=== PATIENT | female | born 1955 | race Caucasian/White ===

== ENCOUNTER 2023-03-27 11:27 | Outpatient (OUT) | payer MEDICARE, OTHER, SELFPAY ==
[2023-03-27 12:36] LABS: Estimated Average Glucose 148 mg/dL; Glycohemoglobin A1C 6.8 % (4.5-6.2)
[2023-03-27 13:57] LABS: Free T4 0.91 ng/dL (0.76-1.46)
[2023-03-27 14:03] LABS: Anion Gap 16.9; Calcium 9.8 mg/dL (8.5-10.1); Carbon Dioxide 26.6 mmol/L (21.0-32.0); Chloride 103 mmol/L (98-107); Estimated GFR (African America >60 (>=60); Estimated GFR (Non-African Ame >60 (>=60); Free T3 2.15 pg/mL (2.18-3.98); Glucose 171 mg/dL (74-106); Potassium 4.5 mmol/L (3.5-5.1); Sodium 142 mmol/L (136-145); Thyroid Stimulating Hormone 0.508 uIU/mL (0.358-3.740)
[2023-03-28 04:11] LABS: Triiodothyronine (T3) 148 ng/dL (71-180)
== END 2023-03-27 11:28 | disposition home or self-care (01) ==
LOC: LAB 11:33
PROVIDERS: PCP Family Medicine; Visit Provider Family Medicine
DX: E11.29 Type 2 diabetes mellitus with other diabetic kidney complication (principal); R80.9 Proteinuria, unspecified; E11.65 Type 2 diabetes mellitus with hyperglycemia; E87.6 Hypokalemia; G93.32 Myalgic encephalomyelitis/chronic fatigue syndrome; E07.81 Sick-euthyroid syndrome; E03.9 Hypothyroidism, unspecified
CPT/HCPCS: 36415; 80048; 83036; 84439; 84443; 84480; 84481; 84482

== ENCOUNTER 2023-04-18 13:48 | Outpatient (OUT) | payer MEDICARE, OTHER, SELFPAY ==
--- NOTE | 2023-04-18 | XR_ITS ---
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 There is hypertrophic osseous change off the posterior aspect of the os calcis at the attachment of the Achilles. There is mild first metatarsal phalangeal degenerative change. XR/XR foot LT min 3V IMPRESSION: Left foot radiographs show no evidence of acute abnormalities. Electronically authenticated by: NUPUR GARCIA Date: 04/19/2023 08:18
== END 2023-04-18 13:49 | disposition home or self-care (01) ==
LOC: RAD 13:48
PROVIDERS: PCP Family Medicine; Visit Provider Podiatrist Foot & Ankle Surgery
DX: M79.672 Pain in left foot (principal)
CPT/HCPCS: 73630

== ENCOUNTER 2024-12-25 22:07 | Emergency (ER) | payer MEDICARE, OTHER, SELFPAY ==
[2024-12-25 22:12] VITALS: BP 157/88; PULSE 80; TEMP 36.6; O2SAT 95; BMI 30.7
--- OUTSIDE RECORDS SUMMARY | 2024-12-25 22:13 | XMS_ITS | CCD ---
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 Name Role Phone TIFFANIE, DR PENA Admitting Unavailable HEMEYER, DR PENA Attending Unavailable HEMEYER, DR PENA Primary Care Unavailable HEMEYER, DR PENA Consulting Unavailable BUSTERYER, DR PENA Admitting Unavailable HEMEYER, DR PENA Attending Unavailable HEMEYER, DR PENA Primary Care Unavailable HEMEYER, DR PENA Consulting Unavailable BUSTERYER, DR PENA Admitting Unavailable HEMEYER, DR PENA Attending Unavailable HEMEYER, DR PENA Primary Care Unavailable HEMEYER, DR PENA Consulting Unavailable HEMEYER, DR PENA Admitting Unavailable HEMEYER, DR PENA Attending Unavailable BUSTERYER, DR PENA Primary Care Unavailable MD Louie Moreno Primary Care Provider [phone] THONY Smith Attending Provider MD Kobe Nur Attending Provider MD Louie Moreno Primary Care Provider [phone] MD Laverne Barlow Attending Provider MD Louie Moreno Attending Provider MD Louie Moreno Primary Care Provider MD Laverne Barlow Attending Provider Nery Mercado Unavailable THONY Mercado Attending Provider GINA Bellamy Attending Provider [phone] MD Louie Moreno Primary Care Provider THONY Mercado Attending Provider GINA Bellamy Attending Provider [phone] DIANELYS Maza Attending Provider [phone] oLuie Moreno MD Unavailable Louie Moreno MD Primary Care Provider [phone] Laverne Barlow MD Unavailable Unavailable Jose Martin RAGLAND, Christian Ochoa Unavailable [phone] Kobe Nur MD Unavailable Vincenzo Francois PT Unavailable Louie Moreno MD Unavailable [phone] Louie Moreno MD Primary Care Provider Louie Moreno MD Unavailable Louie Moreno MD Primary Care Provider [phone] Louie Moreno MD Primary Care Provider Kobe Nur MD Attending Provider [phone] Louie Moreno MD Primary Care Provider [phone] Kobe Nur MD Attending Provider [phone] Louie Moreno MD Primary Care Provider Kobe Nur MD Attending Provider [phone] Louie Moreno MD Primary Care Provider [phone] Vee Mcguire APRN Attending Provider Louie Moreno MD Attending Provider [phone] Louie Moreno MD Referring Provider [phone] Kobe Nur MD Unavailable Unavailable Louie Moreno MD Primary Care Provider [phone] LOUIE MORENO Attending Unavailable LOUIE MORENO Attending Unavailable LOUIE MORENO Attending Unavailable LOUIE MORENO Attending Unavailable LOUIE MORENO Attending Unavailable BRITNEY JEAN-BAPTISTE Attending Unavailable BRITNEY JEAN-BAPTISTE Referring Unavailable LOUIE MORENO Attending Unavailable LOUIE MORENO Attending Unavailable Velasquez RODRÍGUEZ-C, Shelli Gallo Attending Provider Louie Moreno Primary Care Unavailable Haladay, Kobe Admitting Unavailable Haladay, Kobe Attending Unavailable Louie Moreno Primary Care Unavailable Haladay, Kobe Admitting Unavailable Haladay, Kobe Attending Unavailable Louie Moreno Primary Care Unavailable Haladay, Kobe Admitting Unavailable Haladay, Kobe Attending Unavailable Louie Moreno Primary Care Unavailable Haladay, Kobe Attending Unavailable Boom, Kobe Admitting Unavailable Louie Moreno Attending Unavailable Louie Moreno Referring Unavailable Louie Moreno Admitting Unavailable Louie Moreno Primary Care Unavailable Velasquez, Shelli S Admitting Unavailable Velasquez, Shelli S Attending Unavailable Louie Moreno Primary Care Unavailable Petitti, Laverne A Admitting Unavailable Petitti, Laverne A Attending Unavailable Petitti, Laverne A Referring Unavailable Louie Moreno Primary Care Unavailable Allergies Allergy Classification Reported Allergen(s) Allergy Type Date of Onset Reaction(s) Facility (5 sources) Bacitracin / Neomycin / Polymyxin B Drug Allergy 6 anaphylaxis [facility] (13 sources) Penicillins Drug allergy (disorder) 6 Anaphylaxis [facility] (20 sources) Bacitracin; Translations: [bacitracin] Drug Allergy 1 Anaphylaxis [facility] (20 sources) Neomycin; Translations: [neomycin] Drug Allergy 1 anaphylaxis [facility] (20 sources) polymyxin B; Translations: [Polymyxin B] Allergy to substance 1 anaphylaxis [facility] (20 sources) Benzalkonium; Translations: [benzalkonium chloride] Drug Allergy 1 anaphylaxis [facility] Other (9 sources) Gramicidin; Translations: [gramicidin D] Drug Allergy 4 anaphylaxis [facility] (8 sources) Penicillin G Drug Allergy 4 anaphylaxis [facility] (20 sources) Gramicidin Drug Allergy 1 [facility] (20 sources) Penicillins Drug Intolerance 1 [facility] (1 source) Penicillin Drug Allergy 5 [facility] (1 source) Penicillins Drug allergy (disorder) [facility] Medications Current Medications Medication Drug Class(es) Dates Sig (Normalized) Sig (Original) amLODIPine 5 mg oral tablet (12 sources) Dihydropyridine Calcium Channel Anibal Start: 08-26-2020 take 1 tablet by mouth once daily Aspir-81 81 MG (3 sources) take 1 tablet by mouth once daily Aspir-81 81 MG 1 tablet Orally Once a day *please review for potential _update for e-prescription and drug interaction check* Active aspirin 81 mg chewable tablet (20 sources) Platelet Aggregation Inhibitor, Nonsteroidal Anti-inflammatory Drug Start: 07-06-2023 End: 07-05-2024 aspirin 81 MG chewable tablet Indications: Benign essential hypertension (CMS/HCC) Chew 1 tablet (81 mg) Daily 30 tablet 11 07/06/2023 07/05/2024 Active Start: 05-10-2020 take 1 tablet by mouth once da joe atorvastatin 20 mg oral tablet (20 sources) HMG-CoA Reductase Inhibitor Start: 05-31-2012 End: 01-19-2025 take 1 tablet by mouth once daily at bedtime baclofen 5 mg oral tablet (2 sources) gamma-Aminobutyric Acid-ergic Agonist Start: 11-26-2024 End: 12-26-2024 take 1 tablet by mouth in the morning baclofen (Lioresal) 5 MG tablet Indications: Trigeminal neuralgia of right side of face Take 1 tablet (5 mg) by mouth in the morning and in the evening 60 tablet 11/26/2024 12/26/2024 Active bisoprolol fumarate 5 mg oral tablet (15 sources) beta-Adrenergic Anibal Start: 05-10-2020 take 1 tablet by mouth once daily cholecalciferol 0.025 mg oral tablet (12 sources) Vitamin D Start: 05-10-2020 take 1 tablet by mouth once daily dapagliflozin 10 mg oral tablet (17 sources) Sodium-Glucose Cotransporter 2 Inhibitor Start: 07-23-2024 End: 01-19-2025 dapagliflozin (Farxiga) 10 MG Indications: Type 2 diabetes mellitus with stage 2 chronic kidney disease, without long-term current use of insulin (HCC) Take 1 tablet (10 mg) by mouth Daily 90 tablet 1 07/23/2024 01/19/2025 Active Start: 04-02-2024 End: 07-01-2024 dapagliflozin (Farxiga) 10 M G Indications: Type 2 diabetes mellitus with stage 2 chronic kidney disease, without long-term current use of insulin (CMS/HCC) Take 1 tablet (10 mg) by mouth Daily 90 tablet 04/02/2024 07/01/2024 Active diazePAM 5 mg oral tablet (2 sources) Benzodiazepine Start: 11-26-2024 take 1 tablet by mouth once diazePAM (Valium) 5 MG tablet Indications: Claustrophobia Take 1 tablet (5 mg) by mouth every 12 (twelve) hours if needed for anxiety for up to 1 day 2 tablet 11/26/2024 Active diclofenac sodium 75 mg delayed release oral tablet (20 sources) Nonsteroidal Anti-inflammatory Drug Start: 12-12-2017 End: 05-24-2025 take 1 tablet by mouth twice daily doxycycline monohydrate 100 mg oral capsule (3 sources) Tetracycline-class Drug Start: 02-07-2020 take 1 capsule by mouth every twelve hours erythromycin 20 mg/ml topical solution (3 sources) Macrolide, Macrolide Antimicrobial Start: 02-07-2020 Start: 02-07-2020 folic acid 1 mg oral tablet (3 sources) Start: 10-06-2024 golimumab (14 sources) Tumor Necrosis Factor Anibal Golimumab (SIMPONI S C) Inject under the skin See administration instructions Every other month Active Golimumab (SIMPO NI SC) Inject under the skin every 30 (thirty) days Active hydroCHLOROthiazide 12.5 mg / losartan potassium 100 mg oral tablet (20 sources) Thiazide Diuretic, Angiotensin 2 Receptor Anibal Start: 10-06-2024 Start: 07-23-2024 End: 01-19-2025 take 1 tablet by mouth once daily losartan-hydroCHLOROthiazide (Hyzaar) 100-12.5 MG tablet Indications: Primary hypertension Take 1 tablet by mouth Daily 90 tablet 1 07/23/2024 01/19/2025 Active Start: 10-03-2023 End: 07-01-2024 take 1 tablet by mouth once daily losartan-hydroCHLOROthiazide (Hyzaar) 100-12.5 MG tablet Indications: Primary hypertension (CMS/HCC) Take 1 tablet by mouth Daily 90 tablet 04/02/2024 07/01/2024 Active Start: 08-26-2020 take 1 tablet by luis once daily leflunomide 20 mg oral tablet (3 sources) Antirheumatic Agent take 1 tablet by mouth every twenty-four hours Leflunomide 20 MG 1 tablet Orally Once a day Active levothyroxine sodium 0.075 mg oral tablet (15 sources) l-Thyroxine Start: 05-10-19 Start: 05-10-2020 take 88 ug by mouth once daily Levothyroxine Active 88 MCG PO Daily May 10, 2020 12:00am Levothyroxine So dium Active metFORMIN hydrochloride 1000 mg / SITagliptin 50 mg oral tablet (20 sources) Biguanide, Dipeptidyl Peptidase 4 Inhibitor Start: 08-18-2024 End: 02-14-2025 Start: 10-03-2023 End: 07-01-2024 take 1 tablet by mouth in the morning SITagliptin-metFORMIN (Janumet) 50-1000 MG tablet Indications: Type 2 diabetes mellitus with microalbuminuria, without long-term current use of insulin (CMS/HCC) Take 1 tablet by mouth in the morning and 1 tablet before bedtime. 180 tablet 04/02/2024 07/01/2024 Active take 1 tablet by luis th every twelve hours Janumet 50-1000 MG 1 tablet with meals Orally Twice a day Active methotrexate 2.5 mg oral tablet (20 sources) Folate Analog Metabolic Inhibitor Start: 10-02-2023 1 ml methylPREDNISolone acetate 40 mg/ml injection (8 sources) Corticosteroid Start: 09-29-2024 End: 09-29-2024 methylPREDNISolone acetate (DEPO-Medrol) injection 40 mg Start: 09-29-2024 End: 09-29-2024 40 mg, Intra-articular, Once , On Sun09/29/24 at 1600, For 1 dose Start: 09-29-2024 End: 09-29-2024 methylPREDNISolone acetate ( DEPO-Medrol) injection 40 mg Start: 09-29-2024 End: 09-29-2024 40 mg, Intra-articular, Once , On Sun09/29/24 at 1600, For 1 dose Start: 09-29-2024 End: 09-29-2024 methylPREDNISolone acetate ( DEPO-Medrol) 40 MG/ML injection Indications: Acute pain of right shoulder , Rotator cuff syndrome of right shoulder Inject 1 mL (40 mg) into the joint 1 (one) time for 1 dose 1 mL 09/29/2024 09/29/2024 Discontinued nebivolol 10 mg oral tablet (20 sources) Start: 07-23-2024 End: 01-19-2025 take 1 tablet by mouth once daily nebivolol (Bystolic) 10 MG tablet Indications: Primary hypertension Take 1 tablet (10 mg) by mouth Daily 90 tablet 1 07/23/2024 01/19/2025 Active Start: 10-03-2023 End: 07-01-2024 take 1 tablet by mouth once daily nebivolol (Bystolic) 10 MG tablet Indications: Primary hypertension (CMS/HCC) Take 1 tablet (10 mg) by mouth Daily 90 tablet 04/02/2024 07/01/2024 Active take 1 tablet by luis th every twenty-four hours Nebivolol HCl 10 MG 1 tablet Orally Once a day Active omeprazole 20 mg delayed release oral tablet (20 sources) Proton Pump Inhibitor Start: 05-10-2020 take 1 tablet by mouth once daily ondansetron 4 mg disintegrating oral tablet (3 sources) Serotonin-3 Receptor Antagonist Start: 10-06-2024 take 1 tablet by mouth every eight hours as needed for nausea and vomiting microencapsulated potassium chloride 20 meq extended release oral tablet (20 sources) Start: 05-10-2020 End: 01-19-2025 take 1 tablet by mouth once daily take 1 dose by mouth once daily at mealtime Potassium Chloride 20 MEQ 1 packet with food Orally Once a day Active take 1 tablet by luis th once daily at mealtime predniSONE 5 mg oral tablet (15 sources) Start: 10-06-2024 Start: 10-02-2023 End: 09-17-2024 take 1 tablet by mouth every twenty-four hours as needed predniSONE (Deltasone) 5 MG tablet Take 5 mg by mouth Daily as needed 10/02/2023 09/17/2024 Discontinued (Therapy completed) terbinafine hydrochloride 10 mg/ml topical cream (7 sources) Allylamine Antifungal Start: 11-13-2024 terbinafine (LamISIL) 1 % cream Indications: Tinea pedis of left foot Apply topically in the morning and before bedtime. 42 g 1 11/13/2024 Active thyroid (snf) 60 mg oral tablet (20 sources) Start: 11-17-2024 End: 05-24-2025 take 1 tablet by mouth twice daily before mealtime thyroid ([employer] SAL[employer]OC[employer]ATE Thyroid) 60 MG tablet Indications: Euthyroid sick syndrome , Acquired hypothyroidism Take 1 tablet (60 mg) by mouth 2 (two) times a day before meals 180 tablet 1 11/25/2024 05/24/2025 Active Start: 10-02-2023 End: 09-16-2024 take 1 tablet by mouth in the morning thyroid ([employer] Thyroid) 60 MG tablet Indications: Euthyroid sick syndrome , Acquired hypothyroidism Take 1 tablet (60 mg) by mouth in the morning and 1 tablet (60 mg) in the evening. Take before meals. 180 tablet 1 03/20/2024 Active 1 ml tildrakizumab-asmn 100 mg/ml prefilled syringe (9 sources) Interleukin-23 Antagonist inject 100 mg by subcutaneous injection every three months tildrakizumab (Ilumya) 100 MG/ML injection Inject 100 mg under the skin every 3 (three) months. Active Tildrakizumab-asmn 100 MG/ML (3 sources) Tildrakizumab-as mn 100 MG/ML as directed Subcutaneous Active tiZANidine 4 mg oral capsule (3 sources) Central alpha-2 Adrenergic Agonist take 1 capsule by mouth every twelve hours tiZANidine HCl 4 MG 1 capsule as needed Orally two times a day for 30 days Active Completed/Discontinued Medications Medication Drug Class(es) Dates Sig (Normalized) Sig (Original) diphenhydrAMINE hydrochloride 25 mg oral tablet (19 sources) Histamine-1 Receptor Antagonist Start: 05-10-2020 End: 08-26-2020 take 1 tablet by mouth every six hours as needed Diphenhydramine Hcl 25 mg Tablet Discontinued 25 MG PO Q6H as needed for Itching May 10, 2020 1:00am August 26, 2020 9:18am End: 03-20-2024 take 1 tablet by mouth every eight hours as needed diphenhydrAMINE (Sominex) 25 MG tablet Take 25 mg by mouth every 8 (eight) hours if needed. 03/20/2024 Discontinued (Therapy completed) 0.5 ml dulaglutide 3 mg/ml auto-injector (4 sources) GLP-1 Receptor Agonist Start: 10-03-2023 End: 03-20-2024 dulaglutide (Trulicity) 1.5 MG/0.5ML solution pen-injector Indications: Type 2 diabetes mellitus with stage 2 chronic kidney disease, without long-term current use of insulin ([facility]) Inject 1.5 mg under the skin 1 (one) time per week 4 pen 10/03/2023 03/20/2024 Discontinued (Therapy completed) gabapentin 400 mg oral capsule (17 sources) Anti-epileptic Agent Start: 09-04-2024 End: 09-29-2024 gabapentin (Neurontin) 400 MG capsule Indications: Chronic left hip pain 1 capsule three times daily with 1 extra capsule per day using PRN 290 capsule 1 09/04/2024 09/29/2024 Discontinued (Therapy completed) Start: 09-18-2023 End: 06-19-2024 take 1 capsule by mouth in the morning, then take 1 capsule by mouth in the evening, then take 1 capsule by mouth at bedtime gabapentin (Neurontin) 400 MG capsule Indications: Chronic left hip pain Take 1 capsule (400 mg) by mouth in the morning and 1 capsule (400 mg) in the evening and 1 capsule (400 mg) before bedtime. 270 capsule 1 03/21/2024 06/19/2024 Active take 1 capsule by mo [facility] once daily Gabapentin 100 MG 1 capsule Orally 6x/d Active hydroCHLOROthiazide 25 mg oral tablet (15 sources) Thiazide Diuretic Start: 05-10-2020 End: 08-26-2020 take 1 tablet by mouth once daily Hydrochlorothiazide 25 mg tablet Discontinued 25 MG PO Daily May 10, 2020 1:00am August 26, 2020 9:19am liothyronine sodium 0.005 mg oral tablet (20 sources) l-Triiodothyr onine Start: 10-02-2023 End: 03-20-2024 liothyronine (Cytomel) 5 MCG tablet Indications: Euthyroid sick syndrome Take 1/2 tablet twice daily, PAN; Sigma or [employer] brand only 90 tablet 1 10/02/2023 03/20/2024 Discontinued (Therapy completed) Start: 08-26-2020 take 1 tablet by [facility] once daily Start: 05-10-2020 End: 08-26-2020 take 1 tablet by mouth twice daily Liothyronine 5 mcg tablet Discontinued 5 MCG PO Twice daily May 10, 2020 1:00am August 26, 2020 9:18am losartan potassium 50 mg oral tablet (15 sources) Angiotensin 2 Receptor Anibal Start: 03-11-2019 End: 10-06-2024 take 1 tablet by mouth once daily Losartan 50 mg tablet Discontinued 50 MG PO Daily May 10, 2020 1:00am October 06, 2024 3:08pm metFORMIN hydrochloride 1000 mg oral tablet (15 sources) Biguanide Start: 05-11-2019 End: 10-06-2024 take 1 tablet by mouth twice daily Metformin 1,000 mg tablet Discontinued 1000 MG PO Twice daily May 10, 2020 1:00am October 06, 2024 3:07pm OXcarbazepine 300 mg oral tablet (15 sources) Anti-epileptic Agent Start: 10-13-2024 End: 01-11-2025 OXcarbazepine (Trileptal) 300 MG tablet Indications: Trigeminal neuralgia of right side of face Take 1 tablet (300 mg) by mouth See administration instructions 2 tablets in AM and 3 tablets in evening 450 tablet 1 11/25/2024 11/27/2024 Discontinued Start: 09-29-2024 End: 10-29-2024 1 ml secukinumab 150 mg/ml prefilled syringe (15 sources) Interleukin-17A Antagonist Start: 05-10-2020 End: 08-26-2020 Secukinumab (Cosentyx) 150 mg/mL Syringe Discontinued 300 MG SUBCUT EVERY 4 WEEKS May 10, 2020 1:00am August 26, 2020 9:19am triamcinolone acetonide 1 mg/ml topical cream (4 sources) Corticosteroid End: 03-20-2024 triamcinolone (Kenalog) 0.1 % cream Apply topically 2 (two) times a day as needed. 03/20/2024 Discontinued (Therapy completed) Problems Active Problems Problem Classification Problem Date Documented Date Episodic/Chronic Administrative/social admission (2 sources) Advance directive discussed with patient; Translations: [Other specified counseling] 09-10-2024 Episodic Diabetes mellitus with complications (20 sources) Hyperglycemia due to type 2 diabetes mellitus; Translations: [Type 2 diabetes mellitus with hyperglycemia] Onset: 02-28-2019 Resolved: 07-05-2023 10-10-2022 Chronic Disorders of lipid metabolism (20 sources) Mixed hyperlipidemia; Translations: [Mixed hyperlipidemia] Onset: 10-10-2022 10-10-2022 Chronic Esophageal disorders (20 sources) Gastroesophageal reflux disease; Translations: [Gastro-esophageal reflux disease without esophagitis] Onset: 06-14-2015 Resolved: 07-04-2023 11-07-2022 Chronic Essential hypertension (20 sources) Hypertensive disorder; Translations: [Essential (primary) hypertension] Onset: 06-14-2015 Resolved: 01-01-2023 05-10-2020 Chronic Headache; including migraine (12 sources) Headache; Translations: [Headache] 05-10-2020 Episodic Malaise and fatigue (20 sources) Chronic fatigue, unspecified; Translations: [Chronic fatigue syndrome] Onset: 12-27-2017 Chronic Mycoses (2 sources) Tinea pedis; Translations: [Tinea pedis] 11-13-2024 Episodic Noninfectious gastroenteritis (4 sources) Gastroenteritis; Translations: [Noninfective gastroenteritis and colitis, unspecified] 10-06-2024 Episodic Osteoarthritis (20 sources) Osteoarthritis of left hip joint; Translations: [Unilateral primary osteoarthritis, left hip] Onset: 01-09-2023 01-09-2023 Chronic Other aftercare (20 sources) Polypharmacy ; Translations: [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] Onset: 10-10-2022 10-10-2022 Episodic Other and unspecified benign neoplasm (3 sources) Benign neoplasm of parathyroid gland; Translations: [Benign neoplasm of parathyroid gland] Episodic Other connective tissue disease (1 source) Neuralgia and neuritis, unspecified Episodic Other connective tissue disease (2 sources) Right rotator cuff syndrome; Translations: [Unspecified rotator cuff tear or rupture of right shoulder, not specified as traumatic] 09-29-2024 Episodic Other ear and sense organ disorders (6 sources) Decreased hearing ; Translations: [Unspecified hearing loss, right ear] Chronic Other eye disorders (20 sources) Bilateral posterior vitreous detachment; Translations: [Vitreous degeneration, bilateral] Onset: 10-10-2022 10-10-2022 Chronic Other hereditary and degenerative nervous system conditions (20 sources) Cerebral atrophy; Translations: [Degenerative disease of nervous system, unspecified] Onset: 10-10-2022 10-10-2022 Chronic Other inflammatory condition of skin (3 sources) Psoriasis; Translations: [Psoriasis, unspecified] Chronic Other inflammatory condition of skin (20 sources) Psoriatic arthritis; Translations: [Arthropathic psoriasis, unspecified] Onset: 10-10-2022 10-10-2022 Chronic Other inflammatory condition of skin (20 sources) Plaque psoriasis; Translations: [Psoriasis vulgaris] Onset: 10-10-2022 10-10-2022 Chronic Other inflammatory condition of skin (1 source) Distal interphalangeal psoriatic arthropathy; Translations: [Distal interphalangeal psoriatic arthropathy] Onset: 05-15-2024 Chronic Other inflammatory condition of skin (1 source) Psoriasis vulgaris; Translations: [Psoriasis vulgaris] Onset: 01-01-2024 Chronic Other nervous system disorders (20 sources) Nerve palsy; 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, left lower limb] Onset: 10-10-2022 Resolved: 01-01-2023 11-07-2022 Chronic Other nervous system disorders (8 sources) Right trigeminal neuralgia; Translations: [Trigeminal neuralgia] 09-29-2024 Episodic Other non-traumatic joint disorders (2 sources) Pain in right shoulder; Translations: [Pain in joint, shoulder region] 09-29-2024 Episodic Other nutritional; endocrine; and metabolic disorders (3 sources) Insulin resistance; Translations: [Metabolic syndrome] Chronic Other nutritional; endocrine; and metabolic disorders (20 sources) Hypercalcemia; Translations: [Hypercalcemia] Onset: 01-04-2021 11-07-2022 Chronic Other nutritional; endocrine; and metabolic disorders (3 sources) Body mass index 30+ - obesity; Translations: [Body mass index (BMI) 31.0-31.9, adult] Chronic Other nutritional; endocrine; and metabolic disorders (1 source) Body mass index (BMI) 31.0-31.9, adult Chronic Other nutritional; endocrine; and metabolic disorders (20 sources) Obesity caused by energy imbalance; Translations: [Other obesity due to excess calories] Onset: 10-10-2022 10-10-2022 Chronic Other screening for suspected conditions (not mental disorders or infectious disease) (7 sources) Patient encounter status; Translations: [Encounter for screening for other disorder] Onset: 11-05-2024 09-10-2024 Episodic Residual codes; unclassified (2 sources) Menopause present; Translations: [Asymptomatic menopausal state] 09-17-2024 Episodic Residual codes; unclassified (15 sources) Cardiovascular event risk; Translations: [Other specified personal risk factors, not elsewhere classified] Onset: 09-29-2024 09-29-2024 Episodic Screening and history of mental health and substance abuse codes (3 sources) Encounter for screening for depression; Translations: [Patient encounter status] Episodic Spondylosis; intervertebral disc disorders; other back problems (6 sources) 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; Translations: [Other cervical disc displacement, unspecified cervical region] Chronic Thyroid disorders (20 sources) Hypothyroidism, unspecified; Translations: [Acquired hypothyroidism] Onset: 11-10-2021 Chronic Thyroid disorders (20 sources) Sick-euthyroid syndrome; Translations: [Sick-euthyroid syndrome] Onset: 03-25-2019 Resolved: 07-05-2023 Episodic Past or Other Problems Problem Classification Problem Date Documented Da te Episodic/Chronic Acquired foot deformities (20 sources) Foot drop, left foot; Translations: [Left foot drop] Onset: 10-10-2022 Episodic Acute cerebrovascular disease (20 sources) Cerebral infarction due to embolism of cerebral arteries; Translations: [Cerebral infarction due to embolism of unspecified cerebral artery] Onset: 05-06-2020 Resolved: 07-05-2023 07-05-2023 Chronic Allergic reactions (20 sources) Allergy to food; Translations: [Allergy to other foods] Onset: 10-10-2022 10-10-2022 Episodic Anxiety disorders (20 sources) Phobia; 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, unspecified] Onset: 02-01-2023 Resolved: 04-03-2023 04-03-2023 Chronic Cataract (20 sources) After-cataract of bilateral eyes; Translations: [Other secondary cataract, bilateral] Onset: 10-10-2022 Resolved: 07-04-2023 07-04-2023 Chronic Diabetes mellitus without complication (20 sources) Type 2 diabetes mellitus without complication; Translations: [Type 2 diabetes mellitus without complications] Onset: 01-18-2020 Resolved: 04-03-2023 04-03-2023 Chronic Fluid and electrolyte disorders (20 sources) Hypokalemia; Translations: [Hypokalemia] Onset: 10-10-2022 Resolved: 07-04-2023 04-08-2023 Episodic Genitourinary symptoms and ill-defined conditions (20 sources) Microalbuminuria; Translations: [Proteinuria, unspecified] Onset: 10-10-2022 10-10-2022 Episodic Immunizations and screening for infectious disease (1 source) Encounter for screening for other viral diseases; Translations: [Encounter for screening for other viral diseases] Onset: 03-20-2024 Episodic Mood disorders (20 sources) Mood disorders Onset: 07-04-2023 Resolved: 09-17-2024 07-04-2023 Other aftercare (1 source) Other fci (current) drug therapy; Translations: [Other fci (current) drug therapy] Onset: 04-03-2024 Episodic Other nervous system disorders (20 sources) White matter disease; Translations: [White matter disease, unspecified] Onset: 10-10-2022 Resolved: 01-01-2023 07-05-2023 Episodic Other non-traumatic joint disorders (20 sources) Hip pain; Translations: [Pain in left hip] Onset: 01-09-2023 01-09-2023 Episodic Other nutritional; endocrine; and metabolic disorders (20 sources) Obese class I; Translations: [Obesity, unspecified] Onset: 11-07-2022 Resolved: 05-07-2023 05-07-2023 Chronic Other nutritional; endocrine; and metabolic disorders (20 sources) Cholesterol level - finding; Translations: [Lipoprotein deficiency] Onset: 10-10-2022 Resolved: 04-03-2023 04-03-2023 Chronic Other nutritional; endocrine; and metabolic disorders (20 sources) Lipoprotein deficiency disorder; Translations: [Lipoprotein deficiency] Onset: 01-18-2020 Resolved: 07-04-2023 07-04-2023 Chronic Other nutritional; endocrine; and metabolic disorders (20 sources) Obesity; Translations: [Obesity, unspecified] Onset: 04-09-2017 Resolved: 05-07-2023 05-07-2023 Chronic Other skin disorders (20 sources) Eruption; Translations: [Rash and other nonspecific skin eruption] Onset: 10-10-2022 Resolved: 04-03-2023 04-03-2023 Episodic Spondylosis; intervertebral disc disorders; other back problems (20 sources) Low back pain; Translations: [Low back pain] Onset: 01-09-2023 Resolved: 11-20-2024 Episodic Results Test Name Value Interpretation Reference Range Facility Alanine aminotransferase [En zymatic activity/volume] in Serum or PlasmaOrdered By: Shelli Eng on 12-09-2024 ALT [Catalytic activity/Vol] 38 U/L Normal 7-52 [facility] Comment on above: Performed By: #### C MP, CBC, ESR #### [facility] [address] [place] [address] [place] Albumin [Mass/volume] in Ser um or Plasma by Bromocresol green (BCG) dye binding methoOrdered By: Shelli Eng on 12-09-2024 Albumin BCG dye [Mass/Vol] 4.3 g/dL 3.5-5.7 [facility] Alkaline phosphatase [Enzyma tic activity/volume] in Serum or PlasmaOrdered By: Shelli Eng on 12-09-2024 ALP [Catalytic activity/Vol] 52 U/L Normal 34-104 [facility] Comment on above: Result Comment: PERF ORMED BY: [place] [address] PATHOLOGIST LICENSING OFFICER JERI GOVEA M.D. Performed By: #### C MP, CBC, ESR #### [place] [address] [place] Aspartate aminotransferase [ Enzymatic activity/volume] in Serum or PlasmaOrdered By: Shelli Eng on 12-09-2024 AST [Catalytic activity/Vol] 23 U/L Normal 13-39 [facility] Comment on above: Performed By: #### C MP, CBC, ESR #### [facility] [address] [place] [address] [place] Basophils [#/volume] in Bloo d by Automated countOrdered By: Shelli Eng on 12-09-2024 Basophils (Bld) [#/Vol] 0.0 10*3/uL Normal 0.0-0.2 [facility] Comment on above: Performed By: #### C MP, CBC, ESR #### [facility] [address] [place] [address] [place] Basophils/100 leukocytes in Blood by Automated countOrdered By: Shelli Eng on 12-09-2024 Basophils/100 WBC (Bld) 0.5 % Normal . [facility] Comment on above: Performed By: #### C MP, CBC, ESR #### [facility] [address] Bilirubin.total [Mass/volume ] in Serum or PlasmaOrdered By: Shelli Eng on 12-09-2024 Bilirubin [Mass/Vol] 0.5 mg/dL Normal 0.3-1.0 [facility] Comment on above: Performed By: #### C MP, CBC, ESR #### [facility] [address] Calcium [Mass/volume] in Ser um or PlasmaOrdered By: Shelli Eng on 12-09-2024 Calcium [Mass/Vol] 10.0 mg/dL Normal 8.6-10.3 [facility] Comment on above: Performed By: #### C MP, CBC, ESR #### [address] Carbon dioxide, total [Moles /volume] in Serum or PlasmaOrdered By: Shelli Eng on 12-09-2024 CO2 [Moles/Vol] 26.7 mmol/L Normal 21.0-31.0 [facility] Comment on above: Performed By: #### C MP, CBC, ESR #### [address] Chloride [Moles/volume] in S lissa or PlasmaOrdered By: Shelli Eng on 12-09-2024 Chloride [Moles/Vol] 104 mmol/L Normal 98-107 [facility] Comment on above: Performed By: #### C MP, CBC, ESR #### [address] Complete Blood Count Auto Di ffon 12-09-2024 Mean Corpuscular HGB Conc 33.1 g/dL Normal 32.0-35.0 [facility] Comment on above: Performed By: #### C MP, CBC, ESR #### [address] NRBC% 0.0 /100{WBC} Normal 0-0.5 [facility] Comment on above: Performed By: #### C MP, CBC, ESR #### [address] White Blood Count 7.1 [CFU]/mL Normal 3.8-11.6 [facility] Comment on above: Performed By: #### C MP, CBC, ESR #### [address] Comprehensive Metabolic Pane eran 12-09-2024 Albumin [Mass/Vol] 4.3 g/dL Normal 3.5-5.7 [facility] Comment on above: Performed By: #### C MP, CBC, ESR #### [place] [address] [place] GFR/1.73 sq M.predicted MDRD (S/P/Bld) [Vol rate/Area] mL/min/{1.73_m2} Normal [facility] Comment on above: Performed By: #### C MP, CBC, ESR #### [address] Creatinine [Mass/volume] in Serum or PlasmaOrdered By: Shelli Eng on 12-09-2024 Creatinine [Mass/Vol] 0.79 mg/dL Normal 0.60-1.20 [facility] Comment on above: Performed By: #### C MP, CBC, ESR #### [address] Eosinophils [#/volume] in Bl ood by Automated countOrdered By: Shelli Eng on 12-09-2024 Eosinophils (Bld) [#/Vol] 0.4 10*3/uL Normal 0.0-0.45 [facility] Comment on above: Performed By: #### C MP, CBC, ESR #### [place] [address] [place] Eosinophils/100 leukocytes i n Blood by Automated countOrdered By: Shelli Eng on 12-09-2024 Eosinophils/100 WBC (Bld) 5.3 % Normal . [facility] Comment on above: Performed By: #### C MP, CBC, ESR #### [place] [address] [place] Erythrocyte Sedimentation Ra erin 12-09-2024 ESR (Bld) [Velocity] 4 mm/h Normal 0-29 [facility] Comment on above: Result Comment: PERF ORMED BY: [place] [address] PATHOLOGIST LICENSING OFFICER JERI GOVEA M.D. Performed By: #### C MP, CBC, ESR #### [facility] [address] [place] [address] Erythrocyte distribution wid th [Ratio] by Automated countOrdered By: Shelli Eng on 12-09-2024 Erythrocyte distribution width (RBC) [Ratio] 16.1 % High 11.9-15.3 [facility] Comment on above: Performed By: #### C MP, CBC, ESR #### [facility] [address] Erythrocyte sedimentation ra te by Photometric methodOrdered By: Shelli Eng on 12-09-2024 ESR Photometric method (Bld) [Velocity] 4 mm/hr 0-29 [facility] Erythrocytes [#/volume] in B lood by Automated countOrdered By: Shelli Eng on 12-09-2024 RBC (Bld) [#/Vol] 4.27 10*6/uL Normal 3.60-5.00 [facility] Comment on above: Performed By: #### C MP, CBC, ESR #### [facility] [address] [place] [address] Glucose [Mass/volume] in Ser um or PlasmaOrdered By: Shelli Eng on 12-09-2024 Glucose [Mass/Vol] 189 mg/dL High 70-100 [facility] Comment on above: ADA recommended refe rence rangeRandom Glucose Reference Range is dependent on time and content of last meal. Glucose of more than 200 mg/dL in a nonstressed, ambulatory subject supports the diagnosis of Diabetes Mellitus. Result Comment: [place] om Glucose Reference Range is dependent on time and content of last meal. Glucose of more than 200 mg/dL in a nonstressed, ambulatory subject supports the diagnosis of Diabetes Mellitus. ADA recommended reference range Performed By: #### C MP, CBC, ESR #### [facility] [address] Hematocrit [Volume Fraction] of Blood by Automated countOrdered By: Shelli Eng on 12-09-2024 Hematocrit (Bld) [Volume fraction] 39.7 % Normal 34.0-46.4 [facility] Comment on above: Performed By: #### C MP, CBC, ESR #### [address] Hemoglobin [Mass/volume] in BloodOrdered By: Shelli Eng on 12-09-2024 Hemoglobin (Bld) [Mass/Vol] 13.1 g/dL Normal 11.8-15.4 [facility] Comment on above: Performed By: #### C MP, CBC, ESR #### [address] Leukocytes [#/volume] correc maricel for nucleated erythrocytes in Blood by Automated counOrdered By: Shelli Eng on 12-09-2024 WBC corrected for nucl RBC Auto (Bld) [#/Vol] 7.1 10*3/uL 3.8-11.6 [facility] Leukocytes [#/volume] in Blo od by Automated countOrdered By: Shelli Eng on 12-09-2024 WBC (Bld) [#/Vol] 7.1 10*3/uL Normal 3.8-11.6 [facility] Comment on above: Performed By: #### C MP, CBC, ESR #### [facility] [address] [place] [address] [place] Lymphocytes [#/volume] in Bl ood by Automated countOrdered By: Shelli Eng on 12-09-2024 Lymphocytes (Bld) [#/Vol] 2.3 10*3/uL Normal 1.00-4.8 [facility] Comment on above: Performed By: #### C MP, CBC, ESR #### [place] [address] [place] Lymphocytes/100 leukocytes i n Blood by Automated countOrdered By: Shelli Eng on 12-09-2024 Lymphocytes/100 WBC (Bld) 32.8 % Normal . [facility] Comment on above: Performed By: #### C MP, CBC, ESR #### [address] MCH [Entitic mass] by Automa maricel countOrdered By: Shelli Eng on 12-09-2024 MCH (RBC) [Entitic mass] 30.8 pg Normal 24.7-34.3 [facility] Comment on above: Performed By: #### C MP, CBC, ESR #### [address] MCHC Auto (RBC) [Mass/Vol]Or dered By: Shelli Eng on 12-09-2024 MCHC (RBC) [Mass/Vol] 33.1 g/dL 32.0-35.0 [facility] MCV [Entitic volume] by Auto mated countOrdered By: Shelli Eng on 12-09-2024 MCV (RBC) [Entitic vol] 93.0 fL Normal 80-100 [facility] Comment on above: Performed By: #### C MP, CBC, ESR #### [address] Monocytes [#/volume] in Bloo d by Automated countOrdered By: Shelli Eng on 12-09-2024 Monocytes (Bld) [#/Vol] 0.3 10*3/uL Normal 0.0-0.8 [facility] Comment on above: Performed By: #### C MP, CBC, ESR #### [facility] [address] [place] [address] Monocytes/100 leukocytes in Blood by Automated countOrdered By: Shelli Eng on 12-09-2024 Monocytes/100 WBC (Bld) 4.6 % Normal . [facility] Comment on above: Performed By: #### C MP, CBC, ESR #### [address] Neutrophils [#/volume] in Bl ood by Automated countOrdered By: Shelli Eng on 12-09-2024 Neutrophils (Bld) [#/Vol] 4.0 10*3/uL Normal 1.8-7.7 [facility] Comment on above: Performed By: #### C MP, CBC, ESR #### [facility] [address] [place] [address] [place] Neutrophils/100 leukocytes i n Blood by Automated countOrdered By: Shelli Eng on 12-09-2024 Neutrophils/100 WBC (Bld) 56.8 % Normal . [facility] Comment on above: Performed By: #### C MP, CBC, ESR #### [facility] [address] No Panel InformationOrdered By: Shelli Eng on 12-09-2024 Estimated GFR (CKD-EPI) > 60.0 mL/Min [facility] Creatinine Clearance (Chem N/A [facility] Nucleated erythrocytes [Pres ence] in Blood by Automated countOrdered By: Shelli Eng on 12-09-2024 Nucleated RBC Auto Ql (Bld) 0.0 /100{WBC} 0-0.5 [facility] Platelet mean volume [Entiti c volume] in Blood by Automated countOrdered By: Shelli Eng on 12-09-2024 Platelet mean volume (Bld) [Entitic vol] 8.1 fL Normal 6.3-10.7 [facility] Comment on above: Performed By: #### C MP, CBC, ESR #### [facility] [address] [place] [address] [place] Platelets [#/volume] in Bloo d by Automated countOrdered By: Shelli Eng on 12-09-2024 Platelets (Bld) [#/Vol] 314 10*3/uL Normal 150-450 [facility] Comment on above: Performed By: #### C MP, CBC, ESR #### [facility] [address] [place] [address] [place] Potassium [Moles/volume] in Serum or PlasmaOrdered By: Shelli Eng on 12-09-2024 Potassium [Moles/Vol] 3.7 mmol/L Normal 3.5-5.1 [facility] Comment on above: Performed By: #### C MP, CBC, ESR #### [facility] [address] [place] [address] [place] Protein [Mass/volume] in Ser um or PlasmaOrdered By: Shelli Eng on 12-09-2024 Protein [Mass/Vol] 6.9 g/dL Normal 6.4-8.9 [facility] Comment on above: Performed By: #### C MP, CBC, ESR #### [address] Serum globulin measurement b y calculation (mass/volume)Ordered By: Shelli Eng on 12-09-2024 Globulin (S) [Mass/Vol] 2.6 g/dL Normal [facility] Comment on above: Performed By: #### C MP, CBC, ESR #### [address] Serum or plasma albumin/glob ulin mass ratioOrdered By: Shelli Eng on 12-09-2024 Albumin/Globulin [Mass ratio] 1.7 {ratio} [facility] Comment on above: Performed By: #### C MP, CBC, ESR #### [address] Serum or plasma anion gap de terminationOrdered By: Shelli Eng on 12-09-2024 Anion gap [Moles/Vol] 13.0 mmol/L Normal 6.0-15.0 [facility] Comment on above: Performed By: #### C MP, CBC, ESR #### [address] Sodium [Moles/volume] in Ser um or PlasmaOrdered By: Shelli Eng on 12-09-2024 Sodium [Moles/Vol] 140 mmol/L Normal 136-145 [facility] Comment on above: Performed By: #### C MP, CBC, ESR #### [facility] [address] [place] [address] Urea nitrogen [Mass/volume] in Serum or PlasmaOrdered By: Shelli Eng on 12-09-2024 Urea nitrogen [Mass/Vol] 17 mg/dL Normal 7-25 [facility] Comment on above: Performed By: #### C MP, CBC, ESR #### [address] [place] [address] [facility] MR BRAIN W AND WO CONTRAST ( ROUTINE)on 12-03-2024 MR BRAIN W AND WO CONTRAST (ROUTINE) EXAM: MR BRAIN W AND WO CONTRAST (ROUTINE) History: Right trigeminal neuralgia Technique: Multiplanar multisequence MRI of the brain was performed without and with contrast including thin slice pre and postcontrast imaging through proximal cranial nerve V. Comparison: None available Findings: Areas of hyperintense T2/FLAIR signal within the bilateral supratentorial white matter are nonspecific but are most likely due to chronic small vessel ischemic changes in a patient of this age. Prominence of the sulci and ventricles compatible with mild generalized parenchymal volume loss. No edema, hemorrhage, mass, mass effect, midline shift, or abnormal extra-axial fluid collection. Midline structures are within normal limits. The posterior fossa is within normal limits. There is no diffusion restriction. No susceptibility artifact is identified on the gradient echo sequence. The major intracranial vascular flow voids are maintained. Cranial nerve 7/8 complexes appear grossly unremarkable. Normal signal and morphology of the bilateral cisternal fifth cranial nerves through Meckel's cave. The right posterior inferior cerebellar artery appears in very close proximity to and may abut the cisternal portion of the right 5th cranial nerve however there is no displacement of the nerve. No pathologic enhancement. Mild paranasal sinus mucosal thickening. The bilateral mastoid air cells are clear. IMPRESSION: The right posterior inferior cerebellar artery appears in very close proximity to and may abut the cisternal portion of the right 5th cranial nerve however there is no displacement of the nerve. Generalized parenchymal volume loss and nonspecific white matter findings most compatible with chronic small vessel ischemic changes in a patient of this age. ELECTRONICALLY SIGNED BY: Kobe Mortensen DO Normal Not Available MM screening mammo BI w/CADo n 11-05-2024 MM screening mammo BI w/CAD [facility] [address] [place] [address] [address] [place] [address] Mammography Report Signed Patient: Rocio Welsh MR#: [id number] : 1955 Acct:[id number] Age/Sex: 69 / F Adm Date: 11/05/24 Loc: [place] Room: [facility] Attending Dr: Louie Moreno MD Ordering Provider: Louie Moreno MD Date of Service: 11/05/24 Procedure(s): MM screening mammo BI w/CAD Accession Number(s): ([id number]) MM/MM screening mammo BI w/CAD: screen breast ca Copies to: Louie Moreno MD CLINICAL DATA: Screening for malignancy. BILATERAL SCREENING MAMMOGRAMS - FULL FIELD DIGITAL WITH TOMOSYNTHESIS AND CAD Tomosynthesis craniocaudal and mediolateral oblique views of both breasts were obtained using low- dose digital technique. Comparison is made to prior studies from 08/29/2023, 02/03/2021, and 02/03/2020. This examination was reviewed with the aid of CAD. The breast parenchyma has been largely replaced by fat. Benign-appearing lymph nodes are noted along the chest wall. Benign-appearing calcifications are present. There are no dominant masses, typically malignant calcifications or architectural distortion. There has been no significant interval change. MM/MM screening mammo BI w/CAD IMPRESSION: NO MAMMOGRAPHIC EVIDENCE OF MALIGNANCY. ROUTINE FOLLOW-UP IS RECOMMENDED IN ONE YEAR. RESULT CODE: 2 Benign Findings(s) DENSITY CODE: 1 (<25% glandular) The breasts are almost entirely fatty. FOLLOW UP: 1YR The false-negative rate of mammography is approximately 10-percent. Management of a palpable abnormality must be based on clinical grounds. Patient was entered into a reminder system with a target due date for the next mammogram. Impression dictated by: Tay Martinez M.D. 11/05/2024 3:52 PM Dictation Location: [facility] Dictated By: Tay Martinez II, MD 11/05/24 1550 Signed By: 11/05/24 1552 Normal [facility] Mammography reportOrdered By : Tay Martinez on 11-05-2024 Diagnostic imaging study [facility] [address] [place] [address] Mammography Report Signed Patient: Rocio Welsh MR#: [id number] : 1955 Acct:[id number] Age/Sex: 69 / F Adm Date: 5 Loc: [place] Room: [facility] Attending Dr: Louie Moreno MD Ordering Provider: Louie Moreno MD Date of Service: 11/05/24 Procedure(s): MM screening mammo BI w/CAD Accession Number(s): ([id number]) MM/MM screening mammo BI w/CAD: screen breastca Copies to: Louie Moreno MD~ CLINICAL DATA: Screening for malignancy. BILATERAL SCREENING MAMMOGRAMS - FULL FIELD DIGITAL WITH TOMOSYNTHESIS AND CAD Tomosynthesis craniocaudal and mediolateral oblique views of both breasts were obtained using low-dose digital technique. Comparison is made to prior studies from 08/29/2023, 02/03/2021, and 02/03/2020. This examination was reviewed with theaid of CAD. The breast parenchyma has been largely replaced by fat. Benign-appearing lymph nodes are noted along the chest wall. Benign-appearing calcifications are present. There are no dominant masses, typically malignant calcifications or architectural distortion. There has been no significant interval change. MM/MM screening mammo BI w/CAD IMPRESSION: NO MAMMOGRAPHIC EVIDENCE OF MALIGNANCY. ROUTINE FOLLOW-UP IS RECOMMENDED IN ONE YEAR. RESULT CODE: 2 Benign Findings(s) DENSITY CODE: 1 (<25% glandular) The breasts are almost entirely fatty. FOLLOW UP: 1YR The false-negative rate of mammography is approximately 10-percent. Management of a palpable abnormality must be based on clinical grounds. Patient was entered into a reminder system with a target due date for the next mammogram. Impression dictated by: Tay Martinez M.D. 11/05/2024 3:52 PM Dictation Location: [facility] Dictated By: Tay Martinez II, MD 11/05/24 155 Signed By: 11/05/24 [facility] Work Phone: T3 REVERSE, LC/MS/MSon 09-11 T3 REVERSE, LC/MS/MS 16 ng/dL Normal 8-25 [facility] Comment on above: Result Comment: This test was developed and its analytical performance characteristics have been determined by [place]. It has not been cleared or approved by the U.S. Food and Drug Administration. This assay has been validated pursuant to the CLIA regulations and is used for clinical purposes. Performed By: #### 6 399, [id number], 809, 375 #### [facility] [place] [address] Field Supervisor [employer]: Shiva Byrd MD T3, FREEon 09-11-2024 Free T3 [Mass/Vol] 3.2 pg/mL Normal 2.3-4.2 [facility] Comment on above: Performed By: #### 6 399, [id number], 809, 375 #### [facility] [place] [address] Field Supervisor [employer]: Shiva Byrd MD T3, TOTALon 09-11-2024 T3, TOTAL 123 ng/dL Normal 76-181 [facility] Comment on above: Performed By: #### 6 399, [id number], 809, 375 #### [facility] [place] [address] Field Supervisor [employer]: Shiva Byrd MD T4, FREE 09-11-2024 Free T4 [Mass/Vol] 1.2 ng/dL Normal 0.8-1.8 [facility] Comment on above: Performed By: #### 6 399, 55028, 809, 375 #### [facility] [place] [address] Field Supervisor [employer]: Shiva Byrd MD TSHon 09-11-2024 TSH Qn 0.42 m[IU]/L Normal 0.40-4.50 [facility] Comment on above: Performed By: #### 6 399, 45390, 809, 375 #### [facility] [place] [address] [employer] Supervisor [employer]: Shiva Byrd MD COMPREHENSIVE METABOLIC PANE [facility] 09-09-2024 Albumin [Mass/Vol] 4.5 g/dL Normal 3.6-5.1 [facility] Comment on above: Performed By: #### 6 399, 00331, 809, 375 #### [facility] [place] [address] [employer] Supervisor [employer]: Shiva Byrd MD Albumin/Globulin [Mass ratio] 1.8 {ratio} Normal 1.0-2.5 [facility] Comment on above: Performed By: #### 6 399, 31180, 809, 375 #### [facility] [place] [address] [employer] Supervisor [employer]: Shiva Byrd MD ALP [Catalytic activity/Vol] 51 U/L Normal 37-153 [facility] Comment on above: Performed By: #### 6 399, 18269, 809, 375 #### [facility] of [address], [address] [place] [address] Field Supervisor [employer]: Shiva Byrd MD ALT [Catalytic activity/Vol] 29 U/L Normal 6-29 [facility] Comment on above: Performed By: #### 6 399, 13351, 809, 375 #### [facility] [place] [address] Field Supervisor [employer]: Shiva Byrd MD AST [Catalytic activity/Vol] 18 U/L Normal 10-35 [facility] Comment on above: Performed By: #### 6 399, 09763, 809, 375 #### [facility] [place] [address] Field Supervisor [employer]: Shiva Byrd MD Bilirubin [Mass/Vol] 0.7 mg/dL Normal 0.2-1.2 [facility] Comment on above: Performed By: #### 6 399, 54808, 809, 375 #### [facility] [place] [address] [employer] Supervisor [employer]: Shiva Byrd MD BUN/CREATININE RATIO SEE NOTE: Normal 6-22 [facility] Comment on above: Result Comment: Not Reported: BUN and Creatinine are within reference range. Performed By: #### 6 399, [id number], 809, 375 #### [facility] [place] [address] Field Supervisor [employer]: Shiva Byrd MD Calcium [Mass/Vol] 10.4 mg/dL Normal 8.6-10.4 [facility] Comment on above: Performed By: #### 6 399, [id number], 809, 375 #### [facility] [address], [address] [place] [address] Field Supervisor [employer]: Shiva Byrd MD Chloride [Moles/Vol] 105 mmol/L Normal 98-110 [facility] Comment on above: Performed By: #### 6 399, [id number], 809, 375 #### [facility] of [address], [address] [place] [address] Field Supervisor [employer]: Shiva Byrd MD CO2 [Moles/Vol] 27 mmol/L Normal 20-32 [facility] Comment on above: Performed By: #### 6 399, 56362, 809, 375 #### [facility] of [place] [address] Field Supervisor [employer]: Shiva Byrd MD Creatinine [Mass/Vol] 0.72 mg/dL Normal 0.60-1.00 [facility] Comment on above: Performed By: #### 6 399, 37353, 809, 375 #### [facility] [place] [address] Field Supervisor [employer]: Shiva Byrd MD GFR/1.73 sq M.predicted among non-blacks MDRD (S/P/Bld) [Vol rate/Area] 90 mL/min/{1.73_m2} Normal > OR = 60 [facility] Comment on above: Performed By: #### 6 399, 66062, 809, 375 #### [facility] [place] [address] Field Supervisor [employer]: Shiva Byrd MD Globulin (S) [Mass/Vol] 2.5 g/dL Normal 1.9-3.7 [facility] Comment on above: Performed By: #### 6 399, 13642, 809, 375 #### [facility] of [place] [address] Field Supervisor [employer]: Shiva Byrd MD Glucose [Mass/Vol] 141 mg/dL High 65-99 [facility] Comment on above: Result Comment: Fasting reference interval For someone without known diabetes, a glucose value >125 mg/dL indicates that they may have diabetes and this should be confirmed with a follow-up test. Performed By: #### 6 399, 90926, 809, 375 #### [facility] [place] [address] Field Supervisor [employer]: Shiva Byrd MD Potassium [Moles/Vol] 4.3 mmol/L Normal 3.5-5.3 [facility] Comment on above: Performed By: #### 6 399, 11398, 809, 375 #### [facility] [place] [address] Field Supervisor [employer]: Shiva Byrd MD Protein [Mass/Vol] 7.0 g/dL Normal 6.1-8.1 [facility] Comment on above: Performed By: #### 6 399, 06430, 809, 375 #### [facility] [place] [address] Field Supervisor [employer]: Shiva Byrd MD Sodium [Moles/Vol] 141 mmol/L Normal 135-146 [facility] Comment on above: Performed By: #### 6 399, 98399, 809, 375 #### [facility] [place] [address] Field Supervisor [employer]: Shiva Byrd MD Urea nitrogen [Mass/Vol] 17 mg/dL Normal 7-25 [facility] Comment on above: Performed By: #### 6 399, 75297, 809, 375 #### [facility] [place] [address] Field Supervisor [employer]: Shiva Byrd MD LIPID PANEL, [facility] 08-28 Cholesterol [Mass/Vol] 133 mg/dL Normal <200 [facility] Comment on above: Performed By: #### 6 399, 26106, 809, 375 #### [facility] [place] [address] Field Supervisor [employer]: Shiva Byrd MD Cholesterol in HDL [Mass/Vol] 38 mg/dL Low > OR = 50 [facility] Comment on above: Performed By: #### 6 399, 17034, 809, 375 #### [facility] [place] [address] Field Supervisor [employer]: Shiva Byrd MD Cholesterol in LDL [Mass/Vol] 68 mg/dL Normal [facility] Comment on above: Result Comment: Refe rence range: <100 Desirable range <100 mg/dL for primary prevention; <70 mg/dL for patients with CHD or diabetic patients with > or = 2 CHD risk factors. LDL-C is now calculated using the Yola calculation, which is a validated novel method providing better accuracy than the Friedewald equation in the estimation of LDL-C. Dixon SS et al. GERALDINE. 2013;310(19): 5543-6641 (http://education.Surgimatix/faq/LTC040) Performed By: #### 6 399, 45511, 809, 375 #### [facility] [place] [address] Field Supervisor [employer]: Shiva Byrd MD Cholesterol.total/Cho lesterol in HDL [Mass ratio] 3.5 {ratio} Normal <5.0 [facility] Comment on above: Performed By: #### 6 399, 12810, 809, 375 #### [facility] [place] [address] Field Supervisor [employer]: Shiva Byrd MD NON HDL CHOLESTEROL 95 mg/dL (calc) Normal <130 [facility] Comment on above: Result Comment: For patients with diabetes plus 1 major ASCVD risk factor, treating to a non-HDL-C goal of <100 mg/dL (LDL-C of <70 mg/dL) is considered a therapeutic option. Performed By: #### 6 399, 44935, 809, 375 #### [facility] [place] [address] Field Supervisor [employer]: Shiva Byrd MD Triglyceride [Mass/Vol] 208 mg/dL High <150 [facility] Comment on above: Result Comment: If a non-fasting specimen was collected, consider repeat triglyceride testing on a fasting specimen if clinically indicated. Nayana et al. J. of Clin. Lipidol. 2015;9:129-169. Performed By: #### 6 399, 81319, 809, 375 #### [facility] [address], [address] [place], [place] [id number] Field Supervisor [employer]: Shiva Byrd MD HEMOGLOBIN A1con 07-17-2024 HEMOGLOBIN A1c 6.8 % of total Hgb High <5.7 [facility] Comment on above: Result Comment: For someone without known diabetes, a hemoglobin A1c value of 6.5% or greater indicates that they may have diabetes and this should be confirmed with a follow-up test. For someone with known diabetes, a value <7% indicates that their diabetes is well controlled and a value greater than or equal to 7% indicates suboptimal control. A1c targets should be individualized based on duration of diabetes, age, comorbid conditions, and other considerations. Currently, no consensus exists regarding use of hemoglobin A1c for diagnosis of diabetes for children. Performed By: #### 4 96 #### [facility] [address], [address] [place] [id number] Field Supervisor [employer]: Shiva Byrd MD Alanine aminotransferase [En zymatic activity/volume] in Serum or PlasmaOrdered By: Kobe Nur on 07-15-2024 ALT [Catalytic activity/Vol] Alanine aminotransferase [Enzymatic activity/volume] in Serum or Plasma 752 [facility] Albumin [Mass/volume] in Ser um or Plasma by Bromocresol green (BCG) dye binding methoOrdered By: Kobe Nur on 07-15-2024 Albumin BCG dye [Mass/Vol] Albumin [Mass/volume] in Serum or Plasma by Bromocresol green (BCG) dye binding metho 3.5-5.7 [facility] Alkaline phosphatase [Enzyma tic activity/volume] in Serum or PlasmaOrdered By: Kobe Nur on 07-15-2024 ALP [Catalytic activity/Vol] Alkaline phosphatase [Enzymatic activity/volume] in Serum or Plasma 34-104 [facility] Aspartate aminotransferase [ Enzymatic activity/volume] in Serum or PlasmaOrdered By: Kobe Nur on 03-18-2025 AST [Catalytic activity/Vol] Aspartate aminotransferase [Enzymatic activity/volume] in Serum or Plasma 13-39 [facility] Basophils Auto (Bld) [#/Vol] Ordered By: Kobe Nur on 07-15-2024 Basophils (Bld) [#/Vol] Automated basophil count 0.0-0.2 [facility] Basophils/100 WBC Auto (Bld) Ordered By: Kobe Nur on 07-15-2024 Basophils/100 WBC (Bld) Automated basophil % . [facility] Bilirubin.direct [Mass/volum e] in Serum or PlasmaOrdered By: Kobe Nur on 07-15-2024 Bilirubin.direct [Mass/Vol] Bilirubin.direct [Mass/volume] in Serum or Plasma 0.03-0.18 [facility] Bilirubin.total [Mass/volume ] in Serum or PlasmaOrdered By: Kobe Nur on 07-15-2024 Bilirubin [Mass/Vol] Bilirubin.total [Mass/volume] in Serum or Plasma 0.3-1.0 [facility] Complete Blood Count Auto Di ffon 07-15-2024 Basophils (Bld) [#/Vol] 0.1 10*3/uL Normal 0.0-0.2 [facility] Comment on above: Performed By: #### [facility] #### [address] Basophils/100 WBC (Bld) 0.9 % Normal . [facility] Comment on above: Performed By: #### [facility] #### [facility] [address] [place] [address] [place] Eosinophils (Bld) [#/Vol] 0.8 10*3/uL High 0.0-0.45 [facility] Comment on above: Performed By: #### [facility] #### [facility] [address] [place] [address] [place] Eosinophils/100 WBC (Bld) 9.5 % Normal . [facility] Comment on above: Performed By: #### [facility] #### [address] Erythrocyte distribution width (RBC) [Ratio] 15.4 % High 11.9-15.3 [facility] Comment on above: Performed By: #### [facility] #### [address] Hematocrit (Bld) [Volume fraction] 38.0 % Normal 34.0-46.4 [facility] Comment on above: Performed By: #### [facility] #### [address] Hemoglobin (Bld) [Mass/Vol] 12.7 g/dL Normal 11.8-15.4 [facility] Comment on above: Performed By: #### [facility] #### [address] Lymphocytes (Bld) [#/Vol] 2.8 10*3/uL Normal 1.00-4.8 [facility] Comment on above: Performed By: #### [facility] #### [address] Lymphocytes/100 WBC (Bld) 35.1 % Normal . [facility] Comment on above: Performed By: #### [facility] #### [address] MCH (RBC) [Entitic mass] 31.4 pg Normal 24.7-34.3 [facility] Comment on above: Performed By: #### [facility] #### [address] MCV (RBC) [Entitic vol] 93.9 fL Normal 80-100 [facility] Comment on above: Performed By: #### A [facility] e[facility] #### [address] Mean Corpuscular HGB Conc 33.5 g/dL Normal 32.0-35.0 [facility] Comment on above: Performed By: #### A [facility] e[facility] #### [address] Monocytes (Bld) [#/Vol] 0.8 10*3/uL Normal 0.0-0.8 [facility] Comment on above: Performed By: #### [facility] #### [place] [address] [place] Monocytes/100 WBC (Bld) 9.8 % Normal . [facility] Comment on above: Performed By: #### A [facility] e[facility] #### [place] [address] [place] Neutrophils (Bld) [#/Vol] 3.6 10*3/uL Normal 1.8-7.7 [facility] Comment on above: Performed By: #### [facility] #### [address] Neutrophils/100 WBC (Bld) 44.7 % Normal . [facility] Comment on above: Performed By: #### [facility] #### [address] NRBC% 0.1 /100{WBC} Normal 0-0.5 [facility] Comment on above: Performed By: #### [facility] #### [address] Platelet mean volume (Bld) [Entitic vol] 8.3 fL Normal 6.3-10.7 [facility] Comment on above: Performed By: #### A [facility] e[facility] #### [place] [address] [place] Platelets (Bld) [#/Vol] 301 10*3/uL Normal 150-450 [facility] Comment on above: Performed By: #### A [facility] e[facility] #### [place] [address] [place] RBC (Bld) [#/Vol] 4.05 10*6/uL Normal 3.60-5.00 [facility] Comment on above: Performed By: #### A [facility] e[facility] #### [place] [address] [place] WBC (Bld) [#/Vol] 8.1 10*3/uL Normal 3.8-11.6 [facility] Comment on above: Performed By: #### [facility] #### [place] [id number] [facility] Creatinineon 07-15-2024 Creatinine [Mass/Vol] 0.84 mg/dL Normal 0.60-1.20 [facility] Comment on above: Performed By: #### [facility] #### [place] [id number] [facility] GFR/1.73 sq M.predicted MDRD (S/P/Bld) [Vol rate/Area] mL/min/{1.73_m2} Normal [facility] Comment on above: Result Comment: PERF ORMED BY: [place] [address] PATHOLOGIST LICENSING OFFICER LEEROY SLOAN M.D. Performed By: #### [facility] #### [place] [id number] [facility] Creatinine [Mass/volume] in Serum or PlasmaOrdered By: Kobe Nur on 07-15-2024 Creatinine [Mass/Vol] Creatinine [Mass/v olume] in Serum or Plasma 0.60-1.20 [facility] Eosinophils Auto (Bld) [#/Vo l]Ordered By: Kobe Nur on 07-15-2024 Eosinophils (Bld) [#/Vol] Automated eosinophil count High 0.0-0.45 [facility] Eosinophils/100 WBC Auto (Bl d)Ordered By: Kobe Nur on 07-15-2024 Eosinophils/100 WBC (Bld) Automated eosinophil % . [facility] Erythrocyte Sedimentation Ra erin 07-15-2024 ESR (Bld) [Velocity] 5 mm/h Normal 0-29 [facility] Comment on above: Result Comment: PERF ORMED BY: [address] [address] PATHOLOGIST LICENSING OFFICER LEEROY SLOAN M.D. Performed By: #### [facility] #### [facility] [address] [place] [id number] [facility] Erythrocyte distribution wid th Auto (RBC) [Ratio]Ordered By: Kobe Nur on 07-15-2024 Erythrocyte distribution width (RBC) [Ratio] Erythrocyte distribution width [Ratio] by Automated count High 11.9-15.3 [facility] Erythrocyte sedimentation ra te by Photometric methodOrdered By: Kobe Nur on 07-15-2024 ESR Photometric method (Bld) [Velocity] Erythrocyte sedimentation rate by Photometric method 0-29 [facility] Globulin Calc (S) [Mass/Vol] Ordered By: Kobe Nur on 07-15-2024 Globulin (S) [Mass/Vol] Serum globulin measurement by calculation (mass/volume) [facility] Hematocrit Auto (Bld) [Volum e fraction]Ordered By: Kobe Nur on 07-15-2024 Hematocrit (Bld) [Volume fraction] Hematocrit [Volume Fraction] of Blood by Automated count 34.0-46.4 [facility] Hemoglobin [Mass/volume] in BloodOrdered By: Kobe Nur on 07-15-2024 Hemoglobin (Bld) [Mass/Vol] Hemoglobin [Mass/volume] in Blood 11.8-15.4 [facility] Hepatic Panelon 07-15-2024 Albumin [Mass/Vol] 4.4 g/dL Normal 3.5-5.7 [facility] Comment on above: Performed By: #### [facility] #### [facility] [address] Albumin/Globulin [Mass ratio] 1.7 {ratio} Normal [facility] Comment on above: Performed By: #### [facility] #### [facility] [address] [place] [id number] [place] ALP [Catalytic activity/Vol] 49 U/L Normal 34-104 [facility] Comment on above: Performed By: #### [facility] #### [facility] [address] [place] [id number] [facility] ALT [Catalytic activity/Vol] 27 U/L Normal 7-52 [facility] Comment on above: Performed By: #### A [facility] e[facility] #### [facility] [address] AST [Catalytic activity/Vol] 18 U/L Normal 13-39 [facility] Comment on above: Performed By: #### A [facility] e[facility] #### [facility] [address] Bilirubin [Mass/Vol] 0.4 mg/dL Normal 0.3-1.0 [facility] Comment on above: Performed By: #### [facility] #### [address] Bilirubin,Indirect 0.3 mg/dL Normal [facility] Comment on above: Performed By: #### [facility] #### [address] Bilirubin.indirect [Mass/Vol] 0.10 mg/dL Normal 0.03-0.18 [facility] Comment on above: Performed By: #### [facility] #### [address] Globulin (S) [Mass/Vol] 2.6 g/dL Normal [facility] Comment on above: Performed By: #### [facility] #### [address] Protein [Mass/Vol] 7.0 g/dL Normal 6.4-8.9 [facility] Comment on above: Performed By: #### [facility] #### [address] Leukocytes [#/volume] correc maricel for nucleated erythrocytes in Blood by Automated counOrdered By: Kobe Nur on 07-15-2024 WBC corrected for nucl RBC Auto (Bld) [#/Vol] Leukocytes [#/volume] corrected for nucleated erythrocytes in Blood by Automated coun 3.8-11.6 [facility] Lymphocytes Auto (Bld) [#/Vo l]Ordered By: Kobe Nur on 07-15-2024 Lymphocytes (Bld) [#/Vol] Lymphocytes [#/volume] in Blood by Automated count 1.00-4.8 [facility] Lymphocytes/100 WBC Auto (Bl d)Ordered By: Kobe Nur on 07-15-2024 Lymphocytes/100 WBC (Bld) Lymphocytes/100 leukocytes in Blood by Automated count . [facility] MCH Auto (RBC) [Entitic mass ]Ordered By: Kobe Nur on 07-15-2024 MCH (RBC) [Entitic mass] MCH [Entitic mass] by Automated count 24.7-34.3 [facility] MCHC Auto (RBC) [Mass/Vol]Or dered By: Kobe Nur on 07-15-2024 MCHC (RBC) [Mass/Vol] MCHC [Mass/volume] by Automated count 32.0-35.0 [facility] MCV Auto (RBC) [Entitic vol] Ordered By: Kobe Nur on 07-15-2024 MCV (RBC) [Entitic vol] MCV [Entitic volume] by Automated count 80-100 [facility] Monocytes Auto (Bld) [#/Vol] Ordered By: Kobe Nur on 07-15-2024 Monocytes (Bld) [#/Vol] Automated blood monocyte count 0.0-0.8 [facility] Monocytes/100 WBC Auto (Bld) Ordered By: Kobe Nur on 07-15-2024 Monocytes/100 WBC (Bld) Automated monocyte % . [facility] Neutrophils Auto (Bld) [#/Vo l]Ordered By: Kobe Nur on 07-15-2024 Neutrophils (Bld) [#/Vol] Neutrophils [#/volume] in Blood by Automated count 1.8-7.7 [facility] Neutrophils/100 WBC Auto (Bl d)Ordered By: Kobe Nur on 07-15-2024 Neutrophils/100 WBC (Bld) Automated neutrophil % . [facility] No Panel InformationOrdered By: Kobe Nur on 07-15-2024 Estimated GFR (CKD-EPI) > 60.0 mL/Min [facility] Creatinine Clearance (Chem N/A [facility] Nucleated erythrocytes [Pres ence] in Blood by Automated countOrdered By: Kobe Nur on 07-15-2024 Nucleated RBC Auto Ql (Bld) Nucleated erythrocytes [Presence] in Blood by Automated count 0-0.5 [facility] Platelet mean volume Auto (B ld) [Entitic vol]Ordered By: Kobe Nur on 07-15-2024 Platelet mean volume (Bld) [Entitic vol] Platelet mean volume [Entitic volume] in Blood by Automated count 6.3-10.7 [facility] Platelets Auto (Bld) [#/Vol] Ordered By: Kobe Nur on 07-15-2024 Platelets (Bld) [#/Vol] Platelets [#/volume] in Blood by Automated count 150-450 [facility] Protein [Mass/volume] in Ser um or PlasmaOrdered By: Kobe Nur on 07-15-2024 Protein [Mass/Vol] Protein [Mass/volume ] in Serum or Plasma 6.4-8.9 [facility] RBC Auto (Bld) [#/Vol]Ordere d By: Kobe Nur on 07-15-2024 RBC (Bld) [#/Vol] Erythrocytes [#/volu me] in Blood by Automated count 3.60-5.00 [facility] Serum or plasma albumin/glob ulin mass ratioOrdered By: Kobe Nur on 07-15-2024 Albumin/Globulin [Mass ratio] Serum or plasma albumin/globulin mass ratio [facility] Serum or plasma non-glucuron idated bilirubin measurement (mass/volume)Ordered By: Kobe Nur on 07-15-2024 Bilirubin.indirect [Mass/Vol] Serum or plasma non-glucuronidated bilirubin measurement (mass/volume) [facility] WBC Auto (Bld) [#/Vol]Ordere d By: Kobe Nur on 07-15-2024 WBC (Bld) [#/Vol] Leukocytes [#/volume ] in Blood by Automated count 3.8-11.6 [facility] Alanine aminotransferase [En zymatic activity/volume] in Serum or PlasmaOrdered By: Kobe Nur on 05-15-2024 ALT [Catalytic activity/Vol] Alanine aminotransferase [Enzymatic activity/volume] in Serum or Plasma 7-52 [facility] Albumin [Mass/volume] in Ser um or Plasma by Bromocresol green (BCG) dye binding methoOrdered By: Kobe Nur on 05-15-2024 Albumin BCG dye [Mass/Vol] Albumin [Mass/volume] in Serum or Plasma by Bromocresol green (BCG) dye binding metho 3.5-5.7 [facility] Alkaline phosphatase [Enzyma tic activity/volume] in Serum or PlasmaOrdered By: Kobe Nur on 05-15-2024 ALP [Catalytic activity/Vol] Alkaline phosphatase [Enzymatic activity/volume] in Serum or Plasma 34-104 [facility] Aspartate aminotransferase [ Enzymatic activity/volume] in Serum or PlasmaOrdered By: Kobe Nur on 05-15-2024 AST [Catalytic activity/Vol] Aspartate aminotransferase [Enzymatic activity/volume] in Serum or Plasma 13-39 [facility] Basophils Auto (Bld) [#/Vol] Ordered By: Kobe Nur on 05-15-2024 Basophils (Bld) [#/Vol] Automated basophil count 0.0-0.2 [facility] Basophils/100 WBC Auto (Bld) Ordered By: Kobe Nur on 05-15-2024 Basophils/100 WBC (Bld) Automated basophil % . [facility] Bilirubin.direct [Mass/volum e] in Serum or PlasmaOrdered By: Kobe Nur on 05-15-2024 Bilirubin.direct [Mass/Vol] Bilirubin.direct [Mass/volume] in Serum or Plasma 0.03-0.18 [facility] Bilirubin.total [Mass/volume ] in Serum or PlasmaOrdered By: Kobe Nur on 05-15-2024 Bilirubin [Mass/Vol] Bilirubin.total [Mass/volume] in Serum or Plasma 0.3-1.0 [facility] Complete Blood Count Auto Di ffon 05-15-2024 Basophils (Bld) [#/Vol] 0.1 10*3/uL Normal 0.0-0.2 [facility] Comment on above: Performed By: #### [facility] #### [facility] [address] Basophils/100 WBC (Bld) 0.4 % Normal . [facility] Comment on above: Performed By: #### [facility] #### [facility] [address] [place] [address] [place] Eosinophils (Bld) [#/Vol] 0.6 10*3/uL High 0.0-0.45 [facility] Comment on above: Performed By: #### A [facility] e[facility] #### [facility] [address] [place] [address] [place] Eosinophils/100 WBC (Bld) 4.8 % Normal . [facility] Comment on above: Performed By: #### A [facility] #### [address] Erythrocyte distribution width (RBC) [Ratio] 14.8 % Normal 11.9-15.3 [facility] Comment on above: Performed By: #### [facility] #### [address] Hematocrit (Bld) [Volume fraction] 37.3 % Normal 34.0-46.4 [facility] Comment on above: Performed By: #### [facility] #### [address] Hemoglobin (Bld) [Mass/Vol] 12.4 g/dL Normal 11.8-15.4 [facility] Comment on above: Performed By: #### [facility] #### [address] Lymphocytes (Bld) [#/Vol] 2.7 10*3/uL Normal 1.00-4.8 [facility] Comment on above: Performed By: #### [facility] e[facility] #### [place] [address] [place] Lymphocytes/100 WBC (Bld) 22.5 % Normal . [facility] Comment on above: Performed By: #### [facility] #### [address] MCH (RBC) [Entitic mass] 30.5 pg Normal 24.7-34.3 [facility] Comment on above: Performed By: #### [facility] #### [address] MCV (RBC) [Entitic vol] 92.1 fL Normal 80-100 [facility] Comment on above: Performed By: #### [facility] #### [address] Mean Corpuscular HGB Conc 33.1 g/dL Normal 32.0-35.0 [facility] Comment on above: Performed By: #### [facility] [facility] #### [address] Monocytes (Bld) [#/Vol] 1.1 10*3/uL High 0.0-0.8 [facility] Comment on above: Performed By: #### [facility] #### [address] Monocytes/100 WBC (Bld) 8.7 % Normal . [facility] Comment on above: Performed By: #### [facility] #### [address] Neutrophils (Bld) [#/Vol] 7.8 10*3/uL High 1.8-7.7 [facility] Comment on above: Performed By: #### [facility] #### [address] Neutrophils/100 WBC (Bld) 63.6 % Normal . [facility] Comment on above: Performed By: #### [facility] #### [address] NRBC% 0.1 /100{WBC} Normal 0-0.5 [facility] Comment on above: Performed By: #### [facility] #### [address] Platelet mean volume (Bld) [Entitic vol] 8.3 fL Normal 6.3-10.7 [facility] Comment on above: Performed By: #### [facility] #### [address] Platelets (Bld) [#/Vol] 348 10*3/uL Normal 150-450 [facility] Comment on above: Performed By: #### [facility] #### [address] RBC (Bld) [#/Vol] 4.05 10*6/uL Normal 3.60-5.00 [facility] Comment on above: Performed By: #### [facility] #### [address] WBC (Bld) [#/Vol] 12.2 10*3/uL High 3.8-11.6 [facility] Comment on above: Performed By: #### [facility] #### [address] Creatinineon 05-15-2024 Creatinine [Mass/Vol] 0.87 mg/dL Normal 0.60-1.20 [facility] Comment on above: Performed By: #### [facility] #### [address] GFR/1.73 sq M.predicted MDRD (S/P/Bld) [Vol rate/Area] mL/min/{1.73_m2} Normal [facility] Comment on above: Result Comment: PERF ORMED BY: [place] [address] PATHOLOGIST LICENSING OFFICER LEEROY SLOAN M.D. Performed By: #### [facility] #### [address] Creatinine [Mass/volume] in Serum or PlasmaOrdered By: Kobe Nur on 05-15-2024 Creatinine [Mass/Vol] Creatinine [Mass/v olume] in Serum or Plasma 0.60-1.20 [facility] Eosinophils Auto (Bld) [#/Vo l]Ordered By: Kobe Nur on 05-15-2024 Eosinophils (Bld) [#/Vol] Automated eosinophil count High 0.0-0.45 [facility] Eosinophils/100 WBC Auto (Bl d)Ordered By: Kobe Nur on 05-15-2024 Eosinophils/100 WBC (Bld) Automated eosinophil % . [facility] Erythrocyte Sedimentation Ra erin 05-15-2024 ESR (Bld) [Velocity] 8 mm/h Normal 0-29 [facility] Comment on above: Result Comment: PERF ORMED BY: [place] [address] PATHOLOGIST LICENSING OFFICER LEEROY SLOAN M.D. Performed By: #### [facility] #### [address] Erythrocyte distribution wid th Auto (RBC) [Ratio]Ordered By: Kobe Nur on 05-15-2024 Erythrocyte distribution width (RBC) [Ratio] Erythrocyte distribution width [Ratio] by Automated count 11.9-15.3 [facility] Erythrocyte sedimentation ra te by Photometric methodOrdered By: Kobe Nur on 05-15-2024 ESR Photometric method (Bld) [Velocity] Erythrocyte sedimentation rate by Photometric method 0-29 [facility] Globulin Calc (S) [Mass/Vol] Ordered By: Kobe Nur on 05-15-2024 Globulin (S) [Mass/Vol] Serum globulin measurement by calculation (mass/volume) [facility] Hematocrit Auto (Bld) [Volum e fraction]Ordered By: Kobe Nur on 05-15-2024 Hematocrit (Bld) [Volume fraction] Hematocrit [Volume Fraction] of Blood by Automated count 34.0-46.4 [facility] Hemoglobin [Mass/volume] in BloodOrdered By: Kobe Nur on 05-15-2024 Hemoglobin (Bld) [Mass/Vol] Hemoglobin [Mass/volume] in Blood 11.8-15.4 [facility] Hepatic Panelon 05-15-2024 Albumin [Mass/Vol] 4.2 g/dL Normal 3.5-5.7 [facility] Comment on above: Performed By: #### [facility] eA #### [address] Albumin/Globulin [Mass ratio] 1.5 {ratio} Normal [facility] Comment on above: Performed By: #### [facility] #### [address] ALP [Catalytic activity/Vol] 51 U/L Normal 34-104 [facility] Comment on above: Performed By: #### [facility] #### [address] ALT [Catalytic activity/Vol] 29 U/L Normal 7-52 [facility] Comment on above: Performed By: #### [facility] #### [address] AST [Catalytic activity/Vol] 20 U/L Normal 13-39 [facility] Comment on above: Performed By: #### [facility] #### [address] Bilirubin [Mass/Vol] 0.4 mg/dL Normal 0.3-1.0 [facility] Comment on above: Performed By: #### [facility] #### [address] Bilirubin,Indirect 0.3 mg/dL Normal [facility] Comment on above: Performed By: #### [facility] #### [address] Bilirubin.indirect [Mass/Vol] 0.10 mg/dL Normal 0.03-0.18 [facility] Comment on above: Performed By: #### [facility] #### [address] Globulin (S) [Mass/Vol] 2.8 g/dL Normal [facility] Comment on above: Performed By: #### [facility] #### [address] Protein [Mass/Vol] 7.0 g/dL Normal 6.4-8.9 [facility] Comment on above: Performed By: #### [facility] [address] [facility] #### [facility] [address] Leukocytes [#/volume] correc maricel for nucleated erythrocytes in Blood by Automated counOrdered By: Kobe Nur on 05-15-2024 WBC corrected for nucl RBC Auto (Bld) [#/Vol] Leukocytes [#/volume] corrected for nucleated erythrocytes in Blood by Automated coun High 3.8-11.6 [facility] Lymphocytes Auto (Bld) [#/Vo l]Ordered By: Kobe Nur on 05-15-2024 Lymphocytes (Bld) [#/Vol] Lymphocytes [#/volume] in Blood by Automated count 1.00-4.8 [facility] Lymphocytes/100 WBC Auto (Bl d)Ordered By: Kobe Nur on 05-15-2024 Lymphocytes/100 WBC (Bld) Lymphocytes/100 leukocytes in Blood by Automated count . [facility] MCH Auto (RBC) [Entitic mass ]Ordered By: Kobe Nur on 05-15-2024 MCH (RBC) [Entitic mass] MCH [Entitic mass] by Automated count 24.7-34.3 [facility] MCHC Auto (RBC) [Mass/Vol]Or dered By: Kobe Nur on 05-15-2024 MCHC (RBC) [Mass/Vol] MCHC [Mass/volume] by Automated count 32.0-35.0 [facility] MCV Auto (RBC) [Entitic vol] Ordered By: Kobe Nur on 05-15-2024 MCV (RBC) [Entitic vol] MCV [Entitic volume] by Automated count 80-100 [facility] Monocytes Auto (Bld) [#/Vol] Ordered By: Kobe Nur on 05-15-2024 Monocytes (Bld) [#/Vol] Automated blood monocyte count High 0.0-0.8 [facility] Monocytes/100 WBC Auto (Bld) Ordered By: Kobe Nur on 05-15-2024 Monocytes/100 WBC (Bld) Automated monocyte % . [facility] Neutrophils Auto (Bld) [#/Vo l]Ordered By: Kobe Nur on 05-15-2024 Neutrophils (Bld) [#/Vol] Neutrophils [#/volume] in Blood by Automated count High 1.8-7.7 [facility] Neutrophils/100 WBC Auto (Bl d)Ordered By: Kobe Nur on 05-15-2024 Neutrophils/100 WBC (Bld) Automated neutrophil % . [facility] No Panel InformationOrdered By: Kobe Nur on 05-15-2024 Estimated GFR (CKD-EPI) > 60.0 mL/Min [facility] Creatinine Clearance (Chem N/A [facility] Nucleated erythrocytes [Pres ence] in Blood by Automated countOrdered By: Kobe Nur on 05-15-2024 Nucleated RBC Auto Ql (Bld) Nucleated erythrocytes [Presence] in Blood by Automated count 0-0.5 [facility] Platelet mean volume Auto (B ld) [Entitic vol]Ordered By: Kobe Nur on 05-15-2024 Platelet mean volume (Bld) [Entitic vol] Platelet mean volume [Entitic volume] in Blood by Automated count 6.3-10.7 [facility] Platelets Auto (Bld) [#/Vol] Ordered By: Kobe Nur on 05-15-2024 Platelets (Bld) [#/Vol] Platelets [#/volume] in Blood by Automated count 150-450 [facility] Protein [Mass/volume] in Ser um or PlasmaOrdered By: Kobe Nur on 05-15-2024 Protein [Mass/Vol] Protein [Mass/volume ] in Serum or Plasma 6.4-8.9 [facility] RBC Auto (Bld) [#/Vol]Ordere d By: Kobe Nur on 05-15-2024 RBC (Bld) [#/Vol] Erythrocytes [#/volu me] in Blood by Automated count 3.60-5.00 [facility] Serum or plasma albumin/glob ulin mass ratioOrdered By: Kobe Nur on 05-15-2024 Albumin/Globulin [Mass ratio] Serum or plasma albumin/globulin mass ratio [facility] Serum or plasma non-glucuron idated bilirubin measurement (mass/volume)Ordered By: Kobe Nur on 05-15-2024 Bilirubin.indirect [Mass/Vol] Serum or plasma non-glucuronidated bilirubin measurement (mass/volume) [facility] WBC Auto (Bld) [#/Vol]Ordere d By: Kobe Nur on 05-15-2024 WBC (Bld) [#/Vol] Leukocytes [#/volume ] in Blood by Automated count High 3.8-11.6 [facility] Alanine aminotransferase [En zymatic activity/volume] in Serum or PlasmaOrdered By: Kobe Nur on 04-03-2024 ALT [Catalytic activity/Vol] Alanine aminotransferase [Enzymatic activity/volume] in Serum or Plasma 7-52 [facility] Albumin [Mass/volume] in Ser um or Plasma by Bromocresol green (BCG) dye binding methoOrdered By: Kobe Nur on 04-03-2024 Albumin BCG dye [Mass/Vol] Albumin [Mass/volume] in Serum or Plasma by Bromocresol green (BCG) dye binding metho 3.5-5.7 [facility] Alkaline phosphatase [Enzyma tic activity/volume] in Serum or PlasmaOrdered By: Kobe Nur on 04-03-2024 ALP [Catalytic activity/Vol] Alkaline phosphatase [Enzymatic activity/volume] in Serum or Plasma 34-104 [facility] Aspartate aminotransferase [ Enzymatic activity/volume] in Serum or PlasmaOrdered By: Kobe Nur on 04-03-2024 AST [Catalytic activity/Vol] Aspartate aminotransferase [Enzymatic activity/volume] in Serum or Plasma 13-39 [facility] Basophils Auto (Bld) [#/Vol] Ordered By: Kobe Nur on 04-03-2024 Basophils (Bld) [#/Vol] Automated basophil count 0.0-0.2 [facility] Basophils/100 WBC Auto (Bld) Ordered By: Kobe Nur on 04-03-2024 Basophils/100 WBC (Bld) Automated basophil % . [facility] Bilirubin.direct [Mass/volum e] in Serum or PlasmaOrdered By: Kobe Nur on 04-03-2024 Bilirubin.direct [Mass/Vol] Bilirubin.direct [Mass/volume] in Serum or Plasma 0.03-0.18 [facility] Bilirubin.total [Mass/volume ] in Serum or PlasmaOrdered By: Kobe Nur on 04-03-2024 Bilirubin [Mass/Vol] Bilirubin.total [Mass/volume] in Serum or Plasma 0.3-1.0 [facility] Complete Blood Count Auto Di ffon 04-03-2024 Basophils (Bld) [#/Vol] 0.0 10*3/uL Normal 0.0-0.2 [facility] Comment on above: Performed By: #### C REAT, HEPATIC, CBC, ESR #### [address] Basophils/100 WBC (Bld) 0.5 % Normal . [facility] Comment on above: Performed By: #### C REAT, HEPATIC, CBC, ESR #### [address] Eosinophils (Bld) [#/Vol] 0.3 10*3/uL Normal 0.0-0.45 [facility] Comment on above: Performed By: #### C REAT, HEPATIC, CBC, ESR #### [address] Eosinophils/100 WBC (Bld) 3.6 % Normal . [facility] Comment on above: Performed By: #### C REAT, HEPATIC, CBC, ESR #### [address] Erythrocyte distribution width (RBC) [Ratio] 14.0 % Normal 11.9-15.3 [facility] Comment on above: Performed By: #### C REAT, HEPATIC, CBC, ESR #### [address] Hematocrit (Bld) [Volume fraction] 37.8 % Normal 34.0-46.4 [facility] Comment on above: Performed By: #### C REAT, HEPATIC, CBC, ESR #### [address] Hemoglobin (Bld) [Mass/Vol] 12.5 g/dL Normal 11.8-15.4 [facility] Comment on above: Performed By: #### C REAT, HEPATIC, CBC, ESR #### [address] Lymphocytes (Bld) [#/Vol] 2.1 10*3/uL Normal 1.00-4.8 [facility] Comment on above: Performed By: #### C REAT, HEPATIC, CBC, ESR #### [address] Lymphocytes/100 WBC (Bld) 26.2 % Normal . [facility] Comment on above: Performed By: #### C REAT, HEPATIC, CBC, ESR #### [address] MCH (RBC) [Entitic mass] 30.9 pg Normal 24.7-34.3 [facility] Comment on above: Performed By: #### C REAT, HEPATIC, CBC, ESR #### [address] MCV (RBC) [Entitic vol] 93.1 fL Normal 80-100 [facility] Comment on above: Performed By: #### C REAT, HEPATIC, CBC, ESR #### [address] Mean Corpuscular HGB Conc 33.2 g/dL Normal 32.0-35.0 [facility] Comment on above: Performed By: #### C REAT, HEPATIC, CBC, ESR #### [address] Monocytes (Bld) [#/Vol] 0.6 10*3/uL Normal 0.0-0.8 [facility] Comment on above: Performed By: #### C REAT, HEPATIC, CBC, ESR #### [place] [address] [place] Monocytes/100 WBC (Bld) 7.8 % Normal . [facility] Comment on above: Performed By: #### C REAT, HEPATIC, CBC, ESR #### [address] Neutrophils (Bld) [#/Vol] 4.9 10*3/uL Normal 1.8-7.7 [facility] Comment on above: Performed By: #### C REAT, HEPATIC, CBC, ESR #### [address] Neutrophils/100 WBC (Bld) 61.9 % Normal . [facility] Comment on above: Performed By: #### C REAT, HEPATIC, CBC, ESR #### [address] NRBC% 0.1 /100{WBC} Normal 0-0.5 [facility] Comment on above: Performed By: #### C REAT, HEPATIC, CBC, ESR #### [address] Platelet mean volume (Bld) [Entitic vol] 7.9 fL Normal 6.3-10.7 [facility] Comment on above: Performed By: #### C REAT, HEPATIC, CBC, ESR #### [address] Platelets (Bld) [#/Vol] 299 10*3/uL Normal 150-450 [facility] Comment on above: Performed By: #### C REAT, HEPATIC, CBC, ESR #### [address] RBC (Bld) [#/Vol] 4.06 10*6/uL Normal 3.60-5.00 [facility] Comment on above: Performed By: #### C REAT, HEPATIC, CBC, ESR #### [address] WBC (Bld) [#/Vol] 8.0 10*3/uL Normal 3.8-11.6 [facility] Comment on above: Performed By: #### C REAT, HEPATIC, CBC, ESR #### [address] Creatinineon 04-03-2024 Creatinine [Mass/Vol] 0.86 mg/dL Normal 0.60-1.20 [facility] Comment on above: Performed By: #### C REAT, HEPATIC, CBC, ESR #### [facility] [address] [place] [id number] [facility] GFR/1.73 sq M.predicted MDRD (S/P/Bld) [Vol rate/Area] mL/min/{1.73_m2} Normal [facility] Comment on above: Result Comment: PERF ORMED BY: [place] [address] PATHOLOGIST LICENSING OFFICER LEEROY SLOAN M.D. Performed By: #### C REAT, HEPATIC, CBC, ESR #### [place] [id number] [facility] Creatinine [Mass/volume] in Serum or PlasmaOrdered By: Kobe Nur on 04-03-2024 Creatinine [Mass/Vol] Creatinine [Mass/v olume] in Serum or Plasma 0.60-1.20 [facility] Eosinophils Auto (Bld) [#/Vo l]Ordered By: Kobe Nur on 04-03-2024 Eosinophils (Bld) [#/Vol] Automated eosinophil count 0.0-0.45 [facility] Eosinophils/100 WBC Auto (Bl d)Ordered By: Kobe Nur on 04-03-2024 Eosinophils/100 WBC (Bld) Automated eosinophil % . [facility] Erythrocyte Sedimentation Ra erin 04-03-2024 ESR (Bld) [Velocity] 5 mm/h Normal 0-29 [facility] Comment on above: Result Comment: PERF ORMED BY: [place] [address] PATHOLOGIST LICENSING OFFICER LEEROY SLOAN M.D. Performed By: #### C REAT, HEPATIC, CBC, ESR #### [facility] [address] [place], [place] [id number] [facility] Erythrocyte distribution wid th Auto (RBC) [Ratio]Ordered By: Kobe Nur on 04-03-2024 Erythrocyte distribution width (RBC) [Ratio] Erythrocyte distribution width [Ratio] by Automated count 11.9-15.3 [facility] Erythrocyte sedimentation ra te by Photometric methodOrdered By: Kobe Nur on 04-03-2024 ESR Photometric method (Bld) [Velocity] Erythrocyte sedimentation rate by Photometric method 0-29 [facility] Globulin Calc (S) [Mass/Vol] Ordered By: Kobe Nur on 04-03-2024 Globulin (S) [Mass/Vol] Serum globulin measurement by calculation (mass/volume) [facility] Hematocrit Auto (Bld) [Volum e fraction]Ordered By: Kobe Nur on 04-03-2024 Hematocrit (Bld) [Volume fraction] Hematocrit [Volume Fraction] of Blood by Automated count 34.0-46.4 [facility] Hemoglobin [Mass/volume] in BloodOrdered By: Kobe Nur on 04-03-2024 Hemoglobin (Bld) [Mass/Vol] Hemoglobin [Mass/volume] in Blood 11.8-15.4 [facility] Hepatic Panelon 04-03-2024 Albumin [Mass/Vol] 4.1 g/dL Normal 3.5-5.7 [facility] Comment on above: Performed By: #### C REAT, HEPATIC, CBC, ESR #### [address] Albumin/Globulin [Mass ratio] 1.6 {ratio} Normal [facility] Comment on above: Performed By: #### C REAT, HEPATIC, CBC, ESR #### [address] ALP [Catalytic activity/Vol] 50 U/L Normal 34-104 [facility] Comment on above: Performed By: #### C REAT, HEPATIC, CBC, ESR #### [facility] [address] ALT [Catalytic activity/Vol] 26 U/L Normal 7-52 [facility] Comment on above: Performed By: #### C REAT, HEPATIC, CBC, ESR #### [facility] [address] AST [Catalytic activity/Vol] 16 U/L Normal 13-39 [facility] Comment on above: Performed By: #### C REAT, HEPATIC, CBC, ESR #### [facility] [address] [place] [address] [place] Bilirubin [Mass/Vol] 0.5 mg/dL Normal 0.3-1.0 [facility] Comment on above: Performed By: #### C REAT, HEPATIC, CBC, ESR #### [facility] [address] Bilirubin,Indirect 0.4 mg/dL Normal [facility] Comment on above: Performed By: #### C REAT, HEPATIC, CBC, ESR #### [facility] [address] Bilirubin.indirect [Mass/Vol] 0.10 mg/dL Normal 0.03-0.18 [facility] Comment on above: Performed By: #### C REAT, HEPATIC, CBC, ESR #### [facility] [address] Globulin (S) [Mass/Vol] 2.5 g/dL Normal [facility] Comment on above: Performed By: #### C REAT, HEPATIC, CBC, ESR #### [facility] [address] Protein [Mass/Vol] 6.6 g/dL Normal 6.4-8.9 [facility] Comment on above: Performed By: #### C REAT, HEPATIC, CBC, ESR #### [address] Leukocytes [#/volume] correc maricel for nucleated erythrocytes in Blood by Automated counOrdered By: Kobe Nur on 04-03-2024 WBC corrected for nucl RBC Auto (Bld) [#/Vol] Leukocytes [#/volume] corrected for nucleated erythrocytes in Blood by Automated coun 3.8-11.6 [facility] Lymphocytes Auto (Bld) [#/Vo l]Ordered By: Kobe Nur on 04-03-2024 Lymphocytes (Bld) [#/Vol] Lymphocytes [#/volume] in Blood by Automated count 1.00-4.8 [facility] Lymphocytes/100 WBC Auto (Bl d)Ordered By: Kobe Nur on 04-03-2024 Lymphocytes/100 WBC (Bld) Lymphocytes/100 leukocytes in Blood by Automated count . [facility] MCH Auto (RBC) [Entitic mass ]Ordered By: Kobe Nur on 04-03-2024 MCH (RBC) [Entitic mass] MCH [Entitic mass] by Automated count 24.7-34.3 [facility] MCHC Auto (RBC) [Mass/Vol]Or dered By: Kobe Nur on 04-03-2024 MCHC (RBC) [Mass/Vol] MCHC [Mass/volume] by Automated count 32.0-35.0 [facility] MCV Auto (RBC) [Entitic vol] Ordered By: Kobe Nur on 04-03-2024 MCV (RBC) [Entitic vol] MCV [Entitic volume] by Automated count 80-100 [facility] Monocytes Auto (Bld) [#/Vol] Ordered By: Kobe Nur on 04-03-2024 Monocytes (Bld) [#/Vol] Automated blood monocyte count 0.0-0.8 [facility] Monocytes/100 WBC Auto (Bld) Ordered By: Kobe Nur on 04-03-2024 Monocytes/100 WBC (Bld) Automated monocyte % . [facility] Neutrophils Auto (Bld) [#/Vo l]Ordered By: Kobe Nur on 04-03-2024 Neutrophils (Bld) [#/Vol] Neutrophils [#/volume] in Blood by Automated count 1.8-7.7 [facility] Neutrophils/100 WBC Auto (Bl d)Ordered By: Kobe Nur on 04-03-2024 Neutrophils/100 WBC (Bld) Automated neutrophil % . [facility] No Panel InformationOrdered By: Kobe Nur on 04-03-2024 Estimated GFR (CKD-EPI) > 60.0 mL/Min [facility] Creatinine Clearance (Chem N/A [facility] Nucleated erythrocytes [Pres ence] in Blood by Automated countOrdered By: Kobe Nur on 04-03-2024 Nucleated RBC Auto Ql (Bld) Nucleated erythrocytes [Presence] in Blood by Automated count 0-0.5 [facility] Platelet mean volume Auto (B ld) [Entitic vol]Ordered By: Kobe Nur on 04-03-2024 Platelet mean volume (Bld) [Entitic vol] Platelet mean volume [Entitic volume] in Blood by Automated count 6.3-10.7 [facility] Platelets Auto (Bld) [#/Vol] Ordered By: Kobe Nur on 04-03-2024 Platelets (Bld) [#/Vol] Platelets [#/volume] in Blood by Automated count 150-450 [facility] Protein [Mass/volume] in Ser um or PlasmaOrdered By: Kobe Nur on 04-03-2024 Protein [Mass/Vol] Protein [Mass/volume ] in Serum or Plasma 6.4-8.9 [facility] RBC Auto (Bld) [#/Vol]Ordere d By: Kobe Nur on 04-03-2024 RBC (Bld) [#/Vol] Erythrocytes [#/volu me] in Blood by Automated count 3.60-5.00 [facility] Serum or plasma albumin/glob ulin mass ratioOrdered By: Kobe Nur on 04-03-2024 Albumin/Globulin [Mass ratio] Serum or plasma albumin/globulin mass ratio [facility] Serum or plasma non-glucuron idated bilirubin measurement (mass/volume)Ordered By: Kobe Nur on 04-03-2024 Bilirubin.indirect [Mass/Vol] Serum or plasma non-glucuronidated bilirubin measurement (mass/volume) [facility] WBC Auto (Bld) [#/Vol]Ordere d By: Kobe Nur on 04-03-2024 WBC (Bld) [#/Vol] Leukocytes [#/volume ] in Blood by Automated count 3.8-11.6 [facility] Hemoglobin a1c with eagon Glucose [Mass/Vol] 169 mg/dL [facility] HbA1c (Bld) [Mass fraction] 7.5 % High 4.3 - 5.6 % [facility] Comment on above: Increased risk for d iabetes: 5.7 - 6.4 diabetes: >6.4 glycemic control for adults with diabetes: <7.0 Interpretation and review of laboratory results Abnormal [facility] A1C with Estimated Average G luon 03-20-2024 Glucose [Mass/Vol] 169 mg/dL Normal [facility] Comment on above: Result Comment: PERF ORMED BY: [facility] [address] [place] [address] PATHOLOGIST LICENSING OFFICER LEEROY SLOAN M.D. Performed By: #### [facility] eA #### [facility] [address] [place] [address] HbA1c (Bld) [Mass fraction] 7.5 % High 4.3-5.6 [facility] Comment on above: Result Comment: Incr eased risk for diabetes: 5.7 - 6.4 diabetes: >6.4 glycemic control for adults with diabetes: <7.0 Performed By: #### [facility] eA #### [facility] [address] [place] [address] Blood Mycobacterium tubercul osis stimulated gamma interferon detectionOrdered By: Kobe uNr on 03-20-2024 M. tuberculosis tuberculin stim IFN-g Ql (Bld) Blood Mycobacterium tuberculosis tuberculin stimulated gamma interferon detection . [facility] Comment on above: QuantiFERON-TB Gold Plus is a qualitative indirect test forM tuberculosis infection (including disease) and isintended for use in conjunction with risk assessment,radiography, and other medical and diagnostic evaluations.The QuantiFERON-TB Gold Plus result is determined bysubtracting the Nil value from either TB antigen (Ag)value. The Mitogen tube serves as a control for the test. Blood estimated average gluc ose determination by estimation from glycated hemoglobinOrdered By: Louie Moreno on 03-20-2024 Average glucose Estimated from glycated hemoglobin (Bld) [Mass/Vol] Glucose mean value [Mass/volume] in Blood Estimated from glycated hemoglobin [facility] Blood mitogen stimulated elmo ma interferon measurement (units/volume)Ordered By: Kobe Nur on 03-20-2024 Mitogen stimulated gamma interferon Qn (Bld) Blood mitogen stimulated gamma interferon measurement (units/volume) . [facility] Hemoglobin A1c/Hemoglobin.to mariza in BloodOrdered By: Louie Moreno on 03-20-2024 HbA1c (Bld) [Mass fraction] Hemoglobin A1c percentage High 4.3-5.6 [facility] Comment on above: Increased risk for d iabetes: 5.7 - 6.4diabetes: >6.4glycemic control for adults with diabetes: <7.0 Mycobacterium tuberculosis s timulated gamma interferon [Interpretation] in Blood QualOrdered By: Kobe Nur on 03-20-2024 M. tuberculosis stim IFN-g Ql (Bld) [Interp] Mycobacterium tuberculosis stimulated gamma interferon [Interpretation] in Blood Qual Negative [facility] Comment on above: No response to M tub erculosis antigens detected.Infection with M tuberculosis is unlikely, but high riskindividuals should be considered for additional testing(ATS/IDSA/CDC Clinical Practice Guidelines, 2017). Thereference range is an Antigen minus Nil result of <0.35IU/mL.The specimen received for QuantiFERON testing was incubatedby the ordering institution. Specific procedures outlinedin our Directory of Services and in the package insert forthe QuantiFERON Gold (In Tube) test must be followed toenable for proper stimulation of cells for the productionof interferon gamma. Chemiluminescence immunoassaymethodologyPerformed at: [facility] [address] [id number] Director: Willis Reeves PhD, Phone: [phone] QuantiFERON TB Goldon 2023 QFTB Criteria Comment Normal . [facility] Comment on above: Result Comment: Killian tiFERON-TB Gold Plus is a qualitative indirect test for M tuberculosis infection (including disease) and is intended for use in conjunction with risk assessment, radiography, and other medical and diagnostic evaluations. The QuantiFERON-TB Gold Plus result is determined by subtracting the Nil value from either TB antigen (Ag) value. The Mitogen tube serves as a control for the test. Performed By: #### Q UANT TB #### [facility] , Quant TB Ag Value 0.00 [IU]/mL Normal . [facility] Comment on above: Performed By: #### Q UANT TB #### [facility] , Quant TB Gold Plus Negative Normal Negative [facility] Comment on above: Result Comment: No r esponse to M tuberculosis antigens detected. Infection with M tuberculosis is unlikely, but high risk individuals should be considered for additional testing (ATS/IDSA/CDC Clinical Practice Guidelines, 2017). The reference range is an Antigen minus Nil result of <0.35 IU/mL. The specimen received for QuantiFERON testing was incubated by the ordering institution. Specific procedures outlined in our Directory of Services and in the package insert for the QuantiFERON Gold (In Tube) test must be followed to enable for proper stimulation of cells for the production of interferon gamma. Chemiluminescence immunoassay methodology Performed at: [facility] [address] [id number] Cat Scanner Operator: Willis Reeves PhD, Phone: [phone] PERFORMED BY: [facility] [place] [address] PATHOLOGIST LICENSING OFFICER LEEROY SLOAN M.D. Performed By: #### Q UANT TB #### [facility] , Quant TB2 Ag Value 0.00 [IU]/mL Normal . [facility] Comment on above: Performed By: #### Q UANT TB #### [facility] , Quantiferon Nil Value 0.00 [IU]/mL Normal . [facility] Comment on above: Performed By: #### Q UANT TB #### [facility] , Quantiferon TB Mitogen >10.00 Normal . [facility] Comment on above: Performed By: #### Q UANT TB #### [facility] , Whole blood measurement of M ycobacterium tuberculosis stimulated gamma interferon relOrdered By: Kobe Nur on 03-20-2024 M. tuberculosis stim IFN-g by CD4+ CD8+ T-cells corrected for background Qn (Bld) Whole blood measurement of Mycobacterium tuberculosis stimulated gamma interferon rel . [facility] T3 REVERSE, LC/MS/MSon 03-16 T3 REVERSE, LC/MS/MS 14 ng/dL Normal 8-25 [facility] Comment on above: Order Comment: FASTI NG:YESFASTING: YES Result Comment: This test was developed and its analytical performance characteristics have been determined by [facility], [place]. It has not been cleared or approved by the U.S. Food and Drug Administration. This assay has been validated pursuant to the CLIA regulations and is used for clinical purposes. Performed By: #### 6 399, 41360, 809, 375 #### [facility] [place] [address] Field Supervisor Seed Production: Shiva Byrd MD T3, FREE 03-16-2024 Free T3 [Mass/Vol] 3.6 pg/mL Normal 2.3-4.2 [facility] Comment on above: Performed By: #### 6 399, 83956, 809, 375 #### [facility] [place] [address] Field Supervisor [employer] Production: Shiva Byrd MD T3, TOTALon 03-16-2024 T3, TOTAL 135 ng/dL Normal 76-181 [facility] Comment on above: Performed By: #### 6 399, 32303, 809, 375 #### [facility] [place] [address] Field Supervisor Seed Production: Shiva Byrd MD T4, [facility] 03-16-2024 Free T4 [Mass/Vol] 1.1 ng/dL Normal 0.8-1.8 [facility] Comment on above: Performed By: #### 6 399, 97971, 809, 375 #### [facility] [place] [address] Field Supervisor [employer] Production: Shiva Byrd MD TSHon 03-16-2024 TSH Qn 0.17 m[IU]/L Low 0.40-4.50 [facility] Comment on above: Performed By: #### 6 399, 74410, 809, 375 #### [facility] [place] [address] Field Supervisor [employer] Production: Shiva Byrd MD CBC (INCLUDES DIFF/PLT)on Basophils (Bld) [#/Vol] 0.049 10*3/uL Normal 0-200 [facility] Comment on above: Performed By: #### 6 399, 42636, 809, 375 #### [facility] [place] [address] Field Supervisor [employer] Production: Shiva Byrd MD Basophils/100 WBC (Bld) 0.5 % Normal [facility] Comment on above: Performed By: #### 6 399, 57201, 809, 375 #### [facility] [place] [address] Field Supervisor [employer] Production: Shiva Byrd MD Eosinophils (Bld) [#/Vol] 0.233 10*3/uL Normal 15-500 [facility] Comment on above: Performed By: #### 6 399, 61581, 809, 375 #### [facility] [place] [address] Field Supervisor [employer] Production: Shiva Byrd MD Eosinophils/100 WBC (Bld) 2.4 % Normal [facility] Comment on above: Performed By: #### 6 399, 89542, 809, 375 #### [facility] [place] [address] Field Supervisor [employer] Production: Shiva Byrd MD Erythrocyte distribution width (RBC) [Ratio] 13.3 % Normal 11.0-15.0 [facility] Comment on above: Performed By: #### 6 399, 03150, 809, 375 #### [facility] [place] [address] Field Supervisor [employer] Production: Shiva Byrd MD Hematocrit (Bld) [Volume fraction] 37.7 % Normal 35.0-45.0 [facility] Comment on above: Performed By: #### 6 399, 41906, 809, 375 #### [facility] [place] [address] Field Supervisor [employer] Production: Shiva Byrd MD Hemoglobin (Bld) [Mass/Vol] 12.5 g/dL Normal 11.7-15.5 [facility] Comment on above: Performed By: #### 6 399, 79429, 809, 375 #### [facility] [place] [address] Field Supervisor [employer] Production: Shiva Byrd MD Lymphocytes (Bld) [#/Vol] 2.086 10*3/uL Normal 850-3900 [facility] Comment on above: Performed By: #### 6 399, 99428, 809, 375 #### [facility] [place] [address] Field Supervisor [employer] Production: Shiva Byrd MD Lymphocytes/100 WBC (Bld) 21.5 % Normal [facility] Comment on above: Performed By: #### 6 399, 93669, 809, 375 #### [facility] [place] [address] Field Supervisor [employer] Production: Shiva Byrd MD MCH (RBC) [Entitic mass] 31.5 pg Normal 27.0-33.0 [facility] Comment on above: Performed By: #### 6 399, 64676, 809, 375 #### [facility] [place] [address] Field Supervisor [employer] Production: Shiva Byrd MD MCHC (RBC) [Mass/Vol] 33.2 g/dL Normal 32.0-36.0 [facility] Comment on above: Result Comment: For adults, a slight decrease in the calculated MCHC value (in the range of 30 to 32 g/dL) is most likely not clinically significant; however, it should be interpreted with caution in correlation with other red cell parameters and the patient's clinical condition. Performed By: #### 6 399, 36189, 809, 375 #### [facility] [place] [address] Field Supervisor [employer] Production: Shiva Byrd MD MCV (RBC) [Entitic vol] 95.0 fL Normal 80.0-100.0 [facility] Comment on above: Performed By: #### 6 399, 52934, 809, 375 #### [facility] [place] [address] Field Supervisor [employer] Production: Shiva Byrd MD Monocytes (Bld) [#/Vol] 0.601 10*3/uL Normal 200-950 [facility] Comment on above: Performed By: #### 6 399, 44016, 809, 375 #### [facility] [address], [address] [place] [address] Field Supervisor Seed Production: Shiva Byrd MD Monocytes/100 WBC (Bld) 6.2 % Normal [facility] Comment on above: Performed By: #### 6 399, 89398, 809, 375 #### [facility] [address], [address] [place] [address] Field Supervisor [employer] Production: Shiva Byrd MD Neutrophils (Bld) [#/Vol] 6.732 10*3/uL Normal 4678-1907 [facility] Comment on above: Performed By: #### 6 399, 86188, 809, 375 #### [facility] [place] [address] Field Supervisor [employer] Production: Shiva Byrd MD Neutrophils/100 WBC (Bld) 69.4 % Normal [facility] Comment on above: Performed By: #### 6 399, 60176, 809, 375 #### [facility] [place] [address] Field Supervisor [employer] Production: Shiva Byrd MD Platelet mean volume (Bld) [Entitic vol] 9.8 fL Normal 7.5-12.5 [facility] Comment on above: Performed By: #### 6 399, 14543, 809, 375 #### [facility] [place] [address] Field Supervisor [employer] Production: Shiva Byrd MD Platelets (Bld) [#/Vol] 352 10*3/uL Normal 140-400 [facility] Comment on above: Performed By: #### 6 399, 83485, 809, 375 #### [facility] [place] [address] Field Supervisor [employer] Production: Shiva Byrd MD RBC (Bld) [#/Vol] 3.97 10*6/uL Normal 3.80-5.10 [facility] Comment on above: Performed By: #### 6 399, 96817, 809, 375 #### [facility] [address] [place] [address] Field Supervisor Seed Production: Shiva Byrd MD WBC (Bld) [#/Vol] 9.7 10*3/uL Normal 3.8-10.8 [facility] Comment on above: Performed By: #### 6 399, 37515, 809, 375 #### [facility] [place] [address] Field Supervisor [employer] Production: Shiva Byrd MD CREATININEon 02-06-2024 Creatinine [Mass/Vol] 0.92 mg/dL Normal 0.50-1.05 [facility] Comment on above: Performed By: #### 6 399, 40869, 809, 375 #### [facility] [place] [address] Field Supervisor [employer] Production: Shiva Byrd MD GFR/1.73 sq M.predicted among non-blacks MDRD (S/P/Bld) [Vol rate/Area] 67 mL/min/{1.73_m2} Normal > OR = 60 [facility] Comment on above: Performed By: #### 6 399, 66509, 809, 375 #### [facility] [place] [address] Field Supervisor [employer] Production: Shiva Byrd MD HEPATIC FUNCTION PANELon Albumin [Mass/Vol] 4.3 g/dL Normal 3.6-5.1 [facility] Comment on above: Performed By: #### 6 399, 35653, 809, 375 #### [facility] [place] [address] Field Supervisor [employer] Production: Shiva Byrd MD Albumin/Globulin [Mass ratio] 1.7 {ratio} Normal 1.0-2.5 [facility] Comment on above: Performed By: #### 6 399, 91549, 809, 375 #### [facility] [place] [address] Field Supervisor [employer] Production: Shiva Byrd MD ALP [Catalytic activity/Vol] 47 U/L Normal 37-153 [facility] Comment on above: Performed By: #### 6 399, 78855, 809, 375 #### [facility] [place] [address] Field Supervisor Seed Production: Shiva Byrd MD ALT [Catalytic activity/Vol] 25 U/L Normal 6-29 [facility] Comment on above: Performed By: #### 6 399, 91310, 809, 375 #### [facility] [place] [address] Field Supervisor [employer] Production: Shiva Byrd MD AST [Catalytic activity/Vol] 17 U/L Normal 10-35 [facility] Comment on above: Performed By: #### 6 399, 08225, 809, 375 #### [facility] [place] [address] Field Supervisor Seed Production: Shiva Byrd MD Bilirubin [Mass/Vol] 0.5 mg/dL Normal 0.2-1.2 [facility] Comment on above: Performed By: #### 6 399, 53318, 809, 375 #### [facility] [place] [address] Field Supervisor [employer] Production: Shiva Byrd MD BILIRUBIN, INDIRECT 0.4 mg/dL (calc) Normal 0.2-1.2 [facility] Comment on above: Performed By: #### 6 399, 64392, 809, 375 #### [facility] [place] [address] Field Supervisor [employer] Production: Shiva Byrd MD Bilirubin.indirect [Mass/Vol] 0.1 mg/dL Normal < OR = 0.2 [facility] Comment on above: Performed By: #### 6 399, 18243, 809, 375 #### [facility] [place] [address] Field Supervisor Seed Production: Shiva Byrd MD Globulin (S) [Mass/Vol] 2.6 g/dL Normal 1.9-3.7 [facility] Comment on above: Performed By: #### 6 399, 65823, 809, 375 #### [facility] [place] [address] Field Supervisor [employer] Production: Shiva Byrd MD Protein [Mass/Vol] 6.9 g/dL Normal 6.1-8.1 [facility] Comment on above: Performed By: #### 6 399, 76604, 809, 375 #### [facility] [place] [address] Field Supervisor Seed Production: Shiva Byrd MD SED RATE BY MODIFIED WESTERG RENon 02-06-2024 SED RATE BY MODIFIED WESTERGREN 6 mm/h Normal < OR = 30 [facility] Comment on above: Performed By: #### 6 399, 97013, 809, 375 #### [facility] [place] [address] Field Supervisor Seed Production: Shiva Byrd MD CBC (INCLUDES DIFF/PLT)on Basophils (Bld) [#/Vol] 0.028 10*3/uL Normal 0-200 [facility] Comment on above: Performed By: #### 6 399, 64705, 809, 375 #### [facility] [place] [address] Field Supervisor [employer] Production: Shiva Byrd MD Basophils/100 WBC (Bld) 0.3 % Normal [facility] Comment on above: Performed By: #### 6 399, 85117, 809, 375 #### [facility] [place] [address] Field Supervisor [employer] Production: Shiva Byrd MD Eosinophils (Bld) [#/Vol] 0.451 10*3/uL Normal 15-500 [facility] Comment on above: Performed By: #### 6 399, 51756, 809, 375 #### [facility] [place] [address] Field Supervisor [employer] Production: Shiva Byrd MD Eosinophils/100 WBC (Bld) 4.9 % Normal [facility] Comment on above: Performed By: #### 6 399, 81630, 809, 375 #### [facility] [place] [address] Field Supervisor Seed Production: Shiva Byrd MD Erythrocyte distribution width (RBC) [Ratio] 13.6 % Normal 11.0-15.0 [facility] Comment on above: Performed By: #### 6 399, 47531, 809, 375 #### [facility] [place] [address] Field Supervisor [employer] Production: Shiva Byrd MD Hematocrit (Bld) [Volume fraction] 37.6 % Normal 35.0-45.0 [facility] Comment on above: Performed By: #### 6 399, 49749, 809, 375 #### [facility] [place] [address] Field Supervisor [employer] Production: Shiva Byrd MD Hemoglobin (Bld) [Mass/Vol] 12.3 g/dL Normal 11.7-15.5 [facility] Comment on above: Performed By: #### 6 399, 62238, 809, 375 #### [facility] [place] [address] Field Supervisor [employer] Production: Shiva Byrd MD Lymphocytes (Bld) [#/Vol] 2.217 10*3/uL Normal 850-3900 [facility] Comment on above: Performed By: #### 6 399, 25964, 809, 375 #### [facility] [place] [address] Field Supervisor [employer] Production: Shiva Byrd MD Lymphocytes/100 WBC (Bld) 24.1 % Normal [facility] Comment on above: Performed By: #### 6 399, 77793, 809, 375 #### [facility] [place] [address] Field Supervisor [employer] Production: Shiva Byrd MD MCH (RBC) [Entitic mass] 30.1 pg Normal 27.0-33.0 [facility] Comment on above: Performed By: #### 6 399, 33925, 809, 375 #### [facility] [address] [place] [address] Field Supervisor Seed Production: Shiva Byrd MD MCHC (RBC) [Mass/Vol] 32.7 g/dL Normal 32.0-36.[address] [facility] Comment on above: Performed By: #### 6 399, 02028, 809, 375 #### [facility] [place] [address] Field Supervisor Seed Production: Shiva Byrd MD MCV (RBC) [Entitic vol] 92.2 fL Normal 80.0-100.0 [facility] Comment on above: Performed By: #### 6 399, 18777, 809, 375 #### [facility] [place] [address] Field Supervisor [employer] Production: Shiva Byrd MD Monocytes (Bld) [#/Vol] 0.589 10*3/uL Normal 200-950 [facility] Comment on above: Performed By: #### 6 399, 65891, 809, 375 #### [facility] [place] [address] Field Supervisor [employer] Production: Shiva Byrd MD Monocytes/100 WBC (Bld) 6.4 % Normal [facility] Comment on above: Performed By: #### 6 399, 63643, 809, 375 #### [facility] [place] [address] Field Supervisor Seed Production: Shiva Byrd MD Neutrophils (Bld) [#/Vol] 5.916 10*3/uL Normal 7866-0931 [facility] Comment on above: Performed By: #### 6 399, 31571, 809, 375 #### [facility] [place] [address] Field Supervisor [employer] Production: Shiva Byrd MD Neutrophils/100 WBC (Bld) 64.3 % Normal [facility] Comment on above: Performed By: #### 6 399, 88929, 809, 375 #### [facility] [place] [address] Field Supervisor Seed Production: Shiva Byrd MD Platelet mean volume (Bld) [Entitic vol] 9.6 fL Normal 7.5-12.5 [facility] Comment on above: Performed By: #### 6 399, 19550, 809, 375 #### [facility] [place] [address] Field Supervisor [employer] Production: Shiva Byrd MD Platelets (Bld) [#/Vol] 308 10*3/uL Normal 140-400 [facility] Comment on above: Performed By: #### 6 399, 64798, 809, 375 #### [facility] [place] [address] Field Supervisor [employer] Production: Shiva Byrd MD RBC (Bld) [#/Vol] 4.08 10*6/uL Normal 3.80-5.10 [facility] Comment on above: Performed By: #### 6 399, 04411, 809, 375 #### [facility] [place] [address] Field Supervisor Seed Production: Shiva Byrd MD WBC (Bld) [#/Vol] 9.2 10*3/uL Normal 3.8-10.8 [facility] Comment on above: Performed By: #### 6 399, 52001, 809, 375 #### [facility] [place] [address] Field Supervisor Seed Production: Shiva Byrd MD CREATININEon 12-04-2023 Creatinine [Mass/Vol] 1.10 mg/dL High 0.50-1.05 [facility] Comment on above: Performed By: #### 6 399, 89733, 809, 375 #### [facility] [place] [address] Field Supervisor Seed Production: Shiva Byrd MD GFR/1.73 sq M.predicted among non-blacks MDRD (S/P/Bld) [Vol rate/Area] 54 mL/min/{1.73_m2} Low > OR = 60 [facility] Comment on above: Performed By: #### 6 399, 87594, 809, 375 #### [facility] [address], [address] [place] [address] Field Supervisor [employer] Production: Shiva Byrd MD HEPATIC FUNCTION PANELon Albumin [Mass/Vol] 4.4 g/dL Normal 3.6-5.1 [facility] Comment on above: Performed By: #### 6 399, 63245, 809, 375 #### [facility] [place] [address] Field Supervisor Seed Production: Shiva Byrd MD Albumin/Globulin [Mass ratio] 1.5 {ratio} Normal 1.0-2.5 [facility] Comment on above: Performed By: #### 6 399, 76141, 809, 375 #### [facility] [place] [address] Field Supervisor Seed Production: Shiva Byrd MD ALP [Catalytic activity/Vol] 53 U/L Normal 37-153 [facility] Comment on above: Performed By: #### 6 399, 77227, 809, 375 #### [facility] [place] [address] Field Supervisor Seed Production: Shiva Byrd MD ALT [Catalytic activity/Vol] 27 U/L Normal 6-29 [facility] Comment on above: Performed By: #### 6 399, 24258, 809, 375 #### [facility] [place] [address] Field Supervisor Seed Production: Shiva Byrd MD AST [Catalytic activity/Vol] 20 U/L Normal 10-35 [facility] Comment on above: Performed By: #### 6 399, 78860, 809, 375 #### [facility] [place] [address] Field Supervisor Seed Production: Shiva Byrd MD Bilirubin [Mass/Vol] 0.4 mg/dL Normal 0.2-1.2 [facility] Comment on above: Performed By: #### 6 399, 18442, 809, 375 #### [facility] [place] [address] Field Supervisor Seed Production: Shiva Byrd MD BILIRUBIN, INDIRECT 0.3 mg/dL (calc) Normal 0.2-1.2 [facility] Comment on above: Performed By: #### 6 399, 80461, 809, 375 #### [facility] [place] [address] Field Supervisor Seed Production: Shiva Byrd MD Bilirubin.indirect [Mass/Vol] 0.1 mg/dL Normal < OR = 0.2 [facility] Comment on above: Performed By: #### 6 399, 11483, 809, 375 #### [facility] [place] [address] Field Supervisor [employer] Production: Shiva Byrd MD Globulin (S) [Mass/Vol] 2.9 g/dL Normal 1.9-3.7 [facility] Comment on above: Performed By: #### 6 399, 10378, 809, 375 #### [facility] [place] [address] Field Supervisor [employer] Production: Shiva Byrd MD Protein [Mass/Vol] 7.3 g/dL Normal 6.1-8.1 [facility] Comment on above: Performed By: #### 6 399, 07334, 809, 375 #### [facility] [place] [address] Field Supervisor Seed Production: Shiva Byrd MD SED RATE BY MODIFIED ANTONELLA Child 12-04-2023 SED RATE BY MODIFIED WESTERGREN 6 mm/h Normal < OR = 30 [facility] Comment on above: Performed By: #### 6 399, 30112, 809, 375 #### [facility] [place] [address] Field Supervisor [employer] Production: Shiva Byrd MD CBC (INCLUDES DIFF/PLT)on Basophils (Bld) [#/Vol] 0.052 10*3/uL Normal 0-200 [facility] Comment on above: Performed By: #### 8 09, 92647, 6399, 375 #### [facility] [address], [address] [place] [address] Field Supervisor [employer] Production: Shiva Byrd MD Basophils/100 WBC (Bld) 0.8 % Normal [facility] Comment on above: Performed By: #### 8 09, 61476, 6399, 375 #### [facility] [place] [address] Field Supervisor [employer] Production: Shiva Byrd MD Eosinophils (Bld) [#/Vol] 0.312 10*3/uL Normal 15-500 [facility] Comment on above: Performed By: #### 8 09, , 6399, 375 #### [facility] [place] [address] Field Supervisor [employer] Production: Shiva Byrd MD Eosinophils/100 WBC (Bld) 4.8 % Normal [facility] Comment on above: Performed By: #### 8 09, , 63, 375 #### [facility] [place] [address] Field Supervisor Seed Production: Shiva Byrd MD Erythrocyte distribution width (RBC) [Ratio] 12.7 % Normal 11.0-15.0 [facility] Comment on above: Performed By: #### 8 09, 94963, 6399, 375 #### [facility] [place] [address] Field Supervisor Seed Production: Shiva Byrd MD Hematocrit (Bld) [Volume fraction] 38.4 % Normal 35.0-45.0 [facility] Comment on above: Performed By: #### 8 09, 50752, 6399, 375 #### [facility] of [place] [address] Field Supervisor [employer] Production: Shiva Byrd MD Hemoglobin (Bld) [Mass/Vol] 12.4 g/dL Normal 11.7-15.5 [facility] Comment on above: Performed By: #### 8 09, , 6399, 375 #### [facility] of [address] [place] [address] Field Supervisor [employer] Production: Shiva Byrd MD Lymphocytes (Bld) [#/Vol] 2.158 10*3/uL Normal 850-3900 [facility] Comment on above: Performed By: #### 8 09, 85088, 6399, 375 #### [facility] of [address], [address] [place] [address] Field Supervisor [employer] Production: Shiva Byrd MD Lymphocytes/100 WBC (Bld) 33.2 % Normal [facility] Comment on above: Performed By: #### 8 09, 37838, 6399, 375 #### [facility] [place] [address] Field Supervisor [employer]: Shiva Byrd MD MCH (RBC) [Entitic mass] 29.6 pg Normal 27.0-33.0 [facility] Comment on above: Performed By: #### 8 09, , 63, 375 #### [facility] [place] [address] Field Supervisor [employer] Production: Shiva Byrd MD MCHC (RBC) [Mass/Vol] 32.3 g/dL Normal 32.0-36.[address] [facility] Comment on above: Performed By: #### 8 09, 63465, 6399, 375 #### [facility] [place] [address] Field Supervisor [employer] Production: Shiva Byrd MD MCV (RBC) [Entitic vol] 91.6 fL Normal 80.0-100.0 [facility] Comment on above: Performed By: #### 8 09, 54436, 6399, 375 #### [facility] [place] [address] Field Supervisor [employer] Production: Shiva Byrd MD Monocytes (Bld) [#/Vol] 0.423 10*3/uL Normal 200-950 [facility] Comment on above: Performed By: #### 8 09, 43364, 6399, 375 #### [facility] [place] [address] Field Supervisor [employer] Production: Shiva Byrd MD Monocytes/100 WBC (Bld) 6.5 % Normal [facility] Comment on above: Performed By: #### 8 09, 19586, 6399, 375 #### [facility] of [address], [address] [place] [address] Field Supervisor [employer]: Shiva Byrd MD Neutrophils (Bld) [#/Vol] 3.556 10*3/uL Normal 7735-5194 [facility] Comment on above: Performed By: #### 8 09, , 6399, 375 #### [facility] of [address], [address] [place] [address] Field Supervisor [employer] Production: Shiva Byrd MD Neutrophils/100 WBC (Bld) 54.7 % Normal [facility] Comment on above: Performed By: #### 8 09, , 63, 375 #### [facility] of [address], [address] [place] [address] Field Supervisor [employer] Production: Shiva Byrd MD Platelet mean volume (Bld) [Entitic vol] 9.2 fL Normal 7.5-12.5 [facility] Comment on above: Performed By: #### 8 09, 13346, 6399, 375 #### [facility] [place] [address] Field Supervisor [employer] Production: Shiva Byrd MD Platelets (Bld) [#/Vol] 337 10*3/uL Normal 140-400 [facility] Comment on above: Performed By: #### 8 09, , 6399, 375 #### [facility] of [address], [address] [place] [address] Field Supervisor [employer] Production: Shiva Byrd MD RBC (Bld) [#/Vol] 4.19 10*6/uL Normal 3.80-5.10 [facility] Comment on above: Performed By: #### 8 09, 33918, 6399, 375 #### [facility] of [address], [address] [place] [address] Field Supervisor [employer] Production: Shiva Byrd MD WBC (Bld) [#/Vol] 6.5 10*3/uL Normal 3.8-10.8 [facility] Comment on above: Performed By: #### 8 09, 62791, 6399, 375 #### [facility] [place] [address] Field Supervisor [employer] Production: Shiva Byrd MD CREATININEon 11-01-2023 Creatinine [Mass/Vol] 1.01 mg/dL Normal 0.50-1.05 [facility] Comment on above: Performed By: #### 8 09, 87236, 6399, 375 #### [facility] [place] [address] Field Supervisor [employer] Production: Shiva Byrd MD GFR/1.73 sq M.predicted among non-blacks MDRD (S/P/Bld) [Vol rate/Area] 60 mL/min/{1.73_m2} Normal > OR = 60 [facility] Comment on above: Performed By: #### 8 09, 86508, 63, 375 #### [facility] [place] [address] Field Supervisor [employer] Production: Shiva Byrd MD HEPATIC FUNCTION PANELon Albumin [Mass/Vol] 4.3 g/dL Normal 3.6-5.1 [facility] Comment on above: Performed By: #### 8 09, 60399, 63, 375 #### [facility] [place] [address] Field Supervisor [employer] Production: Shiva Byrd MD Albumin/Globulin [Mass ratio] 1.7 {ratio} Normal 1.0-2.5 [facility] Comment on above: Performed By: #### 8 09, 20414, 6399, 375 #### [facility] [place] [address] Field Supervisor [employer] Production: Shiva Byrd MD ALP [Catalytic activity/Vol] 50 U/L Normal 37-153 [facility] Comment on above: Performed By: #### 8 09, 52101, 6399, 375 #### [facility] of [address], [address] [place] [address] Field Supervisor [employer] Production: Shiva Byrd MD ALT [Catalytic activity/Vol] 27 U/L Normal 6-29 [facility] Comment on above: Performed By: #### 8 09, 62997, 6399, 375 #### [facility] of [address], [address] [place] [address] Field Supervisor [employer] Production: Shiva Byrd MD AST [Catalytic activity/Vol] 19 U/L Normal 10-35 [facility] Comment on above: Performed By: #### 8 09, 03726, 6399, 375 #### [facility] of [address], [address] [place] [address] Field Supervisor [employer] Production: Shiva Byrd MD Bilirubin [Mass/Vol] 0.5 mg/dL Normal 0.2-1.2 [facility] Comment on above: Performed By: #### 8 09, 81339, 6399, 375 #### [facility] [place] [address] Field Supervisor [employer] Production: Shiva Byrd MD BILIRUBIN, INDIRECT 0.4 mg/dL (calc) Normal 0.2-1.2 [facility] Comment on above: Performed By: #### 8 09, 93476, 6399, 375 #### [facility] [place] [address] Field Supervisor [employer] Production: Shiva Byrd MD Bilirubin.indirect [Mass/Vol] 0.1 mg/dL Normal < OR = 0.2 [facility] Comment on above: Performed By: #### 8 09, 01051, 6399, 375 #### [facility] [place] [address] Field Supervisor [employer] Production: Shiva Byrd MD Globulin (S) [Mass/Vol] 2.6 g/dL Normal 1.9-3.7 [facility] Comment on above: Performed By: #### 8 09, 56288, 6399, 375 #### [facility] [place] [address] Field Supervisor [employer] Production: Shiva Byrd MD Protein [Mass/Vol] 6.9 g/dL Normal 6.1-8.1 [facility] Comment on above: Performed By: #### 8 09, 06812, 6399, 375 #### [facility] [address], [address] [place] [address] Field Supervisor [employer] Production: Shiva Byrd MD SED RATE BY MODIFIED WESTERG RENon 11-01-2023 SED RATE BY MODIFIED WESTERGREN 6 mm/h Normal < OR = 30 [facility] Comment on above: Performed By: #### 8 09, 33459, 6399, 375 #### [facility] [address], [address] [place] [address] Field Supervisor [employer] Production: Shiva Byrd MD PTH, INTACT AND CALCIUMon Calcium [Mass/Vol] 9.9 mg/dL Normal 8.6-10.4 [facility] Comment on above: Performed By: #### 8 837, 18802 #### [facility] [address], [address] [place] [address] Field Supervisor [employer]: Shiva Byrd MD PARATHYROID HORMONE, INTACT 48 pg/mL Normal 16-77 [facility] Comment on above: Result Comment: Interpretive Guide Intact PTH Calcium ------- Normal Parathyroid Normal Normal Hypoparathyroidism Low or Low Normal Low Hyperparathyroidism Primary Normal or High High Secondary High Normal or Low Tertiary High High Non-Parathyroid Hypercalcemia Low or Low Normal High Performed By: #### 8 837, 17377 #### [facility] [place] [address] Field Supervisor [employer] Production: Shiva Byrd MD VITAMIN D,25-OH,TOTAL,IAon 0 10-04-2023 VITAMIN D,25-OH,TOTAL,IA 45 ng/mL Normal 30-100 [facility] Comment on above: Result Comment: Magali min D Status 25-OH Vitamin D: Deficiency: <20 ng/mL Insufficiency: 20 - 29 ng/mL Optimal: > or = 30 ng/mL For 25-OH Vitamin D testing on patients on D2-supplementation and patients for whom quantitation of D2 and D3 fractions is required, the QuestAssureD(TM) 25-OH VIT D, (D2,D3), LC/MS/MS is recommended: order code 28119 (patients >2yrs). See Note 1 Note 1 For additional information, please refer to http://education.[employer]/faq/KOA072 (This link is being provided for informational/ educational purposes only.) Performed By: #### 6 399, 59505, 809, 375 #### [facility] [address] [facility], [address] [place] [address] Field Supervisor Seed Production: Shiva Byrd MD Alanine aminotransferase [En zymatic activity/volume] in Serum or PlasmaOrdered By: Kobe Nur on 08-29-2022 ALT [Catalytic activity/Vol] 33 U/L 7-52 [facility] Albumin [Mass/volume] in Ser um or Plasma by Bromocresol green (BCG) dye binding methoOrdered By: Kobe Nur on 08-29-2022 Albumin BCG dye [Mass/Vol] 4.3 g/dL 3.5-5.7 [facility] Alkaline phosphatase [Enzyma tic activity/volume] in Serum or PlasmaOrdered By: Kobe Nur on 08-29-2022 ALP [Catalytic activity/Vol] 53 U/L 34-104 [facility] Aspartate aminotransferase [ Enzymatic activity/volume] in Serum or PlasmaOrdered By: Kobe Nur on 08-29-2022 AST [Catalytic activity/Vol] 22 U/L 13-39 [facility] Basophils Auto (Bld) [#/Vol] Ordered By: Kobe Nur on 08-29-2022 Basophils (Bld) [#/Vol] 0.1 10*3/uL 0.0-0.2 [facility] Basophils/100 WBC Auto (Bld) Ordered By: Kobe Nur on 08-29-2022 Basophils/100 WBC (Bld) 0.7 % . [facility] Bilirubin.total [Mass/volume ] in Serum or PlasmaOrdered By: Kobe Nur on 08-29-2022 Bilirubin [Mass/Vol] 0.4 mg/dL 0.3-1.0 [facility] C reactive protein [Mass/vol ume] in Serum or PlasmaOrdered By: Kobe Nur on 08-29-2022 CRP [Mass/Vol] < 0.5 mg/dL 0.0-0.5 [facility] Calcium [Mass/volume] in Ser um or PlasmaOrdered By: Kobe Nur on 08-29-2022 Calcium [Mass/Vol] 10.0 mg/dL 8.6-10.3 [facility] Carbon dioxide, total [Moles /volume] in Serum or PlasmaOrdered By: Kobe Nur on 08-29-2022 CO2 [Moles/Vol] 25.7 mmol/L 21.0-31.0 [facility] Chloride [Moles/volume] in S lissa or PlasmaOrdered By: Kobe Nur on 08-29-2022 Chloride [Moles/Vol] 103 mmol/L 98-107 [facility] Creatinine [Mass/volume] in Serum or PlasmaOrdered By: Kobe Nur on 08-29-2022 Creatinine [Mass/Vol] 0.90 mg/dL 0.60-1.20 [facility] Eosinophils Auto (Bld) [#/Vo l]Ordered By: Kobe Nur on 08-29-2022 Eosinophils (Bld) [#/Vol] 0.5 10*3/uL 0.0-0.45 [facility] Eosinophils/100 WBC Auto (Bl d)Ordered By: Kobe Nur on 08-29-2022 Eosinophils/100 WBC (Bld) 5.9 % . [facility] Erythrocyte distribution wid th Auto (RBC) [Ratio]Ordered By: Kobe Nur on 08-29-2022 Erythrocyte distribution width (RBC) [Ratio] 13.1 % 11.9-15.3 [facility] Erythrocyte sedimentation ra te by Photometric methodOrdered By: Kobe Nur on 08-29-2022 ESR Photometric method (Bld) [Velocity] 14 mm/hr 0-29 [facility] Globulin Calc (S) [Mass/Vol] Ordered By: Kobe Nur on 08-29-2022 Globulin (S) [Mass/Vol] 2.9 g/dL [facility] Glucose [Mass/volume] in Ser um or PlasmaOrdered By: Kobe Nur on 08-29-2022 Glucose [Mass/Vol] 147 mg/dL 70-100 [facility] Comment on above: ADA recommended refe rence rangeRandom Glucose Reference Range is dependent on time and content of last meal. Glucose of more than 200 mg/dL in a nonstressed, ambulatory subject supports the diagnosis of Diabetes Mellitus. Hematocrit Auto (Bld) [Volum e fraction]Ordered By: Kobe Nur on 08-29-2022 Hematocrit (Bld) [Volume fraction] 39.7 % 34.0-46.4 [facility] Hemoglobin [Mass/volume] in BloodOrdered By: Kobe Nur on 08-29-2022 Hemoglobin (Bld) [Mass/Vol] 13.1 g/dL 11.8-15.4 [facility] Hepatitis B virus surface Ag [Presence] in Serum or Plasma by ImmunoassayOrdered By: Kobe Nur on 08-29-2022 HBV surface Ag IA Ql Negative Negative [facility] Hepatitis C virus IgG Ab [Pr esence] in Serum or Plasma by ImmunoassayOrdered By: Kobe Nur on 08-29-2022 HCV IgG IA Ql Non-Reactive Non Reactive [facility] Leukocytes [#/volume] correc maricel for nucleated erythrocytes in Blood by Automated counOrdered By: Kobe Nur on 08-29-2022 WBC corrected for nucl RBC Auto (Bld) [#/Vol] 8.1 10*3/uL 3.8-11.6 [facility] Lymphocytes Auto (Bld) [#/Vo l]Ordered By: Kobe Nur on 08-29-2022 Lymphocytes (Bld) [#/Vol] 2.5 10*3/uL 1.00-4.8 [facility] Lymphocytes/100 WBC Auto (Bl d)Ordered By: Kobe Nur on 08-29-2022 Lymphocytes/100 WBC (Bld) 30.5 % . [facility] MCH Auto (RBC) [Entitic mass ]Ordered By: Kobe Nur on 08-29-2022 MCH (RBC) [Entitic mass] 30.0 pg 24.7-34.3 [facility] MCHC Auto (RBC) [Mass/Vol]Or dered By: Kobe Nur on 08-29-2022 MCHC (RBC) [Mass/Vol] 33.1 g/dL 32.0-35.0 [facility] MCV Auto (RBC) [Entitic vol] Ordered By: Kobe Nur on 08-29-2022 MCV (RBC) [Entitic vol] 90.6 fL 80-100 [facility] Monocytes Auto (Bld) [#/Vol] Ordered By: Kobe Nur on 08-29-2022 Monocytes (Bld) [#/Vol] 0.6 10*3/uL 0.0-0.8 [facility] Monocytes/100 WBC Auto (Bld) Ordered By: Kobe Nur on 08-29-2022 Monocytes/100 WBC (Bld) 7.5 % . [facility] Neutrophils Auto (Bld) [#/Vo l]Ordered By: Kobe Nur on 08-29-2022 Neutrophils (Bld) [#/Vol] 4.5 10*3/uL 1.8-7.7 [facility] Neutrophils/100 WBC Auto (Bl d)Ordered By: Kobe Nur on 08-29-2022 Neutrophils/100 WBC (Bld) 55.4 % . [facility] No Panel InformationOrdered By: Kobe Nur on 08-29-2022 Estimated GFR (CKD-EPI) > 60.0 mL/Min [facility] Hepatitis B Core Total Antibody Negative Negative [facility] Comment on above: Performed at: - [facility] [employer] [address] [id number] Director: Willis Reeves PhD, Phone: [phone] Hepatitis C Interpretation See comment . [facility] Comment on above: Not infected with HC V unless early or acute infection issuspected (which may be delayed in an immunocompromisedindividual), or other evidence exists to indicate HCVinfection. Hepatitis C RNA Quantitative N/A [facility] Creatinine Clearance (Chem N/A [facility] Nucleated erythrocytes [Pres ence] in Blood by Automated countOrdered By: Kobe Nur on 08-29-2022 Nucleated RBC Auto Ql (Bld) 0.1 /100{WBC} 0-0.5 [facility] Platelet mean volume Auto (B ld) [Entitic vol]Ordered By: Kobe Nur on 08-29-2022 Platelet mean volume (Bld) [Entitic vol] 8.1 fL 6.3-10.7 [facility] Platelets Auto (Bld) [#/Vol] Ordered By: Kobe Nur on 08-29-2022 Platelets (Bld) [#/Vol] 313 10*3/uL 150-450 [facility] Potassium [Moles/volume] in Serum or PlasmaOrdered By: Kobe Nur on 08-29-2022 Potassium [Moles/Vol] 4.5 mmol/L 3.5-5.1 [facility] Protein [Mass/volume] in Ser um or PlasmaOrdered By: Kobe Nur on 08-29-2022 Protein [Mass/Vol] 7.2 g/dL 6.4-8.9 [facility] RBC Auto (Bld) [#/Vol]Ordere d By: Kobe Nur on 08-29-2022 RBC (Bld) [#/Vol] 4.38 10*6/uL 3.60-5.00 [facility] Serum hepatitis B virus surf arnoldo antibody detectionOrdered By: Kobe Nur on 08-29-2022 HBV surface Ab Ql (S) Non-Reactive . [facility] Comment on above: Non Reactive: Incons istent with immunity, less than 10 mIU/mL Reactive: Consistent with immunity, greater than 9.9 mIU/mL Serum nuclear antibody titer Ordered By: Kobe Nur on 08-29-2022 Nuclear Ab (S) [Titer] Negative . [facility] Comment on above: Negative <1:80 Lucie garcia 1:80 Positive >1:80ICAP nomenclature: [id number] more information about Hep-2 cell patterns useANApatterns.org, the official website for theInternational Consensus on Antinuclear Antibody (TERENCE)Patterns (ICAP).Performed at: [address] [id number] Director: Willis Reeves PhD, Phone: [phone] Serum or plasma albumin/glob ulin mass ratioOrdered By: Kobe Nur on 08-29-2022 Albumin/Globulin [Mass ratio] 1.5 {ratio} [facility] Serum or plasma anion gap de terminationOrdered By: Kobe Nur on 08-29-2022 Anion gap [Moles/Vol] 14.8 mmol/L 6.0-15.0 [facility] Sodium [Moles/volume] in Ser um or PlasmaOrdered By: Kobe Nur on 08-29-2022 Sodium [Moles/Vol] 139 mmol/L 136-145 [facility] Urea nitrogen [Mass/volume] in Serum or PlasmaOrdered By: Kobe Nur on 08-29-2022 Urea nitrogen [Mass/Vol] 18 mg/dL 7-25 [facility] WBC Auto (Bld) [#/Vol]Ordere d By: Kobe Nur on 08-29-2022 WBC (Bld) [#/Vol] 8.1 10*3/uL 3.8-11.6 [facility] REVERSE T3on 05-09-2022 Reverse T3, Serum 13.8 ng/dL Normal 9.2-24.1 [facility] Comment on above: Result Comment: This test was developed and its performance characteristics determined by [facility]. It has not been cleared or approved by the Food and Drug Administration. Performed By: #### R EVRT3 #### [facility] [address] [place] [address] [address] Rudy Briones T3, TOTAL (TRIIODOTHYRONINE) on 05-06-2022 T3, TOTAL 136 ng/dL Normal 71-180 [facility] Comment on above: Performed By: #### T 3TOTAL #### [facility] [id number] Rudy Briones FREE T3on 05-05-2022 FREE T3 2.17 pg/mlL Critically low 2.18-3.98 [facility] Comment on above: Performed By: #### F T3, TSH #### [facility] [address] [place] [address] Dr. Rudy Briones FREE T4on 05-05-2022 Free T4 [Mass/Vol] 0.85 ng/dL Normal 0.76-1.46 [facility] Comment on above: Performed By: #### F T4 #### [facility] [address] [place] [address] Dr. Rudy Briones TSHon 05-05-2022 TSH 1.852 uIU/mL Normal 0.358-3.74 0 [facility] Comment on above: Performed By: #### F T3, TSH #### [facility] [address] [place] [address] Dr. Rudy Briones FREE T3on 01-10-2022 FREE T3 2.00 pg/mlL Critically low 2.18-3.98 [facility] Comment on above: Performed By: #### T SH, FT3 #### [facility] [address] [place] [address] Dr. Rudy Briones FREE T4on 01-10-2022 Free T4 [Mass/Vol] 0.76 ng/dL Normal 0.76-1.46 [facility] Comment on above: Performed By: #### T 3TOTAL #### [facility] [address] [place] [address] Dr. Rudy Briones TSHon 01-10-2022 TSH 1.469 uIU/mL Normal 0.358-3.74 0 [facility] Comment on above: Performed By: #### T SH, FT3 #### [facility] [address] [place] [address] Dr. Rudy Briones REVERSE T3on 11-16-2021 Reverse T3, Serum 19.0 ng/dL Normal 9.2-24.1 [facility] Comment on above: Result Comment: This test was developed and its performance characteristics determined by [facility]. It has not been cleared or approved by the Food and Drug Administration. Performed By: #### R EVRT3 #### [facility] [address] [place] [address] Dr. Rudy Briones T3, TOTAL (TRIIODOTHYRONINE) on 11-11-2021 T3, TOTAL 116 ng/dL Normal 71-180 [facility] Comment on above: Performed By: #### T 3TOTAL #### [facility] [address] [place] [address] Dr. Rudy Briones FREE T3on 11-10-2021 FREE T3 1.62 pg/mlL Critically low 2.18-3.98 [facility] Comment on above: Performed By: #### F T3, TSH #### [facility] [address] [place] [address] Dr. Rudy Briones FREE T4on 11-10-2021 Free T4 [Mass/Vol] 1.03 ng/dL Normal 0.76-1.[address] [facility] Comment on above: Performed By: #### T 3TOTAL #### [facility] [address] [place] [address] Dr. Rudy Briones TSHon 11-10-2021 TSH 3.120 uIU/mL Normal 0.358-3.74 0 [facility] Comment on above: Performed By: #### F T3, TSH #### [facility] [address] [place] [address] Dr. Rudy Briones Hemoglobin A1Con 10-10-2021 EAG 145.59 Normal [facility] Comment on above: Performed By: #### A 1C #### [facility] [address] [place], [place] [id number] HbA1c (Bld) [Mass fraction] 6.7 % High 4.0-6.0 [facility] Comment on above: Performed By: #### A 1C #### [facility] [address], [place] [id number] Complete Blood Count with Au to Diffon 08-23-2021 Basophils (Bld) [#/Vol] 0.04 10*3/uL Normal 0.00-0.20 [facility] Comment on above: Performed By: #### C MP, CBCAD, LIPD #### [facility] [address], [place] [id number] Basophils/100 WBC (Bld) 0.5 % Normal [facility] Comment on above: Performed By: #### C MP, CBCAD, LIPD #### [facility] [address], [place] [id number] Eosinophils (Bld) [#/Vol] 0.49 10*3/uL Normal 0.02-0.50 [facility] Comment on above: Performed By: #### C MP, CBCAD, LIPD #### [facility] [address], [place] [id number] Eosinophils/100 WBC (Bld) 6.2 % Normal [facility] Comment on above: Performed By: #### C MP, CBCAD, LIPD #### [facility] [address], [place] [id number] Erythrocyte distribution width (RBC) [Ratio] 12.3 % Normal 11.0-15.0 [facility] Comment on above: Performed By: #### C MP, CBCAD, LIPD #### [facility] [address], [place] [id number] Hematocrit (Bld) [Volume fraction] 40.4 % Normal 35.0-47.0 [facility] Comment on above: Performed By: #### C MP, CBCAD, LIPD #### [facility] [address], [place] [id number] Hemoglobin (Bld) [Mass/Vol] 13.1 g/dL Normal 11.6-15.5 [facility] Comment on above: Performed By: #### C MP, CBCAD, LIPD #### [facility] [address], [place] [id number] Lymphocytes (Bld) [#/Vol] 2.4 10*3/uL Normal 0.9-3.9 [facility] Comment on above: Performed By: #### C MP, CBCAD, LIPD #### [facility] [address], [place] [id number] Lymphocytes/100 WBC (Bld) 30.7 % Normal [facility] Comment on above: Performed By: #### C MP, CBCAD, LIPD #### [facility] [address], [place] [id number] MCH (RBC) [Entitic mass] 29.9 pg Normal 27.0-33.0 [facility] [facility] Comment on above: Performed By: #### C MP, CBCAD, LIPD #### [facility] [address], [place] [id number] MCHC (RBC) [Mass/Vol] 32.4 g/dL Normal 32.0-36.0 [facility] Comment on above: Performed By: #### C MP, CBCAD, LIPD #### [facility] [address], [place] [id number] MCV (RBC) [Entitic vol] 92 fL Normal 80-100 [facility] Comment on above: Performed By: #### C MP, CBCAD, LIPD #### [facility] [address], [place] [id number] Monocytes (Bld) [#/Vol] 0.5 10*3/uL Normal 0.2-0.9 [facility] Comment on above: Performed By: #### C MP, CBCAD, LIPD #### [facility] [address], [place] [id number] Monocytes/100 WBC (Bld) 6.1 % Normal [facility] Comment on above: Performed By: #### C MP, CBCAD, LIPD #### [facility] [address], [place] [id number] Neutrophils (Bld) [#/Vol] 4.4 10*3/uL Normal 1.5-7.8 [facility] Comment on above: Performed By: #### C MP, CBCAD, LIPD #### [facility] [address], [place] [id number] Neutrophils/100 WBC (Bld) 56.2 % Normal [facility] Comment on above: Performed By: #### C MP, CBCAD, LIPD #### [facility] [address], [place] [id number] Platelet mean volume (Bld) [Entitic vol] 10.00 fL Normal 7.50-12.50 [facility] Comment on above: Performed By: #### C MP, CBCAD, LIPD #### [facility] [address] [place], [place] [id number] Platelets (Bld) [#/Vol] 341 10*3/uL Normal 140-400 [facility] Specialist Comment on above: Performed By: #### C MP, CBCAD, LIPD #### [facility] [address], [place] [id number] RBC (Bld) [#/Vol] 4.38 10*6/uL Normal 3.90-5.20 [facility] Specialist Comment on above: Performed By: #### C MP, CBCAD, LIPD #### [facility] [address], [place] [id number] RDW-SD 41.6 fL Normal 37.0-50.0 [facility] Specialist Comment on above: Performed By: #### C MP, CBCAD, LIPD #### [facility] [address], [place] [id number] WBC (Bld) [#/Vol] 7.9 10*3/uL Normal 3.8-11.0 [facility] [employer] Comment on above: Performed By: #### C MP, CBCAD, LIPD #### [facility] [address], [place] [id number] Comprehensive Metabolic Pane [facility] 08-23-2021 Albumin [Mass/Vol] 4.5 g/dL Normal 3.6-5.1 [facility] Specialist Comment on above: Performed By: #### C MP, CBCAD, LIPD #### [facility] [address], [place] [id number] Albumin/Globulin [Mass ratio] 1.8 {ratio} Normal 1.0-2.5 [facility] Specialist Comment on above: Performed By: #### C MP, CBCAD, LIPD #### [facility] [address], [place] [id number] ALP [Catalytic activity/Vol] 51 U/L Normal 35-119 [facility] Specialist Comment on above: Performed By: #### C MP, CBCAD, LIPD #### [facility] [address], [place] [id number] ALT [Catalytic activity/Vol] 29 U/L Normal 6-33 [facility] Specialist Comment on above: Result Comment: 03/30 Female reference range changed. Performed By: #### C MP, CBCAD, LIPD #### [facility] [address] [facility] [id number] Anion gap [Moles/Vol] 17 mmol/L Normal 12-20 [facility] Comment on above: Result Comment: Chio carmonaive 05/05/2019 reference range changed. Performed By: #### C MP, CBCAD, LIPD #### [facility] [address] [place] [id number] AST [Catalytic activity/Vol] 22 U/L Normal 9-34 [facility] Comment on above: Performed By: #### C MP, CBCAD, LIPD #### [facility] [address] [place], [place] [id number] Bilirubin [Mass/Vol] 0.44 mg/dL Normal 0.30-1.20 [facility] Comment on above: Performed By: #### C MP, CBCAD, LIPD #### [facility] [address] [id number] BUN/CREA 27 Ratio High 6-22 [facility] Comment on above: Performed By: #### C MP, CBCAD, LIPD #### [facility] [address] [place], [place] [id number] Calcium [Mass/Vol] 10.5 mg/dL High 8.6-10.2 [facility] Comment on above: Performed By: #### C MP, CBCAD, LIPD #### [facility] [address] [facility] [id number] Chloride [Moles/Vol] 104 mmol/L Normal 98-107 [facility] Comment on above: Performed By: #### C MP, CBCAD, LIPD #### [facility] [address] [place] [id number] CO2 [Moles/Vol] 25 mmol/L Normal 20-31 [facility] Comment on above: Performed By: #### C MP, CBCAD, LIPD #### [facility] [address] [id number] Creatinine [Mass/Vol] 0.7 mg/dL Normal 0.6-1.4 [facility] [place] [employer] Comment on above: Performed By: #### C MP, CBCAD, LIPD #### [facility] [address], [place] [id number] eGFRAA 103 mL/min/1.73m2 Normal >60 [facility] Specialist Comment on above: Performed By: #### C MP, CBCAD, LIPD #### [facility] [address], [place] [id number] eGFRNAA 85 mL/min/1.73m2 Normal >60 [facility] Specialist Comment on above: Performed By: #### C MP, CBCAD, LIPD #### [facility] [address], [place] [id number] Globulin (S) [Mass/Vol] 2.5 g/dL Normal 1.9-3.7 [facility] Specialist Comment on above: Performed By: #### C MP, CBCAD, LIPD #### [facility] [address], [place] [id number] Glucose [Mass/Vol] 136 mg/dL High 65-99 [facility] Specialist Comment on above: Result Comment: For FASTING Glucose --- ADA reference ranges: Normal 65-99 mg/dl Prediabetes 100-125 Diabetes >/= 126 Performed By: #### C MP, CBCAD, LIPD #### [facility] [address], [place] [id number] Potassium [Moles/Vol] 4.5 mmol/L Normal 3.5-5.5 [facility] Comment on above: Performed By: #### C MP, CBCAD, LIPD #### [facility] [address], [place] [id number] Protein [Mass/Vol] 7.0 g/dL Normal 6.1-8.1 [facility] [employer] Comment on above: Performed By: #### C MP, CBCAD, LIPD #### [facility] [address], [place] [id number] Sodium [Moles/Vol] 141 mmol/L Normal 135-146 [facility] Comment on above: Performed By: #### C MP, CBCAD, LIPD #### [facility] [address], [place] [id number] Urea nitrogen [Mass/Vol] 18 mg/dL Normal 7-25 [facility] Specialist Comment on above: Performed By: #### C DONIS, CBCAD, LIPD #### [facility] [address], [place] [id number] Lipid Panelon 08-23-2021 Cholesterol [Mass/Vol] 120 mg/dL Low 125-200 [facility] [employer] Comment on above: Result Comment: Low risk < 200mg/dL Borderline risk 201-239 mg/dl High risk > or equal to 240 Performed By: #### C DONIS, CBCAD, LIPD #### [facility] [address], [place] [id number] Cholesterol in HDL [Mass/Vol] 34 mg/dL Low >40 [facility] [employer] Comment on above: Result Comment: High Cardiovascular Risk HDL <40 mg/dL Low Cardiovascular Risk HDL > or equal to 60 mg/dl Performed By: #### C DONIS, CBCAD, LIPD #### [facility] [address], [place] [id number] Cholesterol in LDL [Mass/Vol] 52 mg/dL Normal [facility] Specialist Comment on above: Result Comment: LDL ATP III CLASSIFICATION LDL less than 100 mg/dl Optimal LDL 100-129 mg/dl Near or above optimal LDL 130-159 Borderline high LDL 160-189 High LDL greater than 189 mg/dl Very High Performed By: #### C DONIS, CBCAD, LIPD #### [facility] [address], [place] [id number] Cholesterol in VLDL [Mass/Vol] 34 mg/dL Normal [facility] Specialist Comment on above: Performed By: #### C DONIS, CBCAD, LIPD #### [facility] [address], [place] [id number] Cholesterol.total/Cho lesterol in HDL [Mass ratio] 4 {ratio} Normal [facility] Specialist Comment on above: Performed By: #### C DONIS, CBCAD, LIPD #### [facility] [address], [place] [id number] Triglyceride [Mass/Vol] 172 mg/dL High 30-150 [facility] Comment on above: Result Comment: TRIG ATPIII CLASSIFICATIONS TRIG less than 150 mg/dl Normal TRIG 150-199 mg/dl Borderline High TRIG 200-500 mg/dl High TRIG greather than 500 mg/dl Very High Performed By: #### C MP, CBCAD, LIPD #### [facility] [address], [place] [id number] Free T3on 05-25-2021 FT3 4.00 pg/mL Normal 2.00-4.40 [facility] Comment on above: Performed By: #### F T3, FT4, TSH #### [facility] [address], [place] [id number] Free T4on 05-25-2021 Free T4 [Mass/Vol] 1.17 ng/dL Normal 0.80-1.80 [facility] Comment on above: Performed By: #### F T3, FT4, TSH #### [facility] [address], [place] [id number] Q - T3 TOTALon 05-25-2021 T3, TOTAL 133 ng/dL Normal 76-181 [facility] Specialist Comment on above: Order Comment: [facility] performed at: [facility], [employer] [facility], [address], [address] [place], [address], Utility Aide: Shiva Bryd MD [facility] Date/Time: [facility] Results Received Date/Time: [facility] Reported Date/Time: Performed By: #### 9 [id number], [id number] #### [facility] [address] [place] [id number] Q - T3,REVERSE,LC/MS/MSon T3 REVERSE, LC/MS/MS 16 ng/dL Normal 8-25 [facility] Comment on above: Order Comment: [facility] performed at: [facility], [employer], [address], [place], [place], , Utility Aide: Vinay Tran M.D.,PhD [facility] Date/Time: [facility] Results Received Date/Time: [facility] Reported Date/Time: [id number] Result Comment: This test was developed and its analytical performance characteristics have been determined by [employer] [place], [place]. It has not been cleared or approved by the U.S. Food and Drug Administration. This assay has been validated pursuant to the CLIA regulations and is used for clinical purposes. Performed By: #### 9 0963, [id number] #### [facility] [address] [place] [address] TSHon 05-25-2021 TSH 3.790 uIU/mL Normal 0.400-4.50 0 [facility] Comment on above: Performed By: #### F T3, FT4, TSH #### [facility] [address] [place], [place] [id number] Vital Signs Date Time Vital Sign Value Performing Clinician Facility 11-26-2024 08:06-0400 Body height 167.6 cm Britney Jean-Baptiste MD Work Phone: [facility] 11-26-2024 08:06-0400 Body mass index (BMI) [Ratio] 30.99 kg/m2 Britney Jean-Baptiste MD Work Phone: [facility] 11-26-2024 08:06-0400 Body weight 87.09 kg Britney Jean-Baptiste MD Work Phone: [facility] 11-26-2024 08:06-0400 Diastolic blood pressure 97 mm[Hg] Britney Jean-Baptiste MD Work Phone: [facility] 11-26-2024 08:06-0400 Heart rate 66 /min Britney Jean-Baptiste MD Work Phone: [facility] 11-26-2024 08:06-0400 Systolic blood pressure 182 mm[Hg] Britney Jean-Baptiste MD Work Phone: [facility] 11-25-2024 08:53-0400 Body height 172.7 cm Louie Moreno MD Work Phone: [facility] 11-25-2024 08:53-0400 Body mass index (BMI) [Ratio] 30.11 kg/m2 Louie Moreno MD Work Phone: [facility] 11-25-2024 08:53-0400 Body weight 89.81 kg Louie Moreno MD Work Phone: [facility] 11-13-2024 09:09-0400 Body height 172.7 cm Louie Moreno MD Work Phone: [facility] 11-13-2024 09:09-0400 Body mass index (BMI) [Ratio] 30.11 kg/m2 Louie Moreno MD Work Phone: [facility] 11-13-2024 09:09-0400 Body weight 89.81 kg Louie Moreno MD Work Phone: [facility] 10-06-2024 15:08-0400 Body height 167.64 cm Louie Moreno MD Work Phone: [facility] 10-06-2024 15:08-0400 Body mass index (BMI) [Ratio] 30.4 kg/m2 Louie Moreno MD Work Phone: [facility] 10-06-2024 15:08-0400 Body temperature 98.2 [degF] Louie Moreno MD Work Phone: [facility] 10-06-2024 15:08-0400 Body weight 85.72 kg Louie Moreno MD Work Phone: [facility] 10-06-2024 15:08-0400 Diastolic blood pressure 70 mm[Hg] Louie Moreno MD Work Phone: [facility] 10-06-2024 15:08-0400 Heart rate 68 /min Louie Moreno MD Work Phone: [facility] 10-06-2024 15:08-0400 Respiratory rate 18 /min Louie Moreno MD Work Phone: [facility] 10-06-2024 15:08-0400 SaO2% (BldA) [Mass fraction] 97 % Louie Moreno MD Work Phone: [facility] 10-06-2024 15:08-0400 Systolic blood pressure 111 mm[Hg] Louie Moreno MD Work Phone: [facility] 09-29-2024 15:03-0400 Body height 172.7 cm Louie Moreno MD Work Phone: [facility] 09-29-2024 15:03-0400 Body mass index (BMI) [Ratio] 30.11 kg/m2 Louie Moreno MD Work Phone: [facility] 09-29-2024 15:03-0400 Body weight 89.81 kg Louie Moreno MD Work Phone: [facility] 09-17-2024 11:13-0400 Body height 172.7 cm Louie Moreno MD Work Phone: [facility] 09-17-2024 11:13-0400 Body mass index (BMI) [Ratio] 30.11 kg/m2 Louie Moreno MD Work Phone: [facility] 09-17-2024 11:13-0400 Body weight 89.81 kg Louie Moreno MD Work Phone: [facility] 09-17-2024 11:13-0400 Diastolic blood pressure 78 mm[Hg] Louie Moreno MD Work Phone: [facility] 09-17-2024 11:13-0400 Heart rate 96 /min Louie Moreno MD Work Phone: [facility] 09-17-2024 11:13-0400 SaO2% (BldA) [Mass fraction] 97 % Louie Moreno MD Work Phone: [facility] 09-17-2024 11:13-0400 Systolic blood pressure 120 mm[Hg] Louie Moreno MD Work Phone: [facility] 04-02-2024 10:01-0500 Body height 170.2 cm Louie Moreno MD Work Phone: [facility] 04-02-2024 10:01-0500 Body mass index (BMI) [Ratio] 32.66 kg/m2 Louie Moreno MD Work Phone: [facility] 04-02-2024 10:01-0500 Body weight 94.58 kg Louie Moreno MD Work Phone: [facility] 04-02-2024 10:01-0500 Diastolic blood pressure 70 mm[Hg] Louie Moreno MD Work Phone: [facility] 04-02-2024 10:01-0500 Heart rate 63 /min Louie Moreno MD Work Phone: [facility] 04-02-2024 10:01-0500 SaO2% (BldA) [Mass fraction] 98 % Louie Moreno MD Work Phone: [facility] 04-02-2024 10:01-0500 Systolic blood pressure 126 mm[Hg] Louie Moreno MD Work Phone: [facility] 03-20-2024 09:57-0500 Body height 170.2 cm Louie Moreno MD Work Phone: [facility] 03-20-2024 09:57-0500 Body mass index (BMI) [Ratio] 32.66 kg/m2 Louie Moreno MD Work Phone: [facility] 03-20-2024 09:57-0500 Body weight 94.58 kg Louie Moreno MD Work Phone: [facility] 02-15-2023 13:20-0400 Body height 170.18 cm [employer] Other [employer] Other 02-15-2023 13:20-0400 Body mass index (BMI) [Ratio] 30.69 kg/m2 [employer] Other [employer] Other 02-15-2023 13:20-0400 Body weight 88.91 kg [employer] Other [employer] Other 01-15-2023 09:20-0400 Body height 170.18 cm Nery Bambeco Other [employer] Other 01-15-2023 09:20-0400 Body mass index (BMI) [Ratio] 31.01 kg/m2 Neyr Bambeco Other [employer] Other 01-15-2023 09:20-0400 Body weight 89.81 kg [employer] Other [employer] Other 01-15-2023 09:20-0400 Diastolic blood pressure 90 mm[Hg] Nery Bambeco Other [employer] Other 01-15-2023 09:20-0400 Systolic blood pressure 146 mm[Hg] Nery Bambeco Other [employer] Other 12-12-2022 15:40-0400 Diastolic blood pressure 90 mm[Hg] MD Louie Moreno Work Phone: [facility] 12-12-2022 15:40-0400 Heart rate 58 /min MD Louie Moreno Work Phone: [facility] 12-12-2022 15:40-0400 Systolic blood pressure 168 mm[Hg] MD Louie Moreno Work Phone: [facility] 09-05-2022 14:00-0400 Body temperature 98 [degF] MD Louie Moreno Work Phone: [facility] 09-05-2022 14:00-0400 Diastolic blood pressure 86 mm[Hg] MD Louie Moreno Work Phone: [facility] 09-05-2022 14:00-0400 Heart rate 62 /min MD Louie Moreno Work Phone: [facility] 09-05-2022 14:00-0400 Respiratory rate 18 /min MD Louie Moreno Work Phone: [facility] 09-05-2022 14:00-0400 SaO2% (BldA) [Mass fraction] 98 % MD Louie Moreno Work Phone: [facility] 09-05-2022 14:00-0400 Systolic blood pressure 178 mm[Hg] MD Louie Moreno Work Phone: [facility] 06-13-2022 15:05-0500 Diastolic blood pressure 80 mm[Hg] MD Louie Moreno Work Phone: [facility] 06-13-2022 15:05-0500 Heart rate 66 /min MD Louie Moreno Work Phone: [facility] 06-13-2022 15:05-0500 Systolic blood pressure 157 mm[Hg] MD Louie Moreno Work Phone: [facility] 02-24-2022 11:20-0400 Body temperature 97.3 [degF] MD Louie Moreno Work Phone: [facility] 02-24-2022 11:20-0400 Respiratory rate 18 /min MD Louie Moreno Work Phone: [facility] 02-24-2022 11:20-0400 SaO2% (BldA) [Mass fraction] 98 % MD Louie Moreno Work Phone: [facility] 06-10-2021 08:25-0500 Body weight 86.4 kg MD Louie Moreno Work Phone: [facility] Encounters Encounter Date Encounter Type Care Provider Facility Start: 12-09-2024 End: 12-09-2024 Patient encounter procedure Shelli Eng [employer] [address] Work Phone: Start: 12-09-2024 End: 12-09-2024 ambulatory Louie Moreno MD Work Phone: [facility] Work Phone: Start: 12-03-2024 End: 12-03-2024 ambulatory BRITNEY JEAN-BAPTISTE Not Available Start: 11-26-2024 End: 11-26-2024 Office outpatient new 45 minutes Britney Jean-Baptiste MD Work Phone: [facility] Comment on above: Trigeminal neuralgia of right side of face (Primary Dx); Claustrophobia Start: 11-26-2024 End: 11-26-2024 ambulatory BRITNEY JEAN-BAPTISTE Not Available Start: 11-25-2024 End: 11-25-2024 Bamboo flowsheet Louie Moreno MD Work Phone: [address] [facility] Start: 11-25-2024 End: 11-25-2024 Bamboo flowsheet Louie Moreno MD Work Phone: [address] [facility] Start: 11-25-2024 End: 11-25-2024 Office outpatient visit 25 minutes Louie Moreno MD Work Phone: [address] Comment on above: Acquired hypothyroid ism (Primary Dx); Euthyroid sick syndrome; Chronic fatigue; Psoriatic arthritis (HCC); Trigeminal neuralgia of right side of face ; Polypharmacy; Non morbid obesity due to excess calories Start: 11-25-2024 End: 11-25-2024 ambulatory LOUIE MORENO Not Available Start: 11-13-2024 End: 11-13-2024 Bamboo flowsheet Louie Moreno MD Work Phone: [facility] Start: 11-13-2024 End: 11-13-2024 Bamboo flowsmelinda Moreno MD Work Phone: [facility] Start: 11-13-2024 End: 11-13-2024 ambulatory LOUIE MORENO Not Available Start: 11-13-2024 End: 11-13-2024 Office outpatient visit 15 minutes Louie Moreno MD Work Phone: [facility] Comment on above: Tinea pedis of left foot (Primary Dx) Start: 11-05-2024 End: 11-05-2024 Patient encounter procedure [facility] Work Phone: Start: 11-05-2024 End: 11-05-2024 ambulatory Louie Moreno MD Work Phone: [facility] Work Phone: Start: 10-06-2024 End: 10-06-2024 ambulatory Louie Moreno MD Work Phone: [facility] Work Phone: Start: 10-06-2024 End: 10-06-2024 Patient encounter procedure Louie Moreno MD Work Phone: [facility] Work Phone: Start: 09-29-2024 End: 09-29-2024 ambulatory LOUIE MORENO Not Available Start: 09-29-2024 End: 09-29-2024 Office outpatient visit 25 minutes Louie Moreno MD Work Phone: [facility] Comment on above: Rotator cuff syndrom e of right shoulder (Primary Dx); Acute pain of right shoulder; Non morbid obesity due to excess calories; Trigeminal neuralgia of right side of face (CMS/HCC); Polypharmacy Start: 09-29-2024 End: 09-29-2024 Bamboo flowsheet Louie Moreno MD Work Phone: [facility] Start: 09-29-2024 End: 09-29-2024 Bamboo flowsheet Louie Moreno MD Work Phone: [facility] Start: 09-17-2024 End: 09-17-2024 Bamboo flowsheet Louie Moreno MD Work Phone: [facility] Start: 09-17-2024 End: 09-17-2024 Bamboo flowsheet Louie Moreno MD Work Phone: [facility] Start: 09-17-2024 End: 09-17-2024 Patient encounter procedure Louie Moreno MD Work Phone: [facility] Comment on above: Encounter for Medica re annual wellness exam (Primary Dx); Advance directive discussed with patient; Encounter for screening for other disorder; Screening for alcohol problem; Polypharmacy; Brain atrophy (CMS/HCC); Primary hypertension (CMS/HCC); Psoriatic arthritis (CMS/HCC); Type 2 diabetes mellitus with stage 2 chronic kidney disease, without long-term current use of insulin (CMS/HCC); Type 2 diabetes mellitus with microalbuminuria, without long-term current use of insulin (CMS/HCC); Acquired hypothyroidism (CMS/HCC); Plaque psoriasis (CMS/HCC); Mixed hyperlipidemia (CMS/HCC); Screening for osteoporosis; Screening mammogram, encounter for; Menopause; Cardiovascular event risk Start: 09-17-2024 End: 09-17-2024 ambulatory LOUIE MORENO Not Available Start: 07-23-2024 End: 07-23-2024 ambulatory LOUIE MORENO Not Available Start: 07-15-2024 End: 07-15-2024 Patient encounter procedure Louie Moreno MD Work Phone: [facility] [address] Work Phone: Start: 07-15-2024 End: 07-15-2024 ambulatory Louie Moreno MD Work Phone: [facility] Work Phone: Start: 05-15-2024 End: 05-15-2024 Patient encounter procedure Louie Moreno MD Work Phone: [facility] [address] Work Phone: Start: 05-15-2024 End: 05-15-2024 ambulatory Louie Moreno MD Work Phone: [facility] Work Phone: Start: 05-11-2024 End: 05-13-2024 Refill Louie Moreno MD Work Phone: [facility] Comment on above: Primary hypertension (CMS/HCC) Start: 04-03-2024 End: 04-03-2024 Patient encounter procedure Louie Moreno MD Work Phone: [facility] [address] Work Phone: Start: 04-03-2024 End: 04-03-2024 ambulatory Louie Moreno Facility:[facility] Start: 04-02-2024 End: 04-02-2024 Bamboo flowsheet Louie Moreno MD Work Phone: [facility] Start: 04-02-2024 End: 04-02-2024 Bamboo flowsheet Louie Moreno MD Work Phone: [facility] Start: 04-02-2024 End: 04-02-2024 Office outpatient visit 25 minutes Louie Moreno MD Work Phone: [facility] Comment on above: Primary hypertension (CMS/HCC) (Primary Dx); Mixed hyperlipidemia (CMS/HCC); Hypokalemia; Type 2 diabetes mellitus with microalbuminuria, without long-term current use of insulin (CMS/HCC); Type 2 diabetes mellitus with stage 2 chronic kidney disease, without long-term current use of insulin (CMS/HCC); Psoriatic arthritis (CMS/HCC); Polypharmacy; Non morbid obesity due to excess calories Start: 04-02-2024 End: 04-02-2024 ambulatory LOUIE MORENO Not Available Start: 03-20-2024 End: 03-20-2024 Bamboo flowsheet Louie Moreno MD Work Phone: [facility] Start: 03-20-2024 End: 03-21-2024 Bamboo flowsheet Louie Moreno MD Work Phone: [facility] Start: 03-20-2024 End: 03-21-2024 External Result Encounter Louie Moreno MD Work Phone: [facility] Department Unsolicited Start: 03-20-2024 End: 03-20-2024 ambulatory Louie Moreno Facility:[facility] Start: 03-20-2024 End: 03-20-2024 Patient encounter procedure Louie Moreno MD Work Phone: [facility] [address] Work Phone: Start: 03-20-2024 End: 03-20-2024 Office outpatient visit 25 minutes Louie Moreno MD Work Phone: [facility] Comment on above: Euthyroid sick syndr ome; Acquired hypothyroidism ([facility]); Chronic fatigue Start: 03-20-2024 End: 03-20-2024 ambulatory OLUIE MORENO Not Available Start: 01-17-2024 End: 01-17-2024 Refill Louie Moreno MD Work Phone: [facility] Comment on above: Type 2 diabetes emile itus with microalbuminuria, without long- term current use of insulin ([facility]) Start: 01-01-2024 End: 01-01-2024 ambulatory Laverne Barlow Facility:[facility] Start: 05-03-2023 End: 05-03-2023 ambulatory Nery Mercado Other [facility] [employer] [facility] [employer] Other Start: 05-03-2023 Telephone encounter Nery Mercado [employer] Start: 03-26-2023 End: 03-26-2023 ambulatory MD Louie Moreno Work Phone: [facility] Work Phone: Start: 03-26-2023 End: 03-26-2023 Patient encounter procedure MD Louie Moreno Work Phone: [facility] [address] [place] Work Phone: Start: 02-15-2023 End: 02-15-2023 ambulatory Nery Mercado Other [facility] [employer] Other Start: 02-15-2023 Office outpatient vi sit 15 minutes [employer] [facility] Start: 02-06-2023 End: 02-06-2023 ambulatory MD Louie Moreno Work Phone: [facility] Work Phone: Start: 02-06-2023 End: 02-06-2023 Patient encounter procedure MD Louie Moreno Work Phone: [facility] [address] Work Phone: Start: 01-15-2023 Office outpatient ne w 45 minutes [employer] [facility] Start: 01-15-2023 End: 01-15-2023 ambulatory MD Louie Moreno Work Phone: [facility] Work Phone: Start: 01-15-2023 End: 01-15-2023 Patient encounter procedure MD Louie Moreno Work Phone: [facility] [address] [place] Work Phone: Start: 12-26-2022 End: 12-26-2022 ambulatory MD Louie Moreno Work Phone: [facility] Work Phone: Start: 12-26-2022 End: 12-26-2022 Patient encounter procedure MD Louie Moreno Work Phone: [facility] [place] Work Phone: Start: 12-12-2022 Registered Recurring MD Louie Moreno Work Phone: [facility] Work Phone: Start: 11-22-2022 End: 11-22-2022 ambulatory MD Louie Moreno Work Phone: [facility] Work Phone: Start: 11-22-2022 End: 11-22-2022 Patient encounter procedure MD Louie Moreno Work Phone: [facility] [place] Work Phone: Start: 09-28-[address] LOUIE MORENO [facility] ity:H1 Start: 09-05-2022 Registered Recurring MD Louie Moreno Work Phone: [facility] Work Phone: Start: 08-29-2022 End: 08-29-2022 ambulatory MD Louie Moreno Work Phone: [facility] Work Phone: Start: 08-29-2022 End: 08-29-2022 Patient encounter procedure MD Louie Moreno Work Phone: [facility] [address] Work Phone: Start: 06-13-2022 Registered Recurring MD Louie Moreno Work Phone: [facility] Work Phone: Start: 05-05-2022 End: 05-06-[address] LOUIE MORENO Facility:H1 Start: 01-10-2022 End: 01-11-[address] LOUIE MORENO Facility:H1 Start: 11-10-2021 End: 11-11-[address] LOUIE MORENO Facility:H1 Procedures Date Procedure Procedure Detail Performing Clinician Start: 11-05-2024 Dual energy X-ray absorptiometry Louie Moreno MD Work Phone: Start: 11-05-2024 End: 11-05-2024 Screening mammography of bilateral breasts Louie Moreno MD Work Phone: Start: 03-20-2024 Hemoglobin glycosylated a1c Louie Moreno MD Work Phone: Start: 08-29-2023 Mammography Louie villagran MD Work Phone: Start: 03-26-2023 MR lumbar spine wo con MD Louie Moreno Work Phone: Start: 02-06-2023 MRI of cervical spin e without contrast MD Louie Moreno Work Phone: Start: 02-06-2023 MRI of head MD Louie Moreno Work Phone: Start: 01-15-2023 X-ray of cervical spine MD Louie Moreno Work Phone: Start: 12-26-2022 Plain X-ray of left hip MD Louie Moreno Work Phone: Start: 11-22-2022 X-ray of lumbar spin e, four or more views MD Louie Moreno Work Phone: Start: 08-29-2022 Plain chest X-ray MD Jonny Moreno Work Phone: Start: 08-29-2022 Plain X-ray of bilat eral hands MD Louie Moreno Work Phone: Start: 08-29-2022 X-ray of both knees MD Louie Moreno Work Phone: Start: 08-29-2022 X-ray of cervical spine MD Louie Moreno Work Phone: Start: 12-27-2015 Colonoscopy Louie villagran MD Work Phone: Plan of Treatment Date Care Activity Detail Author Start: 10-08-2026 Glaucoma screening Diabetes: R etinopathy Screening [facility] Start: 12-26-2025 Screening for malign ant neoplasm of colon [facility] Start: 11-05-2025 Screening for malign ant neoplasm of breast Mammogram [facility] Start: 09-17-2025 Medicare Annual Well ness (AWV) Medicare Annual Wellness (AWV) [facility] Start: 05-26-2025 End: 05-26-2025 Patient encounter procedure 05/26/2025 2:00 PM EST [facility] [place] [address] Louie Moreno MD [address] [facility] [address] [place] [address] Start: 04-24-2025 End: 11-25-2025 T3, reverse T3, reverse Lab Routine Chronic fatigue Expected: 04/24/2025 (Approximate), Expires: 11/25/2025 [facility] Comment on above: Expected: 04/24/2025 (Approximate), Expires: 11/25/2025 Start: 04-24-2025 End: 11-25-2025 Thyrotropin [Units/volume] in Serum or Plasma TSH Lab Routine Chronic fatigue Expected: 04/24/2025 (Approximate), Expires: 11/25/2025 [facility] Comment on above: Expected: 04/24/2025 (Approximate), Expires: 11/25/2025 Start: 04-24-2025 End: 11-25-2025 Thyroxine (T4) free [Mass/volume] in Serum or Plasma T4, free Lab Routine Chronic fatigue Expected: 04/24/2025 (Approximate), Expires: 11/25/2025 [facility] Comment on above: Expected: 04/24/2025 (Approximate), Expires: 11/25/2025 Start: 04-24-2025 End: 11-25-2025 Triiodothyronine (T3) [Mass/volume] in Serum or Plasma T3 Lab Routine Chronic fatigue Expected: 04/24/2025 (Approximate), Expires: 11/25/2025 [facility] Work Phone: Comment on above: Expected: 04/24/2025 (Approximate), Expires: 11/25/2025 Start: 04-24-2025 End: 11-25-2025 Triiodothyronine (T3) Free [Mass/volume] in Serum or Plasma T3, free Lab Routine Chronic fatigue Expected: 04/24/2025 (Approximate), Expires: 11/25/2025 [facility] Comment on above: Expected: 04/24/2025 (Approximate), Expires: 11/25/2025 Start: 03-16-2025 Glaucoma screening Diabetes: R etinopathy Screening [facility] Start: 01-16-2025 Hemoglobin A1c measurement Margarita betes: Hemoglobin A1C [facility] Start: 01-13-2025 End: 01-13-2025 Patient encounter procedure [facility] Start: 01-07-2025 End: 01-07-2025 Patient encounter procedure 01/07/2025 10:40 AM EDT [facility] [address] [place] [address] Britney Jean-Baptiste MD [address] [address] [facility] Start: 12-29-2024 Influenza vaccination Influenza Vacc ine (#1) [facility] Start: 11-26-2024 End: 11-26-2025 MR Brain WO and W contrast IV MR brain w and wo contrast routine Imaging Routine Trigeminal neuralgia of right side of face Expected: 11/26/2024, Expires: 11/26/2025 [facility] Work Phone: Comment on above: Expected: 11/26/2024 , Expires: 11/26/2025 Start: 11-26-2024 End: 11-26-2024 Patient encounter procedure [facility] Start: 11-25-2024 End: 11-25-2024 Patient encounter procedure 11/25/2024 9:00 AM EDT [facility] [address] [facility] [address] [place] [address] Louie Moreno MD [address] [facility] [address] [place] [address] (Fax) Euthyroid sick syndrome; Acquired hypothyroidism ; Chronic fatigue; Polypharmacy; Non morbid obesity due to excess calories [facility] Comment on above: Euthyroid sick syndr ome; Acquired hypothyroidism ; Chronic fatigue; Polypharmacy; Non morbid obesity due to excess calories Start: 09-29-2024 End: 09-29-2024 Patient encounter procedure 09/29/2024 3:00 PM EDT Office Visit [facility] [address] [facility] 100 [place] [address] Louie Moreno MD [address] [place] [address] [facility] Start: 09-25-2024 End: 09-25-2024 Patient encounter procedure 09/25/2024 8:30 AM EDT Office Visit [facility] [address] [place] [address] Louie Moreno MD [address] [place] [address] [facility] Start: 09-17-2024 End: 11-17-2025 DBT Breast - bilateral screening Bilateral screening mammogram with tomosynthesis Imaging Routine Screening mammogram, encounter for Expected: 09/17/2024, Expires: 11/17/2025 [facility] Work Phone: Comment on above: Expected: 09/17/2024 , Expires: 11/17/2025 Start: 09-17-2024 End: 09-17-2025 DXA Skeletal system Views for bone density DEXA bone density Imaging Routine Screening for osteoporosis Menopause Expected: 09/17/2024, Expires: 09/17/2025 [facility] Comment on above: Expected: 09/17/2024 , Expires: 09/17/2025 Start: 09-17-2024 Hemoglobin A1c measurement Margarita betes: Hemoglobin A1C [facility] Start: 09-17-2024 End: 03-20-2025 T3, reverse T3, reverse Lab Routine Chronic fatigue Expected: 09/17/2024 (Approximate), Expires: 03/20/2025 [facility] Comment on above: Expected: 09/17/2024 (Approximate), Expires: 03/20/2025 Start: 09-17-2024 End: 03-20-2025 Thyrotropin [Units/volume] in Serum or Plasma TSH Lab Routine Chronic fatigue Expected: 09/17/2024 (Approximate), Expires: 03/20/2025 [facility] Comment on above: Expected: 09/17/2024 (Approximate), Expires: 03/20/2025 Start: 09-17-2024 End: 03-20-2025 Thyroxine (T4) free [Mass/volume] in Serum or Plasma T4, free Lab Routine Chronic fatigue Expected: 09/17/2024 (Approximate), Expires: 03/20/2025 [facility] Comment on above: Expected: 09/17/2024 (Approximate), Expires: 03/20/2025 Start: 09-17-2024 End: 03-20-2025 Triiodothyronine (T3) [Mass/volume] in Serum or Plasma T3 Lab Routine Chronic fatigue Expected: 09/17/2024 (Approximate), Expires: 03/20/2025 [facility] Work Phone: Comment on above: Expected: 09/17/2024 (Approximate), Expires: 03/20/2025 Start: 09-17-2024 End: 03-20-2025 Triiodothyronine (T3) Free [Mass/volume] in Serum or Plasma T3, free Lab Routine Chronic fatigue Expected: 09/17/2024 (Approximate), Expires: 03/20/2025 [facility] Comment on above: Expected: 09/17/2024 (Approximate), Expires: 03/20/2025 Start: 09-17-2024 End: 09-17-2024 Patient encounter procedure 09/17/2024 11:00 AM EDT Office Visit [facility] [address] [facility] 100 [place] [address] Louie Moreno MD 112 [facility] 100 [place] [address] Encounter for Medicare annual wellness exam; Advance directive discussed with patient; Encounter for screening for other disorder; Screening for alcohol problem; Polypharmacy [facility] Comment on above: Encounter for Medica re annual wellness exam; Advance directive discussed with patient; Encounter for screening for other disorder; Screening for alcohol problem; Polypharmacy Start: 09-08-2024 End: 09-08-2024 Patient encounter procedure [facility] Start: 08-28-2024 Screening for malign ant neoplasm of breast Mammogram [facility] Start: 08-07-2024 End: 08-07-2024 Patient encounter procedure 08/07/2024 1:00 PM EDT Office Visit [facility] [address] [place] [address] Laverne Barlow MD [address] [place] [address] [facility] Start: 07-03-2024 Medicare Annual Well ness (AWV) Medicare Annual Wellness (AWV) [facility] Start: 04-02-2024 End: 04-02-2025 Hemoglobin A1c/Hemoglobin.total in Blood Hemoglobin A1c Lab Routine Type 2 diabetes mellitus with stage 2 chronic kidney disease, without long-term current use of insulin ([facility]) Expected: 04/02/2024 (Approximate), Expires: 04/02/2025 [facility] Work Phone: Comment on above: Expected: 04/02/2024 (Approximate), Expires: 04/02/2025 Start: 04-02-2024 End: 04-02-2024 Patient encounter procedure [facility] Comment on above: Benign essential hyp ertension ([facility]); Mixed hyperlipidemia ([facility]); Hypercalcemia; Hypokalemia; Type 2 diabetes mellitus with microalbuminuria, without long-term current use of insulin ([facility]); Type 2 diabetes mellitus with stage 2 chronic kidney disease, without long-term current use of insulin ([facility]); Polypharmacy; Non morbid obesity due to excess calories Start: 03-21-2024 Hemoglobin A1c measurement Margarita betes: Hemoglobin A1C [facility] Start: 03-20-2024 End: 03-20-2024 Patient encounter procedure [facility] Comment on above: Euthyroid sick syndr ome; Acquired hypothyroidism ([facility]); Chronic fatigue Start: 02-09-2024 Glaucoma screening Diabetes: R etinopathy Screening [facility] Start: 12-30-2023 Influenza vaccination Influenza Vacc ine (#1) [facility] Start: 12-20-2023 Hemoglobin A1c measurement Margarita betes: Hemoglobin A1C [facility] Start: 11-30-2023 Urine screening for protein Diabetes: Urine Protein Screening [facility] Start: 05-08-2023 Urine screening for protein Diabetes: Urine Protein Screening [facility] Start: 04-13-2023 Urine screening for protein Diabetes: Urine Protein Screening [facility] Start: 08-29-2022 Hepatitis B core ant ibody measurement [facility] Start: 08-29-2022 [facility] Start: 1955 Screening for malign ant neoplasm of colon [facility] Immunizations Immunization Date Immunization Notes Care Provider Fa cility 01-16-2024 influenza, seasonal, injectable Louie Moreno MD Work Phone: [facility] 01-16-2024 influenza virus vacc ine, unspecified formulation Louie Moreno MD Work Phone: [facility] 02-27-2023 influenza, injectabl e, quadrivalent, preservative free Louie Moreno MD Work Phone: [facility] 02-27-2023 influenza virus vacc ine, unspecified formulation Louie Moreno MD Work Phone: [facility] 05-29-2022 zoster vaccine recombinant Louie Moreno MD Work Phone: [facility] 04-13-2022 Pneumococcal Conjuga te PCV 20 Louie Moreno MD Work Phone: [facility] 04-13-2022 tetanus toxoid, redu alma diphtheria toxoid, and acellular pertussis vaccine, adsorbed Louie Moreno MD Work Phone: [facility] 04-07-2022 influenza, high dose seasonal, preservative-free Louie Moreno MD Work Phone: [facility] 04-07-2022 Influenza, High-dose Seasonal, Quadrivalent, Preservative Free Louie Moreno MD Work Phone: [facility] 03-08-2021 influenza, injectabl e, quadrivalent, preservative free Louie Moreno MD Work Phone: [facility] 03-08-2021 Influenza, Seasonal, Quadrivalent, Adjuvanted Louie Moreno MD Work Phone: [facility] 07-11-2020 Pfizer Purple Cap SARS-CoV-2 Vaccination Louie Moreno MD Work Phone: [facility] 06-20-2020 Pfizer Purple Cap SARS-CoV-2 Vaccination Louie Moreno MD Work Phone: [facility] 12-29-2019 influenza, high dose seasonal, preservative-free Louie Moreno MD Work Phone: [facility] 12-29-2019 Influenza, High-dose Seasonal, Quadrivalent, Preservative Free Louie Moreno MD Work Phone: [facility] 12-28-2019 Influenza, High-dose Seasonal, Quadrivalent, Preservative Free Louie Moreno MD Work Phone: [facility] 03-12-2018 Influenza, injectabl e, Madin Heather Canine Kidney, preservative free, quadrivalent Louie Moreno MD Work Phone: [facility] 03-12-2018 influenza, injectabl e, quadrivalent, preservative free Louie Moreno MD Work Phone: [facility] Payers Date Payer Category Payer Self-pay [id number] 2021 Private Health Insurance [employer] [id number] 2021 Unknown [employer] [id number] 2021-Present [address] [place] [address] [id number] 2019 Medicare [id number] 1959 Medicare [id number] 1959 Self-pay [id number] 1959 Unknown [id number] 1954 Unknown [id number] 2.16.840.1.841989.3.579.2. 593 1954 Unknown [id number] 2.16.840.1.993219.3.579.2. 593 1954 Unknown [id number] 2.16.840.1.037771.3.579.2. 593 1954 Unknown [id number] 2.16.840.1.271597.3.579.2. 593 1954 Unknown [id number] 2.16.840.1.713792.3.579.2. 1259 1954 Unknown [id number] 2.16.840.1.799407.3.579.2. 1259 1954 Unknown [id number] 2.16.840.1.161687.3.579.2. 1259 1954 Unknown [id number] 2.16.840.1.750185.3.579.2. 1259 1954 Unknown [id number] 2.16.840.1.039309.3.579.2. 1259 1954 Unknown [id number] 2.16.840.1.570580.3.579.2. 1259 1954 Unknown [id number] 2.16.840.1.544511.3.579.2. 1259 1954 Unknown [id number] 2.16.840.1.120966.3.579.2. 1259 1954 Unknown [id number] 2.16.840.1.869443.3.579.2. 1259 Unknown [facility] [id number] Unknown [id number] 2.16.840.1.127249.3.579.2. 531 Unknown [id number] 2.16.840.1.112068.3.579.2. 531 Unknown [id number] 2.16.840.1.607438.3.579.2. 531 Unknown [id number] 2.16.840.1.624313.3.579.2. 531 Unknown [id number] 2.16.840.1.333003.3.579.2. 531 Unknown [id number] 2.16.840.1.141447.3.579.2. 531 Unknown [id number] 2.16.840.1.144285.3.579.2. 531 Social History Date Type Detail Facility Start: 08-10-2020 End: 01-18-2023 Tobacco smoking status RIIS Never smoked tobacco (finding) [facility] Start: 1955 Sex Assigned At Female [facility] Start: 10-09-2022 End: 11-25-2024 Sex Assigned At [facility] Start: 01-18-2023 Tobacco use and exposure Smoke less tobacco non-user [facility] Start: 10-03-2023 End: 11-25-2024 Alcoholic beverage intake Current drinker of alcohol (finding) [facility] Start: 10-09-2022 End: 10-03-2023 Alcoholic beverage intake [facility] Within the last year , have you been afraid of your partner or ex-partner? No [facility] Within the last year , have you been humiliated or emotionally abused in other ways by your partner or ex-partner? Patient declined [facility] Are you now , , , , never or living with a partner? [facility] How often to you hav e a drink containing alcohol? Monthly or less [facility] How many standard dr inks containing alcohol do you have on a typical day? 1 or 2 [facility] How often do you hav e 6 or more drinks on 1 occasion? Never [facility] Do you feel stress - tense, restless, nervous, or anxious, or unable to sleep at night because your mind is troubled all the time - these days [OSQ] Only a little [facility] (I/We) worried wheth er (my/our) food would run out before (I/we) got money to buy more. Never true [facility] Start: 09-27-2022 Education 21 [facility] Start: 1955 Sex assigned at Not on file [facility] Start: 05-16-2024 End: 10-06-2024 Sex Female (finding) [facility] Medical Equipment Procedure Code Equipment Code Equipment Origin al Text Equipment Identifier Dates Injection subcutaneous [id number] St art: 10-03-2023 End: 03-20-2024 Functional Status Date Assessment Result Facility 11-25-2024 Patient Health Quest ionnaire 2 item (PHQ-2) [Reported] [facility] 09-29-2024 Patient Health Quest ionnaire 2 item (PHQ-2) [Reported] [facility] 09-17-2024 Patient Health Quest ionnaire 2 item (PHQ-2) [Reported] [facility] Clinical Notes 01-15-2023 to 11-26-2024 Britney Jean-Baptiste MD - 11/26/2024 8:00 AM Bettie Moreno MD - 11/25/2024 9:00 AM Bettie Moreno MD - 11/13/2024 9:00 AM EDT Note Date & Type Note Facility 11-26-2024 History of Presen t illness Narrative Images from the original note were not included. Subjective Rocio Welsh is a 69 y.o. female who presents for Trigeminal Neuralgia History of Present Illness The patient presents for trigeminal neuralgia. She has been experiencing right-sided trigeminal neuralgia since 02/2024. Initially, she had three episodes in one night, which then became sporadic until mid-09/2024 when they started occurring daily. During a vacation at the end of 09/2024, she was prescribed gabapentin, which did not alleviate her symptoms. Currently, she is on oxcarbazepine, which provides some relief. Despite the medication, she still experiences occasional sharp pains, particularly when getting out of bed in the morning or after a nap. She reports that soaking baths can help manage the pain. Certain foods, such as strawberries and tomatoes, can trigger the pain. She reports no history of head injuries or trauma and did not have any colds, coughs, or flu-like symptoms around the time her symptoms began. She has not noticed any changes in her sense of taste. She has undergone an MRI in the past without any complications. Her primary care physician is Dr. Saucedo. She also reports balance issues and neck arthritis. Her sleep is interrupted due to frequent urination and temperature fluctuations, but not due to pain. She estimates that her current medication regimen controls about 50% of her symptoms. She has not tried baclofen. She is currently on oxcarbazepine 300 mg, taking two tablets in the morning and three at night. SOCIAL HISTORY: Sleep: Interrupted due to frequent urination and temperature fluctuations MEDICATIONS CURRENT MEDS: Oxcarbazepine 300 mg Oral Twice daily PREVIOUS MEDS: Gabapentin Start Date: 09/2024 Reason for Discontinuation: Ineffective Review of Systems Const: Denies appetite change, fever, chills. Allergy: Denies medication reaction. Ocular: Denies visual acuity change. ENT: Denies hearing change. Endoc: Denies weight loss. Resp: Denies dyspnoea, wheezing. Cardiac: Denies angina, palpitations. GI: Denies nausea, vomiting. Haem: Denies bleeding. : Denies incontinence. MSK: Denies arthralgias, joint oedema. Derm: Denies rash, hair loss. Neuro: Denies ataxia, tremor. Also see HPI for elements of ROS documented therein and for details of positive findings, which shall supersede the foregoing. Objective Blood pressure (!) 182/97, pulse 66, height 5' 6 , weight 192 lb. Physical Exam Cranial Nerve Examination CN III IV : Extraocular movements intact. CN V: Facial sensation is decreased on the right side. CN VII: Facial movements are symmetrical. CN XI: Shoulder shrug strength is normal. CN XII: Tongue movements are normal. Motor Examination Strength: Strength is normal in upper and lower extremities. Sensory Examination Pain and Temperature: Temperature sensation is normal in all extremities. Light Touch, Vibration and Proprioception: Light touch sensation is decreased on the right side. Gait and Station Balance: Patient reports feeling wobbly. Results Assessment & Plan 1. Trigeminal neuralgia. The patient's symptoms are consistent with trigeminal neuralgia, characterized by sharp, electric shock-like pain on the right side of her face, particularly triggered by movements such as getting out of bed. The current medication regimen includes oxcarbazepine 300 mg, 2 in the morning and 3 at night, which has provided approximately 50% relief. An MRI of the brain will be ordered to identify any structural abnormalities or nerve irritations. The dosage of oxcarbazepine will be adjusted to 300 mg twice daily. Baclofen will be introduced at a low dose, to be taken once in the morning and once at night, to help calm the nerve. A prescription for Valium has been provided to manage claustrophobia during the MRI procedure. If the MRI results indicate a need, a Botox injection may be considered to block pain receptors and reduce symptoms. If symptoms worsen, she should revert to the previous dosage of oxcarbazepine (2 in the morning and 3 at night) and notify via backstitchhart. 2. I will obtain an MRI of the brain to assess for an intracranial process which may be contributing to the patient's symptoms including 3. Baclofen 5 mg po BID. 4. Trileptal 300 mg po BID. 5. I counseled the patient on the possible side effects and interactions of medications. 6. This clinical note was created utilizing [employer] documentation system. All information has been thoroughly reviewed, corrected as necessary, and authenticated by the provider to ensure accuracy and completeness. On occasion, [employer] documentation system erroneously drops words or replaces a spoken word with a similar sounding word. Please notify with any questions or concerns regarding this clinical note. Follow-up The patient will follow up in 4 to 6 weeks. documented in this encounter [facility] 11-25-2024 History of Presen t illness Narrative Images from the original note were not included. Patient ID: Rocio Welsh is a 69 y.o. female who presents for: Thyroid: Pt here today to review his/hers thyroid labs and any medication changes needed. Fatigue: Present, worsened Weight Gain: Absent Inability to lose weight: absent Hair Changes: Present, thinning He/She is following the thyroid diet: Good He/She are taking medications as directed: Good He/She are exercising at least 3 days out of the week for 30 minutes or more: Fair Review of Systems Constitutional: Positive for fatigue. Negative for appetite change. HENT: Positive for trouble swallowing and voice change. Cardiovascular: Negative for palpitations. Musculoskeletal: Positive for arthralgias and myalgias. Psychiatric/Behavioral: Positive for sleep disturbance. The patient is nervous/anxious. Endocrine: Negative for cold intolerance and heat intolerance. No visits with results within 1 Month(s) from this visit. Latest known visit with results is: Orders Only on 09/02/2024 Component Date Value Ref Range Status T3, TOTAL 09/08/2024 123 76 - 181 ng/dL Final T3, FREE 09/08/2024 3.2 2.3 - 4.2 pg/mL Final T3 REVERSE, LC/MS/MS 09/08/2024 16 8 - 25 ng/dL Final Comment: This test was developed and its analytical performance characteristics have been determined by [facility]. It has not been cleared or approved by the U.S. Food and Drug Administration. This assay has been validated pursuant to the CLIA regulations and is used for clinical purposes. T4, FREE 09/08/2024 1.2 0.8 - 1.8 ng/dL Final TSH 09/08/2024 0.42 0.40 - 4.50 mIU/L Final Calculated THY Ratio: 7.7 Objective The patient is pleasant and in no acute distress The patient has good eye contact and clear speech We will some of her joints are somewhat swollen, there are no hot or red joints. Visit Vitals Ht 5' 8 Wt 198 lb BMI 30.11 kg/m OB Status Postmenopausal Smoking Status Never BSA 2.08 m Allergies Allergen Reactions Bacitracin Anaphylaxis Benzalkonium Chloride Other Reaction(s): anaphylaxis Gramicidin Other Reaction(s): anaphylaxis Neomycin Other Reaction(s): anaphylaxis Penicillins Other Reaction(s): Syncope Polymyxin B Other Reaction(s): anaphylaxis Current Outpatient Medications on File Prior to Visit Medication Sig Dispense Refill atorvastatin (Lipitor) 20 MG tablet Take 1 tablet (20 mg) by mouth at bedtime 90 tablet 1 dapagliflozin (Farxiga) 10 MG Take 1 tablet (10 mg) by mouth Daily 90 tablet 1 diclofenac (Voltaren) 75 MG EC tablet Take 1 tablet (75 mg) by mouth in the morning and 1 tablet (75 mg) before bedtime. Do not crush, chew, or split.. 180 tablet 1 Golimumab (SIMPONI SC) Inject under the skin See administration instructions Every other month losartan-hydroCHLOROthiazide (Hyzaar) 100-12.5 MG tablet Take 1 tablet by mouth Daily 90 tablet 1 methotrexate 2.5 MG tablet Take 2.5 mg by mouth See administration instructions. Once a week take 5 tablets in one day nebivolol (Bystolic) 10 MG tablet Take 1 tablet (10 mg) by mouth Daily 90 tablet 1 omeprazole OTC (PriLOSEC OTC) 20 MG EC tablet Take 20 mg by mouth 1 (one) time each day at the same time. OXcarbazepine (Trileptal) 300 MG tablet Take 1 tablet (300 mg) by mouth in the morning and 1 tablet (300 mg) before bedtime. (Patient taking differently: Take 300 mg by mouth See administration instructions 2 tablets in AM and 3 tablets in evening) 180 tablet 0 potassium chloride CR (Klor-Con M20) 20 MEQ ER tablet Take 1 tablet (20 mEq) by mouth Daily 90 tablet 1 SITagliptin-metFORMIN (Janumet) 50-1000 MG tablet Take 1 tablet by mouth in the morning and 1 tablet before bedtime. 180 tablet 1 terbinafine (LamISIL) 1 % cream Apply topically in the morning and before bedtime. 42 g 1 thyroid (SEC[employer] SALES ASSOCIATE Thyroid) 60 MG tablet Take 1 tablet (60 mg) by mouth in the morning and 1 tablet (60 mg) in the evening. Take before meals. 60 tablet 0 No current facility-administered medications on file prior to visit. 1. Acquired hypothyroidism (Primary) This is a complex chronic problem, stable, to goal; management requires moderate decision making I reviewed diet and exercise with the patient. I discussed the patient's current psychosocial and physical condition and the stress impact upon them. I reviewed the multiple unique laboratories and explained the results to the patient. The patient has been re-educated concerning the above diagnoses and that the treatment for some of these may not be considered the standard of care, including TSH suppression when utilized. The patient has been re-educated and instructed concerning medication timing, diet, exercise, and stress reduction as appropriate. I reviewed the patient's current prescriptions and discussed the possibilities of medication renewals, adjustments, new medication start, or stop medication as appropriate. The patient has been instructed to follow up and bring a diet and exercise log, obtain the unique laboratory tests ordered, and the importance of follow up and compliance. The patient was given a chance to ask questions today and all questions were answered. The patient is to contact us if any other questions arise or if any problems occur. - thyroid (SEC[employer]IES SALES ASSOCIATE Thyroid) 60 MG tablet; Take 1 tablet (60 mg) by mouth 2 (two) times a day before meals Dispense: 180 tablet; Refill: 1 2. Euthyroid sick syndrome We did discuss that a reverse T3 is higher than desirable and her free 3 T while normal is just slightly lower than we would expect which is why her thyroid ratio is a little bit low. Overall she feels pretty good. We talked about the options of adding in changing medications and she would prefer to continue on her current regimen and work on the lifestyle changes that affect the reverse T3. In prescribing a renewal to their current medication, consideration of the following encompasses moderate decision making; the current prescriptions and supplements, the current allergies and medication intolerances, current medical conditions, and potential drug interactions. The patient was given a chance to ask questions today and all questions were answered. - thyroid (SECUR[employer]IES SALES ASSOCIATE Thyroid) 60 MG tablet; Take 1 tablet (60 mg) by mouth 2 (two) times a day before meals Dispense: 180 tablet; Refill: 1 3. Chronic fatigue Chronic problem, stable, complex in nature with moderate decision making. 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 We discussed how this is improved significantly. We discussed how this is almost always a multifactorial problem. We discussed how we will continue to search for refinements in their current treatments or evaluation for further disease processes and then support or treat them as appropriate. We discussed how we can frequently manage the symptoms, but may not be able to completely cure or resolve the issue. The patient will almost certainly need to continue to make lifestyle changes including diet, sleep, exercise, and stress management as appropriate. The patient was given a chance to ask questions and all questions were answered. - T3; Future - T3, reverse; Future - T3, free; Future - T4, free; Future - TSH; Future - T3 - T3, reverse - T3, free - T4, free - TSH 4. Psoriatic arthritis (HCC) Chronic problem, stable No GI side effects from the Voltaren it is affective in giving her relief. - diclofenac (Voltaren) 75 MG EC tablet; Take 1 tablet (75 mg) by mouth in the morning and 1 tablet (75 mg) before bedtime. Do not crush, chew, or split. Dispense: 180 tablet; Refill: 1 5. Trigeminal neuralgia of right side of face As above, she does not need a refill of her Trileptal. 6. Polypharmacy Chronic problem The patient meets the criteria for polypharmacy; 5 or more prescriptions or multi-morbidity defined as 5 or more diagnoses. Polypharmacy can significantly increase the risk of adverse drug events and negatively impact adherence. Consideration of factors such as clinician agreement, patient perspective, and de-prescribing, as appropriate can improve patient outcomes while simplifying care. This requires longitudinal monitoring as there is at least a moderate risk of morbidity and requires at least a moderate degree of evaluation and management. 7. Non morbid obesity due to excess calories Lifestyle is as above Please Note: Portions of this chart may have been created using voice recognition software. Occasionally a wrong-word or sound-like substitutions may have occurred due to inherent limitations of the voice recognition software. Please read the chart carefully and recognize, using context, where the substitutions may have occurred. documented in this encounter [facility] 11-13-2024 History of Presen t illness Narrative Images from the original note were not included. Patient ID: Rocio Welsh is a 69 y.o. female who presents for: Rash Patient presents for evaluation of a rash involving the left foot. Rash started 4 weeks ago. Lesions are red, and raised with blistering in texture. Rash has changed over time. She states she noticed it after being on a foot stool at her home and it was only two small half circles and then when she went on vacation it started to spread on the other side of the foot. She denies any itching or pain. She has been using bacitracin on the blisters at night. Review of Systems Constitutional: Negative for chills and fever. Respiratory: Negative for cough, shortness of breath and wheezing. Cardiovascular: Negative for chest pain and palpitations. Gastrointestinal: Negative for abdominal pain. Genitourinary: Negative for frequency and urgency. Skin: Positive for rash. Objective The patient is pleasant and in no acute distress The patient has good eye contact and clear speech On her left foot especially on the arch we can see a macular exanthem with what appears to be a raised border at the edge. The edges somewhat reddened in the center is somewhat cleared. There is some scale especially along the edge. She has some other components of this up in a month the area around the base of her big toe and 2nd toe. This does extend up through that webspace and onto the dorsum of her foot. There are no signs of secondary infection such as abscess or cellulitis or red streaks heading proximally. 10/02/2023 9:50 AM 10/03/2023 10:29 AM 03/20/2024 9:57 AM 04/02/2024 10:01 AM 07/23/2024 9:25 AM 09/17/2024 11:13 AM 09/29/2024 3:03 PM Vitals BMI 32.66 kg/m2 32.66 kg/m2 32.66 kg/m2 32.66 kg/m2 29.95 kg/m2 30.11 kg/m2 30.11 kg/m2 BSA (m2) 2.11 m2 2.11 m2 2.11 m2 2.11 m2 2.07 m2 2.08 m2 2.08 m2 Systolic 130 126 132 120 Diastolic 76 70 70 78 Heart Rate 67 63 70 96 SpO2 99 % 98 % 97 % 97 % Height (in) 5' 7 5' 7 5' 7 5' 7 5' 8 5' 8 5' 8 Weight (lb) 208.5 208.5 208.5 208.5 197 198 198 Visit Report Report Report Report Report Report Report Report Allergies Allergen Reactions Bacitracin Anaphylaxis Benzalkonium Chloride Other Reaction(s): anaphylaxis Gramicidin Other Reaction(s): anaphylaxis Neomycin Other Reaction(s): anaphylaxis Penicillins Other Reaction(s): Syncope Polymyxin B Other Reaction(s): anaphylaxis Current Outpatient Medications on File Prior to Visit Medication Sig Dispense Refill atorvastatin (Lipitor) 20 MG tablet Take 1 tablet (20 mg) by mouth at bedtime 90 tablet 1 dapagliflozin (Farxiga) 10 MG Take 1 tablet (10 mg) by mouth Daily 90 tablet 1 diclofenac (Voltaren) 75 MG EC tablet Take 1 tablet (75 mg) by mouth in the morning and 1 tablet (75 mg) before bedtime. Do not crush, chew, or split.. 180 tablet 1 Golimumab (SIMPONI SC) Inject under the skin See administration instructions Every other month losartan-hydroCHLOROthiazide (Hyzaar) 100-12.5 MG tablet Take 1 tablet by mouth Daily 90 tablet 1 methotrexate 2.5 MG tablet Take 2.5 mg by mouth See administration instructions. Once a week take 5 tablets in one day nebivolol (Bystolic) 10 MG tablet Take 1 tablet (10 mg) by mouth Daily 90 tablet 1 omeprazole OTC (PriLOSEC OTC) 20 MG EC tablet Take 20 mg by mouth 1 (one) time each day at the same time. OXcarbazepine (Trileptal) 300 MG tablet Take 1 tablet (300 mg) by mouth in the morning and 1 tablet (300 mg) before bedtime. 180 tablet 0 potassium chloride CR (Klor-Con M20) 20 MEQ ER tablet Take 1 tablet (20 mEq) by mouth Daily 90 tablet 1 SITagliptin-metFORMIN (Janumet) 50-1000 MG tablet Take 1 tablet by mouth in the morning and 1 tablet before bedtime. 180 tablet 1 thyroid ([employer] SALES ASSOCIATE Thyroid) 60 MG tablet Take 1 tablet (60 mg) by mouth in the morning and 1 tablet (60 mg) in the evening. Take before meals. 180 tablet 1 No current facility-administered medications on file prior to visit. 1. Tinea pedis of left foot (Primary) After discussion we are going to do a trial of treatment. I have discussed with her that I would like her to soak her foot and washed it just with a washcloth soap and water to get some of the scale off. Then she is going to use the terbinafine cream twice daily in the beginning. Once the rash is close to virtual resolution she can slow down to once daily. We did discuss the possibility of oral treatment and will hold off for now. - terbinafine (LamISIL) 1 % cream; Apply topically in the morning and before bedtime. Dispense: 42 g; Refill: 1 documented in this encounter [facility] 10-06-2024 Evaluation note Diagnosis Onset Date Resolution Gastroenteritis acute October 06, 2024 3:00pm [facility] Work Phone: [phone] [phone] History of Present illness Narrative* Louie Moreno MD - 09/29/2024 3:00 PM EDT Images from the original note were not included. Patient ID: Rocio Welsh is a 69 y.o. female who presents for: Shoulder Pain: Pt presents with right shoulder pain. The symptoms began several months ago. Aggravating factors: no known event. Pain is located around the acromioclavicular (AC) joint. Discomfort is described as aching. Symptoms are exacerbated by repetitive movements, overhead movements, and lying on the shoulder. Evaluation to date: none. Therapy to date includes: rest and avoidance of offending activity. Review of Systems She is also complaining of worsening of her trigeminal neuralgia. She does not think the gabapentinis helping enough. She would prefer a trial of Different medication. Objective The patient is pleasant and in no acute distress The patient has good eye contact and clear speech The right shoulder does not demonstrate any bruising, increased calor or rubor, or swelling. Demonstrates painful arc. The AC joint is not tender. The supraspinatus muscle is nontender. However, she has mild tenderness on the lateral upper arm. The biceps tendon is nontender. Internal and external rotation is nontender. Abduction is minimally tender. Empty can test is moderately tender. 08/07/2023 11:30 AM 10/02/2023 9:50 AM 10/03/2023 10:29 AM 03/20/2024 9:57 AM 04/02/2024 10:01 AM 07/23/2024 9:25 AM 09/17/2024 11:13 AM Vitals BMI 30.54 kg/m2 32.66 kg/m2 32.66 kg/m2 32.66 kg/m2 32.66 kg/m2 29.95 kg/m2 30.11 kg/m2 BSA (m2) 2.05 m2 2.11 m2 2.11 m2 2.11 m2 2.11 m2 2.07 m2 2.08 m2 Systolic 130 126 132 120 Diastolic 76 70 70 78 Heart Rate 67 63 70 96 SpO2 99 % 98 % 97 % 97 % Height (in) 5' 7 5' 7 5' 7 5' 7 5' 8 5' 8 Weight (lb) 195 208.5 208.5 208.5 208.5 197 198 Visit Report Report Report Report Report Report Report Report Allergies Allergen Reactions Bacitracin Anaphylaxis Benzalkonium Chloride Other Reaction(s): anaphylaxis Gramicidin Other Reaction(s): anaphylaxis Neomycin Other Reaction(s): anaphylaxis Penicillins Other Reaction(s): Syncope Polymyxin B Other Reaction(s): anaphylaxis Current Outpatient Medications on File Prior to Visit Medication Sig Dispense Refill atorvastatin (Lipitor) 20 MG tablet Take 1 tablet (20 mg) by mouth at bedtime 90 tablet 1 dapagliflozin (Farxiga) 10 MG Take 1 tablet (10 mg) by mouth Daily 90 tablet 1 diclofenac (Voltaren) 75 MG EC tablet Take 1 tablet (75 mg) by mouth in the morning and 1 tablet (75 mg) before bedtime. Do not crush, chew, or split.. 180 tablet 1 gabapentin (Neurontin) 400 MG capsule 1 capsule three times daily with 1 extra capsule per day using PRN 290 capsule 1 Golimumab (SIMPONI SC) Inject under the skin See administration instructions Every other month losartan-hydroCHLOROthiazide (Hyzaar) 100-12.5 MG tablet Take 1 tablet by mouth Daily 90 tablet 1 methotrexate 2.5 MG tablet Take 2.5 mg by mouth See administration instructions. Once a week take 5tablets in one day nebivolol (Bystolic) 10 MG tablet Take 1 tablet (10 mg) by mouth Daily 90 tablet 1 omeprazole OTC (PriLOSEC OTC) 20 MG EC tablet Take 20 mg by mouth 1 (one) time each day at the sametime. potassium chloride CR (Klor-Con M20) 20 MEQ ER tablet Take 1 tablet (20 mEq) by mouth Daily 90 tablet 1 SITagliptin-metFORMIN (Janumet) 50-1000 MG tablet Take 1 tablet by mouth in the morning and 1 tablet before bedtime. 180 tablet 1 thyroid (SEC[employer] SALES ASSOCIATE Thyroid) 60 MG tablet Take 1 tablet (60 mg) by mouth in the morning and 1 tablet (60 mg) in the evening. Take before meals. 180 tablet 1 No current facility-administered medications on file prior to visit. 1. Rotator cuff syndrome of right shoulder (Primary) I discussed with her that clinically she has a rotator cuff syndrome specifically it is most likelythe supraspinatus tendon and she may have some arthritis with a spur from the AC joint. We did discuss the possibility of further diagnostic imaging but have elected for a course of trial of treatment. We discussed conservative trial of treatment with medications versus injection. The patient prefersthe injection. Prior to the injection informed consent was obtained, the risks include; bleeding or bruising, infection, dimpling of the skin, post injection pain, and the possibility of no improvement to the patient's complaints. The injection to the shoulder was done with the patient in a seated position. The skin was prepped with alcohol until no further debri was removed, and then betadine was appliedand allowed to dry. A 25 gauge, 1-1/2 inch needle was inserted into the subacromial bursa using a posterior approach. Once within the bursa after aspiration obtained no blood, I injected a solution of 40 mg of Depo-Medrol. The needle was removed and a dressing was applied The patient tolerated the procedure well. The patient has been instructed in postprocedure care - methylPREDNISolone acetate (DEPO-Medrol) injection 40 mg 2. Acute pain of right shoulder As above. She is already on anti-inflammatory medication. Discussed using icing. - methylPREDNISolone acetate (DEPO-Medrol) injection 40 mg 3. Non morbid obesity due to excess calories 4. Trigeminal neuralgia of right side of face (CMS/HCC) We discussed several different treatment options. The patient would like to try off the gabapentin to try the Trileptal. In prescribing a new medication consideration of the following encompasses moderate decision making: the current prescriptions and supplements, the current allergies and medication intolerances, the current medical conditions, and potential drug interactions. Risks, benefits, and reason for starting their medication were discussed. The patient was given a chance to ask questions today and all questions were answered. The patient is to contact us if any other questions arise or if any problems occur with the adjustment in their medication. - OXcarbazepine (Trileptal) 150 MG tablet; Take 1 tablet (150 mg) by mouth in the morning and 1 tablet (150 mg) before bedtime. Dispense: 60 tablet; Refill: 0 5. Polypharmacy Chronic problem The patient meets the criteria for polypharmacy; 5 or more prescriptions or multi-morbidity definedas 5 or more diagnoses. Polypharmacy can significantly increase the risk of adverse drug events and negatively impact adherence. Consideration of factors such as clinician agreement, patient perspective, and de-prescribing,as appropriate can improve patient outcomes while simplifying care. This requires longitudinal monitoring as there is at least a moderate risk of morbidity and requires at least a moderate degree of evaluation and management. documented in this [id number] History of Present illness Narrative* Louie Moreno MD - 09/17/2024 11:00 AM EDT Images from the original note were not included. Rocio Welsh is a 69 y.o. female presents with chief complaint of Annual Exam HPI: History of Present Illness I have reviewed and reconciled the history and medication list with the patient today. CURRENT PCP/CARE TEAM: Patient Care Team: Louie Moreno MD as PCP - General (Family Medicine) Louie Moreno MD as PCP - ACO Reach Laverne Barlow MD as Referring Physician (Dermatology) Christian Philippe MD as Referring Physician (Podiatry) Kobe Nur MD as Referring Physician (Rheumatology) Vincenzo Francois PT as Physical Therapist (Physical Therapy) Health Risk Assessment Form Do you need help eating, bathing, using the toilet, dressing, or getting around your home?: No Can you prepare your own meals?: Yes Can you do your own housework without help?: Yes Can you shop for groceries or clothes without help?: Yes Do you exercise for about 20 minutes 3 or more days a week?: Yes How confident are you that you can control and manage most of your health problems?: Very confident Can you mange your money, credit cards and accounts, pay bills and taxes?: Yes Vision Screening: Yes, 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/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 Hearing Screening: Not done Cognitive Screening Self Assessment: No concerns rasied by family members, friends, or caretakers HISTORIES: PAST MEDICAL HISTORY: Past Medical History: Diagnosis Date Allergic 1965 Arthritis Atrial fibrillation ([facility]) 2013 Benign neoplasm of parathyroid gland Bilateral posterior capsular opacification 10/10/2022 Carpal tunnel syndrome of right wrist 2014 Cerebral infarction due to embolism of cerebral artery ([facility]) 05/06/2020 Chronic low back pain Deformity of ankle and foot, acquired Diabetes mellitus ([facility]) Eczema 2021 Esophageal stricture GERD (gastroesophageal reflux disease) History of cardiac cath 2011 Hyperglycemia due to type 2 diabetes mellitus ([facility]) 01/04/2021 [place] Insulin resistance Parathyroid adenoma Pre-diabetes Psoriasis Type 2 diabetes mellitus with hyperglycemia, without long-term current use of insulin ([facility]) Type 2 diabetes mellitus without complication, without long-term current use of insulin SURGICAL HISTORY: Past Surgical History: Procedure Laterality Date CARDIOVERSION 2012 and ablation CARPAL TUNNEL RELEASE Right 2014 EGD 2010 with dilitation EMG 11/25/2013 Dr Garvin MICRODISCECTOMY LUMBAR 2007 Dr. Troy SPINE SURGERY 2006 SOCIAL HISTORY: Social History Tobacco Use Smoking status: Never Smokeless tobacco: Never Vaping Use Vaping status: Never Used Substance Use Topics Alcohol use: Yes Alcohol/week: 2.0 standard drinks of alcohol Types: 2 Standard drinks or equivalent per week Drug use: Never Depression: Not at risk (07/04/2023) PHQ-2 PHQ-2 Score: 0 FAMILY HISTORY: Family History Problem Relation Name Age of Onset Heart disease Mother Jessie Heart disease Father Fortunato Alcohol abuse Father Fortunato Hypertension Father Fortunato Diabetes Sister Rachelle No Known Problems Brother No Known Problems Daughter Dementia Other MEDICATIONS: Current Outpatient Medications Medication Instructions atorvastatin (LIPITOR) 20 mg, Oral, Nightly dapagliflozin (FARXIGA) 10 mg, Oral, Daily diclofenac (VOLTAREN) 75 mg, Oral, 2 times daily, Do not crush, chew, or split. gabapentin (Neurontin) 400 MG capsule 1 capsule three times daily with 1 extra capsule per day using PRN Golimumab (SIMPONI SC) Subcutaneous, See admin instructions, Every other month losartan-hydroCHLOROthiazide (Hyzaar) 100-12.5 MG tablet 1 tablet, Oral, Daily methotrexate 2.5 mg, See admin instructions nebivolol (BYSTOLIC) 10 mg, Oral, Daily omeprazole OTC (PRILOSEC OTC) 20 mg, Every 24 hours potassium chloride CR (Klor-Con M20) 20 MEQ ER tablet 20 mEq, Oral, Daily predniSONE (DELTASONE) 5 mg, Daily PRN SITagliptin-metFORMIN (Janumet) 50-1000 MG tablet 1 tablet, Oral, 2 times daily thyroid (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 SALES ASSOCIATE THYROID) 60 mg, Oral, 2 times daily before meals ALLERGIES: Allergies Allergen Reactions Bacitracin Anaphylaxis Benzalkonium Chloride Other Reaction(s): anaphylaxis Gramicidin Other Reaction(s): anaphylaxis Neomycin Other Reaction(s): anaphylaxis Penicillins Other Reaction(s): Syncope Polymyxin B Other Reaction(s): anaphylaxis PHYSICAL EXAM: Visit Vitals OB Status Postmenopausal Smoking Status Never BP Readings from Last 3 Encounters: 07/23/24 132/70 04/02/24 126/70 10/03/23 130/76 Wt Readings from Last 3 Encounters: 07/23/24 197 lb 04/02/24 208 lb 8 oz 03/20/24 208 lb 8 oz ASCVD 10-Year Risk Score Current as of today 23.1% 0 to < 5%: Low Risk 5 to < 7.5%: Borderline Risk 7.5 to < 20%: Intermediate Risk 20 to 100%: High Risk No Change An Atherosclerotic Cardiovascular Disease (ASCVD) event is defined as myocardial infarction, CHD , or stroke. The ASCVD risk score (Nicole MAGAÑA, et al., 2019, 2020 [employer]) returns the percentage likelihood of a first time ASCVD event. Age: 69 Legal Sex: Female Non- : No Smokes Tobacco: No Has Diabetes Excluding Gestational Diabetes: Yes Systolic BP: 132 HDL: 38 mg/dL Total cholesterol: 133 mg/dL Is BP Treated: Yes Physical Exam The patient is pleasant and in no acute distress. The head is normocephalic and atraumatic. Both eyes appear grossly normal without obvious lid pathology or icterus. Both ears hearing is grossly intact. The neck is supple and trachea is midline. No masses are appreciated. The anterior cervical lymphatics demonstrates shoddy bilateral nontender lymphadenopathy. There is no supraclavicular lymphadenopathy. The heart is regular rate and rhythm without S3, S4. No murmur. The patient has normal respiratory pattern. The breath sounds are symmetrical without evidence of rhonchi or rales. No wheezing. The skin is warm and dry. The lower extremities have trace edema. Neurologic screening exam is nonfocal. The patient is alert. There is no overt gross evidence of cognitive impairment The patient has good eye contact and speech is clear. Appropriate affect. Results ASSESSMENT AND PLAN: Assessment/Plan 1. Encounter for Medicare annual wellness exam (Primary) The patient is here for their Annual Medicare Wellness visit. Demographics were updated. Self-assessment was completed and reviewed. Past medical, family, and social history were updated. The medication list updated and reviewed by the doctor. A list of other current medical providers is established and updated. Time was spent discussing health maintenance issues, ordering testing as appropriate,and a schedule was reviewed regarding recommended screening. We discussed safety issues and fall risk. Depression screening was completed and addressed as appropriate. Fall screening was completed and addressed. Cognitive function was assessed by direct observation, cognitive screening as indicated, and assessment of ability to perform ADL's. The BMI and discussed. Major risk factors for chronic disease including family history were discussed. An after visit summary is made available to the patient 2. Advance directive discussed with patient Patient voluntarily agreed to discuss advance care planning at today's wellness visit. We discussed that an advance directive is a legal document that only goes into effect if the patient is incapacitated and unable to speak for themselves. This would help us to decide what care the patient would want. We discussed emergency treatments to keep the patient alive such as CPR, ventilator use and concept of comfort. We discussed how patients could make their wishes known through a living will, durable power of detention officer for healthcare, or other advanced directives. We discussed telling [facility] people about their advance and a copy will be kept in the EHR. I discussedthat they should also make me an emergency contact in their cell phone, and/or notify their POA that I have a copy of the advanced directives. 3. Encounter for screening for other disorder Clinically insignificant depression screening 4. Screening for alcohol problem Negative alcohol screen 5. Polypharmacy Chronic problem The patient meets the criteria for polypharmacy; 5 or more prescriptions or multi-morbidity definedas 5 or more diagnoses. Polypharmacy can significantly increase the risk of adverse drug events and negatively impact adherence. Consideration of factors such as clinician agreement, patient perspective, and de-prescribing,as appropriate can improve patient outcomes while simplifying care. This requires longitudinal monitoring as there is at least a moderate risk of morbidity and requires at least a moderate degree of evaluation and management. 6. Brain atrophy (CMS/HCC) Chronic problem, stable, monitored longitudinally. 7. Primary hypertension (CMS/HCC) Chronic problem, stable, monitored longitudinally. 8. Psoriatic arthritis (CMS/HCC) Chronic problem, stable, Managed by Rheumatology. 9. Type 2 diabetes mellitus with stage 2 chronic kidney disease, without long- term current use of insulin (CMS/HCC) Chronic problem, stable, monitored longitudinally. 10. Type 2 diabetes mellitus with microalbuminuria, without long-term current use of insulin (CMS/HCC) Chronic problem, stable, monitored longitudinally. 11. Acquired hypothyroidism (CMS/HCC) Chronic problem, stable, monitored longitudinally. 12. Plaque psoriasis (CMS/HCC) Chronic problem, stable, Managed by Rheumatology. 13. Mixed hyperlipidemia (CMS/HCC) Chronic problem, stable, monitored longitudinally. 14. Screening for osteoporosis - DEXA bone density; Future - DEXA bone density 15. Screening mammogram, encounter for - Bilateral screening mammogram with tomosynthesis; Future - Bilateral screening mammogram with tomosynthesis 16. Menopause - DEXA bone density; Future - DEXA bone density 17. Cardiovascular event risk The patient has ASCVD risk factors, but does not currently have a cardiovascular disease diagnosis. A standardized, evidence-based ASCVD risk assessment, is generated during the office visit. Each section is reviewed individually with the patient and a discussion concerning any modifiable risk factors. This discussion lasted approximately 5-10 minutes documented in this encounterCox [id number] History of Present illness Narrative* Louie Moreno MD - 04/02/2024 10:00 AM EST Images from the original note were not included. Patient ID: Rocio Welsh is a 68 y.o. female who presents for: Hypertension Patient is here for follow-up of elevated blood pressure. She is exercising and is not adherent to a low-salt diet. Blood pressure is well controlled at home. Cardiac symptoms: none. Patient denies chest pain, dyspnea, irregular heart beat, lower extremity edema, and palpitations. Cardiovascular risk factors: advanced age (older than 55 for men, 65 for women), diabetes mellitus, dyslipidemia, hypertension, and obesity (BMI >= 30 kg/m2). Use of agents associated with hypertension: thyroid hormones. History of target organ damage: none. Hyperlipidemia Pt who presents for follow-up of dyslipidemia. A repeat fasting lipid profile was not done. The patient does not use medications that may worsen dyslipidemias (corticosteroids, progestins, anabolic steroids, diuretics, beta-blockers, amiodarone, cyclosporine, olanzapine). Exercise: three times a week. Diabetes Mellitus Patient presents for follow up of diabetes. Current symptoms include: paresthesia of the feet and visual disturbances. Symptoms have stabilized. Patient denies increased appetite, polydipsia, and polyuria. Evaluation to date has included: hemoglobin A1C. Home sugars: BGs consistently in an acceptable range. Review of Systems Constitutional: Negative for activity change and fatigue. Respiratory: Negative for cough, shortness of breath and wheezing. Cardiovascular: Negative for chest pain, palpitations and leg swelling. Neurological: Negative for light-headedness and headaches. Objective The patient is pleasant and in no acute distress The patient does not appear to have a gross neurologic deficit. The patient has good eye contact and clear speech Visit Vitals BP 126/70 Pulse 63 Ht 5' 7 Wt 208 lb 8 oz SpO2 98% BMI 32.66 kg/m OB Status Postmenopausal Smoking Status Never BSA 2.11 m Component Ref Range & Units 13 d ago (03/20/24) 6 mo ago (09/19/23) 1 yr ago (11/29/22) 1 yr ago (10/06/22) 4 yr ago (01/07/20) 4 yr ago (07/02/19) 5 yr ago (03/12/19) HEMOGLOBIN A1C 4.3 - 5.6 % 7.5 High 7.1 High R, CM 6.7 High R, CM 6.7 High R, CM 6.5 High R, CM 6.6 High R, CM Allergies Allergen Reactions Bacitracin Anaphylaxis Benzalkonium Chloride Other Reaction(s): anaphylaxis Gramicidin Other Reaction(s): anaphylaxis Neomycin Other Reaction(s): anaphylaxis Penicillins Other Reaction(s): Syncope Polymyxin B Other Reaction(s): anaphylaxis Current Outpatient Medications on File Prior to Visit Medication Sig Dispense Refill aspirin 81 MG chewable tablet Chew 1 tablet (81 mg) Daily 30 tablet 11 atorvastatin (Lipitor) 20 MG tablet Take 1 tablet (20 mg) by mouth at bedtime 90 tablet 1 gabapentin (Neurontin) 400 MG capsule Take 1 capsule (400 mg) by mouth in the morning and 1 capsule(400 mg) in the evening and 1 capsule (400 mg) before bedtime. 270 capsule 1 losartan-hydroCHLOROthiazide (Hyzaar) 100-12.5 MG tablet Take 1 tablet by mouth Daily 90 tablet 1 methotrexate 2.5 MG tablet Take 2.5 mg by mouth See administration instructions. Once a week take 5tablets in one day nebivolol (Bystolic) 10 MG tablet Take 1 tablet (10 mg) by mouth Daily 90 tablet 1 omeprazole OTC (PriLOSEC OTC) 20 MG EC tablet Take 20 mg by mouth 1 (one) time each day at the sametime. potassium chloride CR (Klor-Con M20) 20 MEQ ER tablet Take 20 mEq by mouth Daily predniSONE (Deltasone) 5 MG tablet Take 5 mg by mouth Daily as needed thyroid ([employer] Thyroid) 60 MG tablet Take 1 tablet (60 mg) by mouth in the morning and 1 tablet (60 mg) in the evening. Take before meals. 180 tablet 1 tildrakizumab (Ilumya) 100 MG/ML injection Inject 100 mg under the skin every 3 (three) months. SITagliptin-metFORMIN (Janumet) 50-1000 MG tablet Take 1 tablet by mouth in the morning and 1 tablet before bedtime. 180 tablet 1 No current facility-administered medications on file prior to visit. 1. Primary hypertension (CMS/HCC) (Primary) Chronic problem, stable, to goal - losartan-hydroCHLOROthiazide (Hyzaar) 100-12.5 MG tablet; Take 1 tablet by mouth Daily Dispense: 90 tablet; Refill: 0 - nebivolol (Bystolic) 10 MG tablet; Take 1 tablet (10 mg) by mouth Daily Dispense: 90 tablet; Refill: 0 2. Mixed hyperlipidemia (CMS/HCC) In prescribing a renewal to their current medication, consideration of the following encompasses moderate decision making; the current prescriptions and supplements, the current allergies and medication intolerances, current medical conditions, and potential drug interactions. Any changes to risks, benefits, and reason for renewing their current medication due to the above were discussed. The patient was given a chance to ask questions today and all questions were answered. The patient is to contact us if any other questions arise or if any problems occur. (Utilizing the original 1994/1996 guidelines or the 2020 office/outpatient code guidelines for selecting the level of E/M service, In both sets of guidelines, prescription drug management appears in the moderate medical decision making (MDM) row. Neither the original guidelines nor the new guidelines state that a new prescription or change is needed in order to credit prescription drug management) - atorvastatin (Lipitor) 20 MG tablet; Take 1 tablet (20 mg) by mouth at bedtime Dispense: 90 tablet; Refill: 0 3. Hypokalemia Chronic problem, clinically asymptomatic, continue current treatment - potassium chloride CR (Klor-Con M20) 20 MEQ ER tablet; Take 1 tablet (20 mEq) by mouth Daily Dispense: 90 tablet; Refill: 0 4. Type 2 diabetes mellitus with microalbuminuria, without long-term current use of insulin (CMS/[facility]) Chronic problem, unstable and not to goal. Continue this medication and see below. - SITagliptin-metFORMIN (Janumet) 50-1000 MG tablet; Take 1 tablet by mouth in the morning and 1 tablet before bedtime. Dispense: 180 tablet; Refill: 0 5. Type 2 diabetes mellitus with stage 2 chronic kidney disease, without long- term current use of insulin (CMS/HCC) As above unstable and not to goal. We talked about several different options for. We have mutually agreed to a trial Farxiga. We specifically discussed the importance of hygiene in the possible perineal infection. - dapagliflozin (Farxiga) 10 MG; Take 1 tablet (10 mg) by mouth Daily Dispense: 90 tablet; Refill: 0 - Hemoglobin A1c; Future - Hemoglobin A1c 6. Psoriatic arthritis (CMS/HCC) - diclofenac (Voltaren) 75 MG EC tablet; Take 1 tablet (75 mg) by mouth in the morning and 1 tablet(75 mg) before bedtime. Do not crush, chew, or split.. Dispense: 180 tablet; Refill: 1 7. Polypharmacy Chronic problem The patient meets the criteria for polypharmacy; 5 or more prescriptions or multi-morbidity definedas 5 or more diagnoses. Polypharmacy can significantly increase the risk of preventable adverse drug events and negatively impact adherence. Consideration of diverse factors such as clinician agreement, patient perspective,and de-prescribing, as appropriate can improve patient outcomes while simplifying care. This requires longitudinal monitoring as there is at least a moderate risk of morbidity and requires at least amoderate degree of evaluation and management. 8. Non morbid obesity due to excess calories Lifestyle changes as discussed documented in this encounterCox [id number] History of Present illness Narrative* Louie Moreno MD - 03/20/2024 10:00 AM EST Images from the original note were not included. Patient ID: Rocio Welsh is a 68 y.o. female who presents for: Thyroid: Pt here today to review his/hers thyroid labs and any medication changes needed. Fatigue: Absent Weight Gain: Absent Inability to lose weight: Absent Hair Changes: Absent He/She is following the thyroid diet: Good He/She are taking medications as directed: Good He/She are exercising at least 3 days out of the week for 30 minutes or more: Good Review of Systems Constitutional: Negative for appetite change and fatigue. HENT: Negative for trouble swallowing and voice change. Cardiovascular: Negative for palpitations. Musculoskeletal: Positive for arthralgias and myalgias. Psychiatric/Behavioral: Negative for sleep disturbance. The patient is not nervous/anxious. Endocrine: Negative for cold intolerance and heat intolerance. External Result Encounter on 03/20/2024 Component Date Value Ref Range Status HEMOGLOBIN A1C 03/20/2024 7.5 (H) 4.3 - 5.6 % Final Comment: Increased risk for diabetes: 5.7 - 6.4 diabetes: >6.4 glycemic control for adults with diabetes: <7.0 ESTIMATED AVERAGE GLUCOSE 03/20/2024 169 mg/dL Final Calculated THY Ratio: 9.6 Objective The patient is pleasant and in no acute distress The patient does not appear to have a gross neurologic deficit. The patient has good eye contact and clear speech Visit Vitals Ht 5' 7 Wt 208 lb 8 oz BMI 32.66 kg/m OB Status Postmenopausal Smoking Status Never BSA 2.11 m Allergies Allergen Reactions Bacitracin Anaphylaxis Benzalkonium Chloride Other Reaction(s): anaphylaxis Gramicidin Other Reaction(s): anaphylaxis Neomycin Other Reaction(s): anaphylaxis Penicillins Other Reaction(s): Syncope Polymyxin B Other Reaction(s): anaphylaxis Current Outpatient Medications on File Prior to Visit Medication Sig Dispense Refill aspirin 81 MG chewable tablet Chew 1 tablet (81 mg) Daily 30 tablet 11 atorvastatin (Lipitor) 20 MG tablet Take 1 tablet (20 mg) by mouth at bedtime 90 tablet 1 losartan-hydroCHLOROthiazide (Hyzaar) 100-12.5 MG tablet Take 1 tablet by mouth Daily 90 tablet 1 methotrexate 2.5 MG tablet Take 2.5 mg by mouth See administration instructions. Once a week take 5tablets in one day nebivolol (Bystolic) 10 MG tablet Take 1 tablet (10 mg) by mouth Daily 90 tablet 1 omeprazole OTC (PriLOSEC OTC) 20 MG EC tablet Take 20 mg by mouth 1 (one) time each day at the sametime. potassium chloride CR (Klor-Con M20) 20 MEQ ER tablet Take 20 mEq by mouth Daily predniSONE (Deltasone) 5 MG tablet Take 5 mg by mouth Daily as needed SITagliptin-metFORMIN (Janumet) 50-1000 MG tablet Take 1 tablet by mouth in the morning and 1 tablet before bedtime. 180 tablet 1 tildrakizumab (Ilumya) 100 MG/ML injection Inject 100 mg under the skin every 3 (three) months. No current facility-administered medications on file prior to visit. 1. Euthyroid sick syndrome In prescribing a renewal to their current medication, consideration of the following encompasses moderate decision making; the current prescriptions and supplements, the current allergies and medication intolerances, current medical conditions, and potential drug interactions. Any changes to risks, benefits, and reason for renewing their current medication due to the above were discussed. The patient was given a chance to ask questions today and all questions were answered. The patient is to contact us if any other questions arise or if any problems occur. (Utilizing the original guidelines or the 2020 office/outpatient code guidelines for selecting the level of E/M service, In both sets of guidelines, prescription drug management appears in the moderate medical decision making (MDM) row. Neither the original guidelines nor the new guidelines state that a new prescription or change is needed in order to credit prescription drug management) - thyroid ([employer] Thyroid) 60 MG tablet; Take 1 tablet (60 mg) by mouth in the morning and 1 tablet (60mg) in the evening. Take before meals. Dispense: 180 tablet; Refill: 1 2. Acquired hypothyroidism (CMS/HCC) This is a complex chronic problem, stable, to goal; management requires moderate decision making I reviewed diet and exercise with the patient. I discussed the patient's current psychosocial and physical condition and the stress impact upon them. I reviewed the multiple unique laboratories and explained the results to the patient. The patient has been re-educated concerning the above diagnoses and that the treatment for some of these may not be considered the standard of care, including TSH suppression when utilized. The patient has been re-educated and instructed concerning medication timing, diet, exercise, and stress reduction as appropriate. I reviewed the patient's current prescriptions and discussed the possibilitiesof medication renewals, adjustments, new medication start, or stop medication as appropriate. The patient has been instructed to follow up and bring a diet and exercise log, obtain the unique laboratory tests ordered, and the importance of follow up and compliance. The patient was given a chance to ask questions today and all questions were answered. The patient is to contact us if any other questions arise or if any problems occur. - thyroid ([employer] Thyroid) 60 MG tablet; Take 1 tablet (60 mg) by mouth in the morning and 1 tablet (60mg) in the evening. Take before meals. Dispense: 180 tablet; Refill: 1 3. Chronic fatigue Chronic problem, stable, complex in nature with moderate decision making. 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 We discussed how this is improved significantly. We discussed that the patient will almost certainly need to continue to make lifestyle changes including diet, sleep, exercise, and stress management as appropriate. We discussed how this is almost always a multifactorial problem. We further discussed how we will continue to search for refinements in their current treatments or evaluation for further disease processes and then support or treat them as appropriate. We discussed how we can frequently improve the symptoms, but may not be able to completely cure or resolve the issue. The patient was given a chance to ask questions and all questions were answered. - T3; Future - T3, reverse; Future - T3, free; Future - T4, free; Future - TSH; Future - T3 - T3, reverse - T3, free - T4, free - TSH documented in this encounterCox [id number] Evaluation note* Encounter Date Diagnosis Assessment Notes Treatment Notes Treatment Clinical Notes Jan, Cervical pain (neck) (ICD-10 - M54.2) MRI Reviewed; discussed with Dr Troy WIll Continue with conservative therapy. Will refer to [facility] cervcial physical therapy Follow up as needed Jan, Sacroiliac inflammation (ICD-10 - M46.1) Jan, Herniation of cervical intervertebral disc without myelopathy (ICD-10 - M50.20) [facility] Other 09-18-2023 Evaluation note* Encounter Date Diagnosis Assessment Notes Treatment Notes Treatment Clinical Notes Dec, Neck pain (ICD-10 - M54.2) -Will order cervical Xray f/e -Will order MRI r/o cord involvement -Release of information for physical therapy notes from [facility] for continuity of care. -Refer to Neruology r/o Trigeminal neuralgia. -Pharmacological management will continue with current medications as prescribed we will add tizanidine. - Follow-up in 4 weeks Medical decision making shows a new problem to me with further workup planned or suggested with the potential for extensive treatment options that were considered with the most applicable given this patient's situation as noted above. Treatment options considered include a combination of physical therapy approaches, pharmacologic management, and interventional procedures. Those most applicable to the patient were discussed at this time. Risk of complications and/or morbidity and mortality is high given that acute and chronic pain poses a threat to life and bodily function if undertreated, poorly treated or with failure to maintain adequate treatment and timely followup. Given the serious and fluctuating nature of pain with extensive consideration for whenever pain changes, there always remains the possibility of prolonged functional impairment requiring constant patient reassessment and high-level medical decision making. The amount and complexity of data reviewed is high given that patient labs, radiology reports, and other test were obtained, reviewed and summarized Dec, Neuralgia (ICD-10 - M79.2) Dec, Lumbar stenosis with neurogenic claudication (ICD-10 - M48.062) Left leg pain following L3-4 dermatome; xray reviewed noted sever stenosis. completd 1 PT sessions without improvements. Pending MRI Will follow up with Dr Troy once MRI is completed. Dec, Left foot drop (ICD-10 - M21.372) Dec, BMI 31.0-31.9,adult (ICD-10 - Z68.31) Dec, Encounter for screening for depression (ICD-10 - Z13.31) [facility] Other evaluation noteNo assessment information available [facility] Work Phone: Evaluation noteNo InformationNort [employer] Other evaluation note* Diagnosis Euthyroid sick syndrome Acquired hypothyroidism (CMS/HCC) Unspecified hypothyroidism Chronic fatigue Other malaise and fatigue [facility]* Diagnosis Primary hypertension (CMS/HCC)- Primary Unspecified essential hypertension Mixed hyperlipidemia (CMS/HCC) Mixed hyperlipidemia Hypokalemia Hypopotassemia Type 2 diabetes mellitus with microalbuminuria, without long-term current use of insulin (CMS/HCC) Type 2 diabetes mellitus with stage 2 chronic kidney disease, without long-term current use of insulin (CMS/HCC) Psoriatic arthritis (CMS/[facility]) Psoriatic arthropathy Polypharmacy Issue of repeat prescriptions Non morbid obesity due to excess calories [facility]* Diagnosis Type 2 diabetes mellitus with microalbuminuria, without long-term current use of insulin (CMS/HCC) [facility]* Diagnosis Primary hypertension (CMS/HCC) Unspecified essential hypertension [facility]* Diagnosis Encounter for Medicare annual wellness exam- Primary Advance directive discussed with patient Encounter for screening for other disorder Screening for alcohol problem Screening for alcoholism Polypharmacy Issue of repeat prescriptions Brain atrophy (CMS/HCC) Unspecified cerebral degeneration Primary hypertension (CMS/HCC) Unspecified essential hypertension Psoriatic arthritis ([facility]/HCC) Psoriatic arthropathy Type 2 diabetes mellitus with stage 2 chronic kidney disease, without long-term current use of insulin (CMS/HCC) Type 2 diabetes mellitus with microalbuminuria, without long-term current use of insulin (CMS/HCC) Acquired hypothyroidism (CMS/HCC) Unspecified hypothyroidism Plaque psoriasis (CMS/HCC) Other psoriasis Mixed hyperlipidemia ([facility]) Mixed hyperlipidemia Screening for osteoporosis Special screening for osteoporosis Screening mammogram, encounter for Menopause Symptomatic menopausal or female climacteric states Cardiovascular event risk documented in this encounter [facility] Diagnosis Rotator cuff syndrome of right shoulder- Primary Acute pain of right shoulder Non morbid obesity due to excess calories Trigeminal neuralgia of right side of face (CMS/HCC) Polypharmacy Issue of repeat prescriptions documented in this encounter [facility]* Diagnosis Tinea pedis of left foot- Primary documented in this encounter [facility]* Diagnosis Trigeminal neuralgia of right side of face- Primary Claustrophobia Other isolated or specific phobias documented in this encounter [facility]* Diagnosis Acquired hypothyroidism- Primary Unspecified hypothyroidism Euthyroid sick syndrome Chronic fatigue Other malaise and fatigue Psoriatic arthritis (HCC) Psoriatic arthropathy Trigeminal neuralgia of right side of face Polypharmacy Issue of repeat prescriptions Non morbid obesity due to excess calories documented in this encounter [facility] Narrative - Reported* Type Description Date Medical History hypertension Medical History Hypothyroidism Medical History psoriatic arthritis Medical History diabetes mallitus Medical History acid reflux Medical History Arthritis Medical History high cholesterol Medical History obesity Medical History pneumonia Surgical History back surgery Surgical History Procedure:cardiovers ion and ablation;Disease:Atrial fibrillation 2012 Surgical History carpal tunnel release Surgical History Procedure:Back Surgery;Disease: 2007 Surgical History cardiac ablasion Surgical History Procedure:EGD with d ilitation;Disease:esophageal stricture 2010 Surgical History Procedure:EMG 4 Dr Garvin;Disease:Carpel tunnel right wrist 2013 Surgical History Carpel tunnel right 2014 Hospitalization History tachycardia Hospitalization History see above surg hx. [employer] Other reason for referral (narrative)No reason for referral information available[facility] Work Phone: Summary Purpose Family History No Family History Records Found Relationship Condition Age at Onset Recorded Date/T esequiel brother Hypertension Unknown father Unknown Heart disease Unknown Hypertension Unknown mother Heart disease Unknown Diabetes mellitus Unknown Unknown sister Diabetes mellitus Unknown Advance Directives No Advanced Directives Records Found Advance Directive Response Recorded Date/ Time Advance Directives No July 15 3:49pm Advance Directive Response Recorded Date/ Time Advance Directives No July 15 019 2:49pm Documents on File Type Date Recorded Patient Claims Processor Expl anation Power of Rn New Grad 09/30/2024 8:42 AM 802 Power Of Rn New Grad Documents on File Type Date Recorded Patient Claims Processor Expl anation Power of Rn New Grad 09/30/2024 8:42 AM 802 Power Of Rn New Grad Chief Complaint and Reason for Visit Chief Complaint Psoriasis Chief Complaint IMMUNOSUPPRESSION,LO W BACK & NECK, KNEE PAIN BILAT Psoriasis z98.890 m54.50 Chief Complaint z98.890 m54.50 Psoriasis chronic left hip pain Chief Complaint z98.890 m54.50 Psoriasis chronic left hip pain M54.2 Chief Complaint z98.890 m54.50 Psoriasis chronic left hip pain M54.2 m54.2 G50.0 Chief Complaint M54.2 m54.2 G50.0 m47.26 m54.16 Chief Complaint Admit Date Z11.59 March 20, 2024 11:49am z89.899 April 03, 2024 1 1:26am L40.51 Z79.899 May 15, 2024 1 2:48pm Chief Complaint Admit Date L40.51 Z79.899 May 15, 2024 1 2:48pm Z79.899 July 15, 2024 12: 53pm Chief Complaint Admit Date Z79.899 July 15, 2024 12: 53pm upset stomach October 06, 2024 3:00p m Chief Complaint Admit Date upset stomach October 06, 2024 3:00p m screening z78.0 z13.820 November 05, 2024 1 :54pm Reason for Visit Admit Date Gastroenteritis October 06, 2024 3:00p m Reason for Referral Reason R/O TRIGEMINAL NEURA LGIA Diagnosis 1 Neck pain (M54.2) Referral Organization [facility] urosurgery Referring Provider First Name Nery Referring Provider Last Name Jess Referring Provider Specialty Nurse Pract itioner Referred Organization [facility] Referred Address [address] [facility] [facility],[place], [place],[address] Referred Provider Specialty Neurology Referral Priority Routine Additional Source Comments INFORMATION SOURCE (unrecogn ized section and content) DATE CREATED AUTHOR 10/10/2021 [facility] dical Specialist DATE CREATED AUTHOR AUTHOR'S ORGANIZ ATION 05/09/2022 [facility] DATE CREATED AUTHOR AUTHOR'S ORGANIZ ATION 09/12/2024 [facility] DATE CREATED AUTHOR AUTHOR'S ORGANIZ ATION 12/08/2024 [facility] dical Specialists EPIC DATE CREATED AUTHOR AUTHOR'S ORGANIZ ATION 12/25/2024 [facility] Care Teams (unrecognized sec tion and content) Team Status: Active Member Role Status Dates Louie Moreno MD Primary Care Provider Active Team Status: Inactive Member Role Status Dates Louie Moreno MD Primary Care Provider Active Deborah Maza PA-C Attending Provider Active Team Status: Inactive Member Role Status Dates Louie Moreno MD Primary Care Provider Active Nery Mercado , SECURITIES SALES ASSOCIATE-C Attending Provider Active Team Status: Inactive Member Role Status Dates Louie Moreno MD Primary Care Provider Active Jo Ann Bellamy ANP-BC Attending Provider Active Team Status: Active Member Role Status Dates Louie Moreno MD Primary Care Provider Active Raeann Smith SECURITIES SALES ASSOCIATE-C Attending Provider Active Team Status: Inactive Member Role Status Dates Louie Moreno MD Primary Care Provider Active Kobe Nur MD Attending Provider Active Team Status: Active Member Role Status Dates Louie Moreno MD Primary Care Provider Active Laverne Barlow MD Attending Provider Active Team Status: Inactive Member Role Status Dates Louie Moreno MD Primary Care Provider, Attending Provider Active Excelsior Machine Operator Relationship Specialty Start Date End Date Louie Moreno MD [address] [address] (Fax) PCP - ACO Reach 09/21/22 Louie Moreno MD 112 [place] [phone] (Fax) PCP - General Family Medicine 10/04/22 Laverne Barlow MD [address] [place] [address] Referring Physician Dermatology 06/07/23 Christian Philippe MD [address] [facility] [place] [address] Referring Physician Podiatry 06/07/23 Kobe Nur MD [address] [place] [address] Referring Physician Rheumatology 06/07/23 Vincenzo Francois PT 112 [facility] [place] [address] Physical Therapist Physical Therapy 06/07/23 Excelsior Machine Operator Relationship Specialty Start Date End Date Louie Moreno MD [address] [place] [address] (Fax) PCP - ACO Reach 09/21/22 Luoie Moreno MD [address] [place] [address] (Fax) PCP - General Family Medicine 10/04/22 Laverne Barlow MD [address] [place] [address] Referring Physician Dermatology 06/07/23 Christian Philippe MD [address] [place] [address] [place] [address] Referring Physician Podiatry 06/07/23 Kobe Nur MD [address] [facility] [place] [address] Referring Physician Rheumatology 06/07/23 Vincenzo Francois PT [address] [address] Physical Therapist Physical Therapy 06/07/23 Excelsior Machine Operator Relationship Specialty Start Date End Date Louie Moreno MD [address] [place] [phone] (Fax) PCP - ACO Reach 09/21/22 Louie Moreno MD [address] [facility] [address] [place] [address] (Fax) PCP - General Family Medicine 10/04/22 Laverne Barlow MD [address] [place] [address] Referring Physician Dermatology 06/07/23 Christian Philippe MD [address] [facility] [place] [address] Referring Physician Podiatry 06/07/23 Kobe Nur MD [address] [place] [phone] Referring Physician Rheumatology 06/07/23 Vincenzo Francois, PT [address] [facility] [address] [place] [address] Physical Therapist Physical Therapy 06/07/23 Excelsior Machine Operator Relationship Specialty Start Date End Date Louie Moreno MD [address] [place] [address] (Fax) PCP - ACO Reach 09/21/22 Louie Moreno MD [address] [place] [address] (Fax) PCP - General Family Medicine 10/04/22 Laverne Barlow MD [address] [place] [address] Referring Physician Dermatology 06/07/23 Christian Philippe MD [address] [facility] [place] [address] Referring Physician Podiatry 06/07/23 Kobe Nur MD [address] [place] [phone] Referring Physician Rheumatology 06/07/23 Vincenzo Francois, PT [address] [facility] [address] [place] [address] Physical Therapist Physical Therapy 06/07/23 Excelsior Machine Operator Relationship Specialty Start Date End Date Louie Moreno MD [address] [address] (Fax) PCP - ACO Reach 09/21/22 Louie Moreno MD [address] [place] [phone] (Fax) PCP - General Family Medicine 10/04/22 Laverne Barlow MD [address] [place] [address] Referring Physician Dermatology 06/07/23 Christian Philippe MD [address] [place] [address] [place] [address] Referring Physician Podiatry 06/07/23 Kobe Nur MD [address] [place] [address] Referring Physician Rheumatology 06/07/23 Vincenzo Francois, PT [address] [address] Physical Therapist Physical Therapy 06/07/23 Excelsior Machine Operator Relationship Specialty Start Date End Date Louie Moreno MD [address] [place] [address] (Fax) PCP - ACO Reach 09/21/22 Louie Moreno MD [address] [place] [address] PCP - General Family Medicine 10/04/22 Laverne Barlow MD [address] [place] [address] Referring Physician Dermatology 06/07/23 Christian Philippe MD [address] [facility] [place] [address] Referring Physician Podiatry 06/07/23 Kobe Nur MD [address] [place] [phone] Referring Physician Rheumatology 06/07/23 Vincenzo Francois PT [address] [facility] [address] [place] [address] Physical Therapist Physical Therapy 06/07/23 Excelsior Machine Operator Relationship Specialty Start Date End Date Louie Moreno MD [address] [facility] 100 [place] [address] PCP - ACO Reach 09/21/22 Louie Moreno MD [address] [facility] 100 [place] [address] PCP - General Family Medicine 10/04/22 Laverne Barlow MD [address] [place] [address] Referring Physician Dermatology 06/07/23 Christian Philippe MD [address] [facility] [place] [address] Referring Physician Podiatry 06/07/23 Kobe Nur MD [address] [place] [address] Referring Physician Rheumatology 06/07/23 Vincenzo Francois PT [address] [facility] [address] [place] [address] Physical Therapist Physical Therapy 06/07/23 Team Status: Inactive Member Role Status Dates Louie Moreno MD Primary Care Provider Active Start: March 20, 2024 End: March 20, 2024 Kobe Nur MD Attending Provider Active St art: March 20, 2024 End: March 20, 2024 Team Status: Inactive Member Role Status Dates Louie Moreno MD Primary Care Provider Active Start: April 03, 2024 End: April 03, 2024 Kobe Nur MD Attending Provider Active St art: April 03, 2024 End: April 03, 2024 Team Status: Inactive Member Role Status Dates Louie Moreno MD Primary Care Provider Active Start: May 15, 2024 End: May 15, 2024 Kobe Nur MD Attending Provider Active St art: May 15, 2024 End: May 15, 2024 Team Status: Inactive Member Role Status Dates Louie Moreno MD Primary Care Provider Active Start: July 15, 2024 End: July 15, 2024 Kobe Nur MD Attending Provider Active St art: July 15, 2024 End: July 15, 2024 Excelsior Machine Operator Relationship Specialty Start Date End Date Louie Moreno MD [address] [facility] 100 [place] [address] PCP - ACO Reach 09/21/22 Louie Moreno MD [address] [facility] 100 [place] [address] PCP - General Family Medicine 10/04/22 Laverne Barlow MD [address] [place] [address] Referring Physician Dermatology 06/07/23 Christian Philippe MD [address] [place] [address] [place] [address] Referring Physician Podiatry 06/07/23 Kobe Nur MD [address] [place] [address] Referring Physician Rheumatology 06/07/23 Vincenzo Francois, PT [address] [place] [address] Physical Therapist Physical Therapy 06/07/23 Excelsior Machine Operator Relationship Specialty Start Date End Date Louie Moerno MD [address] [place] [address] PCP - ACO Reach 09/21/22 Louie Moreno MD [address] [place] [address] (Fax) PCP - General Family Medicine 10/04/22 Laverne Barlow MD [address] [place] [address] Referring Physician Dermatology 06/07/23 Christian Philippe MD [address] [facility] [place] [address] Referring Physician Podiatry 06/07/23 Kobe Nur MD [address] [place] [address] Referring Physician Rheumatology 06/07/23 Vincenzo Francois, PT [address] [facility] [place] [address] Physical Therapist Physical Therapy 06/07/23 Excelsior Machine Operator Relationship Specialty Start Date End Date Louie Moreno MD [address] [place] [address] (Fax) PCP - ACO Reach 09/21/22 Louie Moreno MD [address] [place] [address] (Fax) PCP - General Family Medicine 10/04/22 Laverne Barlow MD [address] [place] [address] Referring Physician Dermatology 06/07/23 Christian Philippe MD [address] [place] [address] [place] [phone] Referring Physician Podiatry 06/07/23 Kobe Nur MD [address] [place] [address] Referring Physician Rheumatology 06/07/23 Vincenzo Francois PT [address] [place] [address] Physical Therapist Physical Therapy 06/07/23 Excelsior Machine Operator Relationship Specialty Start Date End Date Louie Moreno MD [address] [place] [address] (Fax) PCP - ACO Reach 09/21/22 Louie Moreno MD [address] [place] [address] (Fax) PCP - General Family Medicine 10/04/22 Laverne Barlow MD [address] [place] [address] Referring Physician Dermatology 06/07/23 Christian Philippe MD [address] [place] [address] Referring Physician Podiatry 06/07/23 Kobe Nur MD [address] [place] [address] Referring Physician Rheumatology 06/07/23 Vincenzo Francois, PT [address] [place] [address] Physical Therapist Physical Therapy 06/07/23 Team Status: Inactive Member Role Status Dates Louie Moreno MD Primary Care Provider Active Start: October 06, 2024 End: October 06, 2024 Vee Mcguire APRN Attending Provider Active Start: October 06, 2024 End: October 06, 2024 Team Status: Inactive Member Role Status Dates Loiue Moreno MD Primary Care Provider Active Start: November 05, 2024 End: November 05, 2024 Louie Moreno MD Attending Provider Active Start: November 05, 2024 End: November 05, 2024 Louie Moreno MD Referring Provider Active Start: November 05, 2024 End: November 05, 2024 Excelsior Machine Operator Relationship Specialty Start Date End Date Louie Moreno MD [address] [facility] 100 [place] [address] (Fax) PCP - ACO Reach 09/21/22 Louie Moreno MD [address] [place] [address] (Fax) PCP - General Family Medicine 10/04/22 Laverne Barlow MD [address] [place] [address] Referring Physician Dermatology 06/07/23 Christian Philippe MD [address] [place] [address] Referring Physician Podiatry 06/07/23 Kobe Nur MD [address] [place] [address] Referring Physician Rheumatology 06/07/23 Vincenzo Francois, PT [address] [facility] [address] [place] [address] Physical Therapist Physical Therapy 06/07/23 Excelsior Machine Operator Relationship Specialty Start Date End Date Louie Moreno MD [address] [place] [address] (Fax) PCP - ACO Reach 09/21/22 Louie Moreno MD [address] [place] [address] (Fax) PCP - General Family Medicine 11/13/24 Laverne Barlow MD [address] [place] [address] Referring Physician Dermatology 06/07/23 Christian Philippe MD [address] [place] [address] Referring Physician Podiatry 06/07/23 Kobe Nur MD [address] [place] [address] Referring Physician Rheumatology 06/07/23 Vincenzo Francois, PT [address] [facility] [address] [place] [address] Physical Therapist Physical Therapy 06/07/23 Excelsior Machine Operator Relationship Specialty Start Date End Date Louie Moreno MD [address] [place] [address] (Fax) PCP - ACO Reach 09/21/22 Louie Moreno MD [address] [place] [address] (Fax) PCP - General Family Medicine 11/13/24 Laverne Barlow MD [address] [place] [address] Referring Physician Dermatology 06/07/23 Christian Philippe MD [address] [place] [address] Referring Physician Podiatry 06/07/23 Kobe Nur MD [address] [place] [address] Referring Physician Rheumatology 06/07/23 Vincenzo Francois PT [address] [facility] [place] [address] Physical Therapist Physical Therapy 06/07/23 Excelsior Machine Operator Relationship Specialty Start Date End Date Louie Moreno MD [address] [place] [address] (Fax) PCP - ACO Reach 09/21/22 Louie Moreno MD [address] [place] [address] (Fax) PCP - General Family Medicine 11/13/24 Laverne Barlow MD [address] [place] [address] Referring Physician Dermatology 06/07/23 Christian Philippe MD [address] [place] [address] Referring Physician Podiatry 06/07/23 Kobe Nur MD [address] [place] [address] Referring Physician Rheumatology 06/07/23 Vincenzo Francois, PT [address] [facility] [address] [place] [address] Physical Therapist Physical Therapy 06/07/23 Excelsior Machine Operator Relationship Specialty Start Date End Date Louie Moreno MD [address] [place] [address] PCP - ACO Reach 09/21/22 Louie Moreno MD [address] [place] [address] PCP - General Family Medicine 11/13/24 Laverne Barlow MD [address] [place] [place] [address] Referring Physician Dermatology 06/07/23 Christian Philippe MD [address] [place] [address] Referring Physician Podiatry 06/07/23 Kobe Nur MD [address] [place] [address] Referring Physician Rheumatology 06/07/23 Vincenzo Francois, PT [address] [facility] [address] [place] [address] Physical Therapist Physical Therapy 06/07/23 Team Status: Inactive Member Role Status Dates Louie Moreno MD Primary Care Provider Active Start: December 09, 2024 End: December 09, 2024 Shelli Eng NP-C Attending Provider Active Start: December 09, 2024 End: December 09, 2024 Goals (unrecognized section and content) Goals may be documented in a n alternate sectionGoals may be documented in an alternate sectionGoals may be documented in an alternate sectionNo InformationGoals may be documented in an alternate sectionGoals may be documented in an alternate sectionGoals may be documented in an alternate sectionNo InformationGoals may be documented in an alternate sectionNo InformationGoals may be documented in an alternate sectionGoals may be documented in an alternate sectionGoals may be documented in an alternate sectionGoals may be documented in an alternate sectionGoals may be documented in an alternate section REASON FOR VISIT (unrecogniz ed section and content) Reason Comments Hypothyroidism Reason Comments Hypertension Hyperlipidemia Diabetes Reason Comments Med Refill Reason Comments Annual Exam Reason Comments Shoulder Pain Reason Comments Rash Reason Comments Trigeminal Neuralgia FOR RECORDS PERTAINING TO PATIENTS WHO ARE OR HAVE BEEN ENROLLED IN A CHEMICAL DEPENDENCY/SUBSTANCEABUSE PROGRAM, SOME INFORMATION MAY BE OMITTED. This clinical summary was aggregated from multiple sources. Caution should be exercised in using it in the provision of clinical care. This summary normalizes information from multiple sources, and as a consequence, information in this document may materially change the coding, format and clinical context of patient data. In addition, data may be omitted in some cases. CLINICAL DECISIONS SHOULD BE BASED ON THE PRIMARY CLINICAL RECORDS. [email or web address] provides no warranty or guarantee of the accuracy or completeness of information in this document.
[2024-12-25] MEDS: 0.9 % SODIUM CHLORIDE 1,000 ML 1000 ML IV (23:14)
[2024-12-25] MEDS: METHYLPREDNISOLONE SOD SUCC PF 125 MG/2 ML VIAL IVP (23:15)
[2024-12-25] MEDS: DIPHENHYDRAMINE HCL 50 MG/ML VIAL 25 MG IVP (23:15)
[2024-12-25] MEDS: FAMOTIDINE/PF 20 MG/2 ML VIAL 40 MG IV (23:15)
--- NOTE | 2024-12-25 23:40 | ED_ITS ---
HPI - Allergic Reaction General Chief complaint: Allergic Reaction Stated complaint: POSS ALLERGIC REACTION Time Seen by Provider: 12/25/24 22:15 Source: patient Mode of arrival: walk-in Limitations: no limitations History of Present Illness HPI narrative: This 69-year-old female presents for evaluation of an allergic reaction to bacitracin. 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 She states that she wore a pair of shoes tonight that she had not worn in a while and got a blister on the back of her right heel. She states she put the bacitracin on her right heel blister and shortly after that started having some itching burning and redness on the right lower leg. She states she quickly washed it off but then had some dizziness and her face started swelling. She states her chest felt tight. She did not pass out. EMS was called but the patient was feeling better but by the time they arrived and she was brought to the emergency department by private vehicle. Upon arrival she is feeling better without any shortness of breath or dizziness but still has some redness and mild swelling of her face. Related Data Allergies Allergy/AdvReac Type Severity Reaction Status Date / Time bacitracin (From Neosporin Allergy Severe Unknown Verified 12/25/24 22:18 ([id number])) neomycin (From Neosporin Allergy Severe Unknown Verified 12/25/24 22:18 ([id number])) polymyxin B (From Neosporin Allergy Severe Unknown Verified 12/25/24 22:18 ([id number])) benzalkonium chloride Allergy Unknown Unknown Verified 12/25/24 22:22 penicillin G Allergy Unknown Unknown Verified 12/25/24 22:22 gramicidin D Allergy Unknown Verified 12/25/24 22:22 Review of Systems ROS Status of ROS 10 or more systems reviewed and unremark able except as noted in history and below PFSH PFSH Social History Little interest or pleasure in doing things: not at all Feeling down, depressed, or hopeless: not at all Exam Narrative Exam Narrative: Vital signs and Nursing Notes reviewed: Patient is afebrile with a normal pulse, blood pressure is elevated 157/88, she is not hypoxic with pulse ox of 95% on room air General: Awake, alert, oriented, no acute distress, lying comfortably on the stretcher HEENT: Normocephalic atraumatic, mild erythema and swelling to the cheeks and periorbital aspect of the face, there is no lip swelling, there is no swelling of the tongue tongue, uvula or pharyngeal soft tissues, voice is normal, Neck: Supple, no stridor Chest: Lungs are clear to auscultation with good air entry, there is no wheezing rhonchi or rales appreciated no accessory muscle use, patient is speaking in complete sentences- CVS: Regular rate and rhythm S1-S2, no murmurs rubs or gallops, pulses are brisk and equal bilaterally ABD: Soft, nondistended, nontender, no rebound guarding or rigidity, bowel sounds are normal, no pulsatile masses appreciated Extremities: Moving all extremities, small area of excoriated skin consistent with an open blister on the back of the right heel. There is no notable redness or swelling to the right lower extremity. Skin: Normal in appearance without urticaria, erythema or other notable abnormality Neuro: No focal deficits Constitutional Vital Signs, click to edit/add: Last Vital Signs Temp 97.8 F 12/25/24 22:12 Pulse 80 12/25/24 22:12 Resp 18 12/25/24 22:12 BP 157/88 H 12/25/24 22:12 Pulse Ox 95 12/25/24 22:12 O2 Del Method Room Air 12/25/24 22:12 Course Vital Signs Vital signs: Vital Signs Temperature 97.8 F 12/25/24 22:12 Pulse Rate 80 12/25/24 22:12 Respiratory Rate 18 12/25/24 22:12 Blood Pressure 157/88 H 12/25/24 22:12 Pulse Oximetry 95 12/25/24 22:12 Oxygen Delivery Method Room Air 12/25/24 22:12 Temperature 97.8 F 12/25/24 22:12 Pulse Rate 80 12/25/24 22:12 Respiratory Rate 18 12/25/24 22:12 Blood Pressure 157/88 H 12/25/24 22:12 Pulse Oximetry 95 12/25/24 22:12 Oxygen Delivery Method Room Air 12/25/24 22:12 MDM - Allergic Reaction MDM Narrative Medical decision making narrative: 69-year-old female with a history of an allergic reaction to Neosporin used bacitracin on a right heel blister earlier tonight and developed an allergic reaction with redness swelling and itching to the right leg. She promptly washed off the bacitracin but proceeded to have a generalized allergic reaction with some dizziness and facial swelling. EMS was called but the patient was brought to the emergency department by private vehicle after being evaluated by them and deemed safe for transport by private vehicle. Upon arrival she immediately taken to room 9 and evaluated. She has some mild facial swelling. There is no diffuse hives. There is no lip swelling, tongue swelling or swelling of the throat. There is no stridor. Lungs are clear. Vital signs are stable. An IV was placed and she was medicated with IV fluids, Pepcid, Benadryl and Solu-Medrol. On reevaluation her symptoms have resolved. Since this was not an injection or ingestion, I do not feel she will need steroids to take on an ongoing basis. She was encouraged to never use bacitracin or Neosporin again. She will be discharged home with her family with recommendation for close follow-up with her family physician and return to the emergency department for worsening symptoms or any concerns. Discharge Plan Discharge Chief Complaint: Allergic Reaction Clinical Impression: Allergic reaction, Adverse reaction to drug Patient Disposition: Home, Self-Care Time of Disposition Decision: 23:45 Condition: Good Print Language: Turkish Instructions: Antibiotic Medication Allergy (ED) Referrals: BECKY MORENO [Primary Care Provider, Family Practice] - 1 week
--- NOTE | 2024-12-25 23:54 | PC.NURSE ---
i gave this patient verbal and written discharge orders and this patient voices yes to understanding these. at time of discharge this patient voices no concerns, needs and shows no signs of distress
== END 2024-12-25 23:55 | disposition home or self-care (01) ==
PROVIDERS: Emergency Provider Emergency Medicine; PCP Family Medicine
DX: R22.0 Localized swelling, mass and lump, head (principal); R22.41 Localized swelling, mass and lump, right lower limb; T49.0X5A Adverse effect of local antifungal, anti-infective and anti-inflammatory drugs, initial encounter
CPT/HCPCS: 96361; 96374; 96375; 99284; J1200; J2919; J3490

== ENCOUNTER 2025-01-21 10:28 | Outpatient (OUT) | payer MEDICARE, OTHER, SELFPAY ==
--- OUTSIDE RECORDS SUMMARY | 2025-01-21 10:54 | XMS_ITS | CCD ---
Author Organization [facility] Care Team Providers Care Supervisor Dried Yeast Name Role Phone TIFFANIE, DR PENA Admitting [...] Unavailable MD Louie Moreno Primary Care Provider THONY Smith Attending Provider MD Kobe Nur Attending Provider MD Louie Moreno Primary Care Provider MD Laverne Barlow Attending Provider [phone] MD Louie Moreno Attending Provider MD Louie Moreno Primary Care Provider MD Laverne Barlow Attending Provider Nery Mercado Unavailable THONY Mercado Attending Provider GINA Bellamy Attending Provider [phone] MD Louie Moreno Primary Care Provider THONY Mercado Attending Provider NATALIA Bellamy- Jo Ann Attending Provider DIANELYS Maza Attending Provider [phone] Louie Moreno MD Unavailable [phone] Louie Moreno MD Primary Care Provider Yen RAGLAND, Laverne Cantu Unavailable Unavailable Christian Philippe MD Unavailable [phone] Kobe Nur MD Unavailable Alessandro PT, Vincenzo Ramirez Unavailable [phone] Louie Moreno MD Unavailable Louie Moreno MD Primary Care Provider [phone] Louie Moreno MD Unavailable [phone] Louie Moreno MD Primary Care Provider [phone] Louie Moreno MD Primary Care Provider [phone] Kobe Nur MD Attending Provider Louie Moreno MD Primary Care Provider [phone] Kobe Nur MD Attending Provider [phone] Louie Moreno MD Primary Care Provider [phone] Kobe Nur MD Attending Provider [phone] Louie Moreno MD Primary Care Provider [phone] Vee Mcguire APRN Attending Provider [phone] Louie Moreno MD Attending Provider Louie Moreno MD Referring Provider [phone] Kobe Nur MD Unavailable Unavailable Louie Moreno MD Primary Care Provider [phone] Velasquez BHANDARI, Shelli Gallo Attending Provider [phone] Louie Moreno Primary Care Unavailable Kobe Nur Admitting Unavailable Kobe Nur Attending Unavailable Louie Moreno Primary Care Unavailable Kobe Nur Admitting Unavailable Kobe Nur Attending Unavailable Louie Moreno Primary Care Unavailable Kobe Nur Admitting Unavailable Kobe Nur Attending Unavailable Louie Moreno Primary Care Unavailable Kobe Nur Attending Unavailable Kobe Nur Admitting Unavailable Hemequ[place], Louie J Attending Unavailable [place], Edalma rosa J Referring Unavailable Hemequ[place], Edalma rosa J Admitting Unavailable Hemequ[place], Edward J Primary Care Unavailable Velasquez, Shelli S Admitting Unavailable Velasquez, Shelli S Attending Unavailable Hemequ[place], Edalma rosa J Primary Care Unavailable Petitti, Laverne A Admitting Unavailable Petitti, Laverne A Attending Unavailable Petitti, Laverne A Referring Unavailable Hemequoc, Edalma rosa J Primary Care Unavailable Kobe Nur MD Unavailable [phone] LOUIE MORENO Attending Unavailable HEMEQUOC, EDALMA ROSA J Attending Unavailable HEMEQUOC, LOUIE J Attending Unavailable HEMEQUOC, EDALMA ROSA J Attending Unavailable HEMEQUOC, EDALMA ROSA J Attending Unavailable BRITNEY JEAN-BAPTISTE Attending Unavailable HEMELOUIE LLOYD Attending Unavailable HEMELOUIE LLOYD Attending Unavailable BRITNEY JEAN-BAPTISTE Referring Unavailable JEAN-BAPTISTEBRITNEY PALM W Attending Unavailable HEMEQUOC EDALMA ROSA J Attending Unavailable Allergies Allergy Classification Reported Allergen(s) Allergy Type Date of Onset Reaction(s) Facility (5 sources) Bacitracin / Neomycin / Polymyxin B Drug Allergy 6 anaphylaxis [facility] Repository (13 sources) Penicillins Drug allergy (disorder) 6 Anaphylaxis [facility] Repository (20 sources) Bacitracin; Translations: [bacitracin] Drug Allergy 1 Anaphylaxis [facility] (20 sources) Neomycin; Translations: [neomycin] Drug Allergy 1 anaphylaxis [facility] (20 sources) polymyxin B; Translations: [Polymyxin B] Allergy to substance 1 anaphylaxis [facility] (20 sources) Benzalkonium; Translations: [benzalkonium chloride] Drug Allergy 1 anaphylaxis [employer] Other (9 sources) Gramicidin; Translations: [gramicidin D] Drug Allergy 4 anaphylaxis [facility] (8 sources) Penicillin G Drug Allergy 4 anaphylaxis [facility] (20 sources) Gramicidin Drug Allergy 1 [facility] (20 sources) Penicillins Drug Intolerance 1 [facility] (1 source) Penicillin Drug Allergy 5 [facility] Repository (1 source) Penicillins Drug allergy (disorder) 5 [facility] Rep[facility] Medications Current Medications Medication Drug Class(es) [...] End: 01-19-2025 take 1 tablet by mouth at bedtime atorvastatin (Lipitor) 20 MG tablet Indications: Mixed hyperlipidemia Take 1 tablet (20 mg) by mouth at bedtime 90 tablet 1 07/23/2024 Active baclofen 5 mg oral tablet (12 sources) gamma-Aminobutyric Acid-ergic Agonist Start: 11-26-2024 End: 01-14-2026 take 1 tablet by mouth in the morning baclofen (Lioresal) 5 MG tablet Indications: Trigeminal neuralgia of right side of face Take 1 tablet (5 mg) by mouth in the morning and in the evening 60 tablet 11 01/19/2025 01/14/2026 Active bisoprolol fumarate 5 mg oral tablet (15 sources) beta-Adrenergic Anibal Start: 05-10-2020 take 1 tablet by mouth once daily cholecalciferol 0.025 mg oral tablet (12 sources) Vitamin D Start: 05-10-2020 take 1 tablet by mouth once daily dapagliflozin 10 mg oral tablet (20 sources) Sodium-Glucose Cotransporter 2 Inhibitor Start: 07-23-2024 End: 01-19-2025 dapagliflozin (Farxiga) 10 MG Indications: Type 2 diabetes mellitus with stage 2 chronic kidney disease, without long-term current use of insulin (HCC) Take 1 tablet (10 mg) by mouth Daily 90 tablet 1 07/23/2024 Active Start: 04-02-2024 End: 07-01-2024 dapagliflozin (Farxiga) 10 M G Indications: Type 2 diabetes mellitus with stage 2 chronic kidney disease, without long-term current use of insulin (CMS/HCC) Take 1 tablet (10 mg) by mouth Daily 90 tablet 04/02/2024 07/01/2024 Active diazePAM 5 mg oral tablet (10 sources) Benzodiazepine Start: 11-26-2024 take 1 tablet by mouth once diazePAM (Valium) 5 MG tablet Indications: Claustrophobia Take 1 tablet (5 mg) by mouth every 12 (twelve) hours if needed for anxiety for up to 1 day 2 tablet 11/26/2024 Active diclofenac sodium 75 mg delayed release oral tablet (20 sources) Nonsteroidal Anti-inflammatory Drug Start: 12-12-2017 End: 05-24-2025 take 1 tablet by mouth in the morning diclofenac (Voltaren) 75 MG EC tablet Indications: Psoriatic arthritis (HCC) Take 1 tablet (75 mg) by mouth in the morning and 1 tablet (75 mg) before bedtime. Do not crush, chew, or split. 180 tablet 1 11/25/2024 05/24/2025 Active doxycycline monohydrate 100 mg oral capsule (3 sources) Tetracycline-class Drug Start: 02-07-2020 take 1 capsule by mouth every twelve hours erythromycin 20 mg/ml topical solution (3 sources) Macrolide, Macrolide Antimicrobial Start: 02-07-2020 Start: 02-07-2020 folic acid 1 mg oral tablet (3 sources) Start: 10-06-2024 golimumab (20 sources) Tumor Necrosis Factor Anibal Golimumab (SIMPONI [...] by mouth Daily 90 tablet 1 07/23/2024 Active Start: 10-03-2023 End: 07-01-2024 take 1 tablet by mouth once daily losartan-hydroCHLOROthiazide (Hyzaar) 100-12.5 MG tablet Indications: Primary hypertension (CMS/HCC) Take 1 tablet by mouth Daily 90 tablet 04/02/2024 07/01/2024 Active Start: 08-26-2020 take 1 tablet by luis th once daily leflunomide 20 mg oral tablet [...] Peptidase 4 Inhibitor Start: 08-18-2024 End: 02-14-2025 take 1 tablet by mouth in the morning SITagliptin-metFORMIN (Janumet) 50-1000 MG tablet Indications: Type 2 diabetes mellitus with microalbuminuria, without long-term current use of insulin (HCC) Take 1 tablet by mouth in the morning and 1 tablet before bedtime. 180 tablet 1 08/18/2024 02/14/2025 Active Start: 10-03-2023 End: 07-01-2024 take 1 [...] sources) Folate Analog Metabolic Inhibitor Start: 10-02-2023 take 1 tablet by mouth every week methotrexate 2.5 MG tablet Take 2.5 mg by mouth See administration instructions. Once a week take 5 tablets in one day 10/02/2023 Active 1 ml methylPREDNISolone acetate 40 mg/ml injection [...] by mouth Daily 90 tablet 1 07/23/2024 Active Start: 10-03-2023 End: 07-01-2024 take 1 tablet by mouth once daily nebivolol (Bystolic) 10 MG tablet Indications: Primary hypertension (CMS/HCC) Take 1 tablet (10 mg) by mouth Daily 90 tablet 04/02/2024 07/01/2024 Active take 1 tablet by luis every twenty-four hours Nebivolol HCl 10 MG 1 tablet Orally Once a day Active omeprazole 20 mg delayed release oral tablet (20 sources) Proton Pump Inhibitor Start: 05-10-2020 take 1 tablet by mouth once daily ondansetron 4 mg disintegrating oral tablet (3 sources) Serotonin-3 Receptor Antagonist Start: 10-06-2024 take 1 tablet by mouth every eight hours as needed for nausea and vomiting OXcarbazepine 300 mg oral tablet (20 sources) Anti-epileptic Agent Start: 11-27-2024 take 2 tablets by mouth in the morning, then take 3 tablets by mouth in the evening OXcarbazepine (Trileptal) 300 MG tablet Indications: Trigeminal neuralgia of right side of face TAKE 2 TABLETS BY MOUTH IN THE MORNING and TAKE 3 TABLETS BY MOUTH IN THE EVENING 450 tablet 1 11/27/2024 Active Start: 10-13-2024 End: 01-11-2025 OXcarbazepine (Trileptal) 30 0 MG tablet Indications: Trigeminal neuralgia of right side of face Take 1 tablet (300 mg) by mouth See administration instructions 2 tablets in AM and 3 tablets in evening 450 tablet 1 11/25/2024 11/27/2024 Discontinued Start: 09-29-2024 End: 10-29-2024 microencapsulated potassium chloride 20 meq extended release oral tablet (20 sources) Start: 05-10-2020 End: 01-19-2025 take 1 tablet by mouth once daily potassium chloride CR (Klor-Con M20) 20 MEQ ER tablet Indications: Hypokalemia Take 1 tablet (20 mEq) by mouth Daily 90 tablet 1 07/23/2024 Active take 1 dose by mouth once daily [...] completed) terbinafine hydrochloride 10 mg/ml topical cream (15 sources) Allylamine Antifungal Start: 11-13-2024 terbinafine (LamISIL) 1 % cream Indications: Tinea pedis of left foot Apply topically in the morning and before bedtime. 42 g 1 11/13/2024 Active thiamine 100 mg oral tablet (7 sources) Start: 01-07-2025 End: 01-07-2026 take 1 tablet by mouth once daily thiamine (Vitamin B-1) 100 MG tablet Indications: Trigeminal neuralgia of right side of face Take 1 tablet (100 mg) by mouth Daily 30 tablet 11 01/07/2025 01/07/2026 Active thyroid (penitentiary) 60 mg oral tablet (20 sources) Start: 11-17-2024 End: 05-24-2025 take 1 tablet by mouth twice daily before mealtime thyroid (ACTUARIAL CLERK Thyroid) 60 MG tablet Indications: Euthyroid sick syndrome , Acquired hypothyroidism Take 1 tablet (60 mg) by mouth 2 (two) times a day before meals 180 tablet 1 11/25/2024 05/24/2025 Active Start: 10-02-2023 End: 09-16-2024 take 1 tablet by mouth in the morning thyroid (ACTUARIAL CLERK Thyroid) 60 MG tablet Indications: Euthyroid sick [...] disease, without long-term current use of insulin (CMS/[facility]) Inject 1.5 mg under the skin 1 [...] 06/19/2024 Active take 1 capsule by mo [facility] once daily Gabapentin 100 MG 1 capsule [...] completed) Start: 08-26-2020 [facility] Start: 05-10-2020 End: 08-26-2020 [...] 10, 2020 1:00am October 06, 2024 3:07pm 1 ml secukinumab 150 mg/ml prefilled syringe [...] unspecified; Translations: [Chronic fatigue syndrome] Onset: 12-27-2017 Resolved: 01-21-2025 Chronic Mycoses (2 sources) Tinea pedis; Translations: [Tinea pedis] 11-13-2024 Episodic Noninfectious gastroenteritis (4 sources) Gastroenteritis; Translations: [Noninfective gastroenteritis and colitis, unspecified] 10-06-2024 Episodic Osteoarthritis (20 sources) Osteoarthritis of left hip joint; Translations: [Unilateral primary osteoarthritis, left hip] Onset: 01-09-2023 01-09-2023 Chronic Other and unspecified benign neoplasm (3 sources) [...] Translations: [Psoriasis vulgaris] Onset: 01-01-2024 Chronic Other injuries and conditions due to external causes (2 sources) Allergic reaction; Translations: [Allergy, unspecified, subsequent encounter] 01-14-2025 Episodic Other nervous system disorders (20 sources) Nerve palsy; 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, left lower limb] Onset: 10-10-2022 Resolved: 01-01-2023 11-07-2022 Chronic Other nervous system disorders (10 sources) Right trigeminal neuralgia; Translations: [Trigeminal neuralgia] [...] conditions (not mental disorders or infectious disease) (9 sources) Patient encounter status; Translations: [Encounter for screening for other disorder] Onset: 11-05-2024 09-10-2024 Episodic Residual codes; unclassified (2 sources) Menopause present; Translations: [Asymptomatic menopausal state] 09-17-2024 Episodic Screening and history of mental health and substance abuse codes (3 sources) Encounter for screening for depression; Translations: [Patient encounter status] Episodic Spondylosis; intervertebral disc disorders; other back problems (6 sources) 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; Translations: [Other cervical disc displacement, unspecified cervical region] Chronic Thyroid disorders (20 sources) Hypothyroidism, unspecified; Translations: [Acquired hypothyroidism] Onset: 11-10-2021 Chronic Past or Other Problems Problem Classification Problem [...] Onset: 07-04-2023 Resolved: 09-17-2024 07-04-2023 Other aftercare (20 sources) Polypharmacy ; Translations: [Other terminal computer operator (current) drug therapy] Onset: 10-10-2022 10-10-2022 Episodic Other aftercare (1 source) Other terminal computer operator (current) drug therapy; Translations: [Other terminal computer operator (current) drug therapy] Onset: 04-03-2024 Episodic Other [...] eruption] Onset: 10-10-2022 Resolved: 04-03-2023 04-03-2023 Episodic Residual codes; unclassified (20 sources) Cardiovascular event risk; Translations: [Other specified personal risk factors, not elsewhere classified] Onset: 09-29-2024 09-29-2024 Episodic Spondylosis; intervertebral disc disorders; other back problems (20 sources) Low back pain; Translations: [Low back pain] Onset: 01-09-2023 Resolved: 11-20-2024 Episodic Thyroid disorders (20 sources) Sick-euthyroid syndrome; Translations: [Sick-euthyroid syndrome] Onset: 03-25-2019 Resolved: 07-05-2023 Episodic Results Test Name Value Interpretation Reference Range Facility Alanine aminotransferase [En zymatic activity/volume] in Serum or PlasmaOrdered By: Shelli Eng on 12-09-2024 ALT [Catalytic activity/Vol] 38 U/L Normal 7-52 [facility] Comment on above: Performed By: #### C MP, CBC, ESR #### [facility] [address] [place] [address] [place] Albumin [Mass/volume] in Ser um or Plasma by Bromocresol green (BCG) dye binding methoOrdered By: Shelli Eng on 12-09-2024 Albumin BCG dye [Mass/Vol] 4.3 g/dL 3.5-5.7 [facility] Alkaline phosphatase [Enzyma tic activity/volume] in Serum or PlasmaOrdered By: Shelli Eng on 12-09-2024 ALP [Catalytic activity/Vol] 52 U/L Normal 34-104 [facility] Comment on above: Result Comment: PERF ORMED BY: [place] [address] PATHOLOGIST BLACKJACK PIT BOSS JERI GOVEA M.D. Performed By: #### C MP, CBC, ESR #### [address] Aspartate aminotransferase [ Enzymatic activity/volume] in Serum or PlasmaOrdered By: Shelli Eng on 12-09-2024 AST [Catalytic activity/Vol] 23 U/L Normal 13-39 [facility] Comment on above: Performed By: #### C MP, CBC, ESR #### [facility] [address] [place] [address] [place] Basophils [#/volume] in Bloo d by Automated countOrdered By: Shelli Eng on 12-09-2024 Basophils (Bld) [#/Vol] 0.0 10*3/uL Normal 0.0-0.2 [facility] Comment on above: Performed By: #### C MP, CBC, ESR #### [facility] [address] [place] [address] [place] Basophils/100 leukocytes in Blood by Automated countOrdered By: Shelli Eng on 12-09-2024 Basophils/100 WBC (Bld) 0.5 % Normal . [facility] Comment on above: Performed By: #### C MP, CBC, ESR #### [facility] [address] Bilirubin.total [Mass/volume ] in Serum or PlasmaOrdered By: Shelli Eng on 12-09-2024 Bilirubin [Mass/Vol] 0.5 mg/dL Normal 0.3-1.0 [facility] Comment on above: Performed By: #### C MP, CBC, ESR #### [address] Calcium [Mass/volume] in Ser um or PlasmaOrdered By: Shelli Eng on 12-09-2024 Calcium [Mass/Vol] 10.0 mg/dL Normal 8.6-10.[address] [facility] Comment on above: Performed By: #### C MP, CBC, ESR #### [address] Carbon dioxide, total [Moles /volume] in Serum or PlasmaOrdered By: Shelli Eng on 12-09-2024 CO2 [Moles/Vol] 26.7 mmol/L Normal 21.0-31.0 [facility] Comment on above: Performed By: #### C MP, CBC, ESR #### [address] Chloride [Moles/volume] in S lissa or PlasmaOrdered By: Shelli Eng on 12-09-2024 Chloride [Moles/Vol] 104 mmol/L Normal 98-107 [facility] Comment on above: Performed By: #### C MP, CBC, ESR #### [address] Complete Blood Count Auto Di ffon 12-09-2024 Mean Corpuscular HGB Conc 33.1 g/dL Normal 32.0-35.0 [facility] Comment on above: Performed By: #### C MP, CBC, ESR #### [address] NRBC% 0.0 /100{WBC} Normal 0-0.5 [facility] Comment on above: Performed By: #### C MP, CBC, ESR #### [address] White Blood Count 7.1 [CFU]/mL Normal 3.8-11.6 [facility] Comment on above: Performed By: #### C MP, CBC, ESR #### [facility] [address] [place] [address] Comprehensive Metabolic Pane eran 12-09-2024 Albumin [Mass/Vol] 4.3 g/dL Normal 3.5-5.7 [facility] Comment on above: Performed By: #### C MP, CBC, ESR #### [address] GFR/1.73 sq M.predicted MDRD (S/P/Bld) [Vol rate/Area] mL/min/{1.73_m2} Normal [facility] Comment on above: Performed By: #### C MP, CBC, ESR #### [address] Creatinine [Mass/volume] in Serum or PlasmaOrdered By: Shelli Eng on 12-09-2024 Creatinine [Mass/Vol] 0.79 mg/dL Normal 0.60-1.20 [facility] Comment on above: Performed By: #### C MP, CBC, ESR #### [address] Eosinophils [#/volume] in Bl ood by Automated countOrdered By: Shelli Eng on 12-09-2024 Eosinophils (Bld) [#/Vol] 0.4 10*3/uL Normal 0.0-0.45 [facility] Comment on above: Performed By: #### C MP, CBC, ESR #### [place] [address] [place] Eosinophils/100 leukocytes i n Blood by Automated countOrdered By: Shelli Eng on 12-09-2024 Eosinophils/100 WBC (Bld) 5.3 % Normal . [facility] Comment on above: Performed By: #### C MP, CBC, ESR #### [address] Erythrocyte Sedimentation Ra erin 12-09-2024 ESR (Bld) [Velocity] 4 mm/h Normal 0-29 [facility] Comment on above: Result Comment: PERF ORMED BY: [place] [address] PATHOLOGIST BLACKJACK PIT BOSS JERI GOVEA M.D. Performed By: #### C MP, CBC, ESR #### [address] Erythrocyte distribution wid th [Ratio] by Automated countOrdered By: Shelli Eng on 12-09-2024 Erythrocyte distribution width (RBC) [Ratio] 16.1 % High 11.9-15.3 [facility] Comment on above: Performed By: #### C MP, CBC, ESR #### [address] Erythrocyte sedimentation ra te by Photometric methodOrdered By: Shelli Eng on 12-09-2024 ESR Photometric method (Bld) [Velocity] 4 mm/hr 0-29 [facility] Erythrocytes [#/volume] in B lood by Automated countOrdered By: Shelli Eng on 12-09-2024 RBC (Bld) [#/Vol] 4.27 10*6/uL Normal 3.60-5.00 [facility] Comment on above: Performed By: #### C MP, CBC, ESR #### [address] Glucose [Mass/volume] in Ser um or PlasmaOrdered By: Shelli Eng on 12-09-2024 Glucose [Mass/Vol] 189 mg/dL High 70-[address] [facility] Comment on above: ADA recommended refe rence rangeRandom Glucose Reference Range is dependent on time and content of last meal. Glucose of more than 200 mg/dL in a nonstressed, ambulatory subject supports the diagnosis of Diabetes Mellitus. Result Comment: [place] om Glucose Reference Range is dependent on time and content of last meal. Glucose of more than 200 mg/dL in a nonstressed, ambulatory subject supports the diagnosis of Diabetes Mellitus. ADA recommended reference range Performed By: #### C MP, CBC, ESR #### [address] [place] [address] [place] Hematocrit [Volume Fraction] of Blood by Automated countOrdered By: Shelli Eng on 12-09-2024 Hematocrit (Bld) [Volume fraction] 39.7 % Normal 34.0-46.4 [facility] Comment on above: Performed By: #### C MP, CBC, ESR #### [address] Hemoglobin [Mass/volume] in BloodOrdered By: Shelli Eng on 12-09-2024 Hemoglobin (Bld) [Mass/Vol] 13.1 g/dL Normal 11.8-15.4 [facility] Comment on above: Performed By: #### C MP, CBC, ESR #### [address] Leukocytes [#/volume] correc maricel for nucleated erythrocytes in Blood by Automated counOrdered By: Shelli Eng on 12-09-2024 WBC corrected for nucl RBC Auto (Bld) [#/Vol] 7.1 10*3/uL 3.8-11.6 [facility] Leukocytes [#/volume] in Blo od by Automated countOrdered By: Shelli Eng on 12-09-2024 WBC (Bld) [#/Vol] 7.1 10*3/uL Normal 3.8-11.[address] [facility] Comment on above: Performed By: #### C MP, CBC, ESR #### [address] Lymphocytes [#/volume] in Bl ood by Automated countOrdered By: Shelli Eng on 12-09-2024 Lymphocytes (Bld) [#/Vol] 2.3 10*3/uL Normal 1.00-4.8 [facility] Comment on above: Performed By: #### C MP, CBC, ESR #### [facility] [address] [place] [address] Lymphocytes/100 leukocytes i n Blood by Automated countOrdered By: Shelli Eng on 12-09-2024 Lymphocytes/100 WBC (Bld) 32.8 % Normal . [facility] Comment on above: Performed By: #### C MP, CBC, ESR #### [address] MCH [Entitic mass] by Automa maricel countOrdered By: Shelli Eng on 12-09-2024 MCH (RBC) [Entitic mass] 30.8 pg Normal 24.7-34.3 [facility] Comment on above: Performed By: #### C MP, CBC, ESR #### [address] MCHC Auto (RBC) [Mass/Vol]Or dered By: Shelli Eng on 12-09-2024 MCHC (RBC) [Mass/Vol] 33.1 g/dL 32.0-35.0 [facility] MCV [Entitic volume] by Auto mated countOrdered By: Shelli Eng on 12-09-2024 MCV (RBC) [Entitic vol] 93.0 fL Normal 80-100 [facility] Comment on above: Performed By: #### C MP, CBC, ESR #### [address] Monocytes [#/volume] in Bloo d by Automated countOrdered By: Shelli Eng on 12-09-2024 Monocytes (Bld) [#/Vol] 0.3 10*3/uL Normal 0.0-0.8 [facility] Comment on above: Performed By: #### C MP, CBC, ESR #### [address] Monocytes/100 leukocytes in Blood by Automated countOrdered By: Shelli Eng on 12-09-2024 Monocytes/100 WBC (Bld) 4.6 % Normal . [facility] Comment on above: Performed By: #### C MP, CBC, ESR #### [place] [address] [place] Neutrophils [#/volume] in Bl ood by Automated countOrdered By: Shelli Eng on 12-09-2024 Neutrophils (Bld) [#/Vol] 4.0 10*3/uL Normal 1.8-7.7 [facility] Comment on above: Performed By: #### C MP, CBC, ESR #### [facility] [address] [place] [address] [place] Neutrophils/100 leukocytes i n Blood by Automated countOrdered By: Shelli Eng on 12-09-2024 Neutrophils/100 WBC (Bld) 56.8 % Normal . [facility] Comment on above: Performed By: #### C MP, CBC, ESR #### [facility] [address] No Panel InformationOrdered By: Shelli Eng on 12-09-2024 Estimated GFR (CKD-EPI) > 60.0 mL/Min [facility] Creatinine Clearance (Chem N/A [facility] Nucleated erythrocytes [Pres ence] in Blood by Automated countOrdered By: Shelli Eng on 12-09-2024 Nucleated RBC Auto Ql (Bld) 0.0 /100{WBC} 0-0.5 [facility] Platelet mean volume [Entiti c volume] in Blood by Automated countOrdered By: Shelli Eng on 12-09-2024 Platelet mean volume (Bld) [Entitic vol] 8.1 fL Normal 6.3-10.7 [facility] Comment on above: Performed By: #### C MP, CBC, ESR #### [facility] [address] [place] [address] [place] Platelets [#/volume] in Bloo d by Automated countOrdered By: Shelli Eng on 12-09-2024 Platelets (Bld) [#/Vol] 314 10*3/uL Normal 150-450 [facility] Comment on above: Performed By: #### C MP, CBC, ESR #### [facility] [address] [place] [address] [place] Potassium [Moles/volume] in Serum or PlasmaOrdered By: Shelli Eng on 12-09-2024 Potassium [Moles/Vol] 3.7 mmol/L Normal 3.5-5.1 [facility] Comment on above: Performed By: #### C MP, CBC, ESR #### [facility] [address] [place] [address] [place] Protein [Mass/volume] in Ser um or PlasmaOrdered By: Shelli Eng on 12-09-2024 Protein [Mass/Vol] 6.9 g/dL Normal 6.4-8.[address] [facility] Comment on above: Performed By: #### C MP, CBC, ESR #### [address] Serum globulin measurement b y calculation (mass/volume)Ordered By: Shelli Eng on 12-09-2024 Globulin (S) [Mass/Vol] 2.6 g/dL [facility] Comment on above: Performed By: #### C MP, CBC, ESR #### [address] Serum or plasma albumin/glob ulin mass ratioOrdered By: Shelli Eng on 12-09-2024 Albumin/Globulin [Mass ratio] 1.7 {ratio} [facility] Comment on above: Performed By: #### C MP, CBC, ESR #### [address] Serum or plasma anion gap de terminationOrdered By: Shelli Eng on 12-09-2024 Anion gap [Moles/Vol] 13.0 mmol/L Normal 6.0-15.0 [facility] Comment on above: Performed By: #### C MP, CBC, ESR #### [address] Sodium [Moles/volume] in Ser um or PlasmaOrdered By: Shelli Eng on 12-09-2024 Sodium [Moles/Vol] 140 mmol/L Normal 136-[address] [facility] Comment on above: Performed By: #### C MP, CBC, ESR #### [address] Urea nitrogen [Mass/volume] in Serum or PlasmaOrdered By: Shelli Eng on 12-09-2024 Urea nitrogen [Mass/Vol] 17 mg/dL Normal 7-25 [facility] Comment on above: Performed By: #### C MP, CBC, ESR #### [address] MR BRAIN W AND WO CONTRAST ( [...] n 11-05-2024 MM screening mammo BI w/CAD [facility] [address] [place] [address] Mammography Report Signed Patient: Rocio Welsh MR#: [id number] : 1955 Acct:[id number] Age/Sex: 69 / F Adm Date: 11/05/24 Loc: CT Room: Type: [facility] Attending Dr: Louie Moreno MD Ordering Provider: Louie Moreno MD Date of Service: 11/05/24 Procedure(s): MM screening mammo BI w/CAD Accession Number(s): ([id number] MM/MM screening mammo BI w/CAD: screen breast [...] Martinez M.D. 11/05/2024 3:52 PM Dictation Location: [facility] Dictated By: Tay Martinez II, MD 11/05/24 1550 Signed By: 11/05/24 1552 Normal [facility] Mammography reportOrdered By : Tay Martinez on 11-05-2024 Diagnostic imaging study [facility] [address] [place] [address] Mammography Report Signed Patient: Rocio Welsh MR#: [id number] : 1955 Acct:[id number] Age/Sex: 69 / F Adm Date: 5 Loc: CT Room: Type: [facility] Attending Dr: Louie Moreno MD Ordering Provider: Louie Moreno MD Date of Service: 11/05/24 Procedure(s): MM screening mammo BI w/CAD Accession Number(s): ([id number]) MM/MM screening mammo BI w/CAD: screen breastca [...] Martinez M.D. 11/05/2024 3:52 PM Dictation Location: [facility] Dictated By: Tay Martinez II, MD 11/05/24 1550 Signed By: 11/05/24 [facility]2 [facility] Work Phone: T3 REVERSE, LC/MS/MSon 09-11 T3 REVERSE, LC/MS/MS 16 ng/dL Normal 8-25 [facility] Comment on above: Result Comment: This test was developed and its analytical performance characteristics have been determined by [employer] [place], [place]. It has not been cleared or approved by the U.S. Food and Drug Administration. This assay has been validated pursuant to the CLIA regulations and is used for clinical purposes. Performed By: #### 6 094, 13511, 428, 375 #### [facility] of [address], [address] [place] [address] Price Clerk: Shiva Byrd MD T3, FREEon 09-11-2024 Free T3 [Mass/Vol] 3.2 pg/mL Normal 2.3-4.2 [facility] Comment on above: Performed By: #### 6 399, 14715, 809, 375 #### [facility] of [place] [address] Price Clerk: Shiva Byrd MD T3, TOTALon 09-11-2024 T3, TOTAL 123 ng/dL Normal 76-181 [facility] Comment on above: Performed By: #### 6 399, 53373, 809, 375 #### [facility] [place] [address] Price Clerk: Shiva Byrd MD T4, [facility] 09-11-2024 Free T4 [Mass/Vol] 1.2 ng/dL Normal 0.8-1.8 [facility] Comment on above: Performed By: #### 6 399, 09149, 809, 375 #### [facility] [place] [address] Price Clerk: Shiva Byrd MD TSHon 09-11-2024 TSH Qn 0.42 m[IU]/L Normal 0.40-4.50 [facility] Comment on above: Performed By: #### 6 399, 97773, 809, 375 #### [facility] [place] [address] Price Clerk: Shiva Byrd MD COMPREHENSIVE METABOLIC PANE [facility] 09-09-2024 Albumin [Mass/Vol] 4.5 g/dL Normal 3.6-5.1 [facility] Comment on above: Performed By: #### 6 399, 45240, 809, 375 #### [facility] [place] [address] Price Clerk: Shiva Byrd MD Albumin/Globulin [Mass ratio] 1.8 {ratio} Normal 1.0-2.5 [facility] Comment on above: Performed By: #### 6 399, 07723, 809, 375 #### [facility] [place] [address] Price Clerk: Shiva Byrd MD ALP [Catalytic activity/Vol] 51 U/L Normal 37-153 [facility] Comment on above: Performed By: #### 6 399, 78845, 809, 375 #### [facility] [place] [address] Price Clerk: Shiva Byrd MD ALT [Catalytic activity/Vol] 29 U/L Normal 6-29 [facility] Comment on above: Performed By: #### 6 399, 02636, 809, 375 #### [facility] [place] [address] Price Clerk: Shiva Byrd MD AST [Catalytic activity/Vol] 18 U/L Normal 10-35 [facility] Comment on above: Performed By: #### 6 399, 87243, 809, 375 #### [facility] [place] [address] Price Clerk: Shiva Byrd MD Bilirubin [Mass/Vol] 0.7 mg/dL Normal 0.2-1.2 [facility] Comment on above: Performed By: #### 6 399, 20521, 809, 375 #### [facility] [place] [address] Price Clerk: Shiva Byrd MD BUN/CREATININE RATIO SEE NOTE: Normal 6-22 [facility] Comment on above: Result Comment: Not Reported: BUN and Creatinine are within reference range. Performed By: #### 6 399, 53531, 809, 375 #### [facility] [place] [address] Price Clerk: Shiva Byrd MD Calcium [Mass/Vol] 10.4 mg/dL Normal 8.6-10.4 [facility] Comment on above: Performed By: #### 6 399, 48603, 809, 375 #### [facility] [place] [address] Price Clerk: Shiva Byrd MD Chloride [Moles/Vol] 105 mmol/L Normal 98-110 [facility] Comment on above: Performed By: #### 6 399, 35039, 809, 375 #### [facility] [place] [address] Price Clerk: Shiva Byrd MD CO2 [Moles/Vol] 27 mmol/L Normal 20-32 [facility] Comment on above: Performed By: #### 6 399, 89760, 809, 375 #### [facility] [place] [address] Price Clerk: Shiva Byrd MD Creatinine [Mass/Vol] 0.72 mg/dL Normal 0.60-1.[address] [facility] [address] [facility] Comment on above: Performed By: #### 6 399, 19849, 809, 375 #### [facility] [place] [address] Price Clerk: Shiva Byrd MD GFR/1.73 sq M.predicted among non-blacks MDRD (S/P/Bld) [Vol rate/Area] 90 mL/min/{1.73_m2} Normal > OR = 60 [facility] Comment on above: Performed By: #### 6 399, 83379, 809, 375 #### [facility] [place] [address] Price Clerk: Shiva Byrd MD Globulin (S) [Mass/Vol] 2.5 g/dL Normal 1.9-3.7 [facility] Comment on above: Performed By: #### 6 399, 89418, 809, 375 #### [facility] [place] [address] Price Clerk: Shiva Byrd MD Glucose [Mass/Vol] 141 mg/dL High 65-99 [facility] Comment on above: Result Comment: Fasting reference interval For someone without known diabetes, a glucose value >125 mg/dL indicates that they may have diabetes and this should be confirmed with a follow-up test. Performed By: #### 6 399, 83842, 809, 375 #### [facility] [place] [address] Price Clerk: Shiva Byrd MD Potassium [Moles/Vol] 4.3 mmol/L Normal 3.5-5.3 [facility] Comment on above: Performed By: #### 6 399, 37792, 809, 375 #### [facility] [place] [address] Price Clerk: Shiva Byrd MD Protein [Mass/Vol] 7.0 g/dL Normal 6.1-8.1 [facility] Comment on above: Performed By: #### 6 399, 99364, 809, 375 #### [facility] [place] [address] Price Clerk: Shiva Byrd MD Sodium [Moles/Vol] 141 mmol/L Normal 135-146 [facility] Comment on above: Performed By: #### 6 399, 19908, 809, 375 #### [facility] [place] [address] Price Clerk: Shiva Byrd MD Urea nitrogen [Mass/Vol] 17 mg/dL Normal 7-25 [facility] Comment on above: Performed By: #### 6 399, 94271, 809, 375 #### [facility] [place] [address] Price Clerk: Shiva Byrd MD LIPID PANEL, [facility] 05 Cholesterol [Mass/Vol] 133 mg/dL Normal <200 [facility] Comment on above: Performed By: #### 6 399, 74905, 809, 375 #### [facility] [place] [address] Price Clerk: Shiva Byrd MD Cholesterol in HDL [Mass/Vol] 38 mg/dL Low > OR = 50 [facility] Comment on above: Performed By: #### 6 399, 08140, 809, 375 #### [facility] [place] [address] Price Clerk: Shiva Byrd MD Cholesterol in LDL [Mass/Vol] [...] LDL-C. Dixon SS et al. GERALDINE. 2013;310(19): 5627-3440 (http://education.[employer]/faq/CWW953) Performed By: #### 6 399, 20548, 809, 375 #### [facility] [place] [address] Price Clerk: Shiva Byrd MD Cholesterol.total/Cho lesterol in HDL [Mass ratio] 3.5 {ratio} Normal <5.0 [facility] Comment on above: Performed By: #### 6 399, 79408, 809, 375 #### [facility] [place] [address] Price Clerk: Shiva Byrd MD NON HDL CHOLESTEROL 95 mg/dL (calc) Normal <130 [facility] Comment on above: Result Comment: For patients with diabetes plus 1 major ASCVD risk factor, treating to a non-HDL-C goal of <100 mg/dL (LDL-C of <70 mg/dL) is considered a therapeutic option. Performed By: #### 6 399, 41787, 809, 375 #### [facility] [place] [address] Price Clerk: Shiva Byrd MD Triglyceride [Mass/Vol] 208 mg/dL High <150 [facility] Comment on above: Result Comment: If a non-fasting specimen was collected, consider repeat triglyceride testing on a fasting specimen if clinically indicated. Nayana et al. J. of Clin. Lipidol. 2015;9:129-169. Performed By: #### 6 399, 63491, 809, 375 #### [facility] [address], [address] [place] [phone] Price Clerk: Shiva Byrd MD HEMOGLOBIN A1con 07-17-2024 HEMOGLOBIN [...] By: #### 4 96 #### [facility] [address], [address] [place], [place] [id number] Price Clerk: Shiva Byrd MD Alanine aminotransferase [En zymatic activity/volume] in Serum or PlasmaOrdered By: Kobe Nur on 07-15-2024 ALT [Catalytic activity/Vol] Alanine aminotransferase [Enzymatic activity/volume] in Serum or Plasma 52 [facility] Albumin [Mass/volume] in Ser um or Plasma by Bromocresol green (BCG) dye binding methoOrdered By: Kobe Nur on 07-15-2024 Albumin BCG dye [Mass/Vol] Albumin [Mass/volume] in Serum or Plasma by Bromocresol green (BCG) dye binding metho 3.5-5.7 [facility] Alkaline phosphatase [Enzyma tic activity/volume] in Serum or PlasmaOrdered By: Kobe Nur on 07-15-2024 ALP [Catalytic activity/Vol] Alkaline phosphatase [Enzymatic activity/volume] in Serum or Plasma 34-104 [facility] Aspartate aminotransferase [ Enzymatic activity/volume] in Serum or PlasmaOrdered By: Kobe Nur on 07-15-2024 AST [Catalytic activity/Vol] Aspartate aminotransferase [Enzymatic activity/volume] in Serum or Plasma 13-39 [facility] Basophils Auto (Bld) [#/Vol] Ordered By: Kobe Nur on 07-15-2024 Basophils (Bld) [#/Vol] Automated basophil count 0.0-0.2 [facility] Basophils/100 WBC Auto (Bld) Ordered By: Kobe Nur on 07-15-2024 Basophils/100 WBC (Bld) Automated basophil % . [facility] Bilirubin.direct [Mass/volum e] in Serum or PlasmaOrdered By: Kobe Nur on 07-15-2024 Bilirubin.direct [Mass/Vol] Bilirubin.direct [Mass/volume] in Serum or Plasma 0.03-0.18 [facility] Bilirubin.total [Mass/volume ] in Serum or PlasmaOrdered By: Kobe Nur on 07-15-2024 Bilirubin [Mass/Vol] Bilirubin.total [Mass/volume] in Serum or Plasma 0.3-1.0 [facility] Complete Blood Count Auto Di ffon 07-15-2024 Basophils (Bld) [#/Vol] 0.1 10*3/uL Normal 0.0-0.2 [facility] Comment on above: Performed By: #### A [facility] eA #### [facility] [address] Basophils/100 WBC (Bld) 0.9 % Normal . [facility] Comment on above: Performed By: #### A [facility]C [facility] eA #### [facility] [address] [place] [address] [place] Eosinophils (Bld) [#/Vol] 0.8 10*3/uL High 0.0-0.45 [facility] Comment on above: Performed By: #### A [facility]C [facility] eA #### [facility] [address] [place] [address] [place] Eosinophils/100 WBC (Bld) 9.5 % Normal . [facility] Comment on above: Performed By: #### A [facility]C [facility] eA #### [facility] [address] Erythrocyte distribution width (RBC) [Ratio] 15.4 % High 11.9-15.3 [facility] Comment on above: Performed By: #### A 1C WT eA #### [address] Hematocrit (Bld) [Volume fraction] 38.0 % Normal 34.0-46.4 [facility] Comment on above: Performed By: #### A 1C WT eA #### [address] Hemoglobin (Bld) [Mass/Vol] 12.7 g/dL Normal 11.8-15.4 [facility] Comment on above: Performed By: #### A 1C WT eA #### [address] Lymphocytes (Bld) [#/Vol] 2.8 10*3/uL Normal 1.00-4.8 [facility] Comment on above: Performed By: #### A 1C WT eA #### [address] Lymphocytes/100 WBC (Bld) 35.1 % Normal . [facility] Comment on above: Performed By: #### A 1C WT eA #### [address] MCH (RBC) [Entitic mass] 31.4 pg Normal 24.7-34.3 [facility] Comment on above: Performed By: #### A 1C WT eA #### [address] MCV (RBC) [Entitic vol] 93.9 fL Normal 80-100 [facility] Comment on above: Performed By: #### A 1C WT eA #### [address] Mean Corpuscular HGB Conc 33.5 g/dL Normal 32.0-35.0 [facility] Comment on above: Performed By: #### A 1C WT eA #### [address] Monocytes (Bld) [#/Vol] 0.8 10*3/uL Normal 0.0-0.8 [facility] Comment on above: Performed By: #### A 1C WT eA #### [facility] [address] [place] [address] [place] Monocytes/100 WBC (Bld) 9.8 % Normal . [facility] Comment on above: Performed By: #### A 1C WT eA #### [facility] [address] [place] [address] [place] Neutrophils (Bld) [#/Vol] 3.6 10*3/uL Normal 1.8-7.7 [facility] Comment on above: Performed By: #### A 1C WT eA #### [facility] [address] [place] [address] [place] Neutrophils/100 WBC (Bld) 44.7 % Normal . [facility] Comment on above: Performed By: #### A 1C WT eA #### [facility] [address] [place] [address] [place] NRBC% 0.1 /100{WBC} Normal 0-0.5 [facility] Comment on above: Performed By: #### A 1C WT eA #### [facility] [address] [place] [address] [place] Platelet mean volume (Bld) [Entitic vol] 8.3 fL Normal 6.3-10.7 [facility] Comment on above: Performed By: #### A 1C WT eA #### [facility] [address] [place] [address] [place] Platelets (Bld) [#/Vol] 301 10*3/uL Normal 150-450 [facility] Comment on above: Performed By: #### A 1C WT eA #### [facility] [address] [place] [address] [place] RBC (Bld) [#/Vol] 4.05 10*6/uL Normal 3.60-5.00 [facility] Comment on above: Performed By: #### A 1C WT eA #### [facility] [address] [place] [address] [place] WBC (Bld) [#/Vol] 8.1 10*3/uL Normal 3.8-11.6 [facility] Comment on above: Performed By: #### A 1C [facility] eA #### [address] Creatinineon 07-15-2024 Creatinine [Mass/Vol] 0.84 mg/dL Normal 0.60-1.20 [facility] Comment on above: Performed By: #### A [facility]C [facility] eA #### [address] GFR/1.73 sq M.predicted MDRD (S/P/Bld) [Vol rate/Area] mL/min/{1.73_m2} Normal [facility] Comment on above: Result Comment: PERF ORMED BY: [place] [address] PATHOLOGIST BLACKJACK PIT BOSS LEEROY SLOAN M.D. Performed By: #### A [facility]C [facility] eA #### [address] Creatinine [Mass/volume] in Serum or PlasmaOrdered By: Kobe Nur on 07-15-2024 Creatinine [Mass/Vol] Creatinine [Mass/v olume] in Serum or Plasma 0.60-1.20 [facility] Eosinophils Auto (Bld) [#/Vo l]Ordered By: Kobe Nur on 07-15-2024 Eosinophils (Bld) [#/Vol] Automated eosinophil count High 0.0-0.45 [facility] Eosinophils/100 WBC Auto (Bl d)Ordered By: Kobe Nur on 07-15-2024 Eosinophils/100 WBC (Bld) Automated eosinophil % . [facility] Erythrocyte Sedimentation Ra erin 07-15-2024 ESR (Bld) [Velocity] 5 mm/h Normal 0-29 [facility] Comment on above: Result Comment: PERF ORMED BY: [place] [address] PATHOLOGIST BLACKJACK PIT BOSS LEEROY SLOAN M.D. Performed By: #### A 1C [facility] eA #### [address] [place] [address] [facility] Erythrocyte distribution wid th Auto (RBC) [Ratio]Ordered By: Kobe Nur on 07-15-2024 Erythrocyte distribution width (RBC) [Ratio] Erythrocyte distribution width [Ratio] by Automated count High 11.9-15.3 [facility] Erythrocyte sedimentation ra te by Photometric methodOrdered By: Kobe Nur on 07-15-2024 ESR Photometric method (Bld) [Velocity] Erythrocyte sedimentation rate by Photometric method 0-29 [facility] Globulin Calc (S) [Mass/Vol] Ordered By: Kobe Nur on 07-15-2024 Globulin (S) [Mass/Vol] Serum globulin measurement by calculation (mass/volume) [facility] Hematocrit Auto (Bld) [Volum e fraction]Ordered By: Kobe Nur on 07-15-2024 Hematocrit (Bld) [Volume fraction] Hematocrit [Volume Fraction] of Blood by Automated count 34.0-46.4 [facility] Hemoglobin [Mass/volume] in BloodOrdered By: Kobe Nur on 07-15-2024 Hemoglobin (Bld) [Mass/Vol] Hemoglobin [Mass/volume] in Blood 11.8-15.4 [facility] Hepatic Panelon 07-15-2024 Albumin [Mass/Vol] 4.4 g/dL Normal 3.5-5.7 [facility] Comment on above: Performed By: #### A 1C WT eA #### [facility] [address] [place] [id number] [facility] Albumin/Globulin [Mass ratio] 1.7 {ratio} Normal [facility] Comment on above: Performed By: #### A 1C WT eA #### [facility] [address] [place] [id number] [place] ALP [Catalytic activity/Vol] 49 U/L Normal 34-104 [facility] Comment on above: Performed By: #### A 1C WT eA #### [facility] [address] [place] [id number] [facility] ALT [Catalytic activity/Vol] 27 U/L Normal 7-52 [facility] Comment on above: Performed By: #### A 1C WT eA #### [facility] [address] AST [Catalytic activity/Vol] 18 U/L Normal 13-39 [facility] Comment on above: Performed By: #### A 1C [facility] eA #### [facility] [address] Bilirubin [Mass/Vol] 0.4 mg/dL Normal 0.3-1.0 [facility] Comment on above: Performed By: #### A [facility]C [facility] eA #### [address] Bilirubin,Indirect 0.3 mg/dL Normal [facility] Comment on above: Performed By: #### A 1C [facility] eA #### [address] Bilirubin.indirect [Mass/Vol] 0.10 mg/dL Normal 0.03-0.18 [facility] Comment on above: Performed By: #### A 1C [facility] eA #### [address] Globulin (S) [Mass/Vol] 2.6 g/dL Normal [facility] Comment on above: Performed By: #### A 1C [facility] eA #### [address] Protein [Mass/Vol] 7.0 g/dL Normal 6.4-8.9 [facility] Comment on above: Performed By: #### A [facility] eA #### [address] Leukocytes [#/volume] correc maricel for nucleated erythrocytes in Blood by Automated counOrdered By: Kobe Nur on 07-15-2024 WBC corrected for nucl RBC Auto (Bld) [#/Vol] Leukocytes [#/volume] corrected for nucleated erythrocytes in Blood by Automated coun 3.8-11.6 [facility] Lymphocytes Auto (Bld) [#/Vo l]Ordered By: Kobe Nur on 07-15-2024 Lymphocytes (Bld) [#/Vol] Lymphocytes [#/volume] in Blood by Automated count 1.00-4.8 [facility] Lymphocytes/100 WBC Auto (Bl d)Ordered By: Kobe Nur on 07-15-2024 Lymphocytes/100 WBC (Bld) Lymphocytes/100 leukocytes in Blood by Automated count . [facility] MCH Auto (RBC) [Entitic mass ]Ordered By: Kobe Nur on 07-15-2024 MCH (RBC) [Entitic mass] MCH [Entitic mass] by Automated count 24.7-34.3 [facility] MCHC Auto (RBC) [Mass/Vol]Or dered By: Kobe Nur on 07-15-2024 MCHC (RBC) [Mass/Vol] MCHC [Mass/volume] by Automated count 32.0-35.0 [facility] MCV Auto (RBC) [Entitic vol] Ordered By: Kobe Nur on 07-15-2024 MCV (RBC) [Entitic vol] MCV [Entitic volume] by Automated count 80-100 [facility] Monocytes Auto (Bld) [#/Vol] Ordered By: Kobe Nur on 07-15-2024 Monocytes (Bld) [#/Vol] Automated blood monocyte count 0.0-0.8 [facility] Monocytes/100 WBC Auto (Bld) Ordered By: Kobe Nur on 07-15-2024 Monocytes/100 WBC (Bld) Automated monocyte % . [facility] Neutrophils Auto (Bld) [#/Vo l]Ordered By: Kobe Nur on 07-15-2024 Neutrophils (Bld) [#/Vol] Neutrophils [#/volume] in Blood by Automated count 1.8-7.7 [facility] Neutrophils/100 WBC Auto (Bl d)Ordered By: Kobe Nur on 07-15-2024 Neutrophils/100 WBC (Bld) Automated neutrophil % . [facility] No Panel InformationOrdered By: Kobe Nur on 07-15-2024 Estimated GFR (CKD-EPI) > 60.0 mL/Min [facility] Creatinine Clearance (Chem N/A [facility] Nucleated erythrocytes [Pres ence] in Blood by Automated countOrdered By: Kobe Nur on 07-15-2024 Nucleated RBC Auto Ql (Bld) Nucleated erythrocytes [Presence] in Blood by Automated count 0-0.5 [facility] Platelet mean volume Auto (B ld) [Entitic vol]Ordered By: Kobe Nur on 07-15-2024 Platelet mean volume (Bld) [Entitic vol] Platelet mean volume [Entitic volume] in Blood by Automated count 6.3-10.7 [facility] Platelets Auto (Bld) [#/Vol] Ordered By: Kobe Nur on 07-15-2024 Platelets (Bld) [#/Vol] Platelets [#/volume] in Blood by Automated count 150-450 [facility] Protein [Mass/volume] in Ser um or PlasmaOrdered By: Kobe Nur on 07-15-2024 Protein [Mass/Vol] Protein [Mass/volume ] in Serum or Plasma 6.4-8.9 [facility] RBC Auto (Bld) [#/Vol]Ordere d By: Kobe Nur on 07-15-2024 RBC (Bld) [#/Vol] Erythrocytes [#/volu me] in Blood by Automated count 3.60-5.00 [facility] Serum or plasma albumin/glob ulin mass ratioOrdered By: Kobe Nur on 07-15-2024 Albumin/Globulin [Mass ratio] Serum or plasma albumin/globulin mass ratio [facility] Serum or plasma non-glucuron idated bilirubin measurement (mass/volume)Ordered By: Kobe Nur on 07-15-2024 Bilirubin.indirect [Mass/Vol] Serum or plasma non-glucuronidated bilirubin measurement (mass/volume) [facility] WBC Auto (Bld) [#/Vol]Ordere d By: Kobe Nur on 07-15-2024 WBC (Bld) [#/Vol] Leukocytes [#/volume ] in Blood by Automated count 3.8-11.6 [facility] Alanine aminotransferase [En zymatic activity/volume] in Serum or PlasmaOrdered By: Kobe Nur on 05-15-2024 ALT [Catalytic activity/Vol] Alanine aminotransferase [Enzymatic activity/volume] in Serum or Plasma 7-52 [facility] Albumin [Mass/volume] in Ser um or Plasma by Bromocresol green (BCG) dye binding methoOrdered By: Kobe Nur on 05-15-2024 Albumin BCG dye [Mass/Vol] Albumin [Mass/volume] in Serum or Plasma by Bromocresol green (BCG) dye binding metho 3.5-5.7 [facility] Alkaline phosphatase [Enzyma tic activity/volume] in Serum or PlasmaOrdered By: Kobe Nur on 05-15-2024 ALP [Catalytic activity/Vol] Alkaline phosphatase [Enzymatic activity/volume] in Serum or Plasma 34-104 [facility] Aspartate aminotransferase [ Enzymatic activity/volume] in Serum or PlasmaOrdered By: Kobe Nur on 05-15-2024 AST [Catalytic activity/Vol] Aspartate aminotransferase [Enzymatic activity/volume] in Serum or Plasma 13-39 [facility] Basophils Auto (Bld) [#/Vol] Ordered By: Kobe Nur on 05-15-2024 Basophils (Bld) [#/Vol] Automated basophil count 0.0-0.2 [facility] Basophils/100 WBC Auto (Bld) Ordered By: Kobe Nur on 05-15-2024 Basophils/100 WBC (Bld) Automated basophil % . [facility] Bilirubin.direct [Mass/volum e] in Serum or PlasmaOrdered By: oKbe uNr on 05-15-2024 Bilirubin.direct [Mass/Vol] Bilirubin.direct [Mass/volume] in Serum or Plasma 0.03-0.18 [facility] Bilirubin.total [Mass/volume ] in Serum or PlasmaOrdered By: Kobe Nur on 05-15-2024 Bilirubin [Mass/Vol] Bilirubin.total [Mass/volume] in Serum or Plasma 0.3-1.0 [facility] Complete Blood Count Auto Di ffon 05-15-2024 Basophils (Bld) [#/Vol] 0.1 10*3/uL Normal 0.0-0.2 [facility] Comment on above: Performed By: #### A 1C [facility] eA #### [facility] [address] Basophils/100 WBC (Bld) 0.4 % Normal . [facility] Comment on above: Performed By: #### A 1C [facility] eA #### [facility] [address] [place] [address] [place] Eosinophils (Bld) [#/Vol] 0.6 10*3/uL High 0.0-0.45 [facility] Comment on above: Performed By: #### A 1C [facility] eA #### [address] Eosinophils/100 WBC (Bld) 4.8 % Normal . [facility] Comment on above: Performed By: #### A 1C [facility] eA #### [address] Erythrocyte distribution width (RBC) [Ratio] 14.8 % Normal 11.9-15.3 [facility] Comment on above: Performed By: #### A 1C [facility] eA #### [address] Hematocrit (Bld) [Volume fraction] 37.3 % Normal 34.0-46.4 [facility] Comment on above: Performed By: #### A 1C [facility] eA #### [address] Hemoglobin (Bld) [Mass/Vol] 12.4 g/dL Normal 11.8-15.4 [facility] Comment on above: Performed By: #### A [facility]C [facility] eA #### [address] Lymphocytes (Bld) [#/Vol] 2.7 10*3/uL Normal 1.00-4.8 [facility] Comment on above: Performed By: #### A [facility] eA #### [address] Lymphocytes/100 WBC (Bld) 22.5 % Normal . [facility] Comment on above: Performed By: #### A 1C [facility] eA #### [address] MCH (RBC) [Entitic mass] 30.5 pg Normal 24.7-34.3 [facility] Comment on above: Performed By: #### A 1C [facility] eA #### [address] MCV (RBC) [Entitic vol] 92.1 fL Normal 80-100 [facility] Comment on above: Performed By: #### A [facility] eA #### [address] Mean Corpuscular HGB Conc 33.1 g/dL Normal 32.0-35.0 [facility] Comment on above: Performed By: #### A [facility] eA #### [address] Monocytes (Bld) [#/Vol] 1.1 10*3/uL High 0.0-0.8 [facility] Comment on above: Performed By: #### A [facility] eA #### [address] Monocytes/100 WBC (Bld) 8.7 % Normal . [facility] Comment on above: Performed By: #### A [facility] eA #### [address] Neutrophils (Bld) [#/Vol] 7.8 10*3/uL High 1.8-7.7 [facility] Comment on above: Performed By: #### A [facility] eA #### [address] Neutrophils/100 WBC (Bld) 63.6 % Normal . [facility] Comment on above: Performed By: #### A [facility] eA #### [address] NRBC% 0.1 /100{WBC} Normal 0-0.5 [facility] Comment on above: Performed By: #### A [facility]C [facility] eA #### [address] Platelet mean volume (Bld) [Entitic vol] 8.3 fL Normal 6.3-10.7 [facility] Comment on above: Performed By: #### A 1C [facility] eA #### [address] Platelets (Bld) [#/Vol] 348 10*3/uL Normal 150-450 [facility] Comment on above: Performed By: #### A 1C [facility] eA #### [address] RBC (Bld) [#/Vol] 4.05 10*6/uL Normal 3.60-5.00 [facility] Comment on above: Performed By: #### A 1C [facility] eA #### [address] WBC (Bld) [#/Vol] 12.2 10*3/uL High 3.8-11.6 [facility] Comment on above: Performed By: #### A [facility] eA #### [address] Creatinineon 05-15-2024 Creatinine [Mass/Vol] 0.87 mg/dL Normal 0.60-1.20 [facility] Comment on above: Performed By: #### A [facility] eA #### [address] GFR/1.73 sq M.predicted MDRD (S/P/Bld) [Vol rate/Area] mL/min/{1.73_m2} Normal [facility] Comment on above: Result Comment: PERF ORMED BY: [place] [address] PATHOLOGIST BLACKJACK PIT BOSS LEEROY SLOAN M.D. Performed By: #### A [facility] eA #### [address] Creatinine [Mass/volume] in Serum or PlasmaOrdered By: Kobe Nur on 05-15-2024 Creatinine [Mass/Vol] Creatinine [Mass/v olume] in Serum or Plasma 0.60-1.20 [facility] Eosinophils Auto (Bld) [#/Vo l]Ordered By: Kobe Nur on 05-15-2024 Eosinophils (Bld) [#/Vol] Automated eosinophil count High 0.0-0.45 [facility] Eosinophils/100 WBC Auto (Bl d)Ordered By: Kobe Nur on 05-15-2024 Eosinophils/100 WBC (Bld) Automated eosinophil % . [facility] Erythrocyte Sedimentation Ra erin 05-15-2024 ESR (Bld) [Velocity] 8 mm/h Normal 0-29 [facility] Comment on above: Result Comment: PERF ORMED BY: [facility] [address] [facility] [address] PATHOLOGIST BLACKJACK PIT BOSS LEEROY SLOAN M.D. Performed By: #### A 1C WT eA #### [facility] [address] [place] [id number] [facility] Erythrocyte distribution wid th Auto (RBC) [Ratio]Ordered By: Kobe Nur on 05-15-2024 Erythrocyte distribution width (RBC) [Ratio] Erythrocyte distribution width [Ratio] by Automated count 11.9-15.3 [facility] Erythrocyte sedimentation ra te by Photometric methodOrdered By: Kobe Nur on 05-15-2024 ESR Photometric method (Bld) [Velocity] Erythrocyte sedimentation rate by Photometric method 0-29 [facility] Globulin Calc (S) [Mass/Vol] Ordered By: Kobe Nur on 05-15-2024 Globulin (S) [Mass/Vol] Serum globulin measurement by calculation (mass/volume) [facility] Hematocrit Auto (Bld) [Volum e fraction]Ordered By: Kobe Nur on 05-15-2024 Hematocrit (Bld) [Volume fraction] Hematocrit [Volume Fraction] of Blood by Automated count 34.0-46.4 [facility] Hemoglobin [Mass/volume] in BloodOrdered By: Kobe Nur on 05-15-2024 Hemoglobin (Bld) [Mass/Vol] Hemoglobin [Mass/volume] in Blood 11.8-15.4 [facility] Hepatic Panelon 05-15-2024 Albumin [Mass/Vol] 4.2 g/dL Normal 3.5-5.7 [facility] Comment on above: Performed By: #### A 1C WT eA #### [facility] [address] [place] [id number] [place] Albumin/Globulin [Mass ratio] 1.5 {ratio} Normal [facility] Comment on above: Performed By: #### A 1C [facility] eA #### [address] ALP [Catalytic activity/Vol] 51 U/L Normal 34-104 [facility] Comment on above: Performed By: #### A 1C [facility] eA #### [address] ALT [Catalytic activity/Vol] 29 U/L Normal 7-52 [facility] Comment on above: Performed By: #### A 1C [facility] eA #### [address] AST [Catalytic activity/Vol] 20 U/L Normal 13-39 [facility] Comment on above: Performed By: #### A 1C [facility] eA #### [address] Bilirubin [Mass/Vol] 0.4 mg/dL Normal 0.3-1.0 [facility] Comment on above: Performed By: #### A 1C WT eA #### [place] [address] [place] Bilirubin,Indirect 0.3 mg/dL Normal [facility] Comment on above: Performed By: #### A 1C [facility] eA #### [address] Bilirubin.indirect [Mass/Vol] 0.10 mg/dL Normal 0.03-0.18 [facility] Comment on above: Performed By: #### A 1C [facility] eA #### [address] Globulin (S) [Mass/Vol] 2.8 g/dL Normal [facility] Comment on above: Performed By: #### A 1C [facility] eA #### [address] Protein [Mass/Vol] 7.0 g/dL Normal 6.4-8.9 [facility] Comment on above: Performed By: #### A 1C WT eA #### [facility] [address] [place] [id number] [facility] Leukocytes [#/volume] correc maricel for nucleated erythrocytes in Blood by Automated counOrdered By: Kobe Nur on 05-15-2024 WBC corrected for nucl RBC Auto (Bld) [#/Vol] Leukocytes [#/volume] corrected for nucleated erythrocytes in Blood by Automated coun High 3.8-11.6 [facility] Lymphocytes Auto (Bld) [#/Vo l]Ordered By: Kobe Nur on 05-15-2024 Lymphocytes (Bld) [#/Vol] Lymphocytes [#/volume] in Blood by Automated count 1.00-4.8 [facility] Lymphocytes/100 WBC Auto (Bl d)Ordered By: Kobe Nur on 05-15-2024 Lymphocytes/100 WBC (Bld) Lymphocytes/100 leukocytes in Blood by Automated count . [facility] MCH Auto (RBC) [Entitic mass ]Ordered By: Kobe Nur on 05-15-2024 MCH (RBC) [Entitic mass] MCH [Entitic mass] by Automated count 24.7-34.3 [facility] MCHC Auto (RBC) [Mass/Vol]Or dered By: Kobe Nur on 05-15-2024 MCHC (RBC) [Mass/Vol] MCHC [Mass/volume] by Automated count 32.0-35.0 [facility] MCV Auto (RBC) [Entitic vol] Ordered By: Kobe Nur on 05-15-2024 MCV (RBC) [Entitic vol] MCV [Entitic volume] by Automated count 80-100 [facility] Monocytes Auto (Bld) [#/Vol] Ordered By: Kobe Nur on 05-15-2024 Monocytes (Bld) [#/Vol] Automated blood monocyte count High 0.0-0.8 [facility] Monocytes/100 WBC Auto (Bld) Ordered By: Kobe Nur on 05-15-2024 Monocytes/100 WBC (Bld) Automated monocyte % . [facility] Neutrophils Auto (Bld) [#/Vo l]Ordered By: Kobe Nur on 05-15-2024 Neutrophils (Bld) [#/Vol] Neutrophils [#/volume] in Blood by Automated count High 1.8-7.7 [facility] Neutrophils/100 WBC Auto (Bl d)Ordered By: Kobe Nur on 05-15-2024 Neutrophils/100 WBC (Bld) Automated neutrophil % . [facility] No Panel InformationOrdered By: Kobe Nur on 05-15-2024 Estimated GFR (CKD-EPI) > 60.0 mL/Min [facility] Creatinine Clearance (Chem N/A [facility] Nucleated erythrocytes [Pres ence] in Blood by Automated countOrdered By: Kobe Nur on 05-15-2024 Nucleated RBC Auto Ql (Bld) Nucleated erythrocytes [Presence] in Blood by Automated count 0-0.5 [facility] Platelet mean volume Auto (B ld) [Entitic vol]Ordered By: Kobe Nur on 05-15-2024 Platelet mean volume (Bld) [Entitic vol] Platelet mean volume [Entitic volume] in Blood by Automated count 6.3-10.7 [facility] Platelets Auto (Bld) [#/Vol] Ordered By: Kobe Nur on 05-15-2024 Platelets (Bld) [#/Vol] Platelets [#/volume] in Blood by Automated count 150-450 [facility] Protein [Mass/volume] in Ser um or PlasmaOrdered By: Kobe Nur on 05-15-2024 Protein [Mass/Vol] Protein [Mass/volume ] in Serum or Plasma 6.4-8.9 [facility] RBC Auto (Bld) [#/Vol]Ordere d By: Kobe Nur on 05-15-2024 RBC (Bld) [#/Vol] Erythrocytes [#/volu me] in Blood by Automated count 3.60-5.00 [facility] Serum or plasma albumin/glob ulin mass ratioOrdered By: Kobe Nur on 05-15-2024 Albumin/Globulin [Mass ratio] Serum or plasma albumin/globulin mass ratio [facility] Serum or plasma non-glucuron idated bilirubin measurement (mass/volume)Ordered By: Kobe Nur on 05-15-2024 Bilirubin.indirect [Mass/Vol] Serum or plasma non-glucuronidated bilirubin measurement (mass/volume) [facility] WBC Auto (Bld) [#/Vol]Ordere d By: Kobe Nur on 05-15-2024 WBC (Bld) [#/Vol] Leukocytes [#/volume ] in Blood by Automated count High 3.8-11.6 [facility] Alanine aminotransferase [En zymatic activity/volume] in Serum or PlasmaOrdered By: Kobe Nur on 04-03-2024 ALT [Catalytic activity/Vol] Alanine aminotransferase [Enzymatic activity/volume] in Serum or Plasma 7-52 [facility] Albumin [Mass/volume] in Ser um or Plasma by Bromocresol green (BCG) dye binding methoOrdered By: Kobe Nur on 04-03-2024 Albumin BCG dye [Mass/Vol] Albumin [Mass/volume] in Serum or Plasma by Bromocresol green (BCG) dye binding metho 3.5-5.7 [facility] Alkaline phosphatase [Enzyma tic activity/volume] in Serum or PlasmaOrdered By: Kobe Nur on 04-03-2024 ALP [Catalytic activity/Vol] Alkaline phosphatase [Enzymatic activity/volume] in Serum or Plasma 34-104 [facility] Aspartate aminotransferase [ Enzymatic activity/volume] in Serum or PlasmaOrdered By: Kobe Nur on 04-03-2024 AST [Catalytic activity/Vol] Aspartate aminotransferase [Enzymatic activity/volume] in Serum or Plasma 13-39 [facility] Basophils Auto (Bld) [#/Vol] Ordered By: Kobe Nur on 04-03-2024 Basophils (Bld) [#/Vol] Automated basophil count 0.0-0.2 [facility] Basophils/100 WBC Auto (Bld) Ordered By: Kobe Nur on 04-03-2024 Basophils/100 WBC (Bld) Automated basophil % . [facility] Bilirubin.direct [Mass/volum e] in Serum or PlasmaOrdered By: Kobe Nur on 04-03-2024 Bilirubin.direct [Mass/Vol] Bilirubin.direct [Mass/volume] in Serum or Plasma 0.03-0.18 [facility] Bilirubin.total [Mass/volume ] in Serum or PlasmaOrdered By: Kobe Nur on 04-03-2024 Bilirubin [Mass/Vol] Bilirubin.total [Mass/volume] in Serum or Plasma 0.3-1.0 [facility] Complete Blood Count Auto Di ffon 04-03-2024 Basophils (Bld) [#/Vol] 0.0 10*3/uL Normal 0.0-0.2 [facility] Comment on above: Performed By: #### C REAT, HEPATIC, CBC, ESR #### [address] Basophils/100 WBC (Bld) 0.5 % Normal . [facility] Comment on above: Performed By: #### C REAT, HEPATIC, CBC, ESR #### [address] Eosinophils (Bld) [#/Vol] 0.3 10*3/uL Normal 0.0-0.45 [facility] Comment on above: Performed By: #### C REAT, HEPATIC, CBC, ESR #### [address] Eosinophils/100 WBC (Bld) 3.6 % Normal . [facility] Comment on above: Performed By: #### C REAT, HEPATIC, CBC, ESR #### [address] Erythrocyte distribution width (RBC) [Ratio] 14.0 % Normal 11.9-15.3 [facility] Comment on above: Performed By: #### C REAT, HEPATIC, CBC, ESR #### [address] Hematocrit (Bld) [Volume fraction] 37.8 % Normal 34.0-46.4 [facility] Comment on above: Performed By: #### C REAT, HEPATIC, CBC, ESR #### [address] Hemoglobin (Bld) [Mass/Vol] 12.5 g/dL Normal 11.8-15.4 [facility] Comment on above: Performed By: #### C REAT, HEPATIC, CBC, ESR #### [place] [address] [place] Lymphocytes (Bld) [#/Vol] 2.1 10*3/uL Normal 1.00-4.8 [facility] Comment on above: Performed By: #### C REAT, HEPATIC, CBC, ESR #### [address] Lymphocytes/100 WBC (Bld) 26.2 % Normal . [facility] Comment on above: Performed By: #### C REAT, HEPATIC, CBC, ESR #### [address] MCH (RBC) [Entitic mass] 30.9 pg Normal 24.7-34.3 [facility] Comment on above: Performed By: #### C REAT, HEPATIC, CBC, ESR #### [address] MCV (RBC) [Entitic vol] 93.1 fL Normal 80-100 [facility] Comment on above: Performed By: #### C REAT, HEPATIC, CBC, ESR #### [address] Mean Corpuscular HGB Conc 33.2 g/dL Normal 32.0-35.0 [facility] Comment on above: Performed By: #### C REAT, HEPATIC, CBC, ESR #### [address] Monocytes (Bld) [#/Vol] 0.6 10*3/uL Normal 0.0-0.8 [facility] Comment on above: Performed By: #### C REAT, HEPATIC, CBC, ESR #### [address] Monocytes/100 WBC (Bld) 7.8 % Normal . [facility] Comment on above: Performed By: #### C REAT, HEPATIC, CBC, ESR #### [address] Neutrophils (Bld) [#/Vol] 4.9 10*3/uL Normal 1.8-7.7 [facility] Comment on above: Performed By: #### C REAT, HEPATIC, CBC, ESR #### [address] Neutrophils/100 WBC (Bld) 61.9 % Normal . [facility] Comment on above: Performed By: #### C REAT, HEPATIC, CBC, ESR #### [address] NRBC% 0.1 /100{WBC} Normal 0-0.5 [facility] Comment on above: Performed By: #### C REAT, HEPATIC, CBC, ESR #### [address] Platelet mean volume (Bld) [Entitic vol] 7.9 fL Normal 6.3-10.7 [facility] Comment on above: Performed By: #### C REAT, HEPATIC, CBC, ESR #### [address] Platelets (Bld) [#/Vol] 299 10*3/uL Normal 150-450 [facility] Comment on above: Performed By: #### C REAT, HEPATIC, CBC, ESR #### [address] RBC (Bld) [#/Vol] 4.06 10*6/uL Normal 3.60-5.00 [facility] Comment on above: Performed By: #### C REAT, HEPATIC, CBC, ESR #### [address] WBC (Bld) [#/Vol] 8.0 10*3/uL Normal 3.8-11.6 [facility] Comment on above: Performed By: #### C REAT, HEPATIC, CBC, ESR #### [address] Creatinineon 04-03-2024 Creatinine [Mass/Vol] 0.86 mg/dL Normal 0.60-1.20 [facility] Comment on above: Performed By: #### C REAT, HEPATIC, CBC, ESR #### [address] [address] [facility] GFR/1.73 sq M.predicted MDRD (S/P/Bld) [Vol rate/Area] mL/min/{1.73_m2} Normal [facility] Comment on above: Result Comment: PERF ORMED BY: [place] [address] PATHOLOGIST BLACKJACK PIT BOSS LEEROY SLOAN M.D. Performed By: #### C REAT, HEPATIC, CBC, ESR #### [facility] [address] [place], [place] [id number] [facility] Creatinine [Mass/volume] in Serum or PlasmaOrdered By: Kobe Nur on 04-03-2024 Creatinine [Mass/Vol] Creatinine [Mass/v olume] in Serum or Plasma 0.60-1.20 [facility] Eosinophils Auto (Bld) [#/Vo l]Ordered By: Kobe Nur on 04-03-2024 Eosinophils (Bld) [#/Vol] Automated eosinophil count 0.0-0.45 [facility] Eosinophils/100 WBC Auto (Bl d)Ordered By: Kobe Nur on 04-03-2024 Eosinophils/100 WBC (Bld) Automated eosinophil % . [facility] Erythrocyte Sedimentation Ra erin 04-03-2024 ESR (Bld) [Velocity] 5 mm/h Normal 0-29 [facility] Comment on above: Result Comment: PERF ORMED BY: [place] [id number] PATHOLOGIST BLACKJACK PIT BOSS LEEROY SLOAN M.D. Performed By: #### C REAT, HEPATIC, CBC, ESR #### [facility] [address] [place] [id number] [facility] Erythrocyte distribution wid th Auto (RBC) [Ratio]Ordered By: Kobe Nur on 04-03-2024 Erythrocyte distribution width (RBC) [Ratio] Erythrocyte distribution width [Ratio] by Automated count 11.9-15.3 [facility] Erythrocyte sedimentation ra te by Photometric methodOrdered By: Kobe Nur on 04-03-2024 ESR Photometric method (Bld) [Velocity] Erythrocyte sedimentation rate by Photometric method 0-29 [facility] Globulin Calc (S) [Mass/Vol] Ordered By: Kobe Nur on 04-03-2024 Globulin (S) [Mass/Vol] Serum globulin measurement by calculation (mass/volume) [facility] Hematocrit Auto (Bld) [Volum e fraction]Ordered By: Kobe Nur on 04-03-2024 Hematocrit (Bld) [Volume fraction] Hematocrit [Volume Fraction] of Blood by Automated count 34.0-46.4 [facility] Hemoglobin [Mass/volume] in BloodOrdered By: Kobe Nur on 04-03-2024 Hemoglobin (Bld) [Mass/Vol] Hemoglobin [Mass/volume] in Blood 11.8-15.4 [facility] Hepatic Panelon 04-03-2024 Albumin [Mass/Vol] 4.1 g/dL Normal 3.5-5.7 [facility] Comment on above: Performed By: #### C REAT, HEPATIC, CBC, ESR #### [facility] [address] Albumin/Globulin [Mass ratio] 1.6 {ratio} Normal [facility] Comment on above: Performed By: #### C REAT, HEPATIC, CBC, ESR #### [facility] [address] ALP [Catalytic activity/Vol] 50 U/L Normal 34-104 [facility] Comment on above: Performed By: #### C REAT, HEPATIC, CBC, ESR #### [facility] [address] ALT [Catalytic activity/Vol] 26 U/L Normal 7-52 [facility] Comment on above: Performed By: #### C REAT, HEPATIC, CBC, ESR #### [facility] [address] [place] [id number] [facility] AST [Catalytic activity/Vol] 16 U/L Normal 13-39 [facility] Comment on above: Performed By: #### C REAT, HEPATIC, CBC, ESR #### [facility] [address] Bilirubin [Mass/Vol] 0.5 mg/dL Normal 0.3-1.0 [facility] Comment on above: Performed By: #### C REAT, HEPATIC, CBC, ESR #### [facility] [address] Bilirubin,Indirect 0.4 mg/dL Normal [facility] Comment on above: Performed By: #### C REAT, HEPATIC, CBC, ESR #### [facility] [address] Bilirubin.indirect [Mass/Vol] 0.10 mg/dL Normal 0.03-0.18 [facility] Comment on above: Performed By: #### C REAT, HEPATIC, CBC, ESR #### [facility] [address] Globulin (S) [Mass/Vol] 2.5 g/dL Normal [facility] Comment on above: Performed By: #### C REAT, HEPATIC, CBC, ESR #### [facility] [address] Protein [Mass/Vol] 6.6 g/dL Normal 6.4-8.9 [facility] Comment on above: Performed By: #### C REAT, HEPATIC, CBC, ESR #### [facility] [address] Leukocytes [#/volume] correc maricel for nucleated erythrocytes in Blood by Automated counOrdered By: Kobe Nur on 04-03-2024 WBC corrected for nucl RBC Auto (Bld) [#/Vol] Leukocytes [#/volume] corrected for nucleated erythrocytes in Blood by Automated coun 3.8-11.6 [facility] Lymphocytes Auto (Bld) [#/Vo l]Ordered By: Kobe Nur on 04-03-2024 Lymphocytes (Bld) [#/Vol] Lymphocytes [#/volume] in Blood by Automated count 1.00-4.8 [facility] Lymphocytes/100 WBC Auto (Bl d)Ordered By: Kobe Nur on 04-03-2024 Lymphocytes/100 WBC (Bld) Lymphocytes/100 leukocytes in Blood by Automated count . [facility] MCH Auto (RBC) [Entitic mass ]Ordered By: Kobe Nur on 04-03-2024 MCH (RBC) [Entitic mass] MCH [Entitic mass] by Automated count 24.7-34.3 [facility] MCHC Auto (RBC) [Mass/Vol]Or dered By: Kobe Nur on 04-03-2024 MCHC (RBC) [Mass/Vol] MCHC [Mass/volume] by Automated count 32.0-35.0 [facility] MCV Auto (RBC) [Entitic vol] Ordered By: Kobe Nur on 04-03-2024 MCV (RBC) [Entitic vol] MCV [Entitic volume] by Automated count 80-100 [facility] Monocytes Auto (Bld) [#/Vol] Ordered By: Kobe Nur on 04-03-2024 Monocytes (Bld) [#/Vol] Automated blood monocyte count 0.0-0.8 [facility] Monocytes/100 WBC Auto (Bld) Ordered By: Kobe Nur on 04-03-2024 Monocytes/100 WBC (Bld) Automated monocyte % . [facility] Neutrophils Auto (Bld) [#/Vo l]Ordered By: Kobe Nur on 04-03-2024 Neutrophils (Bld) [#/Vol] Neutrophils [#/volume] in Blood by Automated count 1.8-7.7 [facility] Neutrophils/100 WBC Auto (Bl d)Ordered By: Kobe Nur on 04-03-2024 Neutrophils/100 WBC (Bld) Automated neutrophil % . [facility] No Panel InformationOrdered By: Kobe Nur on 04-03-2024 Estimated GFR (CKD-EPI) > 60.0 mL/Min [facility] Creatinine Clearance (Chem N/A [facility] Nucleated erythrocytes [Pres ence] in Blood by Automated countOrdered By: Kobe Nur on 04-03-2024 Nucleated RBC Auto Ql (Bld) Nucleated erythrocytes [Presence] in Blood by Automated count 0-0.5 [facility] Platelet mean volume Auto (B ld) [Entitic vol]Ordered By: Kobe Nur on 04-03-2024 Platelet mean volume (Bld) [Entitic vol] Platelet mean volume [Entitic volume] in Blood by Automated count 6.3-10.7 [facility] Platelets Auto (Bld) [#/Vol] Ordered By: Kobe Nur on 04-03-2024 Platelets (Bld) [#/Vol] Platelets [#/volume] in Blood by Automated count 150-450 [facility] Protein [Mass/volume] in Ser um or PlasmaOrdered By: Kobe Nur on 04-03-2024 Protein [Mass/Vol] Protein [Mass/volume ] in Serum or Plasma 6.4-8.9 [facility] RBC Auto (Bld) [#/Vol]Ordere d By: Kobe Nur on 04-03-2024 RBC (Bld) [#/Vol] Erythrocytes [#/volu me] in Blood by Automated count 3.60-5.00 [facility] Serum or plasma albumin/glob ulin mass ratioOrdered By: Kobe Nur on 04-03-2024 Albumin/Globulin [Mass ratio] Serum or plasma albumin/globulin mass ratio [facility] Serum or plasma non-glucuron idated bilirubin measurement (mass/volume)Ordered By: Kobe Nur on 04-03-2024 Bilirubin.indirect [Mass/Vol] Serum or plasma non-glucuronidated bilirubin measurement (mass/volume) [facility] WBC Auto (Bld) [#/Vol]Ordere d By: Kobe Nur on 04-03-2024 WBC (Bld) [#/Vol] Leukocytes [#/volume ] in Blood by Automated count 3.8-11.6 [facility] Hemoglobin a1c with eagon Glucose [Mass/Vol] 169 mg/dL [facility] HbA1c (Bld) [Mass fraction] 7.5 % High 4.3 - 5.6 % [facility] Comment on above: Increased risk for d iabetes: 5.7 - 6.4 diabetes: >6.4 glycemic control for adults with diabetes: <7.0 Interpretation and review of laboratory results Abnormal [facility] A1C with Estimated Average G luon 03-20-2024 Glucose [Mass/Vol] 169 mg/dL Normal [facility] Comment on above: Result Comment: PERF ORMED BY: [facility] [address] [place] [address] PATHOLOGIST BLACKJACK PIT BOSS LEEROY SLOAN M.D. Performed By: #### A 1C [facility] eA #### [facility] [address] [place] [id number] [facility] HbA1c (Bld) [Mass fraction] 7.5 % High 4.3-5.6 [facility] Comment on above: Result Comment: Incr eased risk for diabetes: 5.7 - 6.4 diabetes: >6.4 glycemic control for adults with diabetes: <7.0 Performed By: #### A 1C [facility] eA #### [facility] [address] [place] [id number] [facility] Blood Mycobacterium tubercul osis stimulated gamma interferon detectionOrdered By: Kobe Nur on 03-20-2024 M. tuberculosis tuberculin stim IFN-g Ql (Bld) Blood Mycobacterium tuberculosis tuberculin stimulated gamma interferon detection . [facility] Comment on above: QuantiFERON-TB Gold Plus is [...] [Mass/volume] in Blood Estimated from glycated hemoglobin [facility] Blood mitogen stimulated elmo ma interferon measurement (units/volume)Ordered By: Kobe Nur on 03-20-2024 Mitogen stimulated gamma interferon Qn (Bld) Blood mitogen stimulated gamma interferon measurement (units/volume) . [facility] Hemoglobin A1c/Hemoglobin.to mariza in BloodOrdered By: Louie Moreno on 03-20-2024 HbA1c (Bld) [Mass fraction] Hemoglobin A1c percentage High 4.3-5.[address] [facility] Comment on above: Increased risk for d iabetes: 5.7 - 6.4diabetes: >6.4glycemic control for adults with diabetes: <7.0 Mycobacterium tuberculosis s timulated gamma interferon [Interpretation] in Blood QualOrdered By: Kobe Nur on 03-20-2024 M. tuberculosis stim IFN-g Ql (Bld) [Interp] Mycobacterium tuberculosis stimulated gamma interferon [Interpretation] in Blood Qual Negative [facility] Comment on above: No response to M [...] the productionof interferon gamma. Chemiluminescence immunoassaymethodologyPerformed at: [facility] [address] [id number] Director: Willis Reeves PhD, Phone: [phone] QuantiFERON TB Goldon 2023 QFTB Criteria Comment Normal . [facility] Comment on above: Result Comment: [...] Ag Value 0.00 [IU]/mL Normal . [facility] Comment on above: Performed By: #### Q UANT TB #### [facility] , Quant TB Gold Plus Negative Normal Negative [facility] Comment on above: Result Comment: [...] interferon gamma. Chemiluminescence immunoassay methodology Performed at: [facility] [id number] [place]: Willis Reeves PhD, Phone: [phone] PERFORMED BY: [facility] [place] [address] PATHOLOGIST BLACKJACK PIT BOSS LEEROY SLOAN M.D. Performed By: #### Q UANT TB #### [facility] , Quant TB2 Ag Value 0.00 [IU]/mL Normal . [facility] Comment on above: Performed By: #### Q UANT TB #### [facility] , Quantiferon Nil Value 0.00 [IU]/mL Normal . [facility] Comment on above: Performed By: #### Q UANT TB #### [facility] , Quantiferon TB Mitogen >10.00 Normal . [facility] Comment on above: Performed By: #### Q UANT TB #### [facility] , Whole blood measurement of M ycobacterium tuberculosis stimulated gamma interferon relOrdered By: Kobe Nur on 03-20-2024 M. tuberculosis stim IFN-g by CD4+ CD8+ T-cells corrected for background Qn (Bld) Whole blood measurement of Mycobacterium tuberculosis stimulated gamma interferon rel . [facility] T3 REVERSE, LC/MS/MSon 03-16 T3 REVERSE, LC/MS/MS 14 ng/dL Normal 8-25 [facility] Comment on above: Order Comment: FASTI NG:YESFASTING: YES Result Comment: This test was developed and its analytical performance characteristics have been determined by [facility] [place], [place]. It has not been cleared or approved by the U.S. Food and Drug Administration. This assay has been validated pursuant to the CLIA regulations and is used for clinical purposes. Performed By: #### 6 399, [id number], 975, 375 #### [facility] of [address], [address] [place] [address] Price Clerk: Shiva Byrd MD T3, FREE 03-16-2024 Free T3 [Mass/Vol] 3.6 pg/mL Normal 2.3-4.2 [facility] Comment on above: Performed By: #### 6 399, 36828, 809, 375 #### [facility] of [address], [address] [place] [address] Price Clerk: Shiva Byrd MD T3, TOTALon 03-16-2024 T3, TOTAL 135 ng/dL Normal 76-181 [facility] Comment on above: Performed By: #### 6 399, 21755, 809, 375 #### [facility] of [place] [address] Price Clerk: Shiva Byrd MD T4, [facility] 03-16-2024 Free T4 [Mass/Vol] 1.1 ng/dL Normal 0.8-1.8 [facility] Comment on above: Performed By: #### 6 399, 90459, 809, 375 #### [facility] [place] [address] Price Clerk: Shiva Byrd MD TSHon 03-16-2024 TSH Qn 0.17 m[IU]/L Low 0.40-4.50 [facility] Comment on above: Performed By: #### 6 399, 59175, 809, 375 #### [facility] of [place] [address] Price Clerk: Shiva Byrd MD CBC (INCLUDES DIFF/PLT)on Basophils (Bld) [#/Vol] 0.049 10*3/uL Normal 0-200 [facility] Comment on above: Performed By: #### 6 399, 70718, 809, 375 #### [facility] of [place] [address] Price Clerk: Shiva Byrd MD Basophils/100 WBC (Bld) 0.5 % Normal [facility] Comment on above: Performed By: #### 6 399, 53882, 809, 375 #### [facility] of [place] [address] Price Clerk: Shiva Byrd MD Eosinophils (Bld) [#/Vol] 0.233 10*3/uL Normal 15-500 [facility] Comment on above: Performed By: #### 6 399, 44426, 809, 375 #### [facility] of [place] [address] Price Clerk: Shiva Byrd MD Eosinophils/100 WBC (Bld) 2.4 % Normal [facility] Comment on above: Performed By: #### 6 399, 92551, 809, 375 #### [facility] of [place] [address] Price Clerk: Shiva Byrd MD Erythrocyte distribution width (RBC) [Ratio] 13.3 % Normal 11.0-15.0 [facility] Comment on above: Performed By: #### 6 399, 74107, 809, 375 #### [facility] [place] [address] Price Clerk: Shiva Byrd MD Hematocrit (Bld) [Volume fraction] 37.7 % Normal 35.0-45.0 [facility] Comment on above: Performed By: #### 6 399, 70831, 809, 375 #### [facility] of [place] [address] Price Clerk: Shiva Byrd MD Hemoglobin (Bld) [Mass/Vol] 12.5 g/dL Normal 11.7-15.5 [facility] Comment on above: Performed By: #### 6 399, 95248, 809, 375 #### [facility] of [place] [address] Price Clerk: Shiva Byrd MD Lymphocytes (Bld) [#/Vol] 2.086 10*3/uL Normal 850-3900 [facility] Comment on above: Performed By: #### 6 399, 10864, 809, 375 #### [facility] [place] [address] Price Clerk: Shiva Byrd MD Lymphocytes/100 WBC (Bld) 21.5 % Normal [facility] Comment on above: Performed By: #### 6 399, 41339, 809, 375 #### [facility] of [place] [address] Price Clerk: Shiva Byrd MD MCH (RBC) [Entitic mass] 31.5 pg Normal 27.0-33.0 [facility] Comment on above: Performed By: #### 6 399, 28804, 809, 375 #### [facility] of [place] [address] Price Clerk: Shiva Byrd MD MCHC (RBC) [Mass/Vol] 33.2 g/dL Normal 32.0-36.[address] [facility] Comment on above: Result Comment: For adults, a slight decrease in the calculated MCHC value (in the range of 30 to 32 g/dL) is most likely not clinically significant; however, it should be interpreted with caution in correlation with other red cell parameters and the patient's clinical condition. Performed By: #### 6 399, 31866, 809, 375 #### [facility] of [place] [address] Price Clerk: Shiva Byrd MD MCV (RBC) [Entitic vol] 95.0 fL Normal 80.0-100.0 [facility] Comment on above: Performed By: #### 6 399, 40028, 809, 375 #### [facility] [place] [address] Price Clerk: Shiva Byrd MD Monocytes (Bld) [#/Vol] 0.601 10*3/uL Normal 200-950 [facility] Comment on above: Performed By: #### 6 399, 11844, 809, 375 #### [place] [address] Price Clerk: Shiva Byrd MD Monocytes/100 WBC (Bld) 6.2 % Normal [facility] Comment on above: Performed By: #### 6 399, 94960, 809, 375 #### [facility] of [place] [address] Price Clerk: Shiva Byrd MD Neutrophils (Bld) [#/Vol] 6.732 10*3/uL Normal 1998-6885 [facility] Comment on above: Performed By: #### 6 399, 60237, 809, 375 #### [facility] of [place] [address] Price Clerk: Shiva Byrd MD Neutrophils/100 WBC (Bld) 69.4 % Normal [facility] Comment on above: Performed By: #### 6 399, 90615, 809, 375 #### [facility] [place] [address] Price Clerk: Shiva Byrd MD Platelet mean volume (Bld) [Entitic vol] 9.8 fL Normal 7.5-12.5 [facility] Comment on above: Performed By: #### 6 399, 42077, 809, 375 #### [facility] [place] [address] Price Clerk: Shiva Byrd MD Platelets (Bld) [#/Vol] 352 10*3/uL Normal 140-400 [facility] Comment on above: Performed By: #### 6 399, 81279, 809, 375 #### [facility] [place] [address] Price Clerk: Shiva Byrd MD RBC (Bld) [#/Vol] 3.97 10*6/uL Normal 3.80-5.10 [facility] Comment on above: Performed By: #### 6 399, 54390, 809, 375 #### [facility] of [address], [address] [place] [address] Price Clerk: Shiva Byrd MD WBC (Bld) [#/Vol] 9.7 10*3/uL Normal 3.8-10.8 [facility] Comment on above: Performed By: #### 6 399, 24956, 809, 375 #### [facility] of [place] [address] Price Clerk: Shiva Byrd MD CREATININEon 02-06-2024 Creatinine [Mass/Vol] 0.92 mg/dL Normal 0.50-1.[address] [facility] [address] [facility] Comment on above: Performed By: #### 6 399, 85486, 809, 375 #### [facility] [place] [address] Price Clerk: Shiva Byrd MD GFR/1.73 sq M.predicted among non-blacks MDRD (S/P/Bld) [Vol rate/Area] 67 mL/min/{1.73_m2} Normal > OR = 60 [facility] Comment on above: Performed By: #### 6 399, 29104, 809, 375 #### [facility] of [place] [address] Price Clerk: Shiva Byrd MD HEPATIC FUNCTION PANELon Albumin [Mass/Vol] 4.3 g/dL Normal 3.6-5.1 [facility] Comment on above: Performed By: #### 6 399, 47299, 809, 375 #### [facility] [place] [address] Price Clerk: Shiva Byrd MD Albumin/Globulin [Mass ratio] 1.7 {ratio} Normal 1.0-2.5 [facility] Comment on above: Performed By: #### 6 399, 46277, 809, 375 #### [facility] [place] [address] Price Clerk: Shiva Byrd MD ALP [Catalytic activity/Vol] 47 U/L Normal 37-153 [facility] Comment on above: Performed By: #### 6 399, 77320, 809, 375 #### [facility] of [address], [address] [place] [address] Price Clerk: Shiva Byrd MD ALT [Catalytic activity/Vol] 25 U/L Normal 6-29 [facility] Comment on above: Performed By: #### 6 399, 08155, 809, 375 #### [facility] of [address], [address] [place] [address] Price Clerk: Shiva Byrd MD AST [Catalytic activity/Vol] 17 U/L Normal 10-35 [facility] Comment on above: Performed By: #### 6 399, 11965, 809, 375 #### [facility] [place] [address] Price Clerk: Shiva Byrd MD Bilirubin [Mass/Vol] 0.5 mg/dL Normal 0.2-1.2 [facility] Comment on above: Performed By: #### 6 399, 30566, 809, 375 #### [facility] [place] [address] Price Clerk: Shiva Byrd MD BILIRUBIN, INDIRECT 0.4 mg/dL (calc) Normal 0.2-1.2 [facility] Comment on above: Performed By: #### 6 399, 54350, 809, 375 #### [facility] [place] [address] Price Clerk: Shiva Byrd MD Bilirubin.indirect [Mass/Vol] 0.1 mg/dL Normal < OR = 0.2 [facility] Comment on above: Performed By: #### 6 399, 99335, 809, 375 #### [facility] [place] [address] Price Clerk: Shiva Byrd MD Globulin (S) [Mass/Vol] 2.6 g/dL Normal 1.9-3.7 [facility] Comment on above: Performed By: #### 6 399, 78697, 809, 375 #### [facility] of [address], [address] [place] [address] Price Clerk: Shiva Byrd MD Protein [Mass/Vol] 6.9 g/dL Normal 6.1-8.1 [facility] Comment on above: Performed By: #### 6 399, 70649, 809, 375 #### [facility] [place] [address] Price Clerk: Shiva Byrd MD SED RATE BY MODIFIED WESTERG RENon 02-06-2024 SED RATE BY MODIFIED WESTERGREN 6 mm/h Normal < OR = 30 [facility] Comment on above: Performed By: #### 6 399, 05181, 809, 375 #### [facility] [place] [address] Price Clerk: Shiva Byrd MD CBC (INCLUDES DIFF/PLT)on Basophils (Bld) [#/Vol] 0.028 10*3/uL Normal 0-200 [facility] Comment on above: Performed By: #### 6 399, 75319, 809, 375 #### [facility] [place] [address] Price Clerk: Shiva Byrd MD Basophils/100 WBC (Bld) 0.3 % Normal [facility] Comment on above: Performed By: #### 6 399, 24463, 809, 375 #### [facility] [place] [address] Price Clerk: Shiva Byrd MD Eosinophils (Bld) [#/Vol] 0.451 10*3/uL Normal 15-500 [facility] Comment on above: Performed By: #### 6 399, 77542, 809, 375 #### [facility] [place] [address] Price Clerk: Shiva Byrd MD Eosinophils/100 WBC (Bld) 4.9 % Normal [facility] Comment on above: Performed By: #### 6 399, 23926, 809, 375 #### [place] [address] Price Clerk: Shiva Byrd MD Erythrocyte distribution width (RBC) [Ratio] 13.6 % Normal 11.0-15.0 [facility] Comment on above: Performed By: #### 6 399, 60802, 809, 375 #### [facility] [place] [address] Price Clerk: Shiva Byrd MD Hematocrit (Bld) [Volume fraction] 37.6 % Normal 35.0-45.0 [facility] Comment on above: Performed By: #### 6 399, 69226, 809, 375 #### [facility] [place] [address] Price Clerk: Shiva Byrd MD Hemoglobin (Bld) [Mass/Vol] 12.3 g/dL Normal 11.7-15.5 [facility] Comment on above: Performed By: #### 6 399, 13253, 809, 375 #### [facility] [place] [address] Price Clerk: Shiva Byrd MD Lymphocytes (Bld) [#/Vol] 2.217 10*3/uL Normal 850-3900 [facility] Comment on above: Performed By: #### 6 399, 51184, 809, 375 #### [facility] [place] [address] Price Clerk: Shiva Byrd MD Lymphocytes/100 WBC (Bld) 24.1 % Normal [facility] Comment on above: Performed By: #### 6 399, 15218, 809, 375 #### [facility] [place] [address] Price Clerk: Shiva Byrd MD MCH (RBC) [Entitic mass] 30.1 pg Normal 27.0-33.0 [facility] Comment on above: Performed By: #### 6 399, 31528, 809, 375 #### [facility] [place] [address] Price Clerk: Shiva Byrd MD MCHC (RBC) [Mass/Vol] 32.7 g/dL Normal 32.0-36.[address] [facility] Comment on above: Performed By: #### 6 399, 85592, 809, 375 #### [facility] [place] [address] Price Clerk: Shiva Byrd MD MCV (RBC) [Entitic vol] 92.2 fL Normal 80.0-100.0 [facility] Comment on above: Performed By: #### 6 399, 29193, 809, 375 #### [facility] [place] [address] Price Clerk: Shiva Byrd MD Monocytes (Bld) [#/Vol] 0.589 10*3/uL Normal 200-950 [facility] Comment on above: Performed By: #### 6 399, 37243, 809, 375 #### [facility] [place] [address] Price Clerk: Shiva Byrd MD Monocytes/100 WBC (Bld) 6.4 % Normal [facility] Comment on above: Performed By: #### 6 399, 77833, 809, 375 #### [facility] [place] [address] Price Clerk: Shiva Byrd MD Neutrophils (Bld) [#/Vol] 5.916 10*3/uL Normal 3502-8134 [facility] Comment on above: Performed By: #### 6 399, 42971, 809, 375 #### [facility] [place] [address] Price Clerk: Shiva Byrd MD Neutrophils/100 WBC (Bld) 64.3 % Normal [facility] Comment on above: Performed By: #### 6 399, 37618, 809, 375 #### [facility] [place] [address] Price Clerk: Shiva Byrd MD Platelet mean volume (Bld) [Entitic vol] 9.6 fL Normal 7.5-12.5 [facility] Comment on above: Performed By: #### 6 399, 50090, 809, 375 #### [facility] [place] [address] Price Clerk: Shiva Byrd MD Platelets (Bld) [#/Vol] 308 10*3/uL Normal 140-400 [facility] Comment on above: Performed By: #### 6 399, 53731, 809, 375 #### [facility] [place] [address] Price Clerk: Shiva Byrd MD RBC (Bld) [#/Vol] 4.08 10*6/uL Normal 3.80-5.10 [facility] Comment on above: Performed By: #### 6 399, 54456, 809, 375 #### [facility] [place] [address] Price Clerk: Shiva Byrd MD WBC (Bld) [#/Vol] 9.2 10*3/uL Normal 3.8-10.8 [facility] Comment on above: Performed By: #### 6 399, 09736, 809, 375 #### [facility] [place] [address] Price Clerk: Shiva Byrd MD CREATININEon 12-04-2023 Creatinine [Mass/Vol] 1.10 mg/dL High 0.50-1.[address] [facility] Comment on above: Performed By: #### 6 399, 85665, 809, 375 #### [facility] [place] [address] Price Clerk: Shiva Byrd MD GFR/1.73 sq M.predicted among non-blacks MDRD (S/P/Bld) [Vol rate/Area] 54 mL/min/{1.73_m2} Low > OR = 60 [facility] Comment on above: Performed By: #### 6 399, 41727, 809, 375 #### [facility] of [address], [address] [place] [address] Price Clerk: Shiva Byrd MD HEPATIC FUNCTION PANELon Albumin [Mass/Vol] 4.4 g/dL Normal 3.6-5.1 [facility] Comment on above: Performed By: #### 6 399, 64546, 809, 375 #### [facility] of [address], [address] [place] [address] Price Clerk: Shiva Byrd MD Albumin/Globulin [Mass ratio] 1.5 {ratio} Normal 1.0-2.5 [facility] Comment on above: Performed By: #### 6 399, 38120, 809, 375 #### [facility] of [place] [address] Price Clerk: Shiva Byrd MD ALP [Catalytic activity/Vol] 53 U/L Normal 37-153 [facility] Comment on above: Performed By: #### 6 399, 69687, 809, 375 #### [facility] [place] [address] Price Clerk: Shiva Byrd MD ALT [Catalytic activity/Vol] 27 U/L Normal 6-29 [facility] Comment on above: Performed By: #### 6 399, 52618, 809, 375 #### [facility] [place] [address] Price Clerk: Shiva Byrd MD AST [Catalytic activity/Vol] 20 U/L Normal 10-35 [facility] Comment on above: Performed By: #### 6 399, 90761, 809, 375 #### [facility] [place] [address] Price Clerk: Shiva Byrd MD Bilirubin [Mass/Vol] 0.4 mg/dL Normal 0.2-1.2 [facility] Comment on above: Performed By: #### 6 399, 31408, 809, 375 #### [facility] [place] [address] Price Clerk: Shiva Byrd MD BILIRUBIN, INDIRECT 0.3 mg/dL (calc) Normal 0.2-1.2 [facility] Comment on above: Performed By: #### 6 399, 16550, 809, 375 #### [facility] [place] [address] Price Clerk: Shiva Byrd MD Bilirubin.indirect [Mass/Vol] 0.1 mg/dL Normal < OR = 0.2 [facility] Comment on above: Performed By: #### 6 399, 48406, 809, 375 #### [facility] [place] [address] Price Clerk: Shiva Byrd MD Globulin (S) [Mass/Vol] 2.9 g/dL Normal 1.9-3.7 [facility] Comment on above: Performed By: #### 6 399, 68321, 809, 375 #### [facility] [place] [address] Price Clerk: Shiva Byrd MD Protein [Mass/Vol] 7.3 g/dL Normal 6.1-8.1 [facility] Comment on above: Performed By: #### 6 399, 63072, 809, 375 #### [facility] [place] [address] Price Clerk: Shiva Byrd MD SED RATE BY MODIFIED ANTONELLA Child 12-04-2023 SED RATE BY MODIFIED WESTERGREN 6 mm/h Normal < OR = 30 [facility] Comment on above: Performed By: #### 6 399, 90819, 809, 375 #### [facility] [place] [address] Price Clerk: Shiva Byrd MD CBC (INCLUDES DIFF/PLT)on Basophils (Bld) [#/Vol] 0.052 10*3/uL Normal 0-200 [facility] Comment on above: Performed By: #### 8 09, 14667, 6399, 375 #### [facility] of [address], [address] [place] [address] Price Clerk: Shiva Bryd MD Basophils/100 WBC (Bld) 0.8 % Normal [facility] Comment on above: Performed By: #### 8 09, 05055, 6399, 375 #### [facility] of [address], [address] [place] [address] Price Clerk: Shiva Byrd MD Eosinophils (Bld) [#/Vol] 0.312 10*3/uL Normal 15-500 [facility] Comment on above: Performed By: #### 8 09, 99801, 6399, 375 #### [facility] of [place] [address] Price Clerk: Shiva Byrd MD Eosinophils/100 WBC (Bld) 4.8 % Normal [facility] Comment on above: Performed By: #### 8 09, , 63, 375 #### [facility] [place] [address] Price Clerk: Shiva Byrd MD Erythrocyte distribution width (RBC) [Ratio] 12.7 % Normal 11.0-15.0 [facility] Comment on above: Performed By: #### 8 09, 80290, 6399, 375 #### [facility] of [place] [address] Price Clerk: Shiva Byrd MD Hematocrit (Bld) [Volume fraction] 38.4 % Normal 35.0-45.0 [facility] Comment on above: Performed By: #### 8 09, 47206, 6399, 375 #### [facility] [place] [address] Price Clerk: Shiva Byrd MD Hemoglobin (Bld) [Mass/Vol] 12.4 g/dL Normal 11.7-15.5 [facility] Comment on above: Performed By: #### 8 09, 48384, 6399, 375 #### [facility] of [place] [address] Price Clerk: Shiva Byrd MD Lymphocytes (Bld) [#/Vol] 2.158 10*3/uL Normal 850-3900 [facility] Comment on above: Performed By: #### 8 09, , 63, 375 #### [facility] [place] [address] Price Clerk: Shiva Byrd MD Lymphocytes/100 WBC (Bld) 33.2 % Normal [facility] Comment on above: Performed By: #### 8 09, , 6398, 375 #### [facility] of [place] [address] Price Clerk: Shiva Byrd MD MCH (RBC) [Entitic mass] 29.6 pg Normal 27.0-33.0 [facility] Comment on above: Performed By: #### 8 09, , 6398, 375 #### [facility] [place] [address] Price Clerk: Shiva Byrd MD MCHC (RBC) [Mass/Vol] 32.3 g/dL Normal 32.0-36.[address] [facility] Comment on above: Performed By: #### 8 09, , 63, 375 #### [facility] [place] [address] Price Clerk: Shiva Byrd MD MCV (RBC) [Entitic vol] 91.6 fL Normal 80.0-100.0 [facility] Comment on above: Performed By: #### 8 09, , 63, 375 #### [facility] [place] [address] Price Clerk: Shiva Byrd MD Monocytes (Bld) [#/Vol] 0.423 10*3/uL Normal 200-950 [facility] Comment on above: Performed By: #### 8 09, , 6399, 375 #### [facility] [place] [address] Price Clerk: Shiva Byrd MD Monocytes/100 WBC (Bld) 6.5 % Normal [facility] Comment on above: Performed By: #### 8 09, 21769, 6399, 375 #### [facility] [place] [address] Price Clerk: Shiva Byrd MD Neutrophils (Bld) [#/Vol] 3.556 10*3/uL Normal 7946-2998 [facility] Comment on above: Performed By: #### 8 09, 35709, 6399, 375 #### [facility] [place] [address] Price Clerk: Shiva Byrd MD Neutrophils/100 WBC (Bld) 54.7 % Normal [facility] Comment on above: Performed By: #### 8 09, 09616, 6399, 375 #### [facility] [place] [address] Price Clerk: Shiva Byrd MD Platelet mean volume (Bld) [Entitic vol] 9.2 fL Normal 7.5-12.5 [facility] Comment on above: Performed By: #### 8 09, 68212, 6399, 375 #### [facility] [place] [address] Price Clerk: Shiva Byrd MD Platelets (Bld) [#/Vol] 337 10*3/uL Normal 140-400 [facility] Comment on above: Performed By: #### 8 09, 87374, 6399, 375 #### [facility] [place] [address] Price Clerk: Shiva Byrd MD RBC (Bld) [#/Vol] 4.19 10*6/uL Normal 3.80-5.10 [facility] Comment on above: Performed By: #### 8 09, 60143, 6399, 375 #### [facility] [place] [address] Price Clerk: Shiva Byrd MD WBC (Bld) [#/Vol] 6.5 10*3/uL Normal 3.8-10.8 [facility] Comment on above: Performed By: #### 8 09, 43708, 6399, 375 #### [facility] [place] [address] Price Clerk: Shiva Byrd MD CREATININEon 11-01-2023 Creatinine [Mass/Vol] 1.01 mg/dL Normal 0.50-1.[address] [facility] Comment on above: Performed By: #### 8 09, 30258, 6399, 375 #### [facility] [place] [address] Price Clerk: Shiva Byrd MD GFR/1.73 sq M.predicted among non-blacks MDRD (S/P/Bld) [Vol rate/Area] 60 mL/min/{1.73_m2} Normal > OR = 60 [facility] Comment on above: Performed By: #### 8 09, 98961, 6399, 375 #### [facility] of [place] [address] Price Clerk: Shiva Byrd MD HEPATIC FUNCTION PANELon Albumin [Mass/Vol] 4.3 g/dL Normal 3.6-5.1 [facility] Comment on above: Performed By: #### 8 09, 92429, 6399, 375 #### [facility] [place] [address] Price Clerk: Shiva Byrd MD Albumin/Globulin [Mass ratio] 1.7 {ratio} Normal 1.0-2.5 [facility] Comment on above: Performed By: #### 8 09, 53901, 6399, 375 #### [facility] [place] [address] Price Clerk: Shiva Byrd MD ALP [Catalytic activity/Vol] 50 U/L Normal 37-153 [facility] Comment on above: Performed By: #### 8 09, 16879, 6399, 375 #### [facility] of [place] [id number] Price Clerk: Shiva Byrd MD ALT [Catalytic activity/Vol] 27 U/L Normal 6-29 [facility] Comment on above: Performed By: #### 8 09, 85328, 6399, 375 #### [facility] of [address], [address] [place] [address] Price Clerk: Shiva Byrd MD AST [Catalytic activity/Vol] 19 U/L Normal 10-35 [facility] Comment on above: Performed By: #### 8 09, 95050, 6399, 375 #### [facility] of [address], [address] [place] [address] Price Clerk: Shiva Byrd MD Bilirubin [Mass/Vol] 0.5 mg/dL Normal 0.2-1.2 [facility] Comment on above: Performed By: #### 8 09, 63651, 63, 375 #### [facility] of [address], [address] [place] [address] Price Clerk: Shiva Byrd MD BILIRUBIN, INDIRECT 0.4 mg/dL (calc) Normal 0.2-1.2 [facility] Comment on above: Performed By: #### 8 09, 65201, 6399, 375 #### [facility] [place] [address] Price Clerk: Shiva Byrd MD Bilirubin.indirect [Mass/Vol] 0.1 mg/dL Normal < OR = 0.2 [facility] Comment on above: Performed By: #### 8 09, 66541, 6399, 375 #### [facility] [place] [address] Price Clerk: Shiva Byrd MD Globulin (S) [Mass/Vol] 2.6 g/dL Normal 1.9-3.7 [facility] Comment on above: Performed By: #### 8 09, 83631, 6399, 375 #### [facility] [place] [address] Price Clerk: Shiva Byrd MD Protein [Mass/Vol] 6.9 g/dL Normal 6.1-8.1 [facility] Comment on above: Performed By: #### 8 09, 48813, 6399, 375 #### [facility] [address], [address] [place] [address] Price Clerk: Shiva Byrd MD SED RATE BY MODIFIED WESTERG RENon 11-01-2023 SED RATE BY MODIFIED WESTERGREN 6 mm/h Normal < OR = 30 [facility] Comment on above: Performed By: #### 8 09, 16091, 6399, 375 #### [facility] [address], [address] [place] [address] Price Clerk: Sihva Byrd MD PTH, INTACT AND CALCIUMon Calcium [Mass/Vol] 9.9 mg/dL Normal 8.6-10.4 [facility] Comment on above: Performed By: #### 8 837, 00374 #### [facility] [place] [address] Price Clerk: Shiva Byrd MD PARATHYROID HORMONE, INTACT 48 pg/mL Normal 16-77 [facility] Comment on above: Result Comment: Interpretive Guide Intact PTH Calcium ------- Normal Parathyroid Normal Normal Hypoparathyroidism Low or Low Normal Low Hyperparathyroidism Primary Normal or High High Secondary High Normal or Low Tertiary High High Non-Parathyroid Hypercalcemia Low or Low Normal High Performed By: #### 8 837, 82863 #### [facility] [place] [address] Price Clerk: Shiva Byrd MD VITAMIN D,25-OH,TOTAL,IAon 0 10-04-2023 [...] D, (D2,D3), LC/MS/MS is recommended: order code 80160 (patients >2yrs). See Note 1 Note 1 For additional information, please refer to http://education.avocadostore.[employer] Car[employer] Assist/faq/KVL282 (This link is being provided for informational/ educational purposes only.) Performed By: #### 6 399, 74343, 809, 375 #### [facility] [address] [facility], [address] [place] [address] Price Clerk: Shiva Byrd MD Alanine aminotransferase [En zymatic activity/volume] in Serum or PlasmaOrdered By: Kobe Nur on 08-29-2022 ALT [Catalytic activity/Vol] 33 U/L 7-52 [facility] Albumin [Mass/volume] in Ser um or Plasma by Bromocresol green (BCG) dye binding methoOrdered By: Kobe Nur on 08-29-2022 Albumin BCG dye [Mass/Vol] 4.3 g/dL 3.5-5.7 [facility] Alkaline phosphatase [Enzyma tic activity/volume] in Serum or PlasmaOrdered By: Kobe Nur on 08-29-2022 ALP [Catalytic activity/Vol] 53 U/L 34-104 [facility] Aspartate aminotransferase [ Enzymatic activity/volume] in Serum or PlasmaOrdered By: Kobe Nur on 08-29-2022 AST [Catalytic activity/Vol] 22 U/L 13-39 [facility] Basophils Auto (Bld) [#/Vol] Ordered By: Kobe Nur on 08-29-2022 Basophils (Bld) [#/Vol] 0.1 10*3/uL 0.0-0.2 [facility] Basophils/100 WBC Auto (Bld) Ordered By: Kobe Nur on 08-29-2022 Basophils/100 WBC (Bld) 0.7 % . [facility] Bilirubin.total [Mass/volume ] in Serum or PlasmaOrdered By: Kobe Nur on 08-29-2022 Bilirubin [Mass/Vol] 0.4 mg/dL 0.3-1.0 [facility] C reactive protein [Mass/vol ume] in Serum or PlasmaOrdered By: Kobe Nur on 08-29-2022 CRP [Mass/Vol] < 0.5 mg/dL 0.0-0.5 [facility] Calcium [Mass/volume] in Ser um or PlasmaOrdered By: Kobe Nur on 08-29-2022 Calcium [Mass/Vol] 10.0 mg/dL 8.6-10.[address] [facility] Carbon dioxide, total [Moles /volume] in Serum or PlasmaOrdered By: Kobe Nur on 08-29-2022 CO2 [Moles/Vol] 25.7 mmol/L 21.0-31.0 [facility] Chloride [Moles/volume] in S lissa or PlasmaOrdered By: Kobe Nur on 08-29-2022 Chloride [Moles/Vol] 103 mmol/L 98-107 [facility] Creatinine [Mass/volume] in Serum or PlasmaOrdered By: Kobe Nur on 08-29-2022 Creatinine [Mass/Vol] 0.90 mg/dL 0.60-1.20 [facility] Eosinophils Auto (Bld) [#/Vo l]Ordered By: Kobe Nur on 08-29-2022 Eosinophils (Bld) [#/Vol] 0.5 10*3/uL 0.0-0.45 [facility] Eosinophils/100 WBC Auto (Bl d)Ordered By: Kobe Nur on 08-29-2022 Eosinophils/100 WBC (Bld) 5.9 % . [facility] Erythrocyte distribution wid th Auto (RBC) [Ratio]Ordered By: Kobe Nur on 08-29-2022 Erythrocyte distribution width (RBC) [Ratio] 13.1 % 11.9-15.3 [facility] Erythrocyte sedimentation ra te by Photometric methodOrdered By: Kobe Nur on 08-29-2022 ESR Photometric method (Bld) [Velocity] 14 mm/hr 0-29 [facility] Globulin Calc (S) [Mass/Vol] Ordered By: Kboe Nur on 08-29-2022 Globulin (S) [Mass/Vol] 2.9 g/dL [facility] Glucose [Mass/volume] in Ser um or PlasmaOrdered By: Kobe Nur on 08-29-2022 Glucose [Mass/Vol] 147 mg/dL 70-[address] [facility] Comment on above: ADA recommended refe rence rangeRandom Glucose Reference Range is dependent on time and content of last meal. Glucose of more than 200 mg/dL in a nonstressed, ambulatory subject supports the diagnosis of Diabetes Mellitus. Hematocrit Auto (Bld) [Volum e fraction]Ordered By: Kobe Nur on 08-29-2022 Hematocrit (Bld) [Volume fraction] 39.7 % 34.0-46.4 [facility] Hemoglobin [Mass/volume] in BloodOrdered By: Kobe Nur on 08-29-2022 Hemoglobin (Bld) [Mass/Vol] 13.1 g/dL 11.8-15.4 [facility] Hepatitis B virus surface Ag [Presence] in Serum or Plasma by ImmunoassayOrdered By: Kobe Nur on 08-29-2022 HBV surface Ag IA Ql Negative Negative [facility] Hepatitis C virus IgG Ab [Pr esence] in Serum or Plasma by ImmunoassayOrdered By: Kobe Nur on 08-29-2022 HCV IgG IA Ql Non-Reactive Non Reactive [facility] Leukocytes [#/volume] correc maricel for nucleated erythrocytes in Blood by Automated counOrdered By: Kobe Nur on 08-29-2022 WBC corrected for nucl RBC Auto (Bld) [#/Vol] 8.1 10*3/uL 3.8-11.6 [facility] Lymphocytes Auto (Bld) [#/Vo l]Ordered By: Kobe Nur on 08-29-2022 Lymphocytes (Bld) [#/Vol] 2.5 10*3/uL 1.00-4.8 [facility] Lymphocytes/100 WBC Auto (Bl d)Ordered By: Kobe Nur on 08-29-2022 Lymphocytes/100 WBC (Bld) 30.5 % . [facility] MCH Auto (RBC) [Entitic mass ]Ordered By: Kobe Nur on 08-29-2022 MCH (RBC) [Entitic mass] 30.0 pg 24.7-34.3 [facility] MCHC Auto (RBC) [Mass/Vol]Or dered By: Kobe Nur on 08-29-2022 MCHC (RBC) [Mass/Vol] 33.1 g/dL 32.0-35.0 [facility] MCV Auto (RBC) [Entitic vol] Ordered By: Kobe Nur on 08-29-2022 MCV (RBC) [Entitic vol] 90.6 fL 80-100 [facility] Monocytes Auto (Bld) [#/Vol] Ordered By: Kobe Nur on 08-29-2022 Monocytes (Bld) [#/Vol] 0.6 10*3/uL 0.0-0.8 [facility] Monocytes/100 WBC Auto (Bld) Ordered By: Kobe Nur on 08-29-2022 Monocytes/100 WBC (Bld) 7.5 % . [facility] Neutrophils Auto (Bld) [#/Vo l]Ordered By: Kobe Nur on 08-29-2022 Neutrophils (Bld) [#/Vol] 4.5 10*3/uL 1.8-7.7 [facility] Neutrophils/100 WBC Auto (Bl d)Ordered By: Kobe Nur on 08-29-2022 Neutrophils/100 WBC (Bld) 55.4 % . [facility] No Panel InformationOrdered By: Kobe Nur on 08-29-2022 Estimated GFR (CKD-EPI) > 60.0 mL/Min [facility] Hepatitis B Core Total Antibody Negative Negative [facility] Comment on above: Performed at: - [address] [id number] Director: Willis Reeves PhD, Phone: [phone] Hepatitis C Interpretation See comment . [facility] Comment on above: Not infected with HC V unless early or acute infection issuspected (which may be delayed in an immunocompromisedindividual), or other evidence exists to indicate HCVinfection. Hepatitis C RNA Quantitative N/A [facility] Creatinine Clearance (Chem N/A [facility] Nucleated erythrocytes [Pres ence] in Blood by Automated countOrdered By: Kobe Nur on 08-29-2022 Nucleated RBC Auto Ql (Bld) 0.1 /100{WBC} 0-0.5 [facility] Platelet mean volume Auto (B ld) [Entitic vol]Ordered By: Kobe Nur on 08-29-2022 Platelet mean volume (Bld) [Entitic vol] 8.1 fL 6.3-10.7 [facility] Platelets Auto (Bld) [#/Vol] Ordered By: Kobe Nur on 08-29-2022 Platelets (Bld) [#/Vol] 313 10*3/uL 150-450 [facility] Potassium [Moles/volume] in Serum or PlasmaOrdered By: Kobe Nur on 08-29-2022 Potassium [Moles/Vol] 4.5 mmol/L 3.5-5.1 [facility] Protein [Mass/volume] in Ser um or PlasmaOrdered By: Kobe Nur on 08-29-2022 Protein [Mass/Vol] 7.2 g/dL 6.4-8.[address] [facility] RBC Auto (Bld) [#/Vol]Ordere d By: Kobe Nur on 08-29-2022 RBC (Bld) [#/Vol] 4.38 10*6/uL 3.60-5.00 [facility] Serum hepatitis B virus surf arnoldo antibody detectionOrdered By: Kobe Nur on 08-29-2022 HBV surface Ab Ql (S) Non-Reactive . [facility] Comment on above: Non Reactive: Incons istent with immunity, less than 10 mIU/mL Reactive: Consistent with immunity, greater than 9.9 mIU/mL Serum nuclear antibody titer Ordered By: Kobe Nur on 08-29-2022 Nuclear Ab (S) [Titer] Negative . [facility] Comment on above: Negative <1:80 Lucie garcia 1:80 Positive >1:80ICAP nomenclature: AC-0For more information about Hep-2 cell patterns useANApatterns.org, the official website for theInternational Consensus on Antinuclear Antibody (TERENCE)Patterns (ICAP).Performed at: [address] [id number] Director: Willis Reeves PhD, Phone: [phone] Serum or plasma albumin/glob ulin mass ratioOrdered By: Kobe Nur on 08-29-2022 Albumin/Globulin [Mass ratio] 1.5 {ratio} [facility] Serum or plasma anion gap de terminationOrdered By: Kobe Nur on 08-29-2022 Anion gap [Moles/Vol] 14.8 mmol/L 6.0-15.0 [facility] Sodium [Moles/volume] in Ser um or PlasmaOrdered By: Kobe Nur on 08-29-2022 Sodium [Moles/Vol] 139 mmol/L 136-[address] [facility] Urea nitrogen [Mass/volume] in Serum or PlasmaOrdered By: Kobe Nur on 08-29-2022 Urea nitrogen [Mass/Vol] 18 mg/dL 7-25 [facility] WBC Auto (Bld) [#/Vol]Ordere d By: Kobe Nur on 08-29-2022 WBC (Bld) [#/Vol] 8.1 10*3/uL 3.8-11.[address] [facility] REVERSE T3on 05-09-2022 Reverse T3, Serum 13.8 ng/dL Normal 9.2-24.1 [facility] Comment on above: Result Comment: This test was developed and its performance characteristics determined by [facility]. It has not been cleared or approved by the Food and Drug Administration. Performed By: #### R EVRT3 #### [facility] [address] [place] [address] [address] Rudy Briones T3, TOTAL (TRIIODOTHYRONINE) on 05-06-2022 T3, TOTAL 136 ng/dL Normal 71-180 [facility] Comment on above: Performed By: #### T 3TOTAL #### [facility] [address] [place] [address] [address] Rudy Briones FREE T3on 05-05-2022 FREE T3 2.17 pg/mlL Critically low 2.18-3.98 [facility] Comment on above: Performed By: #### F T3, TSH #### [facility] [address] [place] [address] [address] Rudy Briones FREE T4on 05-05-2022 Free T4 [Mass/Vol] 0.85 ng/dL Normal 0.76-1.46 [facility] Comment on above: Performed By: #### F T4 #### [facility] [address] [place] [address] Dr. Rudy Briones TSHon 05-05-2022 TSH 1.852 uIU/mL Normal 0.358-3.74 0 [facility] Comment on above: Performed By: #### F T3, TSH #### [facility] [address] [place] [address] Dr. Rudy Briones FREE T3on 01-10-2022 FREE T3 2.00 pg/mlL Critically low 2.18-3.98 [facility] Comment on above: Performed By: #### T SH, FT3 #### [facility] [address] [place] [address] Dr. Rudy Briones FREE T4on 01-10-2022 Free T4 [Mass/Vol] 0.76 ng/dL Normal 0.76-1.46 [facility] Comment on above: Performed By: #### T 3TOTAL #### [facility] [address] [place] [address] Dr. Rudy Briones TSHon 01-10-2022 TSH 1.469 uIU/mL Normal 0.358-3.74 0 [facility] Comment on above: Performed By: #### T SH, FT3 #### [facility] [address] [place] [address] Dr. Rudy Briones REVERSE T3on 11-16-2021 Reverse T3, Serum 19.0 ng/dL Normal 9.2-24.[address] [facility] Comment on above: Result Comment: This test was developed and its performance characteristics determined by [facility]. It has not been cleared or approved by the Food and Drug Administration. Performed By: #### R EVRT3 #### [facility] [address] [place] [address] Dr. Rudy Briones T3, TOTAL (TRIIODOTHYRONINE) on 11-11-2021 T3, TOTAL 116 ng/dL Normal 71-180 [facility] Comment on above: Performed By: #### T 3TOTAL #### [facility] [address] [address] [address] Rudy Briones FREE T3on 11-10-2021 FREE T3 1.62 pg/mlL Critically low 2.18-3.98 [facility] Comment on above: Performed By: #### F T3, TSH #### [facility] [address] [address] [address] Rudy Briones FREE T4on 11-10-2021 Free T4 [Mass/Vol] 1.03 ng/dL Normal 0.76-1.46 [facility] Comment on above: Performed By: #### T 3TOTAL #### [facility] [address] [place] [address] Dr. Rudy Briones TSHon 11-10-2021 TSH 3.120 uIU/mL Normal 0.358-3.74 0 [facility] Comment on above: Performed By: #### F T3, TSH #### [facility] [address] [address] [address] Rudy Briones Hemoglobin A1Con 10-10-2021 EAG 145.59 Normal [facility] Comment on above: Performed By: #### A 1C #### [facility] [address] [place], [place] [id number] HbA1c (Bld) [Mass fraction] 6.7 % High 4.0-6.0 [facility] Comment on above: Performed By: #### A 1C #### [facility] [address] [place], [place] [id number] Complete Blood Count with Au to Diffon 08-23-2021 Basophils (Bld) [#/Vol] 0.04 10*3/uL Normal 0.00-0.20 [facility] Comment on above: Performed By: #### C MP, CBCAD, LIPD #### [facility] [address] [place], [place] [id number] Basophils/100 WBC (Bld) 0.5 % Normal [facility] Comment on above: Performed By: #### C MP, CBCAD, LIPD #### [facility] [address] [place], [place] [id number] Eosinophils (Bld) [#/Vol] 0.49 10*3/uL Normal 0.02-0.50 [facility] Comment on above: Performed By: #### C MP, CBCAD, LIPD #### [facility] [address] [place], [place] [id number] Eosinophils/100 WBC (Bld) 6.2 % Normal [facility] Comment on above: Performed By: #### C MP, CBCAD, LIPD #### [facility] [address] [place], [place] [id number] Erythrocyte distribution width (RBC) [Ratio] 12.3 % Normal 11.0-15.0 [facility] Comment on above: Performed By: #### C MP, CBCAD, LIPD #### [facility] [address] [place], [place] [id number] Hematocrit (Bld) [Volume fraction] 40.4 % Normal 35.0-47.0 [facility] Comment on above: Performed By: #### C MP, CBCAD, LIPD #### [facility] [address] [place], [place] [id number] Hemoglobin (Bld) [Mass/Vol] 13.1 g/dL Normal 11.6-15.5 [facility] Comment on above: Performed By: #### C MP, CBCAD, LIPD #### [facility] [address] [place], [place] [id number] Lymphocytes (Bld) [#/Vol] 2.4 10*3/uL Normal 0.9-3.9 [facility] Comment on above: Performed By: #### C MP, CBCAD, LIPD #### [facility] [address] [place], [place] [id number] Lymphocytes/100 WBC (Bld) 30.7 % Normal [facility] Specialist Comment on above: Performed By: #### C MP, CBCAD, LIPD #### [facility] [address] [place], [place] [id number] MCH (RBC) [Entitic mass] 29.9 pg Normal 27.0-33.0 [facility] Specialist Comment on above: Performed By: #### C MP, CBCAD, LIPD #### [facility] [address] [place], [place] [id number] MCHC (RBC) [Mass/Vol] 32.4 g/dL Normal 32.0-36.0 [facility] Comment on above: Performed By: #### C MP, CBCAD, LIPD #### [facility] [address] [place], [place] [id number] MCV (RBC) [Entitic vol] 92 fL Normal 80-100 [facility] Comment on above: Performed By: #### C MP, CBCAD, LIPD #### [facility] [address] [place], [place] [id number] Monocytes (Bld) [#/Vol] 0.5 10*3/uL Normal 0.2-0.9 [facility] Comment on above: Performed By: #### C MP, CBCAD, LIPD #### [facility] [address] [place], [place] [id number] Monocytes/100 WBC (Bld) 6.1 % Normal [facility] Comment on above: Performed By: #### C MP, CBCAD, LIPD #### [facility] [address] [place], [place] [id number] Neutrophils (Bld) [#/Vol] 4.4 10*3/uL Normal 1.5-7.8 [facility] Comment on above: Performed By: #### C MP, CBCAD, LIPD #### [facility] [address] [place], [place] [id number] Neutrophils/100 WBC (Bld) 56.2 % Normal [facility] Comment on above: Performed By: #### C MP, CBCAD, LIPD #### [facility] [address] [place], [place] [id number] Platelet mean volume (Bld) [Entitic vol] 10.00 fL Normal 7.50-12.50 [facility] Comment on above: Performed By: #### C MP, CBCAD, LIPD #### [facility] [address] [facility] [place] [id number] Platelets (Bld) [#/Vol] 341 10*3/uL Normal 140-400 [facility] Comment on above: Performed By: #### C MP, CBCAD, LIPD #### [facility] [address] [place], [place] [id number] RBC (Bld) [#/Vol] 4.38 10*6/uL Normal 3.90-5.20 [facility] Comment on above: Performed By: #### C MP, CBCAD, LIPD #### [facility] [address] [place], [place] [id number] RDW-SD 41.6 fL Normal 37.0-50.0 [facility] Specialist Comment on above: Performed By: #### C MP, CBCAD, LIPD #### [facility] [address] [place], [place] [id number] WBC (Bld) [#/Vol] 7.9 10*3/uL Normal 3.8-11.0 [facility] Comment on above: Performed By: #### C MP, CBCAD, LIPD #### [facility] [address] [place], [place] [id number] Comprehensive Metabolic Pane [facility] 08-23-2021 Albumin [Mass/Vol] 4.5 g/dL Normal 3.6-5.1 [facility] Comment on above: Performed By: #### C MP, CBCAD, LIPD #### [facility] [address] [place], [place] [id number] Albumin/Globulin [Mass ratio] 1.8 {ratio} Normal 1.0-2.5 [facility] Specialist Comment on above: Performed By: #### C MP, CBCAD, LIPD #### [facility] [address] [place], [place] [id number] ALP [Catalytic activity/Vol] 51 U/L Normal 35-119 [facility] Specialist Comment on above: Performed By: #### C MP, CBCAD, LIPD #### [facility] [address] [place], [place] [id number] ALT [Catalytic activity/Vol] 29 U/L Normal 6-33 [facility] Comment on above: Result Comment: 03/30 Female reference range changed. Performed By: #### C MP, CBCAD, LIPD #### [facility] [address] [facility] [place] [id number] Anion gap [Moles/Vol] 17 mmol/L Normal 12-20 [facility] Comment on above: Result Comment: Beckiisaura ctive 05/05/2019 reference range changed. Performed By: #### C MP, CBCAD, LIPD #### [facility] [address] [facility] [place] [id number] AST [Catalytic activity/Vol] 22 U/L Normal 9-34 [facility] Comment on above: Performed By: #### C MP, CBCAD, LIPD #### [facility] [address] [facility] [id number] Bilirubin [Mass/Vol] 0.44 mg/dL Normal 0.30-1.20 [facility] Comment on above: Performed By: #### C MP, CBCAD, LIPD #### [facility] [address] [facility] [place] [id number] BUN/CREA 27 Ratio High 6-22 [facility] Comment on above: Performed By: #### C MP, CBCAD, LIPD #### [facility] [address] [facility] [place] [id number] Calcium [Mass/Vol] 10.5 mg/dL High 8.6-10.2 [facility] Comment on above: Performed By: #### C MP, CBCAD, LIPD #### [facility] [address] [facility] [id number] Chloride [Moles/Vol] 104 mmol/L Normal 98-107 [facility] Comment on above: Performed By: #### C MP, CBCAD, LIPD #### [facility] [address] [facility] [id number] CO2 [Moles/Vol] 25 mmol/L Normal 20-31 [facility] Comment on above: Performed By: #### C MP, CBCAD, LIPD #### [facility] [address] [facility] [place] [id number] Creatinine [Mass/Vol] 0.7 mg/dL Normal 0.6-1.4 [facility] Comment on above: Performed By: #### C MP, CBCAD, LIPD #### [facility] [address] [place], [place] [id number] eGFRAA 103 mL/min/1.73m2 Normal >60 [facility] Specialist Comment on above: Performed By: #### C MP, CBCAD, LIPD #### [facility] [address] [place], [place] [id number] eGFRNAA 85 mL/min/1.73m2 Normal >60 [facility] Specialist Comment on above: Performed By: #### C MP, CBCAD, LIPD #### [facility] [address] [place], [place] [id number] Globulin (S) [Mass/Vol] 2.5 g/dL Normal 1.9-3.7 [facility] Specialist Comment on above: Performed By: #### C DONIS, CBCAD, LIPD #### [facility] [address] [place], [place] [id number] Glucose [Mass/Vol] 136 mg/dL High 65-99 [facility] Specialist Comment on above: Result Comment: For FASTING Glucose --- ADA reference ranges: Normal 65-99 mg/dl Prediabetes 100-125 Diabetes >/= 126 Performed By: #### C DONIS, CBCAD, LIPD #### [facility] [address] [place], [place] [id number] Potassium [Moles/Vol] 4.5 mmol/L Normal 3.5-5.5 [facility] Comment on above: Performed By: #### C MP, CBCAD, LIPD #### [facility] [address] [place], [place] [id number] Protein [Mass/Vol] 7.0 g/dL Normal 6.1-8.1 [facility] Comment on above: Performed By: #### C MP, CBCAD, LIPD #### [facility] [address] [place], [place] [id number] Sodium [Moles/Vol] 141 mmol/L Normal 135-146 [facility] Comment on above: Performed By: #### C MP, CBCAD, LIPD #### [facility] [address] [place], [place] [id number] Urea nitrogen [Mass/Vol] 18 mg/dL Normal 7-25 [facility] Comment on above: Performed By: #### C DONIS, CBCAD, LIPD #### [facility] [address] [place], [place] [id number] Lipid Panelon 08-23-2021 Cholesterol [Mass/Vol] 120 mg/dL Low 125-200 [facility] Comment on above: Result Comment: Low risk < 200mg/dL Borderline risk 201-239 mg/dl High risk > or equal to 240 Performed By: #### C DONIS, CBCAD, LIPD #### [facility] [address] [place], [place] [id number] Cholesterol in HDL [Mass/Vol] 34 mg/dL Low >40 [facility] Comment on above: Result Comment: High Cardiovascular Risk HDL <40 mg/dL Low Cardiovascular Risk HDL > or equal to 60 mg/dl Performed By: #### C DONIS, CBCAD, LIPD #### [facility] [address] [place], [place] [id number] Cholesterol in LDL [Mass/Vol] 52 mg/dL Normal [facility] Specialist Comment on above: Result Comment: LDL ATP III CLASSIFICATION LDL less than 100 mg/dl Optimal LDL 100-129 mg/dl Near or above optimal LDL 130-159 Borderline high LDL 160-189 High LDL greater than 189 mg/dl Very High Performed By: #### C DONIS, CBCAD, LIPD #### [facility] [address] [place], [place] [id number] Cholesterol in VLDL [Mass/Vol] 34 mg/dL Normal [facility] Comment on above: Performed By: #### C DONIS, CBCAD, LIPD #### [facility] [address] [place], [place] [id number] Cholesterol.total/Cho lesterol in HDL [Mass ratio] 4 {ratio} Normal [facility] Specialist Comment on above: Performed By: #### C DONIS, CBCAD, LIPD #### [facility] [address] [place], [place] [id number] Triglyceride [Mass/Vol] 172 mg/dL High 30-150 [facility] Comment on above: Result Comment: TRIG ATPIII CLASSIFICATIONS TRIG less than 150 mg/dl Normal TRIG 150-199 mg/dl Borderline High TRIG 200-500 mg/dl High TRIG greather than 500 mg/dl Very High Performed By: #### C MP, CBCAD, LIPD #### [facility] [address] [place], [place] [id number] Free T3on 05-25-2021 FT3 4.00 pg/mL Normal 2.00-4.40 [facility] Comment on above: Performed By: #### F T3, FT4, TSH #### [facility] [address] [place], [place] [id number] Free T4on 05-25-2021 Free T4 [Mass/Vol] 1.17 ng/dL Normal 0.80-1.80 [facility] Specialist Comment on above: Performed By: #### F T3, FT4, TSH #### [facility] [address] [place], [place] [id number] Q - T3 TOTALon 05-25-2021 T3, TOTAL 133 ng/dL Normal 76-181 [facility] Specialist Comment on above: Order Comment: [facility] performed at: [place], [facility], [address] [facility], [address] [place] [address], [id number], Special Education Curriculum Specialist: Shiva Byrd MD [facility] Date/Time: [facility] Results Received Date/Time: [facility] Reported Date/Time: Performed By: #### 9 [id number], [id number] #### [facility] [address] [place] [address] Q - T3,REVERSE,LC/MS/MSon T3 REVERSE, LC/MS/MS 16 ng/dL Normal 8-25 [facility] Comment on above: Order Comment: [facility] performed at: [facility], [facility], [address], [place], [place], , Special Education Curriculum Specialist: Vinay Tran M.D.,PhD [facility] Collection Date/Time: [facility] Results Received Date/Time: [facility] Reported Date/Time: [id number] Result Comment: This test was developed and its analytical performance characteristics have been determined by [facility] [place], [place]. It has not been cleared or approved by the U.S. Food and Drug Administration. This assay has been validated pursuant to the CLIA regulations and is used for clinical purposes. Performed By: #### 9 [id number], [id number] #### [facility] [address] [place] [address] TSHon 05-25-2021 TSH 3.790 uIU/mL Normal 0.400-4.50 0 [facility] Comment on above: Performed By: #### F T3, FT4, TSH #### [facility] [address], [place] [id number] Vital Signs Date Time Vital Sign Value Performing Clinician Facility 01-14-2025 09:58-0400 Body height 167.6 cm Louie Moreno MD Work Phone: [facility] 01-14-2025 09:58-0400 Body mass index (BMI) [Ratio] 30.99 kg/m2 Louie Moreno MD Work Phone: [facility] 01-14-2025 09:58-0400 Body weight 87.09 kg Louie Moreno MD Work Phone: [facility] 01-07-2025 10:37-0400 Body height 167.6 cm Britney Jean-Baptiste MD Work Phone: [facility] 01-07-2025 10:37-0400 Body mass index (BMI) [Ratio] 30.99 kg/m2 Britney Jean-Baptiste MD Work Phone: [facility] 01-07-2025 10:37-0400 Body weight 87.09 kg Britney Jean-Baptiste MD Work Phone: [facility] 01-07-2025 10:37-0400 Diastolic blood pressure 78 mm[Hg] Britney Jean-Baptiste MD Work Phone: [facility] 01-07-2025 10:37-0400 Systolic blood pressure 122 mm[Hg] Britney Jean-Baptiste MD Work Phone: [facility] 11-26-2024 08:06-0400 Body height 167.6 cm Britney Jean-Baptiste MD Work Phone: [facility] 11-26-2024 08:06-0400 Body mass index (BMI) [Ratio] 30.99 kg/m2 Britney Jean-Baptiste MD Work Phone: [facility] 11-26-2024 08:06-0400 Body weight 87.09 kg Britney Jean-Baptiste MD Work Phone: [facility] 11-26-2024 08:06-0400 Diastolic blood pressure 97 mm[Hg] Britney Jean-Baptiste MD Work Phone: [facility] 11-26-2024 08:06-0400 Heart rate 66 /min Britney Jean-Baptiste MD Work Phone: [facility] 11-26-2024 08:06-0400 Systolic blood pressure 182 mm[Hg] Britney Jean-Baptiste MD Work Phone: [facility] 11-25-2024 08:53-0400 Body height 172.7 cm Louie Moreno MD Work Phone: [facility] 11-25-2024 08:53-0400 Body mass index (BMI) [Ratio] 30.11 kg/m2 Louie Moreno MD Work Phone: [facility] 11-25-2024 08:53-0400 Body weight 89.81 kg Louie Moreno MD Work Phone: [facility] 11-13-2024 09:09-0400 Body height 172.7 cm Louie Moreno MD Work Phone: [facility] 11-13-2024 09:09-0400 Body mass index (BMI) [Ratio] 30.11 kg/m2 Louie Moreno MD Work Phone: [facility] 11-13-2024 09:09-0400 Body weight 89.81 kg Louie Moreno MD Work Phone: [facility] 10-06-2024 15:08-0400 Body height 167.64 cm Louie Moreno MD Work Phone: [facility] 10-06-2024 15:08-0400 Body mass index (BMI) [Ratio] 30.4 kg/m2 Louie Moreno MD Work Phone: [facility] 10-06-2024 15:08-0400 Body temperature 98.2 [degF] Louie Moreno MD Work Phone: [facility] 10-06-2024 15:08-0400 Body weight 85.72 kg Louie Moreno MD Work Phone: [facility] 10-06-2024 15:08-0400 Diastolic blood pressure 70 mm[Hg] Louie Moreno MD Work Phone: [facility] 10-06-2024 15:08-0400 Heart rate 68 /min Louie Moreno MD Work Phone: [facility] 10-06-2024 15:08-0400 Respiratory rate 18 /min Louie Moreno MD Work Phone: [facility] 10-06-2024 15:08-0400 SaO2% (BldA) [Mass fraction] 97 % Louie Moreno MD Work Phone: [facility] 10-06-2024 15:08-0400 Systolic blood pressure 111 mm[Hg] Louie Moreno MD Work Phone: [facility] 09-29-2024 15:03-0400 Body height 172.7 cm Louie Moreno MD Work Phone: [facility] 09-29-2024 15:03-0400 Body mass index (BMI) [Ratio] 30.11 kg/m2 Loiue Moreno MD Work Phone: [facility] 09-29-2024 15:03-0400 Body weight 89.81 kg Louie Moreno MD Work Phone: [facility] 09-17-2024 11:13-0400 Body height 172.7 cm Louie Moreno MD Work Phone: [facility] 09-17-2024 11:13-0400 Body mass index (BMI) [Ratio] 30.11 kg/m2 Louie Moreno MD Work Phone: [facility] 09-17-2024 11:13-0400 Body weight 89.81 kg Louie Moreno MD Work Phone: [facility] 09-17-2024 11:13-0400 Diastolic blood pressure 78 mm[Hg] Louie Moreno MD Work Phone: [facility] 09-17-2024 11:13-0400 Heart rate 96 /min Louie Moreno MD Work Phone: [facility] 09-17-2024 11:13-0400 SaO2% (BldA) [Mass fraction] 97 % Louie Moreno MD Work Phone: [facility] 09-17-2024 11:13-0400 Systolic blood pressure 120 mm[Hg] Louie Moreno MD Work Phone: [facility] 04-02-2024 10:01-0500 Body height 170.2 cm Louie Moreno MD Work Phone: [facility] 04-02-2024 10:01-0500 Body mass index (BMI) [Ratio] 32.66 kg/m2 Louie Moreno MD Work Phone: [facility] 04-02-2024 10:01-0500 Body weight 94.58 kg Louie Moreno MD Work Phone: [facility] 04-02-2024 10:01-0500 Diastolic blood pressure 70 mm[Hg] Louie Moreno MD Work Phone: [facility] 04-02-2024 10:01-0500 Heart rate 63 /min Louie Moreno MD Work Phone: [facility] 04-02-2024 10:01-0500 SaO2% (BldA) [Mass fraction] 98 % Louie Moreno MD Work Phone: [facility] 04-02-2024 10:01-0500 Systolic blood pressure 126 mm[Hg] Louie Moreno MD Work Phone: [facility] 03-20-2024 09:57-0500 Body height 170.2 cm Louie Moreno MD Work Phone: [facility] 03-20-2024 09:57-0500 Body mass index (BMI) [Ratio] 32.66 kg/m2 Louie Moreno MD Work Phone: [facility] 03-20-2024 09:57-0500 Body weight 94.58 kg Louie Moreno MD Work Phone: [facility] 02-15-2023 13:20-0400 Body height 170.18 cm [employer] Other [employer] Other 02-15-2023 13:20-0400 Body mass index (BMI) [Ratio] 30.69 kg/m2 [employer] Other [employer] Other 02-15-2023 13:20-0400 Body weight 88.91 kg [employer] Other [employer] Other 01-15-2023 09:20-0400 Body height 170.18 cm [employer] Other [employer] Other 01-15-2023 09:20-0400 Body mass index (BMI) [Ratio] 31.01 kg/m2 [employer] Other [employer] Other 01-15-2023 09:20-0400 Body weight 89.81 kg [employer] Other [employer] Other 01-15-2023 09:20-0400 Diastolic blood pressure 90 mm[Hg] Nery Mercado Other [facility] Other 01-15-2023 09:20-0400 Systolic blood pressure 146 mm[Hg] Nery Mercado Other [employer] Other 12-12-2022 15:40-0400 Diastolic blood pressure 90 mm[Hg] MD Louie Moreno Work Phone: [facility] 12-12-2022 15:40-0400 Heart rate 58 /min MD Louie Moreno Work Phone: [facility] 12-12-2022 15:40-0400 Systolic blood pressure 168 mm[Hg] MD Louie Moreno Work Phone: [facility] 09-05-2022 14:00-0400 Body temperature 98 [degF] MD Louie Moreno Work Phone: [facility] 09-05-2022 14:00-0400 Diastolic blood pressure 86 mm[Hg] MD Louie Moreno Work Phone: [facility] 09-05-2022 14:00-0400 Heart rate 62 /min MD Louie Moreno Work Phone: [facility] 09-05-2022 14:00-0400 Respiratory rate 18 /min MD Louie Moreno Work Phone: [facility] 09-05-2022 14:00-0400 SaO2% (BldA) [Mass fraction] 98 % MD Louie Moreno Work Phone: [facility] 09-05-2022 14:00-0400 Systolic blood pressure 178 mm[Hg] MD Louie Moreno Work Phone: [facility] 06-13-2022 15:05-0500 Diastolic blood pressure 80 mm[Hg] MD Louie Moreno Work Phone: [facility] 06-13-2022 15:05-0500 Heart rate 66 /min MD Louie Moreno Work Phone: [facility] 06-13-2022 15:05-0500 Systolic blood pressure 157 mm[Hg] MD Louie Moreno Work Phone: [facility] 02-24-2022 11:20-0400 Body temperature 97.3 [degF] MD Louie Moreno Work Phone: [facility] 02-24-2022 11:20-0400 Respiratory rate 18 /min MD Louie Moreno Work Phone: [facility] 02-24-2022 11:20-0400 SaO2% (BldA) [Mass fraction] 98 % MD Louie Moreno Work Phone: [facility] 06-10-2021 08:25-0500 Body weight 86.4 kg MD Louie Moreno Work Phone: [facility] Encounters Encounter Date Encounter Type Care Provider Facility Start: 01-21-2025 End: 01-21-2025 [facility] Start: 01-21-2025 End: 01-21-2025 Jemmao flowsmelinda Moreno MD Work Phone: [facility] Family [facility] Start: 01-19-2025 End: 01-19-2025 Telephone encounter Britney Jean-Baptiste MD Work Phone: [facility] Start: 01-14-2025 End: 01-14-2025 Leoboo flowsmelinda Moreno MD Work Phone: [facility] 100 Family Medicine Start: 01-14-2025 End: 01-14-2025 Leoboo flowsmelinda Moreno MD Work Phone: [facility] 100 Family Medicine Start: 01-14-2025 End: 01-14-2025 Office outpatient visit 15 minutes Louie Moreno MD Work Phone: [address] Medicine Comment on above: Allergic reaction, s ubsequent encounter (Primary Dx); Encounter for examination following treatment at hospital Start: 01-14-2025 End: 01-14-2025 ambulatory LOUIE MORENO Not Available Start: 01-07-2025 End: 01-07-2025 Bamboo flowsheet Britney Jean-Baptiste MD Work Phone: [facility] Start: 01-07-2025 End: 01-07-2025 Bamboo flowsheet Britney Jean-Baptiste MD Work Phone: [facility] Start: 01-07-2025 End: 01-07-2025 Office outpatient visit 25 minutes Britney Jean-Baptiste MD Work Phone: [facility] Comment on above: Trigeminal neuralgia of right side of face Start: 01-07-2025 End: 01-07-2025 ambulatory BRITNEY JEAN-BAPTISTE Not Available Start: 12-09-2024 End: 12-09-2024 Patient encounter procedure Shelli Eng ACTUARIAL CLERK-C -[facility] [address] Work Phone: Start: 12-09-2024 End: 12-09-2024 ambulatory Louie Moreno MD Work Phone: [facility] Work Phone: Start: 12-03-2024 End: 12-03-2024 ambulatory BRITNEY JEAN-BAPTISTE Not Available Start: 11-26-2024 End: 11-26-2024 Office outpatient new 45 minutes Britney Jean-Baptiste MD Work Phone: [facility] Comment on above: Trigeminal neuralgia of right side of face (Primary Dx); Claustrophobia Start: 11-26-2024 End: 11-26-2024 ambulatory BRITNEY JEAN-BAPTISTE Not Available Start: 11-25-2024 End: 11-25-2024 Bamboo flowsheet Louie Moreno MD Work Phone: [facility] Start: 11-25-2024 End: 11-25-2024 Bamboo flowsheet Louie Moreno MD Work Phone: [facility] Start: 11-25-2024 End: 11-25-2024 Office outpatient visit 25 minutes Louie Moreno MD Work Phone: [facility] Comment on above: Acquired hypothyroid ism (Primary Dx); Euthyroid sick syndrome; Chronic fatigue; Psoriatic arthritis (HCC); Trigeminal neuralgia of right side of face ; Polypharmacy; Non morbid obesity due to excess calories Start: 11-25-2024 End: 11-25-2024 ambulatory LOUIE MORENO Not Available Start: 11-13-2024 End: 11-13-2024 Bamboo flowsheet Louie Moreno MD Work Phone: [facility] Start: 11-13-2024 End: 11-13-2024 Bamboo flowsheet Louie [...] 11-05-2024 ambulatory Louie Moreno MD Work Phone: [facility] Work Phone: Start: 10-06-2024 End: 10-06-2024 ambulatory Louie Moreno MD Work Phone: [facility] Work Phone: Start: 10-06-2024 End: 10-06-2024 Patient encounter procedure Louie Moreno MD Work Phone: [facility] Work Phone: Start: [...] [facility] 100 Start: 09-17-2024 End: 09-17-2024 Bamleonao flowsheet Louie Moreno MD Work Phone: [facility] [...] encounter procedure Louie Moreno MD Work Phone: [facility] [address] Work Phone: Start: 07-15-2024 End: 07-15-2024 ambulatory Louie Moreno MD Work Phone: [facility] Work Phone: Start: 05-15-2024 End: 05-15-2024 Patient encounter procedure Louie Moreno MD Work Phone: [facility] [address] Work Phone: Start: 05-15-2024 End: 05-15-2024 ambulatory Louie Moreno MD Work Phone: [facility] Work Phone: Start: 05-11-2024 End: 05-13-2024 Refill Louie Moreno MD Work Phone: [facility] Comment on above: Primary hypertension (CMS/HCC) Start: 04-03-2024 End: 04-03-2024 Patient encounter procedure Louie Moreno MD Work Phone: [facility] [address] Work Phone: Start: 04-03-2024 End: 04-03-2024 ambulatory Louie Moreno Facility:[facility] Start: 04-02-2024 End: 04-02-2024 Bamboo flowsheet Louie [...] Start: 03-20-2024 End: 03-20-2024 ambulatory Louie Moreno Facility:[facility] Start: 03-20-2024 End: 03-20-2024 Patient encounter procedure Louie Moreno MD Work Phone: [facility] [address] Work Phone: Start: 03-20-2024 End: 03-20-2024 Office outpatient visit 25 minutes Louie Moreno MD Work Phone: [facility] Comment on above: Euthyroid sick syndr ome; Acquired hypothyroidism (CMS/HCC); Chronic fatigue Start: 03-20-2024 End: 03-20-2024 ambulatory LOUIE MORENO Not Available Start: 01-17-2024 End: 01-17-2024 Refill Louie Moreno MD Work Phone: [facility] Comment on above: Type 2 diabetes emile itus with microalbuminuria, without long- term current use of insulin ([facility]) Start: 01-01-2024 End: 01-01-2024 ambulatory Laverne Barlow Facility:[facility] Start: 05-03-2023 End: 05-03-2023 ambulatory Nery Mercado Other [facility] Other Start: 05-03-2023 Telephone encounter Nery Mercado [facility] Start: 03-26-2023 End: 03-26-2023 ambulatory MD Louie Moreno Work Phone: [facility] Work Phone: Start: 03-26-2023 End: 03-26-2023 Patient encounter procedure MD Louie Moreno Work Phone: [facility] [place] Work Phone: Start: 02-15-2023 End: 02-15-2023 ambulatory Nery Mercado Other [facility] Other Start: 02-15-2023 Office outpatient vi sit 15 minutes Nery Mercado [facility] Start: 02-06-2023 End: 02-06-2023 ambulatory MD Louie Moreno Work Phone: [facility] Work Phone: Start: 02-06-2023 End: 02-06-2023 Patient encounter procedure MD Louie Moreno Work Phone: [facility] [address] Work Phone: Start: 01-15-2023 Office outpatient ne w 45 minutes Nery Mercado [facility] Start: 01-15-2023 End: 01-15-2023 ambulatory MD Louie Moreno Work Phone: [facility] Work Phone: Start: 01-15-2023 End: 01-15-2023 Patient encounter procedure MD Louie Moreno Work Phone: [facility] Work Phone: Start: 12-26-2022 End: 12-26-2022 ambulatory MD Louie Moreno Work Phone: [facility] Work Phone: Start: 12-26-2022 End: 12-26-2022 Patient encounter procedure MD Louie Moreno Work Phone: [facility] Work Phone: Start: 12-12-2022 Registered Recurring MD Louie Moreno Work Phone: [facility] Work Phone: Start: 11-22-2022 End: 11-22-2022 ambulatory MD Louie Moreno Work Phone: [facility] Work Phone: Start: 11-22-2022 End: 11-22-2022 Patient encounter procedure MD Louie Moreno Work Phone: [facility] Work Phone: Start: 09-28-[address] LOUIE MORENO Facil ity:H1 Start: 09-05-2022 Registered Recurring MD Louie Moreno Work Phone: [facility] Work Phone: Start: 08-29-2022 End: 08-29-2022 ambulatory MD Louie Moreno Work Phone: [facility] Work Phone: Start: 08-29-2022 End: 08-29-2022 Patient encounter procedure MD Louie Moreno Work Phone: [facility] [address] Work Phone: Start: 06-13-2022 Registered Recurring MD Louie Moreno Work Phone: [facility] Work Phone: Start: [...] Moreno Work Phone: Start: 08-29-2022 Plain chest X-vanessa Moreno Work Phone: Start: 08-29-2022 Plain X-ray of bilat eral hands MD Louie Moreno Work Phone: Start: 08-29-2022 X-ray of both knees MD Louie Moreno Work Phone: Start: 08-29-2022 X-ray of cervical spine MD Louie Moreno Work Phone: Start: 12-27-2015 Colonoscopy Louie villagran MD Work Phone: Plan of Treatment Date Care Activity Detail Author Start: 10-08-2026 Glaucoma screening Diabetes: R etinopathy Screening [facility] Start: 01-14-2026 Urine screening for protein Diabetes: Urine Protein Screening [facility] Start: 12-26-2025 Screening for malign ant neoplasm of colon [facility] Start: 11-05-2025 Screening for malign ant neoplasm of breast Mammogram [facility] Start: 10-27-2025 Influenza vaccination Influenza Vacc ine (#1) [facility] Comment on above: Postponed from 12/29 (Patient Refused) Start: 09-17-2025 Medicare Annual Well ness (AWV) Medicare Annual Wellness (AWV) [facility] Start: 07-14-2025 Hemoglobin A1c measurement Margarita betes: Hemoglobin A1C [facility] Start: 05-26-2025 End: 05-26-2025 Patient encounter procedure 05/26/2025 2:00 PM EST [facility] [address] [facility] [address] [place] [address] Louie Moreno MD [address] [facility] [address] [place] [address] [facility] Start: 04-24-2025 End: 11-25-2025 T3, reverse T3, reverse Lab Routine Chronic fatigue Expected: 04/24/2025 (Approximate), Expires: 11/25/2025 [facility] Comment on above: Expected: 04/24/2025 (Approximate), Expires: 11/25/2025 Start: 04-24-2025 End: 11-25-2025 Thyrotropin [Units/volume] in Serum or Plasma TSH Lab Routine Chronic fatigue Expected: 04/24/2025 (Approximate), Expires: 11/25/2025 [facility] Comment on above: Expected: 04/24/2025 (Approximate), Expires: 11/25/2025 Start: 04-24-2025 End: 11-25-2025 Thyroxine (T4) free [Mass/volume] in Serum or Plasma T4, free Lab Routine Chronic fatigue Expected: 04/24/2025 (Approximate), Expires: 11/25/2025 [facility] Comment on above: Expected: 04/24/2025 (Approximate), Expires: 11/25/2025 Start: 04-24-2025 End: 11-25-2025 Triiodothyronine (T3) [Mass/volume] in Serum or Plasma T3 Lab Routine Chronic fatigue Expected: 04/24/2025 (Approximate), Expires: 11/25/2025 [facility] Work Phone: Comment on above: Expected: 04/24/2025 (Approximate), Expires: 11/25/2025 Start: 04-24-2025 End: 11-25-2025 Triiodothyronine (T3) Free [Mass/volume] in Serum or Plasma T3, free Lab Routine Chronic fatigue Expected: 04/24/2025 (Approximate), Expires: 11/25/2025 [facility] Comment on above: Expected: 04/24/2025 (Approximate), Expires: 11/25/2025 Start: 03-16-2025 Glaucoma screening Diabetes: R etinopathy Screening [facility] Start: 03-04-2025 End: 03-04-2025 Patient encounter procedure 03/04/2025 11:00 AM EST Office Visit [facility] [address] [place] [address] Nery Mercado, [employer] OPERATOR-COMMAND AND CONTROL OFFICER [address] [place] [address] [facility] Start: 01-28-2025 End: 01-28-2025 Patient encounter procedure 01/28/2025 2:15 PM EDT Office Visit [facility] [address] [place] [id number] Jesse Tobias DPM [address] [place] [address] [facility] Start: 01-26-2025 End: 01-26-2025 Patient encounter procedure 01/26/2025 2:30 PM EDT [facility] [address] [place] [address] Jesse Tobias DPM [address] [place], [place] [id number] [facility] Start: 01-21-2025 End: 01-21-2025 Patient encounter procedure [facility] Comment on above: Primary hypertension ; Microalbuminuria; Type 2 diabetes mellitus with stage 2 chronic kidney disease, without long-term current use of insulin (HCC); Type 2 diabetes mellitus with microalbuminuria, without long-term current use of insulin (HCC); Mixed hyperlipidemia ; Hypokalemia; Hypercalcemia; Polypharmacy; Non morbid obesity due to excess calories Start: 01-16-2025 Hemoglobin A1c measurement Margarita betes: Hemoglobin A1C [facility] Start: 01-14-2025 End: 01-14-2025 [facility] Comment on above: Encounter for examin ation following treatment at hospital; Allergic reaction, subsequent encounter Start: 01-13-2025 End: 01-13-2025 Patient encounter procedure [facility] Start: 01-07-2025 End: 01-07-2025 Patient encounter procedure [facility] Comment on above: Arrived Start: 12-29-2024 Influenza vaccination Influenza Vacc ine (#1) [facility] Start: 11-26-2024 End: 11-26-2025 MR Brain WO and W contrast IV MR brain w and wo contrast routine Imaging Routine Trigeminal neuralgia of right side of face Expected: 11/26/2024, Expires: 11/26/2025 [facility] Work Phone: Comment on above: Expected: 11/26/2024 , Expires: 11/26/2025 Start: 11-26-2024 End: 11-26-2024 Patient encounter procedure [facility] Start: 11-25-2024 End: 11-25-2024 Patient encounter procedure 11/25/2024 9:00 AM EDT Office Visit [facility] Family [facility] [address] [place] [address] Louie Moreno MD [address] [place] [address] Euthyroid sick syndrome; Acquired hypothyroidism ; Chronic fatigue; Polypharmacy; Non morbid obesity due to excess calories [facility] Comment on above: Euthyroid sick syndr ome; Acquired hypothyroidism ; Chronic fatigue; Polypharmacy; Non morbid obesity due to excess calories Start: 09-29-2024 End: 09-29-2024 Patient encounter procedure 09/29/2024 3:00 PM EDT Office Visit [facility] [address] [place] [address] Louie Moreno MD [address] [place] [address] (Fax) [facility] Start: 09-25-2024 End: 09-25-2024 Patient encounter procedure 09/25/2024 8:30 AM EDT Office Visit [facility] [address] [place] [address] Louie Moreno MD [address] [place] [address] (Fax) [facility] Start: 09-17-2024 End: 11-17-2025 DBT Breast - bilateral screening Bilateral screening mammogram with tomosynthesis Imaging Routine Screening mammogram, encounter for Expected: 09/17/2024, Expires: 11/17/2025 [facility] Work Phone: Comment on above: Expected: 09/17/2024 , Expires: 11/17/2025 Start: 09-17-2024 End: 09-17-2025 DXA Skeletal system Views for bone density DEXA bone density Imaging Routine Screening for osteoporosis Menopause Expected: 09/17/2024, Expires: 09/17/2025 [facility] Comment on above: Expected: 09/17/2024 , Expires: 09/17/2025 Start: 09-17-2024 Hemoglobin A1c measurement Margarita betes: Hemoglobin A1C [facility] Start: 09-17-2024 End: 03-20-2025 T3, reverse T3, reverse Lab Routine Chronic fatigue Expected: 09/17/2024 (Approximate), Expires: 03/20/2025 [facility] Comment on above: Expected: 09/17/2024 (Approximate), Expires: 03/20/2025 Start: 09-17-2024 End: 03-20-2025 Thyrotropin [Units/volume] in Serum or Plasma TSH Lab Routine Chronic fatigue Expected: 09/17/2024 (Approximate), Expires: 03/20/2025 [facility] Comment on above: Expected: 09/17/2024 (Approximate), Expires: 03/20/2025 Start: 09-17-2024 End: 03-20-2025 Thyroxine (T4) free [Mass/volume] in Serum or Plasma T4, free Lab Routine Chronic fatigue Expected: 09/17/2024 (Approximate), Expires: 03/20/2025 [facility] Comment on above: Expected: 09/17/2024 (Approximate), Expires: 03/20/2025 Start: 09-17-2024 End: 03-20-2025 Triiodothyronine (T3) [Mass/volume] in Serum or Plasma T3 Lab Routine Chronic fatigue Expected: 09/17/2024 (Approximate), Expires: 03/20/2025 [facility] Work Phone: Comment on above: Expected: 09/17/2024 (Approximate), Expires: 03/20/2025 Start: 09-17-2024 End: 03-20-2025 Triiodothyronine (T3) Free [Mass/volume] in Serum or Plasma T3, free Lab Routine Chronic fatigue Expected: 09/17/2024 (Approximate), Expires: 03/20/2025 [facility] Comment on above: Expected: 09/17/2024 (Approximate), Expires: 03/20/2025 Start: 09-17-2024 End: 09-17-2024 Patient encounter procedure 09/17/2024 11:00 AM EDT Office Visit [facility] [address] [place] [address] Louie Moreno MD [address] [place] [address] Encounter for Medicare annual wellness exam; Advance directive discussed with patient; Encounter for screening for other disorder; Screening for alcohol problem; Polypharmacy [facility] Comment on above: [facility]; Advance directive discussed with [...] DERM [address] [place] [id number] Laverne Barlow MD [address] [place] [address] [facility] Start: 07-03-2024 Medicare Annual Well ness (AWV) Medicare Annual Wellness (AWV) [facility] Start: 04-02-2024 End: 04-02-2025 Hemoglobin A1c/Hemoglobin.total in Blood Hemoglobin A1c Lab Routine Type 2 diabetes mellitus with stage 2 chronic kidney disease, without long-term current use of insulin ([facility]) Expected: 04/02/2024 (Approximate), Expires: 04/02/2025 [facility] Work Phone: Comment on above: Expected: 04/02/2024 (Approximate), Expires: 04/02/2025 Start: 04-02-2024 End: 04-02-2024 Patient encounter procedure [facility] Comment on above: Benign essential hyp ertension ([facility]/HCC); Mixed hyperlipidemia ([facility]/HCC); Hypercalcemia; Hypokalemia; Type 2 diabetes mellitus with microalbuminuria, without long-term current use of insulin ([facility]/HCC); Type 2 diabetes mellitus with stage 2 chronic kidney disease, without long-term current use of insulin ([facility]); Polypharmacy; Non morbid obesity due to excess calories Start: 03-21-2024 Hemoglobin A1c measurement Margarita betes: Hemoglobin A1C [facility] Start: 03-20-2024 End: 03-20-2024 Patient encounter procedure [facility] Comment on above: Euthyroid sick syndr ome; Acquired hypothyroidism ([facility]); Chronic fatigue Start: 02-09-2024 Glaucoma screening Diabetes: R etinopathy Screening [facility] Start: 12-30-2023 Influenza vaccination Influenza Vacc ine (#1) [facility] Start: 12-20-2023 Hemoglobin A1c measurement Margarita betes: Hemoglobin A1C [facility] Start: 11-30-2023 Urine screening for protein Diabetes: Urine Protein Screening [facility] Start: 05-08-2023 Urine screening for protein Diabetes: Urine Protein Screening [facility] Start: 04-13-2023 Urine screening for protein Diabetes: Urine Protein Screening [facility] Start: 08-29-2022 Hepatitis B core ant ibody measurement [facility] Start: 08-29-2022 [facility] Start: 1955 Screening for malign ant neoplasm of colon [facility] Immunizations Immunization Date Immunization Notes Care Provider Fa cility 01-16-2024 influenza, seasonal, injectable Luoie Moreno MD Work Phone: [facility] 01-16-2024 influenza virus vacc ine, unspecified formulation Louie Moreno MD Work Phone: [facility] 02-27-2023 influenza, injectabl e, quadrivalent, preservative free Louie Moreno MD Work Phone: [facility] 02-27-2023 influenza virus vacc ine, unspecified formulation Louie Moreno MD Work Phone: [facility] 05-29-2022 zoster vaccine recombinant Louie Moreno MD Work Phone: [facility] 04-13-2022 Pneumococcal Conjuga te PCV 20 Louie Moreno MD Work Phone: [facility] 04-13-2022 tetanus toxoid, redu alma diphtheria toxoid, and acellular pertussis vaccine, adsorbed Louie Moreno MD Work Phone: [facility] 04-07-2022 influenza, high dose seasonal, preservative-free Louie Moreno MD Work Phone: [facility] 04-07-2022 Influenza, High-dose Seasonal, Quadrivalent, Preservative Free Louie Moreno MD Work Phone: [facility] 03-08-2021 influenza, injectabl e, quadrivalent, preservative free Louie Moreno MD Work Phone: [facility] 03-08-2021 Influenza, Seasonal, Quadrivalent, Adjuvanted Louie Moreno MD Work Phone: [facility] 07-11-2020 Pfizer Purple Cap SARS-CoV-2 Vaccination Louie Moreno MD Work Phone: [facility] 06-20-2020 Pfizer Purple Cap SARS-CoV-2 Vaccination Louie Moreno MD Work Phone: [facility] 12-29-2019 influenza, high dose seasonal, preservative-free Louie Moreno MD Work Phone: [facility] 12-29-2019 Influenza, High-dose Seasonal, Quadrivalent, Preservative Free Louie Moreno MD Work Phone: [facility] 12-28-2019 Influenza, High-dose Seasonal, Quadrivalent, Preservative Free Louie Moreno MD Work Phone: [facility] 03-12-2018 Influenza, injectabl e, Madin [place] Canine Kidney, preservative free, quadrivalent Louie Moreno MD Work Phone: [facility] 03-12-2018 influenza, injectabl e, quadrivalent, preservative free Louie Moreno MD Work Phone: [facility] Healthcare Payers Date Payer Category Payer Self-pay [id number] 2021 Private Health Insurance [employer] [id number] 2021 Unknown [employer] [id number] 2021-Present [address] [place] [address] [id number] 2019 Medicare [id number] 1959 Medicare [id number] 1959 Self-pay [id number] 1959 Unknown [id number] 1954 Unknown [id number] 2.16.840.1.467058.3.579.2. 593 1954 Unknown [id number] .16.840.1.603259.3.579.2. 593 1954 Unknown [id number] .16.840.1.758690.3.579.2. 593 1954 Unknown [id number] 2.16.840.1.131758.3.579.2. 593 1954 Unknown [id number] 2.16.840.1.930127.3.579.2. 1258 1954 Unknown [id number] 2.16.840.1.755197.3.579.2. 1258 1954 Unknown [id number] 2.16.840.1.134280.3.579.2. 1258 1954 Unknown [id number] 2.16.840.1.791552.3.579.2. 1258 1954 Unknown [id number] 2.16.840.1.895030.3.579.2. 1258 1954 Unknown [id number] 2.16.840.1.677908.3.579.2. 1258 1954 Unknown [id number] 2.16.840.1.445287.3.579.2. 1258 1954 Unknown [id number] 2.16.840.1.744525.3.579.2. 1258 1954 Unknown [id number] 2..840.1.488877.3.579.2. 1258 1954 Unknown [id number] 2.16.840.1.233464.3.579.2. 1258 1954 Unknown [id number] 2.16.840.1.306823.3.579.2. 1259 Unknown [facility] [id number] Unknown [id number] 2.16.840.1.175585.3.579.2. 531 Unknown [id number] 2.16.840.1.987233.3.579.2. 531 Unknown [id number] 2.16.840.1.447241.3.579.2. 531 Unknown [id number] 2.16.840.1.133104.3.579.2. 531 Unknown [id number] 2.16.840.1.941491.3.579.2. 531 Unknown [id number] 2.16.840.1.240589.3.579.2. 531 Unknown [id number] 2.16.840.1.766667.3.579.2. 531 Social History Date Type Detail Facility Start: 08-10-2020 End: 01-18-2023 Tobacco smoking status NHIS Never smoked tobacco (finding) [facility] Start: 1955 Sex Assigned At Female F [facility] Start: 10-09-2022 End: 11-25-2024 Sex Assigned At [facility] Start: 01-18-2023 Tobacco use and exposure Smoke less tobacco non-user [facility] Start: 10-03-2023 End: 01-14-2025 Alcoholic beverage intake Current drinker of alcohol [...] - these days [OSQ] Only a little [facility] (I/We) worried wheth er (my/our) food would run out before (I/we) got money to buy more. Never true [facility] Start: 09-27-2022 Education 21 [facility] Start: 1955 Sex assigned at Not on file [facility] Start: 05-16-2024 End: 10-06-2024 Sex Female (finding) [facility] Medical Equipment Procedure Code Equipment Code Equipment Origin al Text Equipment Identifier Dates Injection subcutaneous [id number] St art: 10-03-2023 End: 03-20-2024 Functional Status Date Assessment Result Facility 11-25-2024 Patient Health Quest ionnaire 2 item (PHQ-2) [Reported] [facility] 09-29-2024 Patient Health Quest ionnaire 2 item (PHQ-2) [Reported] [facility] 09-17-2024 Patient Health Quest ionnaire 2 item (PHQ-2) [Reported] [facility] Clinical Notes 01-15-2023 to 01-19-2025 Telephone Encounter - Eleanor Morgan - 01/19/2025 3:20 PM EDTTelephone Encounter - Eleanor Morgan - 01/19/2025 3:20 PM Bettie Moreno MD - 01/14/2025 10:00 AM EDT Note Date & Type Note Facility 01-19-2025 Telephone encount er Note Pt calling today and states [facility] does not have any Baclofen and will not have it until Iggy and the pt is completely out. Pt stated that the pharmacist told her that no one ijn the area has this medication and the pt does not know what to do [facility] [place] [facility] 01-19-2025 Miscellaneous Notes Formattin g of this note might be different from the original. Pt calling today and states [facility] does not have any Baclofen and will not have it until Sunday and the pt is completely out. Pt stated that the pharmacist told her that no one ijn the area has this medication and the pt does not know what to do [facility] [place] documented in this encounter [facility] 01-14-2025 History of Presen t illness Narrative Images from the original note were not included. Patient ID: Rocio Welsh is a 69 y.o. female who presents for: ER Follow up Allergic Reaction: Bacitracin Flowsheet Row Patient Outreach from 12/26/2024 in [facility] with Glendy Maldonado, RN Hospital Information ED, Hospital or Senior Living Facility Discharge? ED Patient has been contacted within 2 days of being seen in the ED Yes Diagnosis Allergic reaction, adverse reaction to Drug Discharge Date 12/25/24 Discharged To: Home Setting Discharge Hospital [facility] Engagement Call Start Time 101 Admission Date 12/25/24 Medications Discharge medications reviewed and reconciled from hospital? Not applicable Does the patient have all medications ordered at discharge? Not applicable Is the patient taking all medications as directed (includes completed medication regime)? Yes Appointments Does the patient have a primary care provider? Yes Nursing Interventions Patient declined follow up appointment w/ PCP Does the patient have any upcoming specialty appointments? Yes Nursing Interventions Advised patient to keep appointment Self Management Patient Teaching Does the patient have access to their discharge instructions? Yes What is the patient's perception of their health status since discharge? Improving Is the patient/caregiver able to teach back the hierarchy of who to call/visit for symptoms/problems? PCP, Specialist, Home Health nurse, Urgent Care, ED, 911 Yes Wrap Up Is the patient/caregiver familiar with Advance Care Planning? Yes Would the patient like more information on Advance Care Planning? No Wrap Up Additional Comments Pt reports she is feeling much better. No further issues. Call End Time 1015 Review of Systems Upon further discussion she had a multitude of symptomatology included lightheaded and feeling faint. She did ease herself to the floor but never lost consciousness. She called 911. By the time EMS got there she was fairly asymptomatic other than just feeling off and she went to the emergency room on her own. Reviewing the emergency room note they did not called us anaphylaxis they simply called it in the allergic reaction. Objective The patient is pleasant and in no acute distress The patient has good eye contact and clear speech 01/07/2025 10:37 AM 12/09/2024 11:00 AM 11/26/2024 8:06 AM 11/25/2024 8:53 AM Vitals BMI 30.99 kg/m2 30.99 kg/m2 30.11 kg/m2 BSA (m2) 2.01 m2 2.01 m2 2.08 m2 Systolic 122 121 182 Diastolic 78 63 97 Heart Rate 66 Height (in) 5' 6 5' 6 5' 8 Weight (lb) 192 192 198 Visit Report Report Report Report Allergies Allergen Reactions Bacitracin Anaphylaxis Benzalkonium Chloride Other Reaction(s): anaphylaxis Gramicidin Other Reaction(s): anaphylaxis Neomycin Other Reaction(s): anaphylaxis Penicillins Other Reaction(s): Syncope Polymyxin B Other Reaction(s): anaphylaxis Current Outpatient Medications on File Prior to Visit Medication Sig Dispense Refill atorvastatin (Lipitor) 20 MG tablet Take 1 tablet (20 mg) by mouth at bedtime 90 tablet 1 baclofen (Lioresal) 5 MG tablet Take 1 tablet (5 mg) by mouth in the morning and in the evening 60 tablet 11 dapagliflozin (Farxiga) 10 MG Take 1 tablet (10 mg) by mouth Daily 90 tablet 1 diazePAM (Valium) 5 MG tablet Take 1 tablet (5 mg) by mouth every 12 (twelve) hours if needed for anxiety for up to 1 day 2 tablet 0 diclofenac (Voltaren) 75 MG EC tablet Take 1 tablet (75 mg) by mouth in the morning and 1 tablet (75 mg) before bedtime. Do not crush, chew, or split. 180 tablet 1 Golimumab (SIMPONI SC) Inject [...] same time. OXcarbazepine (Trileptal) 300 MG tablet TAKE 2 TABLETS BY MOUTH IN THE MORNING and TAKE 3 TABLETS BY MOUTH IN THE EVENING 450 tablet 1 potassium chloride CR (Klor-Con M20) 20 MEQ ER tablet Take 1 tablet (20 mEq) by mouth Daily 90 tablet 1 SITagliptin-metFORMIN (Janumet) 50-1000 MG tablet Take 1 tablet by mouth in the morning and 1 tablet before bedtime. 180 tablet 1 terbinafine (LamISIL) 1 % cream Apply topically in the morning and before bedtime. 42 g 1 thiamine (Vitamin B-1) 100 MG tablet Take 1 tablet (100 mg) by mouth Daily 30 tablet 11 thyroid (ACTUARIAL CLERK Thyroid) 60 MG tablet Take 1 tablet (60 mg) by mouth 2 (two) times a day before meals 180 tablet 1 [DISCONTINUED] baclofen (Lioresal) 5 MG tablet Take 1 tablet (5 mg) by mouth in the morning and in the evening 60 tablet 11 No current facility-administered medications on file prior to visit. 1. Allergic reaction, subsequent encounter (Primary) We discussed and she could have had an allergic reaction to the bacitracin, it certainly a remote possibility but a possibility nonetheless she has not had any recurrences. We discussed how this was truly a medication side effect or basic allergic reaction and not true anaphylaxis. She had questions about EpiPen and we mutually agreed to not prescribe EpiPen at this time. She understands my recommendation would be to have at least 1 form and if not 2 forms of antihistamines available in in a couple of places around her home where they be quick access. 2. Encounter for examination following treatment at hospital This visit is prompted as a transition of care. The patient has been contacted by phone within 2 business days of discharge or at least 2 unsuccessful attempts were made to contact the patient within the 2 business days. Any available documents including; emergency room note, visit notes, consults, and discharge summary or continuity of care documents were reviewed. Any laboratory investigation or diagnostic imaging that was ordered by outside physicians and available was obtained and reviewed. The transition of care note is reviewed. a [id number] evaluation is done today. Medical decision making is complex in degree. Please Note: Portions of this chart may have been created using voice recognition software. Occasionally a wrong-word or sound-like substitutions may have occurred due to inherent limitations of the voice recognition software. Please read the chart carefully and recognize, using context, where the substitutions may have occurred. documented in this encounter [facility] 01-07-2025 History of Presen t illness Narrative Images from the original note were not included. CHIEF COMPLAINT REASON FOR VISIT : Patient is here for a follow up for trigeminal neuralgia and neuropathy. She states wants to go over MRI results and talk about going to the dentist. She is taking the baclofen 5 mg BID and the oxcarbazepine 300 mg BID. She states she does not have any pain left. She states that she does want to talk about the neuropathy she has in her feet, on the top from the front of ankle to the toes where it is numb. She states it keeps her up at night. There is no pain. Subjective Rocio Welsh is a 69 y.o. female who presents for Trigeminal Neuralgia and Neuropathy History of Present Illness The patient presents for trigeminal neuralgia and neuropathy in her feet. She reports an improvement in her facial condition, with no current pain. Her sleepiness has also improved, and she feels more like her usual self. She experiences neck tightness and a cracking sound when she turns her head. She describes a sensation of zaps that travel down her tongue and chin, occurring in a pattern of six at a time. These symptoms began in the fall of 2023 and progressively worsened. Initially, she was prescribed gabapentin, which did not alleviate her symptoms. A lower dose of Trileptal was then tried, which slightly reduced the symptoms but did not eliminate them. After a particularly severe episode, the dosage of Trileptal was increased, leading to significant improvement. She has a sufficient supply of Trileptal but is unsure about her baclofen stock. The introduction of baclofen into her treatment regimen has resulted in a decrease in the frequency and intensity of these zaps. She also mentions sensitivity in her teeth, which have always been somewhat sensitive, but recently she has started experiencing pain on one side. She continues to experience neuropathy in her feet daily. She uses a brace for support. MEDICATIONS CURRENT MEDS: Trileptal Baclofen PREVIOUS MEDS: Gabapentin Reason for Discontinuation: Did not touch the pain Trileptal Lower dose Reason for Discontinuation: Did not make the pain go away Review of Systems Const: Denies appetite change, [...] shall supersede the foregoing. Objective Blood pressure 122/78, height 5' 6 , weight 192 lb. Physical Exam Cranial Nerve Examination CN V: Facial sensation is intact bilaterally. Neck: Neck is tight with audible crunching on movement. Results Imaging - MRI of the posterior inferior cerebral artery: The artery is close to the nerve without displacing it. Assessment & Plan 1. Trigeminal neuralgia. The MRI results indicate that the posterior inferior cerebral artery is in close proximity to the nerve, but it does not appear to be causing any displacement or trauma. This suggests that surgical intervention may not be necessary at this time. The current medication regimen seems to be effectively managing her symptoms. A prescription for baclofen will be sent to [facility] in [place]. She is advised to continue with her routine dental care. If her symptoms worsen, she should contact the office immediately. 2. Neuropathy in feet. A prescription for thiamine B1 100 mg will be sent to her pharmacy, [facility], to see if it makes a difference in the numbness and tingling in her feet. 3. I will start the patient on thiamine (Vitamin B-1) 100 mg to be taken once daily to help with overall brain & nerve nutrition. 4. Trial on Low Dose Baclofen for the pain. Follow-up The patient will follow up in 8 weeks. This clinical note was created utilizing IID documentation system. All information has been thoroughly reviewed, corrected as necessary, and authenticated by the provider to ensure accuracy and completeness. On occasion, IID documentation system erroneously drops words or replaces a spoken word with a similar sounding word. Please notify with any questions or concerns regarding this clinical note. documented in this encounter [facility] 11-26-2024 History of Presen t illness Narrative [...] and 3 at night) and notify via [employer]. 2. I will obtain an MRI of the brain to assess for an intracranial process which may be contributing to the patient's symptoms including 3. Baclofen 5 mg po BID. 4. Trileptal 300 mg po BID. 5. I counseled the patient on the possible side effects and interactions of medications. 6. This clinical note was created utilizing IID documentation system. All information has been thoroughly reviewed, corrected as necessary, and authenticated by the provider to ensure accuracy and completeness. On occasion, [employer] ambient documentation system erroneously drops words or replaces a spoken word with a similar sounding word. Please notify with any questions or concerns regarding this clinical note. Follow-up The patient will follow up in 4 to 6 weeks. documented in this encounter [facility] 11-25-2024 History of Presen t illness Narrative [...] analytical performance characteristics have been determined by [address] [facility] [employer] [facility] [place]. It has not been cleared or [...] and before bedtime. 42 g 1 thyroid (ACTUARIAL CLERK Thyroid) 60 MG tablet Take 1 tablet [...] or if any problems occur. - thyroid (ACTUARIAL CLERK Thyroid) 60 MG tablet; Take 1 tablet [...] and all questions were answered. - thyroid (ACTUARIAL CLERK Thyroid) 60 MG tablet; Take 1 tablet (60 mg) by mouth 2 (two) times a day before meals Dispense: 180 tablet; Refill: 1 3. Chronic fatigue Chronic problem, stable, complex in nature with moderate decision making. I discussed with the patient or their customer response representative, their fatigue issues. We discussed how this [...] may have occurred. documented in this encounter [facility] 11-13-2024 History of Presen t illness Narrative [...] tablet before bedtime. 180 tablet 1 thyroid (ACTUARIAL CLERK Thyroid) 60 MG tablet Take 1 tablet [...] g; Refill: 1 documented in this encounter [facility] 10-06-2024 Evaluation note Diagnosis Onset Date Resolution Gastroenteritis acute October 06, 2024 3:00pm [facility] Work Phone: [phone] History of Present illness Narrative* Louie Moreno [...] tablet before bedtime. 180 tablet 1 thyroid (ACTUARIAL CLERK Thyroid) 60 MG tablet Take 1 tablet [...] of evaluation and management. [id number] History of Present illness Narrative* Louie Moreno [...] Yes Vision Screening: Yes, patient sees regular cook roast/hospice physician Hearing Screening: Not done Cognitive Screening Self Assessment: No concerns rasied by family members, friends, or caretakers HISTORIES: PAST MEDICAL HISTORY: Past Medical History: Diagnosis Date Allergic 1965 Arthritis Atrial fibrillation ([facility]) 2013 Benign neoplasm of parathyroid gland Bilateral posterior capsular opacification 10/10/2022 Carpal tunnel syndrome of right wrist 2014 Cerebral infarction due to embolism of cerebral artery ([facility]) 05/06/2020 Chronic low back pain Deformity of ankle and foot, acquired Diabetes mellitus ([facility]) Eczema 2021 Esophageal stricture GERD (gastroesophageal reflux disease) History of cardiac cath 2011 Hyperglycemia due to type 2 diabetes mellitus ([facility]) 01/04/2021 Hypertension ([facility]) Hypothyroid ([facility]) Insulin resistance Parathyroid adenoma Pre-diabetes Psoriasis Type 2 diabetes mellitus with hyperglycemia, without long-term current use of insulin ([facility]) Type 2 diabetes mellitus without complication, without [...] 1 tablet, Oral, 2 times daily thyroid (ACTUARIAL CLERK THYROID) 60 mg, Oral, 2 times daily [...] score (Nicole MAGAÑA, et al., 2019, 2020 [place] [employer]) returns the percentage [...] through a living will, durable power of city attorney for healthcare, or other advanced directives. We [...] lasted approximately 5-10 minutes documented in [facility] encounter[id number] History of Present illness Narrative* Louie Moreno [...] mg by mouth Daily as needed thyroid (ACTUARIAL CLERK Thyroid) 60 MG tablet Take 1 tablet [...] microalbuminuria, without long-term current use of insulin ([facility]) Chronic problem, unstable and not to goal. [...] Lifestyle changes as discussed documented in this encounterMer[facility] [id number] History of Present illness Narrative* Louie Moreno [...] to credit prescription drug management) - thyroid (ACTUARIAL CLERK Thyroid) 60 MG tablet; Take 1 tablet [...] or if any problems occur. - thyroid (ACTUARIAL CLERK Thyroid) 60 MG tablet; Take 1 tablet (60 mg) by mouth in the morning and 1 tablet (60mg) in the evening. Take before meals. Dispense: 180 tablet; Refill: 1 3. Chronic fatigue Chronic problem, stable, complex in nature with moderate decision making. I discussed with the patient and/or their customer response representative, their fatigue issues. We discussed how this [...] T4, free - TSH documented in this encounterMer[facility] [id number] Evaluation note* Encounter Date Diagnosis Assessment Notes Treatment Notes Treatment Clinical Notes Jan, Cervical pain (neck) (ICD-10 - M54.2) MRI Reviewed; discussed with Dr Troy WIll Continue with conservative therapy. 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 -Refer to Neruology [...] for screening for depression (ICD-10 - Z13.31) [employer] Other evaluation noteNo assessment information available [facility] Work Phone: Evaluation noteNo InformationNort [employer] Other evaluation note* Diagnosis Euthyroid sick syndrome [...] current use of insulin (CMS/HCC) Psoriatic arthritis (CMS/HCC) Psoriatic arthropathy Polypharmacy Issue of repeat prescriptions [...] hypertension (CMS/HCC) Unspecified essential hypertension Psoriatic arthritis (CMS/HCC) Psoriatic arthropathy Type 2 diabetes mellitus with stage 2 chronic kidney disease, without long-term current use of insulin (CMS/HCC) Type 2 diabetes mellitus with microalbuminuria, without long-term current use of insulin (CMS/HCC) Acquired hypothyroidism (CMS/HCC) Unspecified hypothyroidism Plaque psoriasis (CMS/HCC) Other psoriasis Mixed hyperlipidemia (CMS/HCC) Mixed hyperlipidemia Screening for osteoporosis Special screening [...] Diagnosis Trigeminal neuralgia of right side of face Encounter for examination following treatment at hospital Allergic reaction, subsequent encounter [facility] Diagnosis Allergic reaction, subsequent encounter- Primary Encounter for examination following treatment at hospital documented in this encounter [facility] HealthcareHistory general [...] tachycardia Hospitalization History see above surg hx. [employer] Other reason for referral (narrative)No reason for referral information availableOhiohealth [facility] Work Phone: Summary Purpose Family History Relationship Condition Age at Onset Recorded Date/T esequiel brother Hypertension Unknown father Unknown Heart disease Unknown Hypertension Unknown mother Heart disease Unknown Diabetes mellitus Unknown Unknown sister Diabetes mellitus Unknown Advance Directives Advance Directive Response Recorded Date/ Time Advance Directives No July 15 3:49pm Advance Directive Response Recorded Date/ Time Advance Directives No July 15 2:49pm Documents on File Type Date Recorded 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 Expl anation Power of Collar Separator 09/30/2024 8:42 AM 11-29 Power Of Collar Separator Documents on File Type Date Recorded 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 Expl anation Power of Collar Separator 09/30/2024 8:42 AM 11-29 Power Of Collar Separator Chief Complaint and Reason for Visit Chief [...] Diagnosis 1 Neck pain (M54.2) Referral Organization [facility] u[facility]urgery Referring Provider First Name Nery Referring Provider Last Name Jess Referring Provider Specialty Nurse Pract itioner Referred Organization [facility] Referred Address [address] [place] [phone] Referred Provider Specialty Neurology Referral Priority Routine Additional Source Comments INFORMATION SOURCE (unrecogn ized section and content) DATE CREATED AUTHOR 10/10/2021 [facility] dical Specialist DATE CREATED AUTHOR AUTHOR'S ORGANIZ ATION 05/09/2022 [facility] DATE CREATED AUTHOR AUTHOR'S ORGANIZ ATION 09/12/2024 [facility] DATE CREATED AUTHOR AUTHOR'S ORGANIZ ATION 12/25/[address] [facility] DATE CREATED AUTHOR AUTHOR'S ORGANIZ ATION 01/15/2025 [facility] dical Specialists EPIC Care Teams (unrecognized sec tion and content) Team Status: Active Member Role Status Dates Louie Moreno MD Primary Care Provider Active Team Status: Inactive Member Role Status Dates Louie Moreno MD Primary Care Provider Active Deborah Maza PA-C Attending Provider Active Team Status: Inactive Member Role Status Dates Louie Moreno MD Primary Care Provider Active Nery Mercado NP-C Attending Provider Active Team Status: Inactive Member Role Status Louie Moreno MD Primary Care Provider Active Jo Ann Bellamy ANP-BC Attending Provider Active Team Status: Active Member Role Status Dates Louie Moreno MD Primary Care Provider Active Raeann Smith ACTUARIAL CLERK-C Attending Provider Active Team Status: Inactive Member Role Status Louie Moreno MD Primary Care Provider Active Kobe Nur MD Attending Provider Active Team Status: Active Member Role Status Dates Louie Moreno MD Primary Care Provider Active Laverne Barlow MD Attending Provider Active Team Status: Inactive Member Role Status Louie Moreno MD Primary Care Provider, Attending Provider Active Supervisor Dried Ye[employer] Relationship Specialty Start Date End Date Louie Moreno MD [address] [place] [address] (Fax) PCP - ACO Reach 09/21/22 Louie Moreno MD [address] [place] [address] (Fax) PCP - General Family Medicine 10/04/22 Laverne Barlow MD [address] [place] [address] Referring Physician Dermatology 06/07/23 Christian Philippe MD [address] [place] [address] Dr [place] [id number] Referring Physician Podiatry 06/07/23 Kobe Nur MD [address] [place] [address] Referring Physician Rheumatology 06/07/23 Vincenzo Francois PT [address] [facility] [address] [place] [address] Physical Therapist Physical Therapy 06/07/23 Supervisor Dried Yeast Relationship Specialty Start Date End Date Louie Moreno MD [address] [place] [address] (Fax) PCP - ACO Reach 09/21/22 Louie Moreno MD [address] [place] [address] (Fax) PCP - General Family Medicine 10/04/22 Laverne Barlow MD [address] [facility] [place] [address] Referring Physician Dermatology 06/07/23 Christian Philippe MD [address] [place] [address] Dr [address]T [place], [place] [id number] Referring Physician Podiatry 06/07/23 Kobe Nur MD [address] [place] [address] Referring Physician Rheumatology 06/07/23 Vincenzo Francois PT [address] [address] Physical Therapist Physical Therapy 06/07/23 Supervisor Dried Yeast Relationship Specialty Start Date End Date Louie Moreno MD [address] [place] [address] (Fax) PCP - ACO Reach 09/21/22 Louie Moreno MD [address] [place] [address] (Fax) PCP - General Family Medicine 10/04/22 Laverne Barlow MD [address] [place] [address] Referring Physician Dermatology 06/07/23 Christian Philippe MD [address] [facility] [place] [address] Referring Physician Podiatry 06/07/23 Kobe Nur MD [address] [facility] [place] [address] Referring Physician Rheumatology 06/07/23 Vincenzo Francois PT [address] [address] Physical Therapist Physical Therapy 06/07/23 Supervisor Dried Yeast Relationship Specialty Start Date End Date Louie Moreno MD [address] [place] [address] PCP - ACO Reach 09/21/22 Louie Moreno MD [address] [place] [address] PCP - General Family Medicine 10/04/22 Laverne Barlow MD [address] [place] [address] Referring Physician Dermatology 06/07/23 Christian Philippe MD [address] [facility] [place] [address] Referring Physician Podiatry 06/07/23 Kobe Nur MD [address] [place] [address] Referring Physician Rheumatology 06/07/23 Vincenzo Francois, PT [address] [facility] [address] [place] [address] Physical Therapist Physical Therapy 06/07/23 Supervisor Dried Yeast Relationship Specialty Start Date End Date Louie Moreno MD [address] [place] [phone] (Fax) PCP - ACO Reach 09/21/22 Louie Moreno MD [address] [place] [phone] (Fax) PCP - General Family Medicine 10/04/22 Laverne Barlow MD [address] [place] [address] Referring Physician Dermatology 06/07/23 Christian Philippe MD [address] [place] [address] [place] [address] Referring Physician Podiatry 06/07/23 Kobe Nur MD [address] [place] [address] Referring Physician Rheumatology 06/07/23 Vincenzo Francois, PT [address] [address] Physical Therapist Physical Therapy 06/07/23 Supervisor Dried Yeast Relationship Specialty Start Date End Date Louie Moreno MD [address] [place] [address] (Fax) PCP - ACO Reach 09/21/22 Louie Moreno MD [address] [place] [address] PCP - General Family Medicine 10/04/22 Laverne Barlow MD [address] [place] [address] Referring Physician Dermatology 06/07/23 Christian Philippe MD [address] [facility] [place] [address] Referring Physician Podiatry 06/07/23 Kobe Nur MD [address] [place] [address] Referring Physician Rheumatology 06/07/23 Vincenzo Francois PT [address] [facility] [address] [place] [address] Physical Therapist Physical Therapy 06/07/23 Supervisor Dried Yeast Relationship Specialty Start Date End Date Louie Moreno MD [address] [place] [address] PCP - ACO Reach 09/21/22 Louie Moreno MD [address] [place] [address] (Fax) PCP - General Family Medicine 10/04/22 Laverne Barlow MD [address] [place] [address] Referring Physician Dermatology 06/07/23 Christian Philippe MD [address] [facility] [place] [address] Referring Physician Podiatry 06/07/23 Kobe Nur MD [address] [place] [address] Referring Physician Rheumatology 06/07/23 Vincenzo Francois PT [address] [facility] [address] [place] [address] Physical Therapist Physical Therapy 06/07/23 Team Status: [...] July 15, 2024 End: July 15, 2024 Supervisor Dried Yeast Relationship Specialty Start Date End Date Louie Moreno MD [address] [facility] [address] [place] [address] PCP - ACO Reach 09/21/22 Louie Moreno MD [address] [facility] [address] [place] [address] PCP - General Family Medicine 10/04/22 Laverne Barlow MD [address] [place] [address] Referring Physician Dermatology 06/07/23 Christian Philippe MD [address] [facility] [place] [address] Referring Physician Podiatry 06/07/23 Kobe Nur MD [address] [place] [address] Referring Physician Rheumatology 06/07/23 Vincenzo Francois, PT [address] [facility] [address] [place] [address] Physical Therapist Physical Therapy 06/07/23 Supervisor Dried Yeast Relationship Specialty Start Date End Date Louie Moreno MD [address] [place] [address] (Fax) PCP - ACO Reach 09/21/22 Louie Moreno MD [address] [place] [address] PCP - General Family Medicine 10/04/22 Laverne Barlow MD [address] [place] [address] Referring Physician Dermatology 06/07/23 Christian Philippe MD [address] [place] [address] [place] [address] Referring Physician Podiatry 06/07/23 Kobe Nur MD [address] [place] [address] Referring Physician Rheumatology 06/07/23 Vincenzo Francois, PT [address] [facility] [address] [place] [address] Physical Therapist Physical Therapy 06/07/23 Supervisor Dried Yeast Relationship Specialty Start Date End Date Louie Moreno MD [address] [place] [address] (Fax) PCP - ACO Reach 09/21/22 Louie Moreno MD [address] [place] [address] (Fax) PCP - General Family Medicine 10/04/22 Laverne Barlow MD [address] [place] [address] Referring Physician Dermatology 06/07/23 Christian Philippe MD [address] [place] [address] [place], [place] [phone] Referring Physician Podiatry 06/07/23 Kobe Nur MD [address] [place] [address] Referring Physician Rheumatology 06/07/23 Vincenzo Francois, PT [address] [facility] [place] [address] Physical Therapist Physical Therapy 06/07/23 Supervisor Dried Yeast Relationship Specialty Start Date End Date Louie Moreno MD [address] [place] [address] (Fax) PCP - ACO Reach 09/21/22 Louie Moreno MD [address] [place] [address] (Fax) PCP - General Family Medicine 10/04/22 Laverne Barlow MD [address] [place] [address] Referring Physician Dermatology 06/07/23 Christian Philippe MD [address] [place] [address] [place] [address] Referring Physician Podiatry 06/07/23 Kobe Nur MD [address] [place] [address] Referring Physician Rheumatology 06/07/23 Vincenzo Francois PT [address] [place] [address] Physical Therapist Physical Therapy 06/07/23 Team Status: [...] November 05, 2024 End: November 05, 2024 Supervisor Dried Yeast Relationship Specialty Start Date End Date Louie Moreno MD [address] [place] [address] (Fax) PCP - ACO Reach 09/21/22 Louie Moreno MD [address] [place] [address] (Fax) PCP - General Family Medicine 10/04/22 Laverne Barlow MD [address] [place] [address] Referring Physician Dermatology 06/07/23 Christian Philippe MD [address] [place] [address] Referring Physician Podiatry 06/07/23 Kobe Nur MD [address] [place] [address] Referring Physician Rheumatology 06/07/23 Vincenzo Francois, PT [address] [place] [address] Physical Therapist Physical Therapy 06/07/23 Supervisor Dried Yeast Relationship Specialty Start Date End Date Louie Moreno MD [address] [place] [address] PCP - ACO Reach 09/21/22 Louie Moreno MD [address] [place] [address] PCP - General Family Medicine 11/13/24 Laverne Barlow MD [address] [place] [address] Referring Physician Dermatology 06/07/23 Christian Philippe MD [address] [place], [id number] Referring Physician Podiatry 06/07/23 Kobe Nur MD [address] [place] [address] Referring Physician Rheumatology 06/07/23 Vincenzo Francois, PT [address] [place] [address] Physical Therapist Physical Therapy 06/07/23 Supervisor Dried Yeast Relationship Specialty Start Date End Date Louie Moreno MD [address] [place] [address] (Fax) PCP - ACO Reach 09/21/22 Louie Moreno MD [address] [place] [address] (Fax) PCP - General Family Medicine 11/13/24 Laverne Barlow MD [address] [place] [address] Referring Physician Dermatology 06/07/23 Christian Philippe MD [address] [facility] [place] [address] Referring Physician Podiatry 06/07/23 Kobe Nur MD [address] [facility] [place] [address] Referring Physician Rheumatology 06/07/23 Vincenzo Francois, PT [address] [facility] [address] [place] [address] Physical Therapist Physical Therapy 06/07/23 Supervisor Dried Yeast Relationship Specialty Start Date End Date Louie Moreno MD [address] [place] [address] (Fax) PCP - ACO Reach 09/21/22 Louie Moreno MD [address] [place] [address] (Fax) PCP - General Family Medicine 11/13/24 Laverne Barlow MD [address] [place] [address] Referring Physician Dermatology 06/07/23 Christian Philippe MD [address] [place] [address] Referring Physician Podiatry 06/07/23 Kobe Nur MD [address] [place] [address] Referring Physician Rheumatology 06/07/23 Vincenzo Francois, PT [address] [place] [address] Physical Therapist Physical Therapy 06/07/23 Supervisor Dried Yeast Relationship Specialty Start Date End Date Louie Moreno MD [address] [place] [address] PCP - ACO Reach 09/21/22 Louie Moreno MD [address] [place] [address] PCP - General Family Medicine 11/13/24 Laverne Barlow MD [address] [place] [address] Referring Physician Dermatology 06/07/23 Christian Philippe MD [address] [place] [address] Referring Physician Podiatry 06/07/23 Kobe Nur MD [address] [place] [address] Referring Physician Rheumatology 06/07/23 Vincenzo Francois, PT [address] [facility] [address] [place] [address] Physical Therapist Physical Therapy 06/07/23 Team Status: Inactive Member Role Status Dates Louie Moreno MD Primary Care Provider Active Start: December 09, 2024 End: December 09, 2024 Shelli Eng ACTUARIAL CLERK-C Attending Provider Active Start: December 09, 2024 End: December 09, 2024 Supervisor Dried Yeast Relationship Specialty Start Date End Date Louie Moreno MD [address] [place] [address] (Fax) PCP - ACO Reach 09/21/22 Louie Moreno MD [address] [place] [address] (Fax) PCP - General Family Medicine 11/13/24 Laverne Barlow MD [address] [place] [address] Referring Physician Dermatology 06/07/23 Christian Philippe MD [address] [facility] [address] [place], [id number] Referring Physician Podiatry 06/07/23 Kobe Nur MD [address] [facility] [place] [address] Referring Physician Rheumatology 06/07/23 Vincenzo Francois PT [address] [facility] [address] [place] [address] Physical Therapist Physical Therapy 06/07/23 Supervisor Dried Yeast Relationship Specialty Start Date End Date Louie Moreno MD [address] [place] [address] (Fax) PCP - ACO Reach 09/21/22 Louie Moreno MD [address] [place] [address] (Fax) PCP - General Family Medicine 11/13/24 Laverne Barlow MD [address] [place] [address] Referring Physician Dermatology 06/07/23 Christian Philippe MD [address] [place] [address] Referring Physician Podiatry 06/07/23 Kobe Nur MD [address] [place] [address] [address], [id number] Referring Physician Rheumatology 06/07/23 Vincenzo Francois, PT [address] [place] [address] Physical Therapist Physical Therapy 06/07/23 Supervisor Dried Yeast Relationship Specialty Start Date End Date Louie Moreno MD [address] [facility] [address] [place] [address] PCP - ACO Reach 09/21/22 Louie Moreno MD [address] [facility] [address] [place] [address] PCP - General Family Medicine 11/13/24 Laverne Barlow MD [address] [place] [address] Referring Physician Dermatology 06/07/23 Christian Philippe MD [address] [place] [address] Referring Physician Podiatry 06/07/23 Kobe Nur MD [address] [place] [address] Referring Physician Rheumatology 06/07/23 Vincenzo Francois, PT [address] [place] [address] Physical Therapist Physical Therapy 06/07/23 Supervisor Dried Yeast Relationship Specialty Start Date End Date Louie Moreno MD [address] [place] [address] (Fax) PCP - ACO Reach 09/21/22 Louie Moreno MD [address] [place] [address] (Fax) PCP - General Family Medicine 11/13/24 Laverne Barlow MD [address] [place] [address] Referring Physician Dermatology 06/07/23 Christian Pihlippe MD [address] [facility] [place] [address] Referring Physician Podiatry 06/07/23 Kobe Nur MD [address] [facility] [place] [address] Referring Physician Rheumatology 06/07/23 Vincenzo Francois, PT [address] [place] [address] Physical Therapist Physical Therapy 06/07/23 Supervisor Dried Yeast Relationship Specialty Start Date End Date Louie Moreno MD [address] [place] [address] (Fax) PCP - ACO Reach 09/21/22 Louie Moreno MD [address] [place] [address] (Fax) PCP - General Family Medicine 11/13/24 Laverne Barlow MD [address] [place] [address] Referring Physician Dermatology 06/07/23 Christian Philippe MD [address] [place] [address] Referring Physician Podiatry 06/07/23 Kobe Nur MD [address] [place] [address] [place], [id number] Referring Physician Rheumatology 06/07/23 Vincenzo Francois PT [address] [place] [address] Physical Therapist Physical Therapy 06/07/23 Supervisor Dried Yeast Relationship Specialty Start Date End Date Louie Moreno MD [address] [place] [address] PCP - ACO Reach 09/21/22 Louie Moreno MD [address] [place] [address] PCP - General Family Medicine 11/13/24 Laverne Barlow MD [address] [place] [address] Referring Physician Dermatology 06/07/23 Christian Philippe MD [address] [place] [address] Referring Physician Podiatry 06/07/23 Kobe Nur MD [address] [place] [address] Referring Physician Rheumatology 06/07/23 Alessandro Vincenzogabino Ramirez PT [address] [facility] [address] [place] [address] Physical Therapist Physical Therapy 06/07/23 Goals (unrecognized section and content) Goals may [...] Reason Comments Rash Reason Comments Trigeminal Neuralgia Reason Comments Trigeminal Neuralgia Neuropathy Reason Comments Follow-up FOR RECORDS PERTAINING TO PATIENTS WHO ARE [...] BE BASED ON THE PRIMARY CLINICAL RECORDS. [employer] provides no warranty or guarantee of the accuracy or completeness of information in this document.
--- NOTE | 2025-01-21 11:08 | XR_ITS ---
The [address] [address] Patient Name: PILAR ISLAS MRN: [id number] date: 1955 Sex: F Assigned Patient Location: LAB Current Patient Location: LAB Accession/Order Number: [id number] Exam Date: 01/21/2025 11:15 Report Date: 01/21/2025 12:40 At the request of: JOHNNY KLINE NP Procedure: XR chest 2V Chest 2 views CLINICAL HISTORY: Immunosuppression, Psoriatic Arthritis COMPARISON: None FINDINGS: Heart appears normal size. Lungs are clear. No free air. XR/XR chest 2V IMPRESSION: NO ACUTE CARDIOPULMONARY ABNORMALITY. Impression dictated by: Graeme Cheema Jr., D.O. 01/21/2025 12:40 PM Dictation Location: [place] [address] Electronically authenticated by: [id number] Y Date: 01/21/2025 12:40
== END 2025-01-21 10:29 | disposition home or self-care (01) ==
LOC: LAB 10:43
PROVIDERS: PCP Family Medicine; Visit Provider Nurse Practitioner Family
DX: Z79.899 Other long term (current) drug therapy (principal); D84.89 Other immunodeficiencies; L40.51 Distal interphalangeal psoriatic arthropathy
CPT/HCPCS: 36415; 71046; 86317; 86480; 86704; 86803; 87340